=== PATIENT | male | born 1940 | race Caucasian/White ===

== ENCOUNTER 2021-08-28 08:51 | Outpatient (CLI) | payer MEDICARE, BC, SELFPAY ==
[2021-08-28 11:20] LABS: Albumin* 4.3 g/dL (3.3-5.0); Chloride* 100 mmol/L (96-114)
[2021-08-28 11:21] LABS: Potassium* 4.2 mmol/L (3.6-5.1); Sodium* 132 mmol/L (135-149)
[2021-08-28 11:23] LABS: Alkaline Phosphatase* 65 U/L (40-150); Aspartate Amino Transferase* 35 U/L (12-35); Bilirubin Total* 0.6 mg/dL (0.1-1.5); Blood Urea Nitrogen* 12 mg/dL (7-30); Carbon Dioxide* 28 mmol/L (20-32); Cholesterol* 222 mg/dL (90-199); Creatinine* 0.6 mg/dL (0.5-1.5); Estimated Glomerular Filt Rate 96 ml/min; Total Protein* 6.9 g/dL (6.0-8.3)
[2021-08-28 11:24] LABS: Alanine Aminotransferase* 21 U/L (4-50); Calcium* 9.6 mg/dL (8.4-10.6); Glucose* 103 mg/dL (60-115); HDL Cholesterol* 81 mg/dL (>=40); LDL Cholesterol Calculated 124 mg/dL (<100); Triglycerides* 86 mg/dL (40-149)
== END 2021-08-28 08:52 | disposition home or self-care (01) ==
LOC: NFLDREF 08:52
PROVIDERS: PCP Family Medicine; Visit Provider Family Medicine
DX: Z00.00 Encounter for general adult medical examination without abnormal findings (principal); R03.0 Elevated blood-pressure reading, without diagnosis of hypertension; N52.9 Male erectile dysfunction, unspecified; R97.20 Elevated prostate specific antigen [PSA]; H61.20 Impacted cerumen, unspecified ear; Z13.6 Encounter for screening for cardiovascular disorders
CPT/HCPCS: 80053; 80061; 84153

== ENCOUNTER 2022-05-18 15:09 | Outpatient (CLI) | payer MEDICARE, BC, SELFPAY | END 2022-05-18 15:10 | disposition home or self-care (01) | PROVIDERS: PCP Family Medicine; Visit Provider Family Medicine | DX: I10 Essential (primary) hypertension (principal); R97.20 Elevated prostate specific antigen [PSA] | CPT/HCPCS: 80048; 84153 ==

== ENCOUNTER 2022-05-27 08:15 | Outpatient (CLI) | payer MEDICARE, BC, SELFPAY | END 2022-05-27 08:16 | disposition home or self-care (01) | LOC: NFLDREF 05-29 08:03 | PROVIDERS: PCP Family Medicine; Referring Provider Family Medicine; Visit Provider Family Medicine | DX: E87.1 Hypo-osmolality and hyponatremia (principal) | CPT/HCPCS: 80048 ==

== ENCOUNTER 2022-10-08 07:50 | Outpatient (CLI) | payer MEDICARE, BC, SELFPAY | END 2022-10-08 07:51 | disposition home or self-care (01) | LOC: NFLDREF 15:08 | PROVIDERS: PCP Family Medicine; Referring Provider Family Medicine; Visit Provider Family Medicine | DX: I10 Essential (primary) hypertension (principal); R97.20 Elevated prostate specific antigen [PSA]; Z13.6 Encounter for screening for cardiovascular disorders; Z12.5 Encounter for screening for malignant neoplasm of prostate | CPT/HCPCS: 80053; 80061; 84153 ==

== ENCOUNTER 2022-11-09 08:40 | Outpatient (CLI) | payer MEDICARE, BC, SELFPAY | END 2022-11-09 08:41 | disposition home or self-care (01) | PROVIDERS: PCP Family Medicine; Visit Provider Family Medicine | DX: Z01.818 Encounter for other preprocedural examination (principal); I10 Essential (primary) hypertension; R97.20 Elevated prostate specific antigen [PSA]; N52.9 Male erectile dysfunction, unspecified; R82.90 Unspecified abnormal findings in urine | CPT/HCPCS: 80048; 87086 ==

== ENCOUNTER 2023-01-06 08:02 | Outpatient (CLI) | payer MEDICARE, BC, SELFPAY ==
--- NOTE | 2023-01-06 08:00 | CRLHL7_ITS ---
For Patients: As a result of the Century Cures Act, medical imaging exams and procedure reports are released immediately into your electronic medical record. You may view this report before your referring provider. If you have questions, please contact your health care provider. INDICATION: Prostate cancer. TECHNIQUE: 24.7 millicuries of technetium-99m labeled MDP has been given intravenously. Three hour delayed whole-body bone scan images have been performed. COMPARISON: CT dated 01/06/2023. FINDINGS: There is increased activity in the lower lumbar spine. This likely corresponds to the area of degenerative change. This is greatest at the L4-5 level. Mild asymmetric sternoclavicular activity on the left is noted. Bilateral foot activity is noted which is likely degenerative. There is bilateral function from both kidneys. IMPRESSION: No convincing evidence for skeletal metastases. Areas of increased activity in the lower lumbar spine are noted which are likely degenerative. Dictated by Edson Corona MD @ 01/07/2023 2:47:55 PM (Electronically Signed)
[2023-01-06 08:45] LABS: Creatinine* 0.6 mg/dL (0.5-1.5); Estimated Glomerular Filt Rate 96 ml/min
--- NOTE | 2023-01-06 09:00 | CRLHL7_ITS ---
For Patients: As a result of the Century Cures Act, medical imaging exams and procedure reports are released immediately into your electronic medical record. You may view this report before your referring provider. If you have questions, please contact your health care provider. INDICATION: Primary malignant neoplasm of prostate. TECHNIQUE: CT abdomen and pelvis acquired with 58 cc Isovue 370 IV contrast. COMPARISON: None. FINDINGS: Lower chest: Unremarkable. Liver: Unremarkable. Normal in size and attenuation. No suspicious masses. Gallbladder and bile ducts: Unremarkable. No stones or inflammation. No biliary dilatation. Pancreas: Unremarkable. No mass or inflammation. Spleen: Unremarkable. Normal in size. No masses. Adrenal glands: Unremarkable. No nodules. Kidneys: A nonobstructive stone and a benign-appearing cyst are in the right kidney. Kidneys otherwise unremarkable. GI tract: Unremarkable. Normal in caliber. No sign of mass or inflammation. Normal appendix. Vasculature: Abdominal aorta is normal in caliber. Mesenteric arteries are patent. Lymph nodes: No lymphadenopathy. Peritoneum/Abdominal Wall: Unremarkable. No sign of mass or infiltration. No free air or significant free fluid. Pelvis: Moderate prostatomegaly. Pelvic structures otherwise unremarkable. Bones: Unremarkable for age. IMPRESSION: No signs of metastatic prostate cancer or other significant finding. Please note that all CT scans at this facility use dose modulation, iterative reconstruction, and/or weight-based dosing when appropriate to reduce radiation dose to as low as reasonably achievable. Dictated by James Ghosh MD @ 01/07/2023 10:45:45 AM (Electronically Signed)
[2023-01-08 10:06] LABS: Testosterone, Adult Male 719 ng/dL (300-720)
== END 2023-01-06 08:03 | disposition home or self-care (01) ==
PROVIDERS: PCP Family Medicine; Visit Provider Nurse Practitioner
DX: C61 Malignant neoplasm of prostate (principal)
CPT/HCPCS: 36415; 74177; 78306; 82565; 84153; 84403; A9503; Q9967

== ENCOUNTER 2023-02-01 10:09 | Outpatient (CLI) | payer MEDICARE, BC, SELFPAY ==
--- NOTE | 2023-01-20 13:24 | ONC.NURNOTE ---
Dx: Prostate cancer
== END 2023-02-01 10:10 | disposition home or self-care (01) ==
LOC: MRI 10:10
PROVIDERS: PCP Family Medicine; Visit Provider Internal Medicine
DX: C61 Malignant neoplasm of prostate (principal)
CPT/HCPCS: 72195

== ENCOUNTER 2023-02-03 16:12 | Emergency (ER) | payer MEDICARE, BC, SELFPAY ==
[2023-02-03 16:25] VITALS: BP 191/87; PULSE 72; RESP 18; TEMP 36.3; O2SAT 98; BMI 19.4
--- NOTE | 2023-02-03 17:11 | ED_ITS ---
HPI - General Adult General Date Seen: 02/03/23 Chief complaint: Hypertension Stated complaint: bp 202/110 Dr Nelson ref Time Seen by Provider: 02/03/23 16:39 Source: patient Mode of arrival: ambulatory Limitations: no limitations History of Present Illness HPI narrative: Patient is an 82-year-old male with a history of hypertension, prostate adenocarcinoma presenting to the emergency department for hypertension and dizziness. He states today around noon he noticed he was dizzy and felt like the room was spinning. States he laid down and by about 15:00 symptoms have resolved. His made him check his blood pressure and he says it was 202/100. He spoke to his primary care provider who recommended he come to emergency department for evaluation. He is no longer feeling dizzy and does note that the symptoms were worse when he would move his head. Has never had symptoms like this before. States he does have prostate cancer in his getting prepared to is start radiation treatment on it. Has had full imaging and they have not seen any signs of metastatic disease. Denies any back pain. States that this time he feels asymptomatic. Denies fevers, chills, chest pain, sh ortness of breath, headache, lightheadedness, abdominal pain, nausea/vomiting. Related Data Home Medications Medication Instructions Recorded Confirmed ascorbic acid (vitamin C) 500 mg 500 mg PO DAILY 09/02/21 01/28/23 tablet,extended release multivitamin 1 tab PO QDAY 09/02/21 01/28/23 bicalutamide 50 mg tablet 50 mg PO BID 01/28/23 01/28/23 Previous Rx's Medication Instructions Recorded lisinopril 10 mg tablet 10 mg PO QDAY #90 tabs 10/13/22 rosuvastatin 5 mg tablet 5 mg PO QDAY #90 tabs 11/03/22 Allergies Allergy/AdvReac Type Severity Reaction Status Date / Time No Known Drug Allergies Allergy Verified 02/03/23 16:32 Review of Systems Status of ROS: Reports: 10 or more systems reviewed and unremarkable except as noted in History and below [facility] Medical History Health care directive on file ?Z78.9 - Other specified health status (ICD-10) COVID-19 ?U07.1 - COVID-19 (ICD-10) Peyronie's disease ?N48.6 - Induration penis plastica (ICD-10) Hypertension ?I10 - Essential (primary) hypertension (ICD-10) Hearing loss ?H91.90 - Unspecified hearing loss, unspecified ear (ICD-10) Erectile dysfunction ?N52.9 - Male erectile dysfunction, unspecified (ICD-10) Elevated prostate specific antigen (PSA) ?R97.20 - Elevated prostate specific antigen [PSA] (ICD-10) Colonoscopy refused ?Z53.20 - Procedure and treatment not carried out because of patient's decision for unspecified reasons (ICD-10) Surgical History Hx of prostate biopsy (06/2022) ?Z98.890 - Other specified postprocedural states (ICD-10) History of laparotomy (2004) ?Z98.890 - Other specified postprocedural states (ICD-10) History of vasectomy (2017) ?Z98.52 - Vasectomy status (ICD-10) History of bilateral inguinal hernia repair (2002) ?Z98.890 - Other specified postprocedural states (ICD-10) ?Z87.19 - Personal history of other diseases of the digestive system (ICD-10) Family History Father Alcoholism Daughter Alcoholism Son Epilepsy Mother High blood pressure Coronary artery disease, Onset Age: 70 Social History Narrative: , 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, 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, lives in does not drink alcohol exercises regularly- walks 2 miles daily non-smoker - quit age 23, 6 pack years What is your current living situation?: I presently have a place to live In the past 12 months, utilities in danger of being shut off: no In past 12 months, lack of transportation kept you from medical appts, meetings, work, or getting things needed for daily living: no In the past 12 mos, have been you worried that your food would run out before you had money to buy more?: never true In the past 12 mos, the food you bought just didn't last and you didn't have money to buy more?: never true Smoking Status: Never smoker How often do you have a drink containing alcohol: never How often do you have six or more drinks on one occasion: Never AUDIT-C Alcohol total score: 0 Non-prescribed substance use: denies use How often does anyone, including family, friends and others, physically hurt you : never How often does anyone, including family, friends and others, insult or talk down to you: never How often does anyone, including family, friends and others, threaten you with harm: never How often does anyone, including family, friends and others, scream or curse at you: never Little interest or pleasure in doing things: nearly every day Feeling down, depressed, or hopeless: not at all service: No Exam Narrative: Exam Narrative: Const: Well-nourished, Well-developed, in no distress Eyes: PERRL, no conjunctival injection, and symmetrical lids HENT: Atraumatic external nose and ears. Moist mucous membranes. Neck: Symmetric, trachea midline, No thyromegaly. CVS: RRR, No murmurs or gallops. Peripheral pulses 2+ and equal in all extremities RESP: Unlabored respiratory effort. Clear to auscultation bilaterally. GI: Nontender/Nondistended, No rebound or guarding. MSK:Extremities w/o deformity, Normal Active ROM Skin: Warm, Dry. No rashes or lesions. Neuro: Normal Muscle tone, No focal neurological deficits. Psych: Awake, Alert, & Oriented x3. Appropriate mood and affect. Const: Vital Signs, click to edit/add: Vital Signs - 24 hr 02/03/23 16:25 02/03/23 18:09 02/03/23 18:10 Temperature 97.4 F L Pulse Rate 61 58 L Pulse Rate [Pulse Oximeter] 72 Respiratory Rate 18 Blood Pressure 153/84 H Blood Pressure [Ri ght Upper Arm] 191/87 H Pulse Oximetry 98 97 100 Oxygen Delivery Me thod Room Air Course Vital Signs Vital signs: Initial Vital Signs Temperature 97.4 F L 02/03/23 16:25 Temperature Source Temporal Artery Scan 02/03/23 16:25 Pulse Rate 72 02/03/23 16:25 Respiratory Rate 18 02/03/23 16:25 Blood Pressure 191/87 H 02/03/23 16:25 Blood Pressure Mean 121 H 02/03/23 16:25 Pulse Oximetry 98 02/03/23 16:25 Oxygen Delivery Method Room Air 02/03/23 16:25 Vital Signs Temperature 97.4 F L 02/03/23 16:25 Pulse Rate 72 02/03/23 16:25 Respiratory Rate 18 02/03/23 16:25 Blood Pressure 191/87 H 02/03/23 16:25 Pulse Oximetry 98 02/03/23 16:25 Oxygen Delivery Method Room Air 02/03/23 16:25 Temperature 97.4 F L 02/03/23 16:25 Pulse Rate 58 L 02/03/23 18:10 Respiratory Rate 18 02/03/23 16:25 Blood Pressure 153/84 H 02/03/23 18:10 Pulse Oximetry 100 02/03/23 18:10 Oxygen Delivery Method Room Air 02/03/23 16:25 Medications Administered Medications: Generic Name Dose Route Start Last Admin Trade Name Freq PRN Reason Stop Dose Admin Sodium Chloride 1,000 mls @ 1,000 mls/hr 02/03/23 18:15 02/03/23 18:16 0.9 % Sodium Chloride 1000 Ml IV 02/03/23 19:14 1,000 mls/hr .Q1H TYESHA Administration Medical Decision Making MDM Narrative Medical decision making narrative: Patient is an 82-year-old male presenting to the emergency department for hypertension and dizziness. The dizziness is described as room spinning and worse when he moved his head. It resolved after 3 hours. He checked his blood pressure after that and was quite elevated so because primary care provider recommended he come to the emergency department. He is asymptomatic at this time and he did take his blood pressure medication after he is elevated blood pressure check. Blood pressure is improving here in the emergency department. Symptoms appear to be vertigo in nature based on symptoms. He does have a history of prostate cancer but has recently had multiple scans showing no metastatic disease and I do not believe is necessary to recheck him. He is asymptomatic in the emergency department this time. Will do any ACS workup. CBC, CMP, COVID/flu/RSV, troponin, urinalysis shows no concerning findings. This sodium and chloride is low low but I do not believe this is causing his symptoms. He has no history of hyponatremia I did give him a L of normal saline. He continues to stay asymptomatic with normal vitals throughout his time in the emergency department. I will discharge him home informed him and his to have a close follow-up to recheck his sodium. They are agreeable to this plan. Lab Data Labs: Lab Results 02/03/23 02/03/23 Range/Units 17:30 17:35 WBC 5.68 (4.50-11.00) K/uL RBC 4.78 (4.30-5.90) m/uL Hgb 14.4 (13.5-17.5) gm/dL Hct 43.3 (37.0-53.0) % MCV 91 (80-100) fL MCH 30 (26-34) pg MCHC 33 (32-36) gm/dL RDW Coeff of Tatiana 12.9 (11.5-15.5) % Plt Count 206 (140-440) K/uL Neut % (Auto) 62.1 (42.0-72.0) % Lymph % (Auto) 24.6 (20-44) % [place] % (Auto) 9.2 (0.0-11.0) % Eos % (Auto) 3.0 (0.0-7.0) % Baso % (Auto) 0.9 (0.0-3.0) % Neut # (Auto) 3.53 (1.7-7.0) K/uL Lymph # (Auto) 1.40 (0.90-2.90) K/uL [place] # (Auto) 0.50 (0.00-0.90) K/UL Eos # (Auto) 0.17 (0.00-0.50) K/uL Baso # (Auto) 0.05 (0.00-0.30) K/uL Abs Immat Gran (auto) 0.01 (0.00-0.30) K/uL Imm/Tot Granulo (auto) 0.2 % Sodium 128 L (135-149) mmol/L Potassium 3.6 (3.6-5.1) mmol/L Chloride 95 L (96-114) mmol/L Carbon Dioxide 27 (20-32) mmol/L Anion Gap 6 L (7-15) mEq/L BUN 11 (7-30) mg/dL Creatinine 0.5 (0.5-1.5) mg/dL Estimated Creat Clear 43.09 Estimated GFR 101 ml/min Glucose 101 (60-115) mg/dL Calcium 9.5 (8.4-10.6) mg/dL Total Bilirubin 0.6 (0.1-1.5) mg/dL AST 46 H (12-35) U/L ALT 36 (4-50) U/L Alkaline Phosphatase 63 (40-150) U/L Troponin I < 0.01 L (0.01-0.04) ng/mL Total Protein 7.8 (6.0-8.3) g/dL Albumin 4.8 (3.3-5.0) g/dL Urine Color Yellow (Yellow) Urine Appearance Clear (Clear) Urine pH 7.0 (5.0-8.5) Ur Specific [place] 1.010 (1.000-1.030) Urine Protein Negative (Negative) Urine Glucose (UA) Negative (Negative) Urine Ketones Negative (Negative) Urine Blood 1+ A (Negative) Urine Nitrite Negative (Negative) Urine Bilirubin Negative (Negative) Urine Urobilinogen 0.2 (0.2-1.0) Ur Leukocyte Esterase Negative (Negative) Urine RBC 0-2 (0-2) Urine WBC 0-2 (0-5) Ur Squamous Epith Cells Few (None-Few) Urine Bacteria None (None) SARS-CoV-2 (PCR) Negative SARS-CoV-2 (Negative) Influenza Type A (PCR) Negative PCR FLU A (Negative) Influenza Type B (PCR) Negative PCR FLU B (Negative) RSV (PCR) Negative PCR RSV (Negative) ECG Data Attestation: I personally reviewed and interpreted this ECG as follows: Prior ECG tracings: available for review Interpretation: Normal sinus rhythm with a rate of 73 beats per minute, normal intervals, normal axis, no ST or T-wave abnormalities. Appears similar to previous EKG on file. Discharge Plan Discharge Clinical Impression: Hyponatremia, Vertigo Patient Disposition: Home, Self-Care Condition: Stable Additional Instructions: I believe your symptoms were due to vertigo. Return to emergency department for new or worsening symptoms. You have a sodium level of 128. Normal is 135-145. I do not believe this was causing your symptoms and does not require hospitalization at this level but I do find reasonable for you to follow-up with the primary care provider to get this re-checked to make sure it is not getting worse. Prescriptions: No Action lisinopril 10 mg tablet 10 mg PO QDAY Qty: 90 4RF ascorbic acid (vitamin C) 500 mg tablet extended release 500 mg PO DAILY multivitamin Tablet 1 tab PO QDAY bicalutamide 50 mg tablet 50 mg PO BID rosuvastatin 5 mg tablet 5 mg PO QDAY Qty: 90 0RF Follow Up/Referrals: Stefani Nelson MD [Primary Care Provider] - Stand Alone Forms: Vtap Info Instructions
[2023-02-03 17:48] LABS: Basophils Absolute Auto 0.05 K/uL (0.00-0.30); Basophils Percent Auto 0.9 % (0.0-3.0); Eosinophils Absolute Auto 0.17 K/uL (0.00-0.50); Hematocrit 43.3 % (37.0-53.0); Hemoglobin* 14.4 gm/dL (13.5-17.5); Immature Granulocytes Abs Auto 0.01 K/uL (0.00-0.30); Immature Granulocytes Pct Auto 0.2 %; Lymphocytes Percent Auto 24.6 % (20-44); Mean Corpuscular HGB Conc 33 gm/dL (32-36); Mean Corpuscular Hemoglobin 30 pg (26-34); Mean Corpuscular Volume 91 fL (80-100); Monocytes Percent Auto 9.2 % (0.0-11.0); Neutrophils Absolute Auto 3.53 K/uL (1.7-7.0); Neutrophils Percent Auto 62.1 % (42.0-72.0); Platelet Count* 206 K/uL (140-440); RDW Coefficient of Variation % 12.9 % (11.5-15.5); Red Blood Count 4.78 m/uL (4.30-5.90); White Blood Count* 5.68 K/uL (4.50-11.00)
[2023-02-03 17:54] LABS: Appearance Urine Clear (Clear); Bilirubin Urine Negative (Negative); Blood Urine 1+ (Negative); Color Urine Yellow (Yellow); Glucose Urine Negative (Negative); Ketones Urine Negative (Negative); Leukocyte Esterase Urine Negative (Negative); Nitrite Urine Negative (Negative); Protein Urine Negative (Negative); Urobilinogen Urine 0.2 (0.2-1.0)
[2023-02-03 17:55] LABS: Slide Review Reflex No
[2023-02-03 18:03] LABS: Albumin* 4.8 g/dL (3.3-5.0); Chloride* 95 mmol/L (96-114); Sodium* 128 mmol/L (135-149)
[2023-02-03 18:04] LABS: Potassium* 3.6 mmol/L (3.6-5.1)
[2023-02-03 18:06] LABS: Alkaline Phosphatase* 63 U/L (40-150); Aspartate Amino Transferase* 46 U/L (12-35); Bilirubin Total* 0.6 mg/dL (0.1-1.5); Blood Urea Nitrogen* 11 mg/dL (7-30); Carbon Dioxide* 27 mmol/L (20-32); Creatinine* 0.5 mg/dL (0.5-1.5); Est. Creatinine Clearance* 43.09; Estimated Glomerular Filt Rate 101 ml/min; Glucose* 101 mg/dL (60-115); Total Protein* 7.8 g/dL (6.0-8.3)
[2023-02-03 18:07] LABS: Alanine Aminotransferase* 36 U/L (4-50); Calcium* 9.5 mg/dL (8.4-10.6)
[2023-02-03 18:09] VITALS: PULSE 61; O2SAT 97
[2023-02-03 18:09] LABS: Anion Gap 6 mEq/L (7-15)
[2023-02-03 18:10] VITALS: BP 153/84; PULSE 58; O2SAT 100
[2023-02-03] MEDS: 0.9 % SODIUM CHLORIDE 1000 ml 1,000 ML IV (18:16)
[2023-02-03 18:18] LABS: RBC Urine 0-2 (0-2); Squamous Epithelial Cell Urine Few (None-Few); WBC Urine 0-2 (0-5)
[2023-02-03 18:23] LABS: Troponin I* < 0.01 ng/mL (0.01-0.04)
[2023-02-03 18:25] LABS: PCR FLU A Negative PCR FLU A (Negative); PCR FLU B Negative PCR FLU B (Negative); PCR RSV Negative PCR RSV (Negative)
[2023-02-03 18:36] LABS: SARS PCR* Negative SARS-CoV-2 (Negative)
== END 2023-02-03 19:04 | disposition home or self-care (01) ==
PROVIDERS: Emergency Provider Student in an Organized Health Care Education/Training Program; PCP Family Medicine
DX: E87.1 Hypo-osmolality and hyponatremia (principal); R42 Dizziness and giddiness
CPT/HCPCS: 36415; 80053; 81001; 84484; 85025; 87631; 93005; 99283; 99284; J7030

== ENCOUNTER 2023-02-09 14:51 | Outpatient (CLI) | payer MEDICARE, BC, SELFPAY | END 2023-02-09 14:52 | disposition home or self-care (01) | LOC: NFLDREF 14:53 | PROVIDERS: PCP Family Medicine; Visit Provider Family Medicine | DX: E87.1 Hypo-osmolality and hyponatremia (principal); I10 Essential (primary) hypertension; R97.20 Elevated prostate specific antigen [PSA]; E78.5 Hyperlipidemia, unspecified | CPT/HCPCS: 80048; 80061; 80076 ==

== ENCOUNTER 2023-02-23 07:59 | Outpatient (CLI) | payer MEDICARE, BC, SELFPAY ==
--- OUTSIDE RECORDS SUMMARY | 2023-02-26 06:44 | XMS_ITS | Clinical Summary ---
Author Name Unknown Organization [facility] Address [address] [place] [address] Care Team Providers Care Home Help Aide Name Role Phone Elsewhere, Pcp Primary Care Provider Unavailabl e Source Comments Patient records contain information from all sites at [facility]. For routine questions regarding patient records, call [phone] during business hours, M-F 8:00 AM - 5:00 PM Central Time. Record requests for emergency care only can be directed to [phone] at any time.[facility] Allergies No known active allergies Medications Medication Sig Dispensed Refills Start Date End Date Status lisinopriL (PRINIVIL,ZESTRIL) 10 mg tablet Take 10 mg by mouth daily. 0 Active multivit with minerals/lutein (MULTIVITAMIN 50 PLUS ORAL) Take 1 tablet by mouth. 0 09/02/2021 Active rosuvastatin (CRESTOR) 5 mg tablet Take 5 mg by mouth daily. 0 11/03/2022 Active bicalutamide (CASODEX) 50 mg tablet Take 1 tablet (50 mg total) by mouth daily for 21 days. Take at the same time everyday. Take with or without food. 21 tablet 0 01/11/2023 Active tamsulosin (FLOMAX) 0.4 mg 24 hr capsule Take 1 capsule (0.4 mg total) by mouth daily. 30 capsule 1 02/23/2023 04/24/2023 Active Active Problems Problem Noted Date Diagnosed Date Primary Malignant Neoplasm Of Prostate 3 Cancer Staging:Clinical stage from 11/23/2022:Stage IIB(cT2a, cN0, cM0, PSA: 14.6, Grade Group: 2) - Unsigned Elevated Prostate-Specific Antigen 06/01/2022 Dysfunction Erectile 06/01/2022 Peyronie's Disease 06/01/2022 Loss Hearing Bilateral 06/01/2022 Encounters Date Type Department Care Team Description 02/25/2023 1:06 PM [facility] [place] Hospital Encounter Department of Radiation Oncology in [address] [address] Stanislaw Alan M.D. 02/24/2023 1:08 PM POCKET MACHINE OPERATOR Hospital Encounter Department of Radiation Oncology in [address] [address] Stanislaw Alan M.D. 02/23/2023 1:01 PM POCKET MACHINE OPERATOR - 02/23/2023 3:32 PM POCKET MACHINE OPERATOR Hospital Encounter Department of Radiation Oncology in [address] [address] Stanislaw Alan M.D. Primary Malignant Neoplasm Of Prostate (HCC) 02/23/2023 1:01 PM POCKET MACHINE OPERATOR Hospital Encounter Department of Radiation Oncology in [address] [phone] Stanislaw Alan M.D. 02/22/2023 1:02 PM POCKET MACHINE OPERATOR Hospital Encounter Department of Radiation Oncology in [address] [address] Stanislaw Alan M.D. 02/21/2023 1:09 PM POCKET MACHINE OPERATOR Hospital Encounter Department of Radiation Oncology in [address] [address] Stanislaw Alan M.D. 02/18/2023 1:09 PM POCKET MACHINE OPERATOR Hospital Encounter Department of Radiation Oncology in [address] [address] Stanislaw Alan M.D. 02/17/2023 12:20 PM POCKET MACHINE OPERATOR Hospital Encounter Department of Radiation Oncology in [address] [address] Stanislaw Alan M.D. 02/16/2023 1:09 PM POCKET MACHINE OPERATOR Hospital Encounter Department of Radiation Oncology in [address] [address] Stanislaw Alan M.D. 02/15/2023 1:11 PM POCKET MACHINE OPERATOR - 02/15/2023 4:52 PM POCKET MACHINE OPERATOR Hospital Encounter Department of Radiation Oncology in [address] [address] Jolynn Alonzo M.D. Primary Malignant Neoplasm Of Prostate (HCC) 02/15/2023 1:11 PM POCKET MACHINE OPERATOR Hospital Encounter Department of Radiation Oncology in [address] [address] Stanislaw Alan M.D. 02/14/2023 1:08 PM POCKET MACHINE OPERATOR Hospital Encounter Department of Radiation Oncology in [address] [address] Stanislaw Alan M.D. 02/11/2023 1:09 PM POCKET MACHINE OPERATOR Hospital Encounter Department of Radiation Oncology in [address] [address] Stanislaw Alna M.D. 02/10/2023 10:52 AM POCKET MACHINE OPERATOR - 02/10/2023 2:47 PM POCKET MACHINE OPERATOR Hospital Encounter Department of Radiation Oncology in [address] [address] Stanislaw Alan M.D. Retterath, Chelsey A, R.N. Primary Malignant Neoplasm Of Prostate (HCC) 02/10/2023 10:51 AM POCKET MACHINE OPERATOR Hospital Encounter Department of Radiation Oncology in [address] [address] Stanislaw Alan M.D. 02/09/2023 9:27 AM POCKET MACHINE OPERATOR - 02/09/2023 6:35 PM POCKET MACHINE OPERATOR Hospital Encounter Department of Radiation Oncology in [address] [address] Stanislaw Alan M.D. Primary Malignant Neoplasm Of Prostate (HCC) 02/09/2023 9:24 AM POCKET MACHINE OPERATOR Hospital Encounter Department of Radiation Oncology in [address] [address] Stanislaw Alan M.D. 02/01/2023 8:41 AM POCKET MACHINE OPERATOR - 02/01/2023 10:35 AM POCKET MACHINE OPERATOR Hospital Encounter Department of Radiation Oncology in [address] [address] Stanislaw Alan M.D. Primary Malignant Neoplasm Of Prostate (HCC) (Primary Dx) 01/20/2023 9:39 AM POCKET MACHINE OPERATOR - 01/20/2023 11:59 PM POCKET MACHINE OPERATOR Hospital Encounter Department of Radiation Oncology in [address] [address] Satnislaw Alan M.D. Primary Malignant Neoplasm Of Prostate (HCC) Discharge Disposition: Home or Self Care 01/20/2023 8:43 AM POCKET MACHINE OPERATOR - 01/20/2023 9:38 AM POCKET MACHINE OPERATOR Hospital Encounter Department of Radiation Oncology in [address] [address] Stanislaw Alan M.D. Primary Malignant Neoplasm Of Prostate (HCC) (Primary Dx) 01/11/2023 8:40 AM POCKET MACHINE OPERATOR - 01/11/2023 5:14 PM POCKET MACHINE OPERATOR Hospital Encounter Department of Radiation Oncology in [address] [address] Stanislaw Alan M.D. Primary Malignant Neoplasm Of Prostate (HCC) (Primary Dx) 01/11/2023 Orders Only Department of Radiation Oncology in [address] [address] Stanislaw Alan M.D. 12/21/2022 10:18 AM POCKET MACHINE OPERATOR - 12/21/2022 12:50 PM POCKET MACHINE OPERATOR Hospital Encounter Department of Radiation Oncology in [address] [address] Stanislaw Alan M.D. Primary Malignant Neoplasm Of Prostate (HCC) (Primary Dx) 12/02/2022 10:30 AM CDT Office Visit Department of Urology in [place], [place] [address] [place] [phone] Geovanna Kennedy APRN, C.N.P. Primary Malignant Neoplasm Of Prostate (HCC) (Primary Dx) from Last 3 Months Family History Medical History Relation Name Comments Alcohol abuse Daughter Alcohol abuse Father Hypertension Mother Epilepsy Son Cancer Neg Hx Relation Name Status Comments Daughter Alive Father Mother Son Alive Social History Tobacco Use Types Packs/Day Years Used Date Smoking Tobacco: Never Passive Smoke Exposure: Never Smokeless Tobacco: Never Tobacco Cessation:Counseling Given: Not Answered Alcohol Use Standard Drinks/Week Comments Not Currently 0 (1 standard drink = 0.6 oz pur e alcohol) Overall Financial Resource Strain (CARDIA) Answe r Date Recorded How hard is it for you to pa y for the very basics like food, housing, medical care, and heating? Not hard at all 12/02/2022 Exercise Vital Sign Answer Date Recorde d On average, how many days pe r week do you engage in moderate to strenuous exercise (like a brisk walk)? 7 days Minutes of Exercise per Session Not on file 12/02/2022 Hunger Vital Sign Answer Date Recorded Within the past 12 months, y ou worried that your food would run out before you got the money to buy more. Never true 12/03/19 Ran Out of Food in the Last Year Not on file 12/02/2022 PRAPARE - Transportation Answer Date Re corded In the past 12 months, has l ack of transportation kept you from medical appointments or from getting medications? No 11/08 In the past 12 months, has l ack of transportation kept you from meetings, work, or from getting things needed for daily living? No 12/02/2022 Nutrition Answer Date Recorded Nutrition: EVOO Fat Source Unknown 12/02 On average, how many serving s of fruits and vegetables do you eat per day (serving size is equal to 1 cup or approximately the size of a tennis ball)? 0-2 12/02/2022 Dental Answer Date Recorded Dental: Regular Dentist Yes 12/03/19 Employment Answer Date Recorded Employment status Retired 12/02/2022 Housing Stability Answer Date Recorded What is your living situation today? I have a [facility] place to live 12/02/2022 Sex and Gender Information Value Date Recorded Sex Assigned at Male 12/02/2022 9:58 AM CDT Gender Identity Male 12/02/2022 9:58 AM CDT Sexual Orientation Straight 12/02/2022 9: 58 AM CDT Last Filed Vital Signs Vital Sign Reading Time Taken Comments Blood Pressure 144/67 01/20/2023 9:00 AM POCKET MACHINE OPERATOR Pulse 76 01/20/2023 9:00 AM POCKET MACHINE OPERATOR Temperature 36.4 ??C (97.6 ??F) 02/23/2023 1:43 PM CS T Respiratory Rate 16 11/23/2022 12:35 PM CDT Oxygen Saturation 96% 11/23/2022 12:35 PM CDT Inhaled Oxygen Concentration - - Weight 55.5 kg (122 lb 5.7 oz) 02/23/2023 1:43 P M POCKET MACHINE OPERATOR Height 164.1 cm (5' 4.61) 11/23/2022 10:14 AM C DT Body Mass Index 20.61 11/23/2022 10:14 AM CDT Plan of Treatment Upcoming Encounters Date Type Department Care Team (Late st Contact Info) Description 02/28/2023 1:30 PM POCKET MACHINE OPERATOR Appointment Department of Radiation Oncology in [address] [address] Stanislaw Alan M.D. [address] [place] [phone] 03/01/2023 1:30 PM POCKET MACHINE OPERATOR Appointment Department of Radiation Oncology in [address] [address] Stanislaw Alan M.D. [address] [place] [phone] 03/02/2023 1:30 PM POCKET MACHINE OPERATOR Appointment Department of Radiation Oncology in [address] [address] Stanislaw Alan M.D. [address] [place] [phone] 03/02/2023 1:45 PM POCKET MACHINE OPERATOR Appointment Department of Radiation Oncology in [place] [id number] [place] [phone] Stanislaw Alan M.D. [address] [place] [phone] 03/03/2023 1:30 PM POCKET MACHINE OPERATOR Appointment Department of Radiation Oncology in [place], [place] [address] [place] [phone] Stanislaw Alan M.D. [address] [place] [phone] 03/04/2023 1:30 PM POCKET MACHINE OPERATOR Appointment Department of Radiation Oncology in [address] [phone] Stanislaw Alan M.D. [address] [place] [phone] 03/07/2023 1:30 PM POCKET MACHINE OPERATOR Appointment Department of Radiation Oncology in [address] [address] Stanislaw Alan M.D. [address] [place] [phone] 03/08/2023 1:30 PM POCKET MACHINE OPERATOR Appointment Department of Radiation Oncology in [place], [place] [address] [place] [phone] Stanislaw Alan M.D. [address] [place] [phone] 03/09/2023 1:30 PM POCKET MACHINE OPERATOR Appointment Department of Radiation Oncology in [address] [address] Stanislaw Alan M.D. [address] [place] [phone] 03/09/2023 1:45 PM POCKET MACHINE OPERATOR Appointment Department of Radiation Oncology in [place], [place] [address] [place] [phone] Stanislaw Alan M.D. [address] [place] [phone] 03/10/2023 1:30 PM POCKET MACHINE OPERATOR Appointment Department of Radiation Oncology in [place], [place] [address] [place] [phone] Stanislaw Alan M.D. [address] [place] [phone] 03/11/2023 1:30 PM POCKET MACHINE OPERATOR Appointment Department of Radiation Oncology in [address] [address] Stanislaw Alan M.D. [address] [place] [phone] 03/14/2023 1:30 PM POCKET MACHINE OPERATOR Appointment Department of Radiation Oncology in [address] [phone] Stanislaw Alan M.D. [address] [place] [phone] 03/15/2023 1:30 PM POCKET MACHINE OPERATOR Appointment Department of Radiation Oncology in [address] [address] Stanislaw Alan M.D. [address] [place] [phone] 03/16/2023 1:30 PM POCKET MACHINE OPERATOR Appointment Department of Radiation Oncology in [address] [phone] Stanislaw Alan M.D. [address] [place] [phone] 03/16/2023 1:45 PM POCKET MACHINE OPERATOR Appointment Department of Radiation Oncology in [place], [place] [address] [place] [phone] Stanislaw Alan M.D. [address] [place] [phone] Health Maintenance Due Date Last Done Comments Creatinine Level (Kidney Function Test) 1940 Potassium Level 1940 Sodium Level 1940 Depression Screening (Annual PHQ-2) 02/07/2023 DTaP,Tdap,and Td Vaccines (2 - Td or Tdap) 06/23/2027 06/22/2017 Pneumococcal vaccine (65+ years) Completed 06/27/2015, 04/09/2011 Zoster Vaccines Completed 03/01/2022, 08/0 05/2021, 04/09/2011 COVID-19 Vaccine Completed 11/16/2022, , 11/25/2021, Additional history exists Influenza Vaccine Completed 11/16/2022, , 11/20/2020, Additional history exists Fall Risk Screen (Annual) Completed 02/10/2023 HPV Vaccines Aged Out No longer eligi ble based on patient's age to complete this topic Procedures Procedure Name Priority Date/Time Associated Diagnosis Comments ARIA DAILY TREATMENT INFORMATION Routine 02/25/2023 1:25 PM POCKET MACHINE OPERATOR ARIA DAILY TREATMENT INFORMATION Routine 02/24/2023 1:36 PM POCKET MACHINE OPERATOR ARIA DAILY TREATMENT INFORMATION Routine 02/23/2023 1:34 PM POCKET MACHINE OPERATOR ARIA DAILY TREATMENT INFORMATION Routine 02/22/2023 1:34 PM POCKET MACHINE OPERATOR ARIA DAILY TREATMENT INFORMATION Routine 02/21/2023 1:33 PM POCKET MACHINE OPERATOR ARIA DAILY TREATMENT INFORMATION Routine 02/18/2023 1:27 PM POCKET MACHINE OPERATOR ARIA DAILY TREATMENT INFORMATION Routine 02/17/2023 12:49 PM POCKET MACHINE OPERATOR ARIA DAILY TREATMENT INFORMATION Routine 02/16/2023 1:29 PM POCKET MACHINE OPERATOR ARIA DAILY TREATMENT INFORMATION Routine 02/15/2023 1:21 PM POCKET MACHINE OPERATOR ARIA DAILY TREATMENT INFORMATION Routine 02/14/2023 1:26 PM POCKET MACHINE OPERATOR ARIA DAILY TREATMENT INFORMATION Routine 02/11/2023 1:32 PM POCKET MACHINE OPERATOR ARIA DAILY TREATMENT INFORMATION Routine 02/10/2023 11:05 AM POCKET MACHINE OPERATOR ARIA DAILY TREATMENT INFORMATION Routine 02/09/2023 9:52 AM POCKET MACHINE OPERATOR OUTSIDE MR BODY Routine 02/01/2023 10:30 AM POCKET MACHINE OPERATOR INITIAL RAD ONC TREATMENT PLANNING CT SIMULATION Routine 02/01/2023 9:00 AM POCKET MACHINE OPERATOR Primary Malignant Neoplasm Of Prostate (HCC) OUTSIDE NM GENERAL Routine 01/06/2023 10 :40 AM POCKET MACHINE OPERATOR OUTSIDE CT BODY Routine 01/06/2023 8:50 AM POCKET MACHINE OPERATOR from Last 3 Months Results * Aria Daily Treatment Information (02/25/2023 1:25 PM POCKET MACHINE OPERATOR) Only the most recent of13 resultswithin the time period is included. Course ID [id number] e STRAUSS ARIA Course Start Date 3 10:54 POCKET MACHINE OPERATOR STRAUSS ARIA First Treatment Date 4 09:50 POCKET MACHINE OPERATOR STRAUSS ARIA Last Treatment Date 4 13:25 POCKET MACHINE OPERATOR STRAUSS ARIA Treatment Elapsed Days 16 STRAUSS ARIA Reference Point [id number] STRAUSS ARIA Dosage Given to Date cGy 3510 STRAUSS ARIA Session Dosage Given 270 STRAUSS ARIA Plan ID [id number] STRAUSS ARIA Fractions Treated to Date 13 STRAUSS ARIA Planned Total Fractions 26 STRAUSS ARIA Prescribed Dose Per Fraction 270 STRAUSS ARIA Prescription Dose in cGy 7020 [facility] Plan Primary Reference Point [id number] [facility] 02/25/2023 1:25 PM POCKET MACHINE OPERATOR Provider Not In System RADIATION ONCOLOG Y ORDERABLES Performing Organization Address [facility] de Phone Number RICA GUTHRIE na * MR PELVIS WO CON-Outside MR Body (02/01/2023 10:30 AM POCKET MACHINE OPERATOR) 02/01/2023 10:2 8 AM POCKET MACHINE OPERATOR Narrative [facility] - 02/01/2023 11:15 AM POCKET MACHINE OPERATOR This order has been created and auto-finalized to support the import of outside images. If available, original interpretation can be found on the Media Tab in Chart Review, in Document Viewer, or as an image in QREADS. If a re-interpretation or overread is required please follow defined workflow. ?? Provider Not In System IMG MRI PROCEDURE S Performing Organization Address [facility] de Phone Number [facility] NA * Initial Rad Onc Treatment Planning CT Simulation (02/01/2023 9:00 AM POCKET MACHINE OPERATOR) Narrative RICA GUTHRIE - 02/01/2023 9:00 AM POCKET MACHINE OPERATOR Carla Adam, RTT ? 02/01/2023 ??9:54 AM Initial Rad Onc Treatment Planning CT Simulation Performed by: Stanislaw Alan M.D. Authorized by: Stanislaw Alan M.D. ?? Stanislaw Alan M.D. RADIATION ONCOLOGY ORDERABLES Performing Organization Address [facility] de Phone Number RICA GUTHRIE na * NM BONE SCAN WHOLE BODY-Outside NM General (01/06/2023 10:40 AM POCKET MACHINE OPERATOR) Narrative IIIL - 01/07/2023 11:10 AM POCKET MACHINE OPERATOR This order has been created and auto-finalized to support the import of outside images. If available, original interpretation can be found on the Media Tab in Chart Review, in Document Viewer, or as an image in QREADS. If a re-interpretation or overread is required please follow defined workflow. ?? Provider Not In System IMG NM PROCEDURES [facility] NA * CT ABDOMEN PELVIS W CON-Outside CT Body (01/06/2023 8:50 AM POCKET MACHINE OPERATOR) Narrative [facility] - 01/07/2023 11:14 AM POCKET MACHINE OPERATOR This order has been created and auto-finalized to support the import of outside images. If available, original interpretation can be found on the Media Tab in Chart Review, in Document Viewer, or as an image in QREADS. If a re-interpretation or overread is required please follow defined workflow. ?? Provider Not In System IMG CT PROCEDURES Performing Organization Address City/[facility]/ZIP Co de Phone Number [facility] NA from Last 3 Months Advance Directives For more information, please contact: [phone] Latest Code Status on File Code Status Date Activated Date Inactivated Comments Full Code 11/23/2022 9:44 AM 11/23/2022 3:18 PM Question Answer Comments Full Code: Discussed Care Teams Home Help Aide Relationship Specialty Start Date End Date Elsewhere, Pcp PCP - General Internal Medicine 11/23/22
--- OUTSIDE RECORDS SUMMARY | 2023-02-26 06:45 | XMS_ITS | Encounter Summary ---
Author Name Unknown Organization [facility] Address [address] [place] [address] Care Team Providers Care Data Security Coordinator Name Role Phone Elsewhere, Pcp Primary Care Provider Unavailabl e Encounter Details Date Type Department Care Team (Late st Contact Info) Description 02/22/2023 1:02 PM VEHICLE TECHNICIAN Hospital Encounter Department of Radiation Oncology in [place], [place] [address] [place] [address] Stanislaw Alan M.D. [address] [place] [phone] Social History Tobacco Use Types Packs/Day Years Used Date Smoking Tobacco: Never Passive Smoke Exposure: Never Smokeless Tobacco: Never Alcohol Use Standard Drinks/Week Comments Not Currently [...] money to buy more. Never true 12/03/19 23 Ran Out of Food in the Last [...] your living situation today? I have a [facility] place to live 12/02/2022 Sex and Gender Information Value Date Recorded Sex Assigned at Male 12/02/2022 9:58 AM CDT Gender Identity Male 12/02/2022 9:58 AM CDT Sexual Orientation Straight 12/02/2022 9: 58 AM CDT documented as of this encounter Plan of Treatment Upcoming Encounters Date Type Department Care Team (Late st Contact Info) Description 02/28/2023 1:30 PM VEHICLE TECHNICIAN Appointment Department of Radiation Oncology in [address] [phone] Stanislaw Alan M.D. [address] [place] [address] 03/01/2023 1:30 PM VEHICLE TECHNICIAN Appointment Department of Radiation Oncology in [address] [phone] Stanislaw Alan M.D. [address] [place] [phone] 03/02/2023 1:30 PM VEHICLE TECHNICIAN Appointment Department of Radiation Oncology in [address] [phone] Stanislaw Alan M.D. [address] [place] [phone] 03/02/2023 1:45 PM VEHICLE TECHNICIAN Appointment Department of Radiation Oncology in [address] [address] Stanislaw Alan M.D. [address] [place] [phone] 03/03/2023 1:30 PM VEHICLE TECHNICIAN Appointment Department of Radiation Oncology in [place], [place] [address] [place] [phone] Stanislaw Alan M.D. [address] [place] [phone] 03/04/2023 1:30 PM VEHICLE TECHNICIAN Appointment Department of Radiation Oncology in [address] [address] Stanislaw Alan M.D. [address] [place] [phone] 03/07/2023 1:30 PM VEHICLE TECHNICIAN Appointment Department of Radiation Oncology in [address] [address] Stanislaw Alan M.D. [address] [place] [phone] 03/08/2023 1:30 PM VEHICLE TECHNICIAN Appointment Department of Radiation Oncology in [address] [address] Stanislaw Alan M.D. [address] [place] [phone] 03/09/2023 1:30 PM VEHICLE TECHNICIAN Appointment Department of Radiation Oncology in [address] [address] Stanislaw Alan M.D. [address] [place] [phone] 03/09/2023 1:45 PM VEHICLE TECHNICIAN Appointment Department of Radiation Oncology in [address] [place] [address] Stanislaw Alan M.D. [address] [place] [phone] 03/10/2023 1:30 PM VEHICLE TECHNICIAN Appointment Department of Radiation Oncology in [place], [place] [address] [place] [phone] Stanislaw Alan M.D. [address] [place] [phone] 03/11/2023 1:30 PM VEHICLE TECHNICIAN Appointment Department of Radiation Oncology in [address] [phone] Stanislaw Alan M.D. [address] [place] [address] 03/14/2023 1:30 PM VEHICLE TECHNICIAN Appointment Department of Radiation Oncology in [place], [place] [address] [place] [phone] Stanislaw Alan M.D. [address] [place] [phone] 03/15/2023 1:30 PM VEHICLE TECHNICIAN Appointment Department of Radiation Oncology in [place], [place] [address] [place] [phone] Stanislaw Alan M.D. [address] [place] [phone] 03/16/2023 1:30 PM VEHICLE TECHNICIAN Appointment Department of Radiation Oncology in [place], [place] [address] [place] [phone] Stanislaw Alan M.D. [address] [place] [phone] 03/16/2023 1:45 PM VEHICLE TECHNICIAN Appointment Department of Radiation Oncology in [place], [place] [address] [place] [phone] Stanislaw Alan M.D. [address] [place] [address] documented as of this encounter Visit Diagnoses Not on filedocumented in this encounter Care Teams Data Security Coordinator Relationship Specialty Start Date End Date Elsewhere, Pcp PCP - General Internal Medicine 11/23/22 documented as of this encounter
--- OUTSIDE RECORDS SUMMARY | 2023-02-26 06:45 | XMS_ITS | Encounter Summary ---
Author Name Unknown Organization [facility] Address [address] [place] [address] Care Team Providers Care Loan Officer Name Role Phone Elsewhere, Pcp Primary Care Provider Unavailabl e Reason for Referral * Radiation Therapy (Routine) - Authorized Specialty Diagnoses / Procedures Referred By Contac t Referred To Contact Diagnoses Primary Malignant Neoplasm Of Prostate (HCC) Procedures Management Visit Stanislaw Alan M.D. [address] [place] [phone] [facility] Region Referral ID Status Reason Start Date Expiration Date V isits Requested Visits Authorized [id number] Authorized 01/11/2023 01/11/2024 10 10 ERCIAL PROPERTY ADMINISTRATOR Reason for Visit * Radiation Therapy (Routine) - Authorized Specialty Diagnoses / Procedures Referred By Tomy meade Referred To Contact Diagnoses Primary Malignant Neoplasm Of Prostate (HCC) Procedures Management Visit Stanislaw Alan M.D. [address] [place] [phone] [facility] Region Referral ID Status Reason Start Date Expiration Date V isits Requested Visits Authorized [id number] Authorized 01/11/2023 01/11/2024 10 10 Encounter Details Date Type Department Care Team (Latest Contact Info) Description 02/15/2023 1:11 PM COMMERCIAL PROPERTY ADMINISTRATOR - 02/15/2023 4:52 PM COMMERCIAL PROPERTY ADMINISTRATOR Hospital Encounter Department of Radiation Oncology in [place], [place] [address] [place] [address] Jolynn Alonzo M.D. [address] [place] [phone] Primary Malignant Neoplasm Of Prostate (HCC) Social History Tobacco Use Types Packs/Day Years [...] your living situation today? I have a [facility] place to live 12/02/2022 Sex and Gender Information Value Date Recorded Sex Assigned at Male 12/02/2022 9:58 AM CDT Gender Identity Male 12/02/2022 9:58 AM CDT Sexual Orientation Straight 12/02/2022 9: 58 AM CDT documented as of this encounter Last Filed Vital Signs Vital Sign Reading Time Taken Comments Blood Pressure - - Pulse - - Temperature 36.4 ??C (97.6 ??F) 02/15/2023 1:47 PM CS T Respiratory Rate - - Oxygen Saturation - - Inhaled Oxygen Concentration - - Weight 55.7 kg (122 lb 12.7 oz) 02/15/2023 1:47 PM COMMERCIAL PROPERTY ADMINISTRATOR Height - - Body Mass Index 20.68 11/23/2022 10:14 AM CDT documented in this encounter Medications at Time of Discharge Medication Sig Dispensed Refills Start Date End Date lisinopriL (PRINIVIL,ZESTRIL) 10 mg tablet Take 10 mg by mouth daily. 0 multivit with minerals/lutein (MULTIVITAMIN 50 PLUS ORAL) Take 1 tablet by mouth. 0 09/02/2021 rosuvastatin (CRESTOR) 5 mg tablet Take 5 mg by mouth daily. 0 11/03/2022 documented as of this encounter Progress Notes * Jolynn Alonzo M.D. - 02/15/2023 2:00 PM CST ATTESTATION FOR MANAGEMENT VISIT I saw and evaluated the patient and participated in the larson portions of the service as noted below.I reviewed the documentation of Ms. Анна Miramontes RN and agree with the findings and plan. Thepatient appears well on exam. We will continue with radiation as planned and monitor weekly. Jolynn Alonzo M.D., 02/15/2023 SUBJECTIVE CHIEF COMPLAINT/REASON FOR VISIT Evaluation for side effects while receiving radiation treatment for 1. Primary Malignant Neoplasm Of Prostate (HCC) SUPERVISED BY: Jolynn Alonzo M.D. HISTORY OF PRESENT ILLNESS Mr. Norm Sandoval is a 82 y.o. 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 Patient received a leuprolide 7.5 mg injection on January 28, 2023 at [facility] with a plan for 4-6 months of ADT. Treatment Course: 1xProstate Plan ID Fractions Dose / Fraction (cGy) Dose Treated (cGy) Dose Planned (cGy) First Treatment Last Treatment Elapsed Days [id number] 02/09/2023 02/15/2023 6 Course Summary 02/09/2023 02/15/2023 6 The patient was seen and examined today with Dr. Alonzo. The patient reports to be feeling well overall. He denies changes to urination, diarrhea, hematuriaor rectal bleeding. He reports nocturia x 2-3 which is his baseline. Last week after a couple treatments patient noted some mild left sided testicular pain. He took Advil and the discomfort has resolved. He has not needed to take any Advil this week. PATIENT REPORTED SYMPTOM SCREEN: FATIGUE (Scale: 0 = no fatigue; 10 = worst fatigue you can imagine): 0 PAIN (Scale: 0 = no pain; 10 = worst pain you can imagine): 0 OVERALL QUALITY OF LIFE (Scale: 0 = as bad as can be; 10 = as good as can be): 10 OBJECTIVE Temp 36.4 ??C (Temporal) Wt 55.7 kg BMI 20.68 kg/m?? PHYSICAL EXAMINATION General: Alert and oriented, in no apparent distress. 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 Discussed with patient that if the testicular pain returned or if there was increased swelling and discomfort that he should let us know. Patient received his first Leuprolide 7.5 mg injection at [facility]. He is scheduled for his next one of February 25, 2023. He will continue with radiation treatment as planned. He will contact our care team with any questions or concerns. Signed by: Анна Miramontes R.N. 02/15/2023 2:04 PM COMMERCIAL PROPERTY ADMINISTRATOR ERCIAL PROPERTY ADMINISTRATOR documented in this encounter Plan of Treatment Upcoming Encounters Date Type Department Care Team (Late st Contact Info) Description 02/28/2023 1:30 PM COMMERCIAL PROPERTY ADMINISTRATOR Appointment Department of Radiation Oncology in [address] [phone] Stanislaw Alan M.D. [address] [place] [phone] 03/01/2023 1:30 PM COMMERCIAL PROPERTY ADMINISTRATOR Appointment Department of Radiation Oncology in [address] [address] Stanislaw Alan M.D. [address] [place] [phone] 03/02/2023 1:30 PM COMMERCIAL PROPERTY ADMINISTRATOR Appointment Department of Radiation Oncology in [address] [address] Stanislaw Alan M.D. [address] [place] [phone] 03/02/2023 1:45 PM COMMERCIAL PROPERTY ADMINISTRATOR Appointment Department of Radiation Oncology in [address] [address] Stanislaw Alan M.D. [address] [place] [phone] 03/03/2023 1:30 PM COMMERCIAL PROPERTY ADMINISTRATOR Appointment Department of Radiation Oncology in [address] [phone] Stanislaw Alan M.D. [address] [place] [phone] 03/04/2023 1:30 PM COMMERCIAL PROPERTY ADMINISTRATOR Appointment Department of Radiation Oncology in [place], [place] [address] [place] [phone] Stanislaw Alan M.D. [address] [place] [phone] 03/07/2023 1:30 PM COMMERCIAL PROPERTY ADMINISTRATOR Appointment Department of Radiation Oncology in [place], [place] [address] [place] [phone] Stanislaw Alan M.D. [address] [place] [phone] 03/08/2023 1:30 PM COMMERCIAL PROPERTY ADMINISTRATOR Appointment Department of Radiation Oncology in [address] [phone] Stanislaw Alan M.D. [address] [place] [phone] 03/09/2023 1:30 PM COMMERCIAL PROPERTY ADMINISTRATOR Appointment Department of Radiation Oncology in [address] [address] Stanislaw Alan M.D. [address] [place] [phone] 03/09/2023 1:45 PM COMMERCIAL PROPERTY ADMINISTRATOR Appointment Department of Radiation Oncology in [address] [address] Stanislaw Alan M.D. [address] [place] [phone] 03/10/2023 1:30 PM COMMERCIAL PROPERTY ADMINISTRATOR Appointment Department of Radiation Oncology in [address] [address] Stanislwa Alan M.D. [address] [place] [phone] 03/11/2023 1:30 PM COMMERCIAL PROPERTY ADMINISTRATOR Appointment Department of Radiation Oncology in [address] [address] Stanislaw Alan M.D. [address] [place] [phone] 03/14/2023 1:30 PM COMMERCIAL PROPERTY ADMINISTRATOR Appointment Department of Radiation Oncology in [address] [address] Stanislaw Alan M.D. [address] [place] [phone] 03/15/2023 1:30 PM COMMERCIAL PROPERTY ADMINISTRATOR Appointment Department of Radiation Oncology in [address] [phone] Stanislaw Alan M.D. [address] [place] [phone] 03/16/2023 1:30 PM COMMERCIAL PROPERTY ADMINISTRATOR Appointment Department of Radiation Oncology in [address] [address] Stanislaw Alan M.D. [address] [place] [phone] 03/16/2023 1:45 PM COMMERCIAL PROPERTY ADMINISTRATOR Appointment Department of Radiation Oncology in [address] [address] Stanislaw Alan M.D. [address] [place] [phone] Scheduled Orders Name Type Priority Associated Diagnoses Orde r Schedule Management Visit Radiation Oncology Routine Primary Malignant Neoplasm Of Prostate (HCC) Once for 1 Occurrences starting 02/15/2023 until 02/15/2023 documented as of this encounter Visit Diagnoses Diagnosis Primary Malignant Neoplasm Of Prostate (HCC) documented in this encounter Care Teams Loan Officer Relationship Specialty Start Date End Date Elsewhere, Pcp PCP - General Internal Medicine 11/23/22 documented as of this encounter
--- OUTSIDE RECORDS SUMMARY | 2023-02-26 06:45 | XMS_ITS | Encounter Summary ---
Author Name Unknown Organization [facility] Address [address] [place] [address] Care Team Providers Care Sign Hanger Name Role Phone Elsewhere, Pcp Primary Care Provider Unavailabl e Encounter Details Date Type Department Care Team (Late st Contact Info) Description 02/17/2023 12:20 PM UPPERS EDGE BURNISHER Hospital Encounter Department of Radiation Oncology in [place], [place] [address] [place] [address] Stanislaw Alan M.D. [address] [place] [phone] Social History Tobacco Use Types Packs/Day Years [...] your living situation today? I have a [facility] place to live 12/02/2022 Sex and Gender Information Value Date Recorded Sex Assigned at Male 12/02/2022 9:58 AM CDT Gender Identity Male 12/02/2022 9:58 AM CDT Sexual Orientation Straight 12/02/2022 9: 58 AM CDT documented as of this encounter Plan of Treatment Upcoming Encounters Date Type Department Care Team (Late st Contact Info) Description 02/28/2023 1:30 PM UPPERS EDGE BURNISHER Appointment Department of Radiation Oncology in [address] [phone] Stanislaw Alan M.D. 200 [place] [phone] 03/01/2023 1:30 PM UPPERS EDGE BURNISHER Appointment Department of Radiation Oncology in [address] [address] Stanislaw Alan M.D. [address] [place] [phone] 03/02/2023 1:30 PM UPPERS EDGE BURNISHER Appointment Department of Radiation Oncology in [address] [address] Stanislaw Alan M.D. [address] [place] [phone] 03/02/2023 1:45 PM UPPERS EDGE BURNISHER Appointment Department of Radiation Oncology in [address] [address] Stanislaw Alan M.D. [address] [place] [phone] 03/03/2023 1:30 PM UPPERS EDGE BURNISHER Appointment Department of Radiation Oncology in [place], [place] [address] [place] [phone] Stanislaw Alan M.D. [address] [place] [phone] 03/04/2023 1:30 PM UPPERS EDGE BURNISHER Appointment Department of Radiation Oncology in [address] [address] Stanislaw Alan M.D. [address] [place] [phone] 03/07/2023 1:30 PM UPPERS EDGE BURNISHER Appointment Department of Radiation Oncology in [address] [address] Stanislaw Alan M.D. [address] [place] [phone] 03/08/2023 1:30 PM UPPERS EDGE BURNISHER Appointment Department of Radiation Oncology in [address] [address] Stanislaw Alan M.D. [address] [place] [phone] 03/09/2023 1:30 PM UPPERS EDGE BURNISHER Appointment Department of Radiation Oncology in [address] [address] Stanislaw Alan M.D. [address] [place] [phone] 03/09/2023 1:45 PM UPPERS EDGE BURNISHER Appointment Department of Radiation Oncology in [address] [place] [address] Stanislaw Alan M.D. [address] [place] [phone] 03/10/2023 1:30 PM UPPERS EDGE BURNISHER Appointment Department of Radiation Oncology in [place], [place] [address] [place] [phone] Stanislaw Alan M.D. 200 [place] [address] 03/11/2023 1:30 PM UPPERS EDGE BURNISHER Appointment Department of Radiation Oncology in [address] [address] Stanislaw Alan M.D. 200 [place] [address] 03/14/2023 1:30 PM UPPERS EDGE BURNISHER Appointment Department of Radiation Oncology in [place], [place] [address] [place] [phone] Stanislaw Alan M.D. [address] [place] [phone] 03/15/2023 1:30 PM UPPERS EDGE BURNISHER Appointment Department of Radiation Oncology in [place], [place] [address] [place] [phone] Stanislaw Alan M.D. 200 [place] [address] 03/16/2023 1:30 PM UPPERS EDGE BURNISHER Appointment Department of Radiation Oncology in [place], [place] [address] [place] [phone] Stanislaw Alan M.D. 200 [place] [address] 03/16/2023 1:45 PM UPPERS EDGE BURNISHER Appointment Department of Radiation Oncology in [place], [place] [address] [place] [phone] Stanislaw Alan M.D. [address] [place] [address] documented as of this encounter Visit Diagnoses Not on filedocumented in this encounter Care Teams Sign Hanger Relationship Specialty Start Date End Date Elsewhere, Pcp PCP - General Internal Medicine 11/23/22 documented as of this encounter
--- OUTSIDE RECORDS SUMMARY | 2023-02-26 06:45 | XMS_ITS ---
Author Name Unknown Organization [facility] Address [address] [place] [address] Care Team Providers Care Agronomy Advisor Name Role Phone Unavailable Unavailable Unavailable Surgery Details Not on file Complications Check Surgery Details section. Procedure Estimated Blood Loss Check Surgery Details section. Procedure Findings Check Surgery Details section. Procedure Specimens Taken Check Surgery Details section.
--- OUTSIDE RECORDS SUMMARY | 2023-02-26 06:45 | XMS_ITS | Encounter Summary ---
Author Name Unknown Organization [facility] Address [address] [place] [address] Care Team Providers Care Integrity Specialist Name Role Phone Elsewhere, Pcp Primary Care Provider Unavailabl e Encounter Details Date Type Department Care Team (Late st Contact Info) Description 02/15/2023 1:11 PM STATION INSPECTOR Hospital Encounter Department of Radiation Oncology in [place], [place] [address] [place] [address] Stanislaw Alan M.D. [address] [place] [phone] Social History Tobacco Use Types Packs/Day Years [...] your living situation today? I have a [facility] place to live 12/02/2022 Sex and Gender Information Value Date Recorded Sex Assigned at Male 12/02/2022 9:58 AM CDT Gender Identity Male 12/02/2022 9:58 AM CDT Sexual Orientation Straight 12/02/2022 9: 58 AM CDT documented as of this encounter Plan of Treatment Upcoming Encounters Date Type Department Care Team (Late st Contact Info) Description 02/28/2023 1:30 PM STATION INSPECTOR Appointment Department of Radiation Oncology in [address] [phone] Stanislaw Alan M.D. 200 [place] [address] 03/01/2023 1:30 PM STATION INSPECTOR Appointment Department of Radiation Oncology in [address] [address] Stanislaw Alan M.D. [address] [place] [phone] 03/02/2023 1:30 PM STATION INSPECTOR Appointment Department of Radiation Oncology in [address] [address] Stanislaw Alan M.D. [address] [place] [phone] 03/02/2023 1:45 PM STATION INSPECTOR Appointment Department of Radiation Oncology in [address] [address] Stanislaw Alan M.D. [address] [place] [phone] 03/03/2023 1:30 PM STATION INSPECTOR Appointment Department of Radiation Oncology in [place], [place] [address] [place] [phone] Stanislaw Alan M.D. [address] [place] [phone] 03/04/2023 1:30 PM STATION INSPECTOR Appointment Department of Radiation Oncology in [address] [address] Stanislaw Alan M.D. [address] [place] [phone] 03/07/2023 1:30 PM STATION INSPECTOR Appointment Department of Radiation Oncology in [address] [address] Stanislaw Alan M.D. [address] [place] [phone] 03/08/2023 1:30 PM STATION INSPECTOR Appointment Department of Radiation Oncology in [address] [address] Stanislaw Alan M.D. [address] [place] [phone] 03/09/2023 1:30 PM STATION INSPECTOR Appointment Department of Radiation Oncology in [address] [address] Stanislaw Alan M.D. [address] [place] [phone] 03/09/2023 1:45 PM STATION INSPECTOR Appointment Department of Radiation Oncology in [address] [place] [address] Stanislaw Alan M.D. [address] [place] [phone] 03/10/2023 1:30 PM STATION INSPECTOR Appointment Department of Radiation Oncology in [place], [place] [address] [place] [phone] Stanislaw Alan M.D. 200 [place] [address] 03/11/2023 1:30 PM STATION INSPECTOR Appointment Department of Radiation Oncology in [address] [address] Stanislaw Alan M.D. 200 [place] [address] 03/14/2023 1:30 PM STATION INSPECTOR Appointment Department of Radiation Oncology in [place], [place] [address] [place] [phone] Stanislaw Alan M.D. [address] [place] [phone] 03/15/2023 1:30 PM STATION INSPECTOR Appointment Department of Radiation Oncology in [place], [place] [address] [place] [phone] Stanislaw Alan M.D. 200 [place] [address] 03/16/2023 1:30 PM STATION INSPECTOR Appointment Department of Radiation Oncology in [place], [place] [address] [place] [phone] Stanislaw Alan M.D. 200 [place] [address] 03/16/2023 1:45 PM STATION INSPECTOR Appointment Department of Radiation Oncology in [place], [place] [address] [place] [phone] Stanislaw Alan M.D. [address] [place] [address] documented as of this encounter Visit Diagnoses Not on filedocumented in this encounter Care Teams Integrity Specialist Relationship Specialty Start Date End Date Elsewhere, Pcp PCP - General Internal Medicine 11/23/22 documented as of this encounter
--- OUTSIDE RECORDS SUMMARY | 2023-02-26 06:45 | XMS_ITS | Encounter Summary ---
Author Name Unknown Organization [facility] Address [address] [place] [address] Care Team Providers Care Ebd Teacher Name Role Phone Elsewhere, Pcp Primary Care Provider Unavailabl e Encounter Details Date Type Department Care Team (Late st Contact Info) Description 02/11/2023 1:09 PM [facility] Hospital Encounter Department of Radiation Oncology in [place], [place] [address] [place] [address] Stanislaw Alan M.D. [address] [place] [phone] Social History Tobacco Use Types Packs/Day Years [...] your living situation today? I have a [facility] place to live 12/02/2022 Sex and Gender Information Value Date Recorded Sex Assigned at Male 12/02/2022 9:58 AM CDT Gender Identity Male 12/02/2022 9:58 AM CDT Sexual Orientation Straight 12/02/2022 9: 58 AM CDT documented as of this encounter Plan of Treatment Upcoming Encounters Date Type Department Care Team (Late st Contact Info) Description 02/28/2023 1:30 PM TESTING LEAD Appointment Department of Radiation Oncology in [address] [address] Stanislaw Alan M.D. 200 [place] [address] 03/01/2023 1:30 PM TESTING LEAD Appointment Department of Radiation Oncology in [address] [address] Stanislaw Alan M.D. [address] [place] [phone] 03/02/2023 1:30 PM TESTING LEAD Appointment Department of Radiation Oncology in [address] [address] Stanislaw Alan M.D. [address] [place] [phone] 03/02/2023 1:45 PM TESTING LEAD Appointment Department of Radiation Oncology in [address] [address] Stanislaw Alan M.D. [address] [place] [phone] 03/03/2023 1:30 PM TESTING LEAD Appointment Department of Radiation Oncology in [place], [place] [address] [place] [phone] Stanislaw Alan M.D. [address] [place] [phone] 03/04/2023 1:30 PM TESTING LEAD Appointment Department of Radiation Oncology in [address] [address] Stanislaw Alan M.D. [address] [place] [phone] 03/07/2023 1:30 PM TESTING LEAD Appointment Department of Radiation Oncology in [address] [address] Stanislaw Alan M.D. [address] [place] [phone] 03/08/2023 1:30 PM TESTING LEAD Appointment Department of Radiation Oncology in [address] [address] Stanislaw Alan M.D. [address] [place] [phone] 03/09/2023 1:30 PM TESTING LEAD Appointment Department of Radiation Oncology in [address] [address] Stanislaw Alan M.D. [address] [place] [phone] 03/09/2023 1:45 PM TESTING LEAD Appointment Department of Radiation Oncology in [address] [place] [address] Stanislaw Alan M.D. [address] [place] [phone] 03/10/2023 1:30 PM TESTING LEAD Appointment Department of Radiation Oncology in [place] [address], [place] [address] [place] [phone] Stanislaw Alan M.D. 200 [place] [address] 03/11/2023 1:30 PM TESTING LEAD Appointment Department of Radiation Oncology in [address] [address] Stanislaw Alan M.D. 200 [place] [phone] 03/14/2023 1:30 PM TESTING LEAD Appointment Department of Radiation Oncology in [place] [address], [place] [address] [place] [phone] Stanislaw Alan M.D. [address] [place] [phone] 03/15/2023 1:30 PM TESTING LEAD Appointment Department of Radiation Oncology in [place] [address], [place] [address] [place] [phone] Stanislaw Alan M.D. 200 [place] [address] 03/16/2023 1:30 PM TESTING LEAD Appointment Department of Radiation Oncology in [place] [address], [place] [address] [place] [phone] Stanislaw Alan M.D. 200 [place] [address] 03/16/2023 1:45 PM TESTING LEAD Appointment Department of Radiation Oncology in [place] [address], [place] [address] [place] [phone] Stanislaw Alan M.D. [address] [place] [address] documented as of this encounter Visit Diagnoses Not on filedocumented in this encounter Care Teams Ebd Teacher Relationship Specialty Start Date End Date Elsewhere, Pcp PCP - General Internal Medicine 11/23/22 documented as of this encounter
--- OUTSIDE RECORDS SUMMARY | 2023-02-26 06:45 | XMS_ITS ---
Author Name Unknown Organization [facility] Address [address] [place] [address] Care Team Providers Care Animal Chiropractor Name Role Phone Elsewhere, Pcp Primary Care Provider Unavailabl e Active Problems Problem Noted Date Diagnosed Date Primary Malignant Neoplasm Of Prostate Cancer Staging:Clinical stage from 11/23/2022:Stage IIB(cT2a, cN0, cM0, PSA: 14.6, Grade Group: 2) - Unsigned Elevated Prostate-Specific Antigen 06/01/2022 Dysfunction Erectile 06/01/2022 Peyronie's Disease 06/01/2022 Loss Hearing Bilateral 06/01/2022 Current Oncology Plans Leuprolide Acetate Every 4 Weeks* Plan Start Date:01/21/2023 Plan Provider:Stanislaw Alan M.D. Linked Problems Primary Malignant Neoplasm O f Prostate (HCC) Treatment Medications No medications scheduled. Past Plans No past plan information found. Radiation Treatments * Plan Last Treated On Elapsed Days Fractions Treated Prescribed Fraction Dose Prescribed Total Dose [id number] 02/25/2023 16 13 of 270 cGy 7,020 cGy Reference Point Last Treated On Elapsed Days Session Dose Total Dose [id number] 02/25/2023 16 270 cGy 3,510 cGy
--- OUTSIDE RECORDS SUMMARY | 2023-02-26 06:45 | XMS_ITS | Encounter Summary ---
Author Name Unknown Organization [facility] Address [address] [place] [address] Care Team Providers Care Arrt Technologist Name Role Phone Elsewhere, Pcp Primary Care Provider Unavailabl e Encounter Details Date Type Department Care Team (Late st Contact Info) Description 02/14/2023 1:08 PM [facility] Hospital Encounter Department of Radiation Oncology in [place], [place] [address] [place] [address] Stanislaw Alan M.D. [address] [place] [phone] Social History Tobacco Use Types Packs/Day Years [...] your living situation today? I have a [facility] place to live 12/02/2022 Sex and Gender Information Value Date Recorded Sex Assigned at Male 12/02/2022 9:58 AM CDT Gender Identity Male 12/02/2022 9:58 AM CDT Sexual Orientation Straight 12/02/2022 9: 58 AM CDT documented as of this encounter Plan of Treatment Upcoming Encounters Date Type Department Care Team (Late st Contact Info) Description 02/28/2023 1:30 PM [facility] RO[facility] Appointment Department of Radiation Oncology in [address] [address] Stanislaw Alan M.D. [address] [place] [address] 03/01/2023 1:30 PM [facility]AN[facility] RO[facility] Appointment Department of Radiation Oncology in [address] [address] Stanislaw Alan M.D. [address] [place] [phone] 03/02/2023 1:30 PM [facility]AN[facility] RO[facility] Appointment Department of Radiation Oncology in [address] [address] Stanislaw Alan M.D. [address] [place] [phone] 03/02/2023 1:45 PM [facility] RO[facility] Appointment Department of Radiation Oncology in [address] [address] Stanislaw Alan M.D. [address] [place] [phone] 03/03/2023 1:30 PM [facility] Appointment Department of Radiation Oncology in [place], [place] [address] [place] [phone] Stanislaw Alan M.D. [address] [place] [phone] 03/04/2023 1:30 PM [facility]AN[facility] RO[facility] Appointment Department of Radiation Oncology in [address] [address] Stanislaw Alan M.D. [address] [place] [phone] 03/07/2023 1:30 PM PEANUT ROASTER Appointment Department of Radiation Oncology in [address] [address] Stanislaw Alan M.D. [address] [place] [phone] 03/08/2023 1:30 PM [facility]AN[facility] RO[facility] Appointment Department of Radiation Oncology in [address] [address] Stanislaw Alan M.D. [address] [place] [phone] 03/09/2023 1:30 PM [facility] RO[facility] Appointment Department of Radiation Oncology in [address] [address] Stanislaw Alan M.D. [address] [place] [phone] 03/09/2023 1:45 PM [facility] RO[facility] Appointment Department of Radiation Oncology in [address] [place] [address] Stanislaw Alan M.D. [address] [place] [phone] 03/10/2023 1:30 PM PEANUT ROASTER Appointment Department of Radiation Oncology in [place], [place] [address] [place] [phone] Stanislaw Alan M.D. [address] [place] [address] 03/11/2023 1:30 PM [facility] RO[facility] Appointment Department of Radiation Oncology in [address] [address] Stanislaw Alan M.D. [address] [place] [address] 03/14/2023 1:30 PM [facility]AN[facility] ROAST[facility] Appointment Department of Radiation Oncology in [place], [place] [address] [place] [phone] Stanislaw Alan M.D. [address] [place] [phone] 03/15/2023 1:30 PM PEAN[facility] ROASTER Appointment Department of Radiation Oncology in [place], [place] [address] [place] [phone] Stanislaw Alan M.D. [address] [place] [address] 03/16/2023 1:30 PM [facility]AN[facility] ROAST[facility] Appointment Department of Radiation Oncology in [place], [place] [address] [place] [phone] Stanislaw Alan M.D. [address] [place] [address] 03/16/2023 1:45 PM [facility] RO[facility] Appointment Department of Radiation Oncology in [place], [place] [address] [place] [phone] Stanislaw Alan M.D. [address] [place] [address] documented as of this encounter Visit Diagnoses Not on filedocumented in this encounter Care Teams Arrt Technologist Relationship Specialty Start Date End Date Elsewhere, Pcp PCP - General Internal Medicine 11/23/22 documented as of this encounter
--- OUTSIDE RECORDS SUMMARY | 2023-02-26 06:45 | XMS_ITS | Encounter Summary ---
Author Name Unknown Organization [facility] Address [address] [place] [address] Care Team Providers Care Svp Marketing Name Role Phone Elsewhere, Pcp Primary Care Provider Unavailabl e Encounter Details Date Type Department Care Team (Late st Contact Info) Description 02/16/2023 1:09 PM [facility] Hospital Encounter Department of Radiation Oncology in [place], [place] [address] [place] [address] Stanislaw Alan M.D. [address] [place] [phone] Social History Tobacco Use Types Packs/Day Years [...] your living situation today? I have a [facility] place to live 12/02/2022 Sex and Gender Information Value Date Recorded Sex Assigned at Male 12/02/2022 9:58 AM CDT Gender Identity Male 12/02/2022 9:58 AM CDT Sexual Orientation Straight 12/02/2022 9: 58 AM CDT documented as of this encounter Plan of Treatment Upcoming Encounters Date Type Department Care Team (Late st Contact Info) Description 02/28/2023 1:30 PM SWITCH ENGINEER Appointment Department of Radiation Oncology in [address] [address] Stanislaw Alan M.D. [address] [place] [address] 03/01/2023 1:30 PM SWITCH ENGINEER Appointment Department of Radiation Oncology in [address] [address] Stanislaw Alan M.D. [address] [place] [phone] 03/02/2023 1:30 PM SWITCH ENGINEER Appointment Department of Radiation Oncology in [address] [address] Stanislaw Alan M.D. [address] [place] [phone] 03/02/2023 1:45 PM SWITCH ENGINEER Appointment Department of Radiation Oncology in [address] [address] Stanislaw Alan M.D. [address] [place] [phone] 03/03/2023 1:30 PM SWITCH ENGINEER Appointment Department of Radiation Oncology in [place], [place] [address] [place] [phone] Stanislaw Alan M.D. [address] [place] [phone] 03/04/2023 1:30 PM SWITCH ENGINEER Appointment Department of Radiation Oncology in [address] [address] Stanislaw Alan M.D. [address] [place] [phone] 03/07/2023 1:30 PM SWITCH ENGINEER Appointment Department of Radiation Oncology in [address] [address] Stanislaw Alan M.D. [address] [place] [phone] 03/08/2023 1:30 PM SWITCH ENGINEER Appointment Department of Radiation Oncology in [address] [address] Stanislaw Alan M.D. [address] [place] [phone] 03/09/2023 1:30 PM SWITCH ENGINEER Appointment Department of Radiation Oncology in [address] [address] Stanislaw Alan M.D. [address] [place] [phone] 03/09/2023 1:45 PM SWITCH ENGINEER Appointment Department of Radiation Oncology in [address] [place] [address] Stanislaw Alan M.D. [address] [place] [phone] 03/10/2023 1:30 PM SWITCH ENGINEER Appointment Department of Radiation Oncology in [place], [place] [address] [place] [phone] Stanislaw Alan M.D. [address] [place] [address] 03/11/2023 1:30 PM SWITCH ENGINEER Appointment Department of Radiation Oncology in [address] [address] Stanislaw Alan M.D. [address] [place] [address] 03/14/2023 1:30 PM SWITCH ENGINEER Appointment Department of Radiation Oncology in [place], [place] [address] [place] [phone] Stanislaw Alan M.D. [address] [place] [phone] 03/15/2023 1:30 PM SWITCH ENGINEER Appointment Department of Radiation Oncology in [place], [place] [address] [place] [phone] Stanislaw lAan M.D. [address] [place] [address] 03/16/2023 1:30 PM SWITCH ENGINEER Appointment Department of Radiation Oncology in [place], [place] [address] [place] [phone] Stanislaw Alan M.D. [address] [place] [address] 03/16/2023 1:45 PM SWITCH ENGINEER Appointment Department of Radiation Oncology in [place], [place] [address] [place] [phone] Stanislaw Alan M.D. [address] [place] [address] documented as of this encounter Visit Diagnoses Not on filedocumented in this encounter Care Teams Svp Marketing Relationship Specialty Start Date End Date Elsewhere, Pcp PCP - General Internal Medicine 11/23/22 documented as of this encounter
--- OUTSIDE RECORDS SUMMARY | 2023-02-26 06:45 | XMS_ITS | Referral Summary ---
Author Name Unknown Organization [facility] Address [address] [place] [address] Care Team Providers Care It Infrastructure Project Manager Name Role Phone Elsewhere, Pcp Primary Care Provider Unavailabl e Source Comments Patient records contain information from all sites at [facility]. For routine questions regarding patient records, call [phone] during business hours, M-F 8:00 AM - 5:00 PM Central Time. Record requests for emergency care only can be directed to [phone] at any time.[facility] Encounters Date Type Department Care Team Description 02/25/2023 1:06 PM WELL DRILL OPERATOR HELPER CABLE TOOL Hospital Encounter Department of Radiation Oncology in [address] [address] Stanislaw Alan M.D. 02/24/2023 1:08 PM WELL DRILL OPERATOR HELPER CABLE TOOL Hospital Encounter Department of Radiation Oncology in [address] [address] Stanislaw Alan M.D. 02/23/2023 1:01 PM WELL DRILL OPERATOR HELPER CABLE TOOL - 02/23/2023 3:32 PM WELL DRILL OPERATOR HELPER CABLE TOOL Hospital Encounter Department of Radiation Oncology in [address] [address] Stanislaw Alan M.D. Primary Malignant Neoplasm Of Prostate (HCC) 02/23/2023 1:01 PM WELL DRILL OPERATOR HELPER CABLE TOOL Hospital Encounter Department of Radiation Oncology in [address] [address] Stanislaw Alan M.D. 02/22/2023 1:02 PM WELL DRILL OPERATOR HELPER CABLE TOOL Hospital Encounter Department of Radiation Oncology in [address] [address] Stanislaw Alan M.D. 02/21/2023 1:09 PM WELL DRILL OPERATOR HELPER CABLE TOOL Hospital Encounter Department of Radiation Oncology in [address] [address] Stanislaw Alan M.D. 02/18/2023 1:09 PM WELL DRILL OPERATOR HELPER CABLE TOOL Hospital Encounter Department of Radiation Oncology in [address] [address] Stanislaw Alan M.D. 02/17/2023 12:20 PM WELL DRILL OPERATOR HELPER CABLE TOOL Hospital Encounter Department of Radiation Oncology in [address] [address] Stanislaw Alan M.D. 02/16/2023 1:09 PM WELL DRILL OPERATOR HELPER CABLE TOOL Hospital Encounter Department of Radiation Oncology in [address] [address] Stanislaw Alan M.D. 02/15/2023 1:11 PM WELL DRILL OPERATOR HELPER CABLE TOOL - 02/15/2023 4:52 PM WELL DRILL OPERATOR HELPER CABLE TOOL Hospital Encounter Department of Radiation Oncology in [address] [address] Jolynn Alonzo M.D. Primary Malignant Neoplasm Of Prostate (HCC) 02/15/2023 1:11 PM WELL DRILL OPERATOR HELPER CABLE TOOL Hospital Encounter Department of Radiation Oncology in [address] [address] Stanislaw Alan M.D. 02/14/2023 1:08 PM WELL DRILL OPERATOR HELPER CABLE TOOL Hospital Encounter Department of Radiation Oncology in [address] [address] Stanislaw Alan M.D. 02/11/2023 1:09 PM WELL DRILL OPERATOR HELPER CABLE TOOL Hospital Encounter Department of Radiation Oncology in [address] [address] Stanislaw Alan M.D. 02/10/2023 10:52 AM WELL DRILL OPERATOR HELPER CABLE TOOL - 02/10/2023 2:47 PM WELL DRILL OPERATOR HELPER CABLE TOOL Hospital Encounter Department of Radiation Oncology in [address] [address] Stanislaw Alan M.D. Retterath, Chelsey A, R.N. Primary Malignant Neoplasm Of Prostate (HCC) 02/10/2023 10:51 AM WELL DRILL OPERATOR HELPER CABLE TOOL Hospital Encounter Department of Radiation Oncology in [address] [address] Stanislaw Alan M.D. 02/09/2023 9:27 AM WELL DRILL OPERATOR HELPER CABLE TOOL - 02/09/2023 6:35 PM WELL DRILL OPERATOR HELPER CABLE TOOL Hospital Encounter Department of Radiation Oncology in [address] [address] Stanislaw Alan M.D. Primary Malignant Neoplasm Of Prostate (HCC) 02/09/2023 9:24 AM WELL DRILL OPERATOR HELPER CABLE TOOL Hospital Encounter Department of Radiation Oncology in [address] [address] Stanislaw Alan M.D. 02/01/2023 8:41 AM WELL DRILL OPERATOR HELPER CABLE TOOL - 02/01/2023 10:35 AM WELL DRILL OPERATOR HELPER CABLE TOOL Hospital Encounter Department of Radiation Oncology in [address] [address] Stanislaw Alan M.D. Primary Malignant Neoplasm Of Prostate (HCC) (Primary Dx) 01/20/2023 8:43 AM WELL DRILL OPERATOR HELPER CABLE TOOL - 01/20/2023 9:38 AM WELL DRILL OPERATOR HELPER CABLE TOOL Hospital Encounter Department of Radiation Oncology in [address] [address] Stanislaw Alan M.D. Primary Malignant Neoplasm Of Prostate (HCC) (Primary Dx) 01/20/2023 9:39 AM WELL DRILL OPERATOR HELPER CABLE TOOL - 01/20/2023 11:59 PM WELL DRILL OPERATOR HELPER CABLE TOOL Hospital Encounter Department of Radiation Oncology in [address] [address] Stanislaw Alan M.D. Primary Malignant Neoplasm Of Prostate (HCC) Discharge Disposition: Home or Self Care 01/11/2023 Orders Only Department of Radiation Oncology in [address] [address] Stanislaw Alan M.D. 01/11/2023 8:40 AM WELL DRILL OPERATOR HELPER CABLE TOOL - 01/11/2023 5:14 PM WELL DRILL OPERATOR HELPER CABLE TOOL Hospital Encounter Department of Radiation Oncology in [address] [address] Stanislaw Alan M.D. Primary Malignant Neoplasm Of Prostate (HCC) (Primary Dx) 12/21/2022 10:18 AM WELL DRILL OPERATOR HELPER CABLE TOOL - 12/21/2022 12:50 PM WELL DRILL OPERATOR HELPER CABLE TOOL Hospital Encounter Department of Radiation Oncology in [address] [address] Stanislaw Alan M.D. Primary Malignant Neoplasm Of Prostate (HCC) (Primary Dx) 12/02/2022 10:30 AM CDT Office Visit Department of Urology in [place], [place] [address] [address] Geovanna Kennedy APRN, C.N.P. Primary Malignant Neoplasm Of Prostate (HCC) (Primary Dx) from Last 3 Months Allergies No known active allergies Medications Medication [...] Peyronie's Disease 06/01/2022 Loss Hearing Bilateral 06/01/2022 Social History Tobacco Use Types Packs/Day Years [...] your living situation today? [facility] place to live 12/02/2022 Sex and Gender Information Value Date Recorded Sex Assigned at Male 12/02/2022 9:58 AM CDT Gender Identity Male 12/02/2022 9:58 AM CDT Sexual Orientation Straight 12/02/2022 9: 58 AM CDT Last Filed Vital Signs Vital Sign Reading Time Taken Comments Blood Pressure 144/67 01/20/2023 9:00 AM WELL DRILL OPERATOR HELPER CABLE TOOL Pulse 76 01/20/2023 9:00 AM WELL DRILL OPERATOR HELPER CABLE TOOL Temperature 36.4 ??C (97.6 ??F) 02/23/2023 1:43 PM CS T Respiratory Rate 16 11/23/2022 12:35 PM CDT Oxygen Saturation 96% 11/23/2022 12:35 PM CDT Inhaled Oxygen Concentration - - Weight 55.5 kg (122 lb 5.7 oz) 02/23/2023 1:43 P M WELL DRILL OPERATOR HELPER CABLE TOOL Height 164.1 cm (5' 4.61) 11/23/2022 10:14 AM C DT Body Mass Index 20.61 11/23/2022 10:14 AM CDT Plan of Treatment Upcoming Encounters Date Type Department Care Team (Late st Contact Info) Description 02/28/2023 1:30 PM WELL DRILL OPERATOR HELPER CABLE TOOL Appointment Department of Radiation Oncology in [address] [address] Stanislaw Alan M.D. [address] [place] [phone] 03/01/2023 1:30 PM WELL DRILL OPERATOR HELPER CABLE TOOL Appointment Department of Radiation Oncology in [address] [address] Stanislaw Alan M.D. [address] [place] [phone] 03/02/2023 1:30 PM WELL DRILL OPERATOR HELPER CABLE TOOL Appointment Department of Radiation Oncology in [address] [address] Stanislaw Alan M.D. [address] [place] [phone] 03/02/2023 1:45 PM WELL DRILL OPERATOR HELPER CABLE TOOL Appointment Department of Radiation Oncology in [address] [address] Stanislaw Alan M.D. [address] [place] [phone] 03/03/2023 1:30 PM WELL DRILL OPERATOR HELPER CABLE TOOL Appointment Department of Radiation Oncology in [address] [address] Stanislaw Alan M.D. [address] [place] [phone] 03/04/2023 1:30 PM WELL DRILL OPERATOR HELPER CABLE TOOL Appointment Department of Radiation Oncology in [place], [place] [address] [place] [phone] Stanislaw Alan M.D. [address] [place] [phone] 03/07/2023 1:30 PM WELL DRILL OPERATOR HELPER CABLE TOOL Appointment Department of Radiation Oncology in [place], [place] [address] [place] [phone] Stanislaw Alan M.D. [address] [place] [address] 03/08/2023 1:30 PM WELL DRILL OPERATOR HELPER CABLE TOOL Appointment Department of Radiation Oncology in [address] [address] Stanislaw Alan M.D. [address] [place] [phone] 03/09/2023 1:30 PM WELL DRILL OPERATOR HELPER CABLE TOOL Appointment Department of Radiation Oncology in [address] [address] Stanislaw Alan M.D. [address] [place] [phone] 03/09/2023 1:45 PM WELL DRILL OPERATOR HELPER CABLE TOOL Appointment Department of Radiation Oncology in [address] [address] Stanislaw Alan M.D. [address] [place] [phone] 03/10/2023 1:30 PM WELL DRILL OPERATOR HELPER CABLE TOOL Appointment Department of Radiation Oncology in [address] [address] Stanislaw Alan M.D. [address] [place] [phone] 03/11/2023 1:30 PM WELL DRILL OPERATOR HELPER CABLE TOOL Appointment Department of Radiation Oncology in [address] [address] Stanislaw Alan M.D. [address] [place] [phone] 03/14/2023 1:30 PM WELL DRILL OPERATOR HELPER CABLE TOOL Appointment Department of Radiation Oncology in [address] [address] Stanislaw Alan M.D. [address] [place] [phone] 03/15/2023 1:30 PM WELL DRILL OPERATOR HELPER CABLE TOOL Appointment Department of Radiation Oncology in [place], [place] [address] [place] [phone] Stanislaw Alan M.D. [address] [place] [phone] 03/16/2023 1:30 PM WELL DRILL OPERATOR HELPER CABLE TOOL Appointment Department of Radiation Oncology in [place], [place] [address] [place] [phone] Stanislaw Alan M.D. [address] [place] [phone] 03/16/2023 1:45 PM WELL DRILL OPERATOR HELPER CABLE TOOL Appointment Department of Radiation Oncology in [place], [place] [address] [place] [phone] Stanislaw Alan M.D. [address] [place] [address] Procedures Procedure Name Priority Date/Time Associated Diagnosis Comments ARIA DAILY TREATMENT INFORMATION Routine 02/25/2023 1:25 PM WELL DRILL OPERATOR HELPER CABLE TOOL ARIA DAILY TREATMENT INFORMATION Routine 02/24/2023 1:36 PM WELL DRILL OPERATOR HELPER CABLE TOOL ARIA DAILY TREATMENT INFORMATION Routine 02/23/2023 1:34 PM WELL DRILL OPERATOR HELPER CABLE TOOL ARIA DAILY TREATMENT INFORMATION Routine 02/22/2023 1:34 PM WELL DRILL OPERATOR HELPER CABLE TOOL ARIA DAILY TREATMENT INFORMATION Routine 02/21/2023 1:33 PM WELL DRILL OPERATOR HELPER CABLE TOOL ARIA DAILY TREATMENT INFORMATION Routine 02/18/2023 1:27 PM WELL DRILL OPERATOR HELPER CABLE TOOL ARIA DAILY TREATMENT INFORMATION Routine 02/17/2023 12:49 PM WELL DRILL OPERATOR HELPER CABLE TOOL ARIA DAILY TREATMENT INFORMATION Routine 02/16/2023 1:29 PM WELL DRILL OPERATOR HELPER CABLE TOOL ARIA DAILY TREATMENT INFORMATION Routine 02/15/2023 1:21 PM WELL DRILL OPERATOR HELPER CABLE TOOL ARIA DAILY TREATMENT INFORMATION Routine 02/14/2023 1:26 PM WELL DRILL OPERATOR HELPER CABLE TOOL ARIA DAILY TREATMENT INFORMATION Routine 02/11/2023 1:32 PM WELL DRILL OPERATOR HELPER CABLE TOOL ARIA DAILY TREATMENT INFORMATION Routine 02/10/2023 11:05 AM WELL DRILL OPERATOR HELPER CABLE TOOL ARIA DAILY TREATMENT INFORMATION Routine 02/09/2023 9:52 AM WELL DRILL OPERATOR HELPER CABLE TOOL OUTSIDE MR BODY Routine 02/01/2023 10:30 AM WELL DRILL OPERATOR HELPER CABLE TOOL INITIAL RAD ONC TREATMENT PLANNING CT SIMULATION Routine 02/01/2023 9:00 AM WELL DRILL OPERATOR HELPER CABLE TOOL Primary Malignant Neoplasm Of Prostate (HCC) OUTSIDE NM GENERAL Routine 01/06/2023 10 :40 AM WELL DRILL OPERATOR HELPER CABLE TOOL OUTSIDE CT BODY Routine 01/06/2023 8:50 AM WELL DRILL OPERATOR HELPER CABLE TOOL from Last 3 Months Results * Aria Daily Treatment Information (02/25/2023 1:25 PM WELL DRILL OPERATOR HELPER CABLE TOOL) Only the most recent of13 resultswithin the time period is included. Course ID [id number] STRAUSS ARIA Course Start Date 3 10:54 WELL DRILL OPERATOR HELPER CABLE TOOL STRAUSS ARIA First Treatment Date 4 09:50 WELL DRILL OPERATOR HELPER CABLE TOOL STRAUSS ARIA Last Treatment Date 4 13:25 WELL DRILL OPERATOR HELPER CABLE TOOL STRAUSS ARIA Treatment Elapsed Days 16 STRAUSS ARIA Reference Point [id number] STRAUSS ARIA Dosage Given to Date cGy 3510 STRAUSS ARIA Session Dosage Given 270 STRAUSS ARIA Plan ID [id number] STRAUSS ARIA Fractions Treated to Date 13 STRAUSS ARIA Planned Total Fractions 26 STRAUSS ARIA Prescribed Dose Per Fraction 270 STRAUSS ARIA Prescription Dose in cGy 7020 STRAUSS ARIA Plan Primary Reference Point [id number] STRAUSS ARIA 02/25/2023 1:25 PM WELL DRILL OPERATOR HELPER CABLE TOOL Provider Not In System RADIATION ONCOLOG Y ORDERABLES RICA GUTHRIE na * MR PELVIS WO CON-Outside MR Body (02/01/2023 10:30 AM WELL DRILL OPERATOR HELPER CABLE TOOL) 02/01/2023 10:2 8 AM WELL DRILL OPERATOR HELPER CABLE TOOL Narrative [facility] - 02/01/2023 11:15 AM WELL DRILL OPERATOR HELPER CABLE TOOL This order has been created and auto-finalized to support the import of outside images. If available, original interpretation can be found on the Media Tab in Chart Review, in Document Viewer, or as an image in QREADS. If a re-interpretation or overread is required please follow defined workflow. ?? Provider Not In System IMG MRI PROCEDURE S STEVEN NA * Initial Rad Onc Treatment Planning CT Simulation (02/01/2023 9:00 AM WELL DRILL OPERATOR HELPER CABLE TOOL) Narrative RICA GUTHRIE - 02/01/2023 9:00 AM WELL DRILL OPERATOR HELPER CABLE TOOL Carla Adam, RTT ? 02/01/2023 ??9:54 AM Initial Rad Onc Treatment Planning CT Simulation Performed by: Stanislaw Alan M.D. Authorized by: Stanislaw Alan M.D. ?? Stanislaw Alan M.D. RADIATION ONCOLOGY ORDERABLES Performing Organization Address [facility] Phone Number RICA GUTHRIE na * NM BONE SCAN WHOLE BODY-Outside NM General (01/06/2023 10:40 AM WELL DRILL OPERATOR HELPER CABLE TOOL) Narrative [facility] - 01/07/2023 11:10 AM WELL DRILL OPERATOR HELPER CABLE TOOL This order has been created and auto-finalized to support the import of outside images. If available, original interpretation can be found on the Media Tab in Chart Review, in Document Viewer, or as an image in QREADS. If a re-interpretation or overread is required please follow defined workflow. ?? Provider Not In System IMG NM PROCEDURES Performing Organization Address [facility] de Phone Number II NA * CT ABDOMEN PELVIS W CON-Outside CT Body (01/06/2023 8:50 AM WELL DRILL OPERATOR HELPER CABLE TOOL) Narrative [facility] - 01/07/2023 11:14 AM WELL DRILL OPERATOR HELPER CABLE TOOL This order has been created and auto-finalized to support the import of outside images. If available, original interpretation can be found on the Media Tab in Chart Review, in Document Viewer, or as an image in QREADS. If a re-interpretation or overread is required please follow defined workflow. ?? Provider Not In System IMG CT PROCEDURES Performing Organization Address [facility] de Phone Number II NA from Last 3 Months Advance Directives For more information, please contact: [phone] Latest Code Status on File Code Status Date Activated Date Inactivated Comments Full Code 11/23/2022 9:44 AM 11/23/2022 3:18 PM Question Answer Comments Full Code: Discussed Care Teams It Infrastructure Project Manager Relationship Specialty Start Date End Date Elsewhere, Pcp PCP - General Internal Medicine 11/23/22
--- OUTSIDE RECORDS SUMMARY | 2023-02-26 06:45 | XMS_ITS | Encounter Summary ---
Author Name Unknown Organization [facility] Address [address] [place] [address] Care Team Providers Care Raw Stock Machine Feeder Name Role Phone Elsewhere, Pcp Primary Care Provider Unavailabl e Encounter Details Date Type Department Care Team (Late st Contact Info) Description 02/24/2023 1:08 PM CUSTOMER RELATIONS CONSULTANT Hospital Encounter Department of Radiation Oncology in [place], [place] [address] [place] [address] Stanislaw Alan M.D. [address] [place] [phone] Social History Tobacco Use Types Packs/Day Years [...] your living situation today? I have a [facility] place to live 12/02/2022 Sex and Gender Information Value Date Recorded Sex Assigned at Male 12/02/2022 9:58 AM CDT Gender Identity Male 12/02/2022 9:58 AM CDT Sexual Orientation Straight 12/02/2022 9: 58 AM CDT documented as of this encounter Plan of Treatment Upcoming Encounters Date Type Department Care Team (Late st Contact Info) Description 02/28/2023 1:30 PM CUSTOMER RELATIONS CONSULTANT Appointment Department of Radiation Oncology in [address] [address] Stanislaw Alan M.D. [address] [place] [address] 03/01/2023 1:30 PM CUSTOMER RELATIONS CONSULTANT Appointment Department of Radiation Oncology in [address] [address] Stanislaw Alan M.D. [address] [place] [phone] 03/02/2023 1:30 PM CUSTOMER RELATIONS CONSULTANT Appointment Department of Radiation Oncology in [address] [address] Stanislaw Alan M.D. [address] [place] [phone] 03/02/2023 1:45 PM CUSTOMER RELATIONS CONSULTANT Appointment Department of Radiation Oncology in [address] [address] Stanislaw Alan M.D. [address] [place] [phone] 03/03/2023 1:30 PM CUSTOMER RELATIONS CONSULTANT Appointment Department of Radiation Oncology in [place], [place] [address] [place] [phone] Stanislaw Alan M.D. [address] [place] [phone] 03/04/2023 1:30 PM CUSTOMER RELATIONS CONSULTANT Appointment Department of Radiation Oncology in [address] [address] Stanislaw Alan M.D. [address] [place] [phone] 03/07/2023 1:30 PM CUSTOMER RELATIONS CONSULTANT Appointment Department of Radiation Oncology in [address] [address] Stanislaw Alan M.D. [address] [place] [phone] 03/08/2023 1:30 PM CUSTOMER RELATIONS CONSULTANT Appointment Department of Radiation Oncology in [address] [address] Stanislaw Alan M.D. [address] [place] [phone] 03/09/2023 1:30 PM CUSTOMER RELATIONS CONSULTANT Appointment Department of Radiation Oncology in [address] [address] Stanislaw Alan M.D. [address] [place] [phone] 03/09/2023 1:45 PM CUSTOMER RELATIONS CONSULTANT Appointment Department of Radiation Oncology in [address] [place] [address] Stanislaw Alan M.D. [address] [place] [phone] 03/10/2023 1:30 PM CUSTOMER RELATIONS CONSULTANT Appointment Department of Radiation Oncology in [place], [place] [address] [place] [phone] Stanislaw Alan M.D. [address] [place] [phone] 03/11/2023 1:30 PM CUSTOMER RELATIONS CONSULTANT Appointment Department of Radiation Oncology in [address] [phone] Stanislaw Alan M.D. [address] [place] [address] 03/14/2023 1:30 PM CUSTOMER RELATIONS CONSULTANT Appointment Department of Radiation Oncology in [place], [place] [address] [place] [phone] Stanislaw Alan M.D. [address] [place] [phone] 03/15/2023 1:30 PM CUSTOMER RELATIONS CONSULTANT Appointment Department of Radiation Oncology in [place], [place] [address] [place] [phone] Stanislaw Alan M.D. [address] [place] [phone] 03/16/2023 1:30 PM CUSTOMER RELATIONS CONSULTANT Appointment Department of Radiation Oncology in [place], [place] [address] [place] [phone] Stanislaw Alan M.D. [address] [place] [address] 03/16/2023 1:45 PM CUSTOMER RELATIONS CONSULTANT Appointment Department of Radiation Oncology in [place], [place] [address] [place] [phone] Stanislaw Alan M.D. [address] [place] [address] documented as of this encounter Visit Diagnoses Not on filedocumented in this encounter Care Teams Raw Stock Machine Feeder Relationship Specialty Start Date End Date Elsewhere, Pcp PCP - General Internal Medicine 11/23/22 documented as of this encounter
--- OUTSIDE RECORDS SUMMARY | 2023-02-26 06:45 | XMS_ITS | Encounter Summary ---
Author Name Unknown Organization [facility] Address [address] [place] [address] Care Team Providers Care Liner Worker Name Role Phone Elsewhere, Pcp Primary Care Provider Unavailabl e Encounter Details Date Type Department Care Team (Late st Contact Info) Description 02/18/2023 1:09 PM [facility] Hospital Encounter Department of Radiation Oncology in [place], [place] [address] [place] [address] Stanislaw Alan M.D. [address] [place] [phone] Social History Tobacco Use Types Packs/Day Years [...] your living situation today? I have a [facility] place to live 12/02/2022 Sex and Gender Information Value Date Recorded Sex Assigned at Male 12/02/2022 9:58 AM CDT Gender Identity Male 12/02/2022 9:58 AM CDT Sexual Orientation Straight 12/02/2022 9: 58 AM CDT documented as of this encounter Plan of Treatment Upcoming Encounters Date Type Department Care Team (Late st Contact Info) Description 02/28/2023 1:30 PM RELEASE OF INFORMATION SPECIALIST Appointment Department of Radiation Oncology in [address] [phone] Stanislaw Alan M.D. [address] [place] [address] 03/01/2023 1:30 PM RELEASE OF INFORMATION SPECIALIST Appointment Department of Radiation Oncology in [address] [phone] Stanislaw Alan M.D. [address] [place] [phone] 03/02/2023 1:30 PM RELEASE OF INFORMATION SPECIALIST Appointment Department of Radiation Oncology in [address] [address] Stanislaw Alan M.D. [address] [place] [phone] 03/02/2023 1:45 PM RELEASE OF INFORMATION SPECIALIST Appointment Department of Radiation Oncology in [address] [phone] Stanislaw Alan M.D. [address] [place] [phone] 03/03/2023 1:30 PM RELEASE OF INFORMATION SPECIALIST Appointment Department of Radiation Oncology in [place], [place] [address] [place] [phone] Stanislaw Alan M.D. [address] [place] [phone] 03/04/2023 1:30 PM RELEASE OF INFORMATION SPECIALIST Appointment Department of Radiation Oncology in [address] [phone] Stanislaw Alan M.D. [address] [place] [phone] 03/07/2023 1:30 PM RELEASE OF INFORMATION SPECIALIST Appointment Department of Radiation Oncology in [address] [phone] Stanislaw Alan M.D. [address] [place] [phone] 03/08/2023 1:30 PM RELEASE OF INFORMATION SPECIALIST Appointment Department of Radiation Oncology in [address] [address] Stanislaw Alan M.D. [address] [place] [phone] 03/09/2023 1:30 PM RELEASE OF INFORMATION SPECIALIST Appointment Department of Radiation Oncology in [address] [address] Stanislaw Alan M.D. [address] [place] [phone] 03/09/2023 1:45 PM RELEASE OF INFORMATION SPECIALIST Appointment Department of Radiation Oncology in [address] [place] [address] Stanislaw Alan M.D. [address] [place] [phone] 03/10/2023 1:30 PM RELEASE OF INFORMATION SPECIALIST Appointment Department of Radiation Oncology in [place], [place] [address] [place] [phone] Stanislaw Alan M.D. 200 [place] [address] 03/11/2023 1:30 PM RELEASE OF INFORMATION SPECIALIST Appointment Department of Radiation Oncology in [address] [address] Stanislaw Alan M.D. 200 [place] [address] 03/14/2023 1:30 PM RELEASE OF INFORMATION SPECIALIST Appointment Department of Radiation Oncology in [place], [place] [address] [place] [phone] Stanislaw Alan M.D. [address] [place] [phone] 03/15/2023 1:30 PM RELEASE OF INFORMATION SPECIALIST Appointment Department of Radiation Oncology in [place], [place] [address] [place] [phone] Stanislaw Alan M.D. 200 [place] [address] 03/16/2023 1:30 PM RELEASE OF INFORMATION SPECIALIST Appointment Department of Radiation Oncology in [place], [place] [address] [place] [phone] Stanislaw Alan M.D. 200 [place] [address] 03/16/2023 1:45 PM RELEASE OF INFORMATION SPECIALIST Appointment Department of Radiation Oncology in [place], [place] [address] [place] [phone] Stanislaw Alan M.D. [address] [place] [address] documented as of this encounter Visit Diagnoses Not on filedocumented in this encounter Care Teams Liner Worker Relationship Specialty Start Date End Date Elsewhere, Pcp PCP - General Internal Medicine 11/23/22 documented as of this encounter
--- OUTSIDE RECORDS SUMMARY | 2023-02-26 06:45 | XMS_ITS | Encounter Summary ---
Author Name Unknown Organization [facility] Address [address] [place] [address] Care Team Providers Care Comber Tender Name Role Phone Elsewhere, Pcp Primary Care Provider Unavailabl e Encounter Details Date Type Department Care Team (Late st Contact Info) Description 02/21/2023 1:09 PM [facility] Hospital Encounter Department of Radiation Oncology in [place], [place] [address] [place] [address] Stanislaw Alan M.D. [address] [place] [phone] Social History Tobacco Use Types Packs/Day Years [...] your living situation today? I have a [facility] place to live 12/02/2022 Sex and Gender Information Value Date Recorded Sex Assigned at Male 12/02/2022 9:58 AM CDT Gender Identity Male 12/02/2022 9:58 AM CDT Sexual Orientation Straight 12/02/2022 9: 58 AM CDT documented as of this encounter Plan of Treatment Upcoming Encounters Date Type Department Care Team (Late st Contact Info) Description 02/28/2023 1:30 PM DATA CODER OPERATOR Appointment Department of Radiation Oncology in [address] [address] Stanislaw Alan M.D. 200 [place] [address] 03/01/2023 1:30 PM DATA CODER OPERATOR Appointment Department of Radiation Oncology in [address] [address] Stanislaw Alan M.D. [address] [place] [phone] 03/02/2023 1:30 PM DATA CODER OPERATOR Appointment Department of Radiation Oncology in [address] [address] Stanislaw Alan M.D. [address] [place] [phone] 03/02/2023 1:45 PM DATA CODER OPERATOR Appointment Department of Radiation Oncology in [address] [address] Stanislaw Alan M.D. [address] [place] [phone] 03/03/2023 1:30 PM DATA CODER OPERATOR Appointment Department of Radiation Oncology in [place], [place] [address] [place] [phone] Stanislaw Alan M.D. [address] [place] [phone] 03/04/2023 1:30 PM DATA CODER OPERATOR Appointment Department of Radiation Oncology in [address] [address] Stanislaw Alan M.D. [address] [place] [phone] 03/07/2023 1:30 PM DATA CODER OPERATOR Appointment Department of Radiation Oncology in [address] [address] Stanislaw Alan M.D. [address] [place] [phone] 03/08/2023 1:30 PM DATA CODER OPERATOR Appointment Department of Radiation Oncology in [address] [address] Stanislaw Alan M.D. [address] [place] [phone] 03/09/2023 1:30 PM DATA CODER OPERATOR Appointment Department of Radiation Oncology in [address] [address] Stanislaw Alan M.D. [address] [place] [phone] 03/09/2023 1:45 PM DATA CODER OPERATOR Appointment Department of Radiation Oncology in [address] [place] [address] Stanislaw Alan M.D. [address] [place] [phone] 03/10/2023 1:30 PM DATA CODER OPERATOR Appointment Department of Radiation Oncology in [place], [place] [address] [place] [phone] Stanislaw Alan M.D. [address] [place] [address] 03/11/2023 1:30 PM DATA CODER OPERATOR Appointment Department of Radiation Oncology in [address] [phone] Stanislaw Alan M.D. [address] [place] [address] 03/14/2023 1:30 PM DATA CODER OPERATOR Appointment Department of Radiation Oncology in [place], [place] [address] [place] [phone] Stanislaw Alan M.D. [address] [place] [phone] 03/15/2023 1:30 PM DATA CODER OPERATOR Appointment Department of Radiation Oncology in [place], [place] [address] [place] [phone] Stanislaw Alan M.D. [address] [place] [address] 03/16/2023 1:30 PM DATA CODER OPERATOR Appointment Department of Radiation Oncology in [place], [place] [address] [place] [phone] Stanislaw Alan M.D. [address] [place] [address] 03/16/2023 1:45 PM DATA CODER OPERATOR Appointment Department of Radiation Oncology in [place], [place] [address] [place] [phone] Stanislaw Alan M.D. [address] [place] [address] documented as of this encounter Visit Diagnoses Not on filedocumented in this encounter Care Teams Comber Tender Relationship Specialty Start Date End Date Elsewhere, Pcp PCP - General Internal Medicine 11/23/22 documented as of this encounter
--- OUTSIDE RECORDS SUMMARY | 2023-02-26 06:45 | XMS_ITS | Encounter Summary ---
Author Name Unknown Organization [facility] Address [address] [place] [address] Care Team Providers Care Tower Erector Name Role Phone Elsewhere, Pcp Primary Care Provider Unavailabl e Encounter Details Date Type Department Care Team (Late st Contact Info) Description 02/25/2023 1:06 PM THERMODYNAMICS ENGINEER Hospital Encounter Department of Radiation Oncology in [place], [place] [address] [place] [address] Stanislaw Alan M.D. [address] [place] [phone] Social History Tobacco Use Types Packs/Day Years [...] your living situation today? I have a [facility] place to live 12/02/2022 Sex and Gender Information Value Date Recorded Sex Assigned at Male 12/02/2022 9:58 AM CDT Gender Identity Male 12/02/2022 9:58 AM CDT Sexual Orientation Straight 12/02/2022 9: 58 AM CDT documented as of this encounter Plan of Treatment Upcoming Encounters Date Type Department Care Team (Late st Contact Info) Description 02/28/2023 1:30 PM THERMODYNAMICS ENGINEER Appointment Department of Radiation Oncology in [address] [phone] Stanislaw Alan M.D. [address] [place] [address] 03/01/2023 1:30 PM THERMODYNAMICS ENGINEER Appointment Department of Radiation Oncology in [address] [phone] Stanislaw Alan M.D. [address] [place] [phone] 03/02/2023 1:30 PM THERMODYNAMICS ENGINEER Appointment Department of Radiation Oncology in [address] [address] Stanislaw Alan M.D. [address] [place] [phone] 03/02/2023 1:45 PM THERMODYNAMICS ENGINEER Appointment Department of Radiation Oncology in [address] [address] Stanislaw Alan M.D. [address] [place] [phone] 03/03/2023 1:30 PM THERMODYNAMICS ENGINEER Appointment Department of Radiation Oncology in [place], [place] [address] [place] [phone] Stanislaw Alan M.D. [address] [place] [phone] 03/04/2023 1:30 PM THERMODYNAMICS ENGINEER Appointment Department of Radiation Oncology in [address] [address] Stanislaw Alan M.D. [address] [place] [phone] 03/07/2023 1:30 PM THERMODYNAMICS ENGINEER Appointment Department of Radiation Oncology in [address] [address] Stanislaw Alan M.D. [address] [place] [phone] 03/08/2023 1:30 PM THERMODYNAMICS ENGINEER Appointment Department of Radiation Oncology in [address] [address] Stanislaw Alan M.D. [address] [place] [phone] 03/09/2023 1:30 PM THERMODYNAMICS ENGINEER Appointment Department of Radiation Oncology in [address] [address] Stanislaw Alan M.D. [address] [place] [phone] 03/09/2023 1:45 PM THERMODYNAMICS ENGINEER Appointment Department of Radiation Oncology in [address] [place] [address] Stanislaw Alan M.D. [address] [place] [phone] 03/10/2023 1:30 PM THERMODYNAMICS ENGINEER Appointment Department of Radiation Oncology in [place], [place] [address] [place] [phone] Stanislaw Alan M.D. [address] [place] [address] 03/11/2023 1:30 PM THERMODYNAMICS ENGINEER Appointment Department of Radiation Oncology in [address] [phone] Stanislaw Alan M.D. [address] [place] [address] 03/14/2023 1:30 PM THERMODYNAMICS ENGINEER Appointment Department of Radiation Oncology in [place], [place] [address] [place] [phone] Stanislaw Alan M.D. [address] [place] [phone] 03/15/2023 1:30 PM THERMODYNAMICS ENGINEER Appointment Department of Radiation Oncology in [place], [place] [address] [place] [phone] Stanislaw Alan M.D. [address] [place] [address] 03/16/2023 1:30 PM THERMODYNAMICS ENGINEER Appointment Department of Radiation Oncology in [place], [place] [address] [place] [phone] Stanislaw Alan M.D. [address] [place] [address] 03/16/2023 1:45 PM THERMODYNAMICS ENGINEER Appointment Department of Radiation Oncology in [place], [place] [address] [place] [phone] Stanislaw Alan M.D. [address] [place] [address] documented as of this encounter Visit Diagnoses Not on filedocumented in this encounter Care Teams Tower Erector Relationship Specialty Start Date End Date Elsewhere, Pcp PCP - General Internal Medicine 11/23/22 documented as of this encounter
--- OUTSIDE RECORDS SUMMARY | 2023-02-26 06:45 | XMS_ITS | Encounter Summary ---
Author Name Unknown Organization [facility] Address [address] [place] [address] Care Team Providers Care Automobile Appraiser Name Role Phone Elsewhere, Pcp Primary Care Provider Unavailabl e Reason for Referral * Radiation Therapy (Routine) - Authorized Specialty Diagnoses / Procedures Referred By Contac t Referred To Contact Diagnoses Primary Malignant Neoplasm Of Prostate (HCC) Procedures Management Visit Stanislaw Alan M.D. [address] [place] [phone] [facility] Region Referral ID Status Reason Start Date Expiration Date V isits Requested Visits Authorized [id number] Authorized 01/11/2023 01/11/2024 10 10 RY RIG ENGINE OPERATOR Reason for Visit * Radiation Therapy (Routine) - Authorized Specialty Diagnoses / Procedures Referred By Tomy meade Referred To Contact Diagnoses Primary Malignant Neoplasm Of Prostate (HCC) Procedures Management Visit Stanislaw Alan M.D. [address] [place] [phone] [facility] Region Referral ID Status Reason Start Date Expiration Date V isits Requested Visits Authorized [id number] Authorized 01/11/2023 01/11/2024 10 10 Encounter Details Date Type Department Care Team (Latest Contact Info) Description 02/23/2023 1:01 PM ROTARY RIG ENGINE OPERATOR - 02/23/2023 3:32 PM ROTARY RIG ENGINE OPERATOR Hospital Encounter Department of Radiation Oncology in [place], [place] [address] [place] [address] Stanislaw Alan M.D. [address] [place] [phone] Primary Malignant Neoplasm Of Prostate (HCC) Social [...] your living situation today? I have a [facility] place to live 12/02/2022 Sex and Gender Information Value Date Recorded Sex Assigned at Male 12/02/2022 9:58 AM CDT Gender Identity Male 12/02/2022 9:58 AM CDT Sexual Orientation Straight 12/02/2022 9: 58 AM CDT documented as of this encounter Last Filed Vital Signs Vital Sign Reading Time Taken Comments Blood Pressure - - Pulse - - Temperature 36.4 ??C (97.6 ??F) 02/23/2023 1:43 PM CS T Respiratory Rate - - Oxygen Saturation - - Inhaled Oxygen Concentration - - Weight 55.5 kg (122 lb 5.7 oz) 02/23/2023 1:43 P M ROTARY RIG ENGINE OPERATOR Height - - Body Mass Index 20.61 11/23/2022 10:14 AM CDT documented in this encounter Medications at Time of Discharge Medication Sig Dispensed Refills Start Date End Date lisinopriL (PRINIVIL,ZESTRIL) 10 mg tablet Take 10 mg by mouth daily. 0 multivit with minerals/lutein (MULTIVITAMIN 50 PLUS ORAL) Take 1 tablet by mouth. 0 09/02/2021 rosuvastatin (CRESTOR) 5 mg tablet Take 5 mg by mouth daily. 0 11/03/2022 tamsulosin (FLOMAX) 0.4 mg 24 hr capsule Take 1 capsule (0.4 mg total) by mouth daily. 30 capsule 1 02/23/2023 04/24/2023 documented as of this encounter Progress Notes * Stanislaw Alan M.D. - 02/23/2023 1:45 PM CST SUBJECTIVE CHIEF COMPLAINT/REASON FOR VISIT Evaluation for side effects while receiving radiation treatment for 1. Primary Malignant Neoplasm Of Prostate (HCC) SUPERVISED BY: Stanislaw Alan M.D. ([id number]) HISTORY OF PRESENT ILLNESS Mr. Norm Sandoval is an 82 y.o. 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 Patient received a leuprolide 7.5 mg injection on January 28, 2023 at [facility] with a plan for 4-6 months of ADT. Treatment Course: 1xProstate Plan ID Fractions Dose / Fraction (cGy) Dose Treated (cGy) Dose Planned (cGy) First Treatment Last Treatment Elapsed Days [id number] 02/09/2023 02/23/2023 14 Course Summary 02/09/2023 02/23/2023 14 The patient was seen and examined today with Dr. Alan. The patient reports to be feeling well overall. He denies changes to urination, diarrhea, hematuriaor rectal bleeding. He reports nocturia x 3-6 which is his baseline. The testicular discomfort thatdeveloped during the first week of treatment has resolved. PATIENT REPORTED SYMPTOM SCREEN: FATIGUE (Scale: 0 = no fatigue; 10 = worst fatigue you can imagine): 0 PAIN (Scale: 0 = no pain; 10 = worst pain you can imagine): 0 OVERALL QUALITY OF LIFE (Scale: 0 = as bad as can be; 10 = as good as can be): 10 OBJECTIVE Temp 36.4 ??C (Temporal) Wt 55.5 kg BMI 20.61 kg/m?? PHYSICAL EXAMINATION General: Alert and oriented, in no apparent distress. ASSESSMENT / PLAN #1 Stage IIB (cT2a, cN0, cM0, PSA 14.6, Grade Group 2) adenocarcinoma of the prostate #2 Erectile dysfunction, preceding diagnosis #3 Androgen deprivation therapy initiated with bicalutamide 50 mg daily on January 12, 2023; leuprolide 7.5 mg injection on January 28, 2023 at [facility]; plan for 4-6 months of ADT #4 Constipation #5 Radiotherapy to prostate initiated on February 09, 2023; anticipated completion on March 16, 2023 The patient is tolerating radiation treatment well overall. He is scheduled for his next Eligard injection on February 25, 2023. He will continue with radiation treatment as planned. He will contact our care team with any questions or concerns. Signed by: Анна Miramontes R.N. 02/23/2023 1:55 PM ROTARY RIG ENGINE OPERATOR I saw and evaluated the patient and participated in the larson portions of the service. I reviewed thedocumentation of Анна Miramontes R.N. and agree with the findings and plan. The patient appears well on exam. He is here today with his Erwin. He is tolerating treatment well. He does note that he felt some swelling adjacent to a testicle a week or 2 ago. This was painless and has resolvedwith low-dose ibuprofen. He declined an exam of his genitalia today. He does have a history of epididymitis. He was on tamsulosin for that with good effect and no orthostatic symptoms. He is now experiencing increasing nocturia times 3-6. I prescribed tamsulosin 0.4 mg at bedtime. We discussed orthostatic precautions and the patient and his spouse verbalized understanding of them. He will continue with treatment as planned. Signed by: Stanislaw Alan M.D. 02/23/2023 3:32 PM ROTARY RIG ENGINE OPERATOR [facility] [address] [place] [address] RY RIG ENGINE OPERATOR documented in this encounter Plan of Treatment Upcoming Encounters Date Type Department Care Team (Late st Contact Info) Description 02/28/2023 1:30 PM ROTARY RIG ENGINE OPERATOR Appointment Department of Radiation Oncology in [address] [phone] Stanislaw Alan M.D. [address] [place] [phone] 03/01/2023 1:30 PM ROTARY RIG ENGINE OPERATOR Appointment Department of Radiation Oncology in [address] [phone] Stanislaw Alan M.D. [address] [place] [phone] 03/02/2023 1:30 PM ROTARY RIG ENGINE OPERATOR Appointment Department of Radiation Oncology in [address] [phone] Stanislaw Alan M.D. [address] [place] [phone] 03/02/2023 1:45 PM ROTARY RIG ENGINE OPERATOR Appointment Department of Radiation Oncology in [place] [address] [place] [address] Stanislaw Alan M.D. [address] [place] [phone] 03/03/2023 1:30 PM ROTARY RIG ENGINE OPERATOR Appointment Department of Radiation Oncology in [address] [phone] Stanislaw Alan M.D. [address] [place] [phone] 03/04/2023 1:30 PM ROTARY RIG ENGINE OPERATOR Appointment Department of Radiation Oncology in [address] [phone] Stanislaw Alan M.D. [address] [place] [phone] 03/07/2023 1:30 PM ROTARY RIG ENGINE OPERATOR Appointment Department of Radiation Oncology in [address] [phone] Stanislaw Alan M.D. [address] [place] [phone] 03/08/2023 1:30 PM ROTARY RIG ENGINE OPERATOR Appointment Department of Radiation Oncology in [address] [phone] Stanislaw Alan M.D. [address] [place] [phone] 03/09/2023 1:30 PM ROTARY RIG ENGINE OPERATOR Appointment Department of Radiation Oncology in [address] [phone] Stanislaw Alan M.D. [address] [place] [phone] 03/09/2023 1:45 PM ROTARY RIG ENGINE OPERATOR Appointment Department of Radiation Oncology in [address] [phone] Stanislaw Alan M.D. [address] [place] [phone] 03/10/2023 1:30 PM ROTARY RIG ENGINE OPERATOR Appointment Department of Radiation Oncology in [address] [phone] Stanislaw Alan M.D. [address] [place] [phone] 03/11/2023 1:30 PM ROTARY RIG ENGINE OPERATOR Appointment Department of Radiation Oncology in [address] [phone] Stanislaw Alan M.D. [address] [place] [phone] 03/14/2023 1:30 PM ROTARY RIG ENGINE OPERATOR Appointment Department of Radiation Oncology in [address] [phone] Stanislaw Alan M.D. [address] [place] [phone] 03/15/2023 1:30 PM ROTARY RIG ENGINE OPERATOR Appointment Department of Radiation Oncology in [address] [phone] Stanislaw Alan M.D. [address] [place] [address] 03/16/2023 1:30 PM ROTARY RIG ENGINE OPERATOR Appointment Department of Radiation Oncology in [address] [phone] Stanislaw Alan M.D. [address] [place] [phone] 03/16/2023 1:45 PM ROTARY RIG ENGINE OPERATOR Appointment Department of Radiation Oncology in [address] [phone] Stanislaw Alan M.D. [address] [place] [phone] Scheduled Orders Name Type Priority Associated Diagnoses Orde r Schedule Management Visit Radiation Oncology Routine Primary Malignant Neoplasm Of Prostate (HCC) Once for 1 Occurrences starting 02/23/2023 until 02/23/2023 documented as of this encounter Visit Diagnoses Diagnosis Primary Malignant Neoplasm Of Prostate (HCC) documented in this encounter Care Teams Automobile Appraiser Relationship Specialty Start Date End Date Elsewhere, Pcp PCP - General Internal Medicine 11/23/22 documented as of this encounter
--- OUTSIDE RECORDS SUMMARY | 2023-02-26 06:45 | XMS_ITS | Encounter Summary ---
Author Name Unknown Organization [facility] Address [address] [place] [address] Care Team Providers Care Wood Crafter Name Role Phone Elsewhere, Pcp Primary Care Provider Unavailabl e Encounter Details Date Type Department Care Team (Late st Contact Info) Description 02/23/2023 1:01 PM [employer] ENGINEER Hospital Encounter Department of Radiation Oncology in [place], [place] [address] [place] [address] Stanislaw Alan M.D. [address] [place] [phone] Social History Tobacco Use Types Packs/Day Years [...] your living situation today? I have a [facility] place to live 12/02/2022 Sex and Gender Information Value Date Recorded Sex Assigned at Male 12/02/2022 9:58 AM CDT Gender Identity Male 12/02/2022 9:58 AM CDT Sexual Orientation Straight 12/02/2022 9: 58 AM CDT documented as of this encounter Plan of Treatment Upcoming Encounters Date Type Department Care Team (Late st Contact Info) Description 02/28/2023 1:30 PM E[employer] ENGINEER Appointment Department of Radiation Oncology in [address] [address] Stanislaw Alan M.D. [address] [place] [address] 03/01/2023 1:30 PM ELECTRO [employer] ENGINEER Appointment Department of Radiation Oncology in [address] [address] Stanislaw Alan M.D. [address] [place] [phone] 03/02/2023 1:30 PM E[employer]RO [employer] ENGINEER Appointment Department of Radiation Oncology in [address] [address] Stanislaw Alan M.D. [address] [place] [phone] 03/02/2023 1:45 PM E[employer]RO [employer] ENGINEER Appointment Department of Radiation Oncology in [address] [phone] Stanislaw Alan M.D. [address] [place] [phone] 03/03/2023 1:30 PM E[employer]RO [employer] ENGINEER Appointment Department of Radiation Oncology in [place], [place] [address] [place] [phone] Stanislaw Alan M.D. [address] [place] [phone] 03/04/2023 1:30 PM ELECTRO [employer] ENGINEER Appointment Department of Radiation Oncology in [address] [address] Stanislaw Alan M.D. [address] [place] [phone] 03/07/2023 1:30 PM E[employer]RO [employer] ENGINEER Appointment Department of Radiation Oncology in [address] [address] Stnaislaw Alan M.D. [address] [place] [phone] 03/08/2023 1:30 PM E[employer]RO [employer] ENGINEER Appointment Department of Radiation Oncology in [address] [address] Stanislaw Alan M.D. [address] [place] [phone] 03/09/2023 1:30 PM E[employer]RO [employer] ENGINEER Appointment Department of Radiation Oncology in [address] [address] Stanislaw Alan M.D. [address] [place] [phone] 03/09/2023 1:45 PM ELECTRO [employer] ENGINEER Appointment Department of Radiation Oncology in [address] [place] [address] Stanislaw Alan M.D. [address] [place] [phone] 03/10/2023 1:30 PM ELECTRO [employer] ENGINEER Appointment Department of Radiation Oncology in [place], [place] [address] [place] [phone] Stanislaw Alan M.D. [address] [place] [address] 03/11/2023 1:30 PM E[employer]RO [employer] ENGINEER Appointment Department of Radiation Oncology in [address] [address] Stanislaw Alan M.D. [address] [place] [address] 03/14/2023 1:30 PM E[employer]RO [employer] ENGINEER Appointment Department of Radiation Oncology in [place], [place] [address] [place] [phone] Stanislaw Alan M.D. [address] [place] [phone] 03/15/2023 1:30 PM E[employer]RO [employer] ENGINEER Appointment Department of Radiation Oncology in [place], [place] [address] [place] [phone] Stanislaw Alan M.D. [address] [place] [address] 03/16/2023 1:30 PM ELECTRO [employer] ENGINEER Appointment Department of Radiation Oncology in [place], [place] [address] [place] [phone] Stanislaw Alan M.D. [address] [place] [address] 03/16/2023 1:45 PM E[employer]RO [employer] ENGINEER Appointment Department of Radiation Oncology in [place], [place] [address] [place] [phone] Stanislaw Alan M.D. [address] [place] [address] documented as of this encounter Visit Diagnoses Not on filedocumented in this encounter Care Teams Wood Crafter Relationship Specialty Start Date End Date Elsewhere, Pcp PCP - General Internal Medicine 11/23/22 documented as of this encounter
--- OUTSIDE RECORDS SUMMARY | 2023-02-26 06:46 | XMS_ITS | Encounter Summary ---
Author Name Unknown Organization [facility] Address [address] [place] [phone] Care Team Providers Care Wildlife Rehabilitator Name Role Phone Elsewhere, Pcp Primary Care Provider Unavailabl e Reason for Referral * Outpatient (Routine) - Closed Specialty Diagnoses / Procedures Referred By Contac t Referred To Contact Radiation Oncology Stanislaw Alan M.D. [address] [place] [phone] [facility] Referral ID Status Reason Start Date Expiration Date Visits Re quested Visits Authorized [id number] Closed 01/11/2023 01/10/2026 1 1 Scheduling Instructions Prior to simulation [facility]DOWN MAN * Outpatient (Routine) - Closed Specialty Diagnoses / Procedures Referred By Contac t Referred To Contact Radiation Oncology Sully Yeung APRN, C.N.PMichelle, D.N.P. [address] [place] [phone] Stanislaw Alan M.D. [address] [place] [phone] Referral ID Status Reason Start Date Expiration Date Visits Re quested Visits Authorized [id number] Closed 12/21/2022 12/20/2025 1 1 Scheduling Instructions After PSA, testosterone, CT abdomen and pelvis, and bone scan completed at [facility]DOWN MAN * Specialty Diagnoses / Procedures Referred By Contac t Referred To Contact Sully Yeung APRN, C.N.P., D.N.P. [address] [place] [address] [facility] Region Referral ID Status Reason Start Date Expiration Date Visits Re quested Visits Authorized KDOWN MAN * Specialty Diagnoses / Procedures Referred By Contac t Referred To Contact Sully Yeung APRN CMichelleN.P., D.N.P. [address] [place] [address] [facility] Region Referral ID Status Reason Start Date Expiration Date Visits Re quested Visits Authorized KDOWN MAN * Radiation Therapy (Routine) - Authorized Specialty Diagnoses / Procedures Referred By Contac t Referred To Contact Diagnoses Primary Malignant Neoplasm Of Prostate (HCC) Procedures Management Visit Stanislaw Alan M.D. [address] [place] [address] [facility] Region Referral ID Status Reason Start Date Expiration Date V isits Requested Visits Authorized [id number] Authorized 01/11/2023 01/11/2024 10 10 [employer]DOWN MAN * Radiation Therapy (Routine) - Authorized Specialty Diagnoses / Procedures Referred By Contac t Referred To Contact Diagnoses Primary Malignant Neoplasm Of Prostate (HCC) Procedures Prior Auth Rad Tx Stanislaw Alan M.D. [address] [place] [address] [facility] Referral ID Status Reason Start Date Expiration Date V isits Requested Visits Authorized [id number] Authorized 01/11/2023 01/11/2024 1 1 [employer]DOWN MAN * Radiation Therapy (Routine) - Closed Specialty Diagnoses / Procedures Referred By Contac t Referred To Contact Diagnoses Primary Malignant Neoplasm Of Prostate (HCC) Procedures Initial Rad Onc Treatment Planning CT Simulation Stanislaw Alan M.D. [address] [place] [phone] [facility] Region Referral ID Status Reason Start Date Expiration Date Visits Re quested Visits Authorized [id number] Closed 01/11/2023 01/11/2024 1 1 [employer]DOWN MAN Reason for Visit * Outpatient (Routine) - Closed Specialty Diagnoses / Procedures Referred By Contac t Referred To Contact Radiation Oncology Sully Yeung APRN, C.N.P., D.N.P. [address] [place] [phone] Stanislaw Alan M.D. [address] [place] [phone] Referral ID Status Reason Start Date Expiration Date Visits Re quested Visits Authorized [id number] Closed 12/21/2022 12/20/2025 1 1 Encounter Details Date Type Department Care Team (Latest Contact Info) Description 01/11/2023 8:40 AM KNOCKDOWN MAN - 01/11/2023 5:14 PM [facility]OCKDOWN [facility] Hospital Encounter Department of Radiation Oncology in [place] [address] [place] [address] Stanislaw Alan M.D. [address] [place] [phone] Primary Malignant Neoplasm Of Prostate (HCC) (Primary Dx) Social History Tobacco Use Types Packs/Day Years [...] your living situation today? I have a [facility] place to live 12/02/2022 Sex and Gender Information Value Date Recorded Sex Assigned at Male 12/02/2022 9:58 AM CDT Gender Identity Male 12/02/2022 9:58 AM CDT Sexual Orientation Straight 12/02/2022 9: 58 AM CDT documented as of this encounter Last Filed Vital Signs Vital Sign Reading Time Taken Comments Blood Pressure 154/68 01/11/2023 8:47 AM [facility]NOCKDOWN MAN Pulse 82 01/11/2023 8:47 AM [employer]NOCKDOWN MAN Temperature 36.4 ??C (97.6 ??F) 01/11/2023 8:47 AM CS T Respiratory Rate - - Oxygen Saturation - - Inhaled Oxygen Concentration - - Weight 55.7 kg (122 lb 12.7 oz) 01/11/2023 8:47 AM KNOCKDOWN MAN Height - - Body Mass Index 20.68 11/23/2022 10:14 AM CDT documented in this encounter Medications at Time of Discharge Medication Sig Dispensed Refills Start Date End Date bicalutamide (CASODEX) 50 mg tablet Take 1 tablet (50 mg total) by mouth daily for 21 days. Take at the same time everyday. Take with or without food. 21 tablet 0 01/11/2023 lisinopriL (PRINIVIL,ZESTRIL) 10 mg tablet Take 10 mg by mouth daily. 0 multivit with minerals/lutein (MULTIVITAMIN 50 PLUS ORAL) Take 1 tablet by mouth. 0 09/02/2021 rosuvastatin (CRESTOR) 5 mg tablet Take 5 mg by mouth daily. 0 11/03/2022 documented as of this encounter Progress Notes * Sully Yeung APRN, C.N.P., D.N.P. - 01/11/2023 9:00 AM CST SUBJECTIVE DIAGNOSIS 1. Primary Malignant Neoplasm Of Prostate (HCC) SUPERVISED BY: Stanislaw Alan MD HISTORY OF PRESENT ILLNESS Norm Sandoval is a 82 y.o. male with unfavorable intermediate adenocarcinoma of the prostate. He returns after completing full staging workup with CT abdomen and pelvis and bone scan. His oncologic history is as follows: Oncology History Primary Malignant Neoplasm Of Prostate (HCC) 07/23/2017 Other 07/23/2017: PSA 7.8 ng/mL 10/03/2017: PSA 5.12 ng/mL Evaluated by Urology, Dr. Rousseau. KIRAN was negative for any concerning findings. Recommended MRI andbiopsy if PSA continued to be elevated. 07/21/2018: PSA 7.29 ng/mL 09/06/2018: Follow up with Dr. Rousseau. KIRAN demonstrated approximate 8 mm nodule at Right base. He recommended biopsy but patient wanted to continue monitoring PSA 08/28/2021: PSA 10.2 ng/mL 05/18/2022: PSA 13.7 ng/mL 06/01/2022 Other Evaluated by Urology, Geovanna Kennedy NP. KIRAN demonstrated asymmetric prostate, firm on right side, enlarged, non-tender, seminal vesicles non-palpable, approximate size 35-40 grams. Patient was agreeable to biopsy at this time 06/03/2022 Biopsy/Pathology FINAL DIAGNOSIS A. Prostate, right biopsy: Prostate tissue without diagnostic abnormality. B. Prostate, left biopsy: Prostate tissue without diagnostic abnormality Geovanna recommended follow up in 3-4 months with PSA and MRI 10/27/2022 Other PSA 14.6 ng/mL 11/01/2022 Critical Imaging MR PROSTATE: Volume: 40cc (PSA density 0.36) Exam quality: Good. Peripheral zone: Focal finding as below (lesion #1). Highly suspicious lesion at the junction of the right anterior transition zone and peripheral zone, as described below. In addition, Linear/wedge-shaped T2 hypointensities without significant diffusion restriction consistent with PI-RADS 2. Transition zone: Focal finding, as below (lesion #1). Lesion # 1 Size: 1.9 x 0.8 x 1.2cm, 1.0cc Zone: Junction of the right anterior transition zone and peripheral zone Location: Right anterior at base. T2WI: Circumscribed, homogenous moderate hypointense focus/mass confined to prostate; greater than or equal to 1.5cm in greatest dimension or definite extraprostatic extension/invasive behavior (T2WI score 5) CE: Positive. Overall category: PIRADS 5- Very high (clinically significant cancer is highly likely to be present). LOCAL STAGING: Capsule: Indeterminate. Broad based capsular abutment without definite extraprostatic extension. Neurovascular bundle invasion: Absent Seminal vesicles invasion: Absent. Other organ invasion: Absent LYMPH NODES: Negative for suspicious lymph node(s). 5 mm bilateral external iliac lymph nodes couldbe reactive. BONES: Negative for suspicious bone lesion(s). 11/23/2022 Biopsy/Pathology FINAL DIAGNOSIS A. Prostate, right posterior medial apex, needle core biopsy: Benign prostatic tissue B. Prostate, right posterior medial base, needle core biopsy: Benign prostatic tissue C. Prostate, right posterior lateral apex, needle core biopsy: Prostatic adenocarcinoma Type: Acinar Grade Group and Bethany score: Grade Group 2 (Woodston Score 3+4=7) Percentage of pattern 4: 10% Tumor involves 10% of overall specimen (1 of 1 core). D. Prostate, right posterior lateral base, needle core biopsy: Benign prostatic tissue E. Prostate, right anterior horn, needle core biopsy: Prostatic adenocarcinoma Type: Acinar Grade Group and Woodston score: Grade Group 2 (Woodston Score 3+4=7) Percentage of pattern 4: 25-50% Tumor involves 5% of overall specimen (1 of 2 cores). Most affected core is involved by tumor over 10% of its length. F. Prostate, right anterior apex, needle core biopsy: Prostatic adenocarcinoma Type: Acinar Grade Group and Bethany score: Grade Group 2 (Bethany Score 3+4=7) Percentage of pattern 4: 25-50% Tumor involves 15% of overall specimen (1 of 1 core). G. Prostate, left posterior medial apex, needle core biopsy: Benign prostatic tissue H. Prostate, left posterior medial base, needle core biopsy: Benign prostatic tissue I. Prostate, left posterior lateral apex, needle core biopsy: Benign prostatic tissue J. Prostate, left posterior lateral base, needle core biopsy: Benign prostatic tissue K. Prostate, left anterior horn, needle core biopsy: Benign prostatic tissue L. Prostate, left anterior apex, needle core biopsy: Benign prostatic tissue M. Prostate, left anterior medial, needle core biopsy: Benign prostatic tissue N. Prostate, right transition zone, needle core biopsy: Prostatic adenocarcinoma Type: Acinar Grade Group and Woodston score: Grade Group 2 (Bethany Score 3+4=7) Percentage of pattern 4: 25-50% Tumor involves 80% of overall specimen (4 of 5 cores). Most affected core is involved by tumor over 100% of its length. 4/14 positive cores 01/06/[address] abdomen and pelvis demonstrated moderate prostatomegaly and no signs of metastatic prostate cancer Nuclear med bone scan no convincing evidence of skeletal metastases 01/06/2023 Other PSA 12.5 ng/mL Testosterone total 719 ng/dL 02/01/2023 - Radiation Therapy Radiation Therapy Treatment Details (Noted on 01/11/2023) Site: Prostate Technique: No technique specified Goal: Curative Planned Treatment Start Date: 02/01/2023 INTERVAL HISTORY The patient was seen and examined today with Dr. Alan. The patient reports feeling well overall. He reports stable urinary symptoms. He denies any urinaryurgency, frequency, hematuria, dysuria, or leakage. He reports nocturia x3. He reports bowel movements every 2-3 days without blood or pain. He is not currently on any stool softeners. His ECOG performance status is 0. AUA SYMPTOM INDEX: 12/21/22: 3 (0, 0, 0, 0, 0, 0, 3) 01/11/23: 3 (0, 0, 0, 0, 0, 0, 3) IIEF-5 QUESTIONNAIRE: 12/21/22: 5 (1, 1, 1, 1, 1) - severe erectile dysfunction 01/11/23: N/A REVIEW OF SYSTEMS Review of systems was negative except as documented above. PATIENT REPORTED SYMPTOM SCREEN FATIGUE (Scale: 0 = no fatigue; 10 = worst fatigue you can imagine): 0 PAIN (Scale: 0 = no pain; 10 = worst pain you can imagine): 0 OVERALL QUALITY OF LIFE (Scale: 0 = as bad as can be; 10 = as good as can be): 10 OBJECTIVE BP 154/68 (BP Location: Right arm, Patient Position: Sitting, Cuff Size: Regular) Pulse 82 Temp36.4 ??C (Temporal) Wt 55.7 kg BMI 20.68 kg/m?? PHYSICAL EXAM General: Patient is alert and oriented in no apparent distress. ASSESSMENT / PLAN #1 Stage IIB (cT2a, cN0, cM0, PSA 14.6, Grade Group 2) adenocarcinoma of the prostate #2 Erectile dysfunction, preceding diagnosis It was a pleasure to meet with Atilio and his spouse today. He is doing well with no significant changes at this time. I reviewed his most recent CT abdomen and pelvis which demonstrated no evidence of disease outside the prostate. I also reviewed his most recent bone scan which demonstrated no evidence of skeletal metastases. I reviewed his recent PSA of 12.5 ng/mL and testosterone total of 719 ng/dL. I reviewed the risks, benefits, and alternatives of radiotherapy in this setting. We discussed external beam radiation therapy options in 20 or 26 fractions. We also discussed the option of stereotactic body radiation therapy in 5 fractions. We discussed fiducial markers and rectal spacer placement, which would be required with SBRT treatment. The patient would like to pursue the standardhypofractionation approach. In addition, we discussed androgen deprivation therapy for 4-6 months starting with a prescription for bicalutamide for 3 weeks followed by a 7.5 mg leuprolide injection at [facility]. The patient and his had many questions regarding the need of hormone therapy. I answered them to thebest of my ability. Due to concerns of potential memory issues, he is hesitant to pursue this. After discussion, we decided start with bicalutamide and evaluate his symptoms next week. We will discuss additional use of hormone therapy at that time. I reviewed the logistics, as well as, the acute and chronic side effects of radiotherapy and androgen deprivation therapy. For full list of those details please refer to his original consult note dated December 21, 2022. I discussed the full bladder, empty rectum protocol with him. The patient will return to undergo CT simulation and MRI planning scan on January 20. We will evaluate how his symptoms are doing on bicalutamide at that time and order for leuprolide injections at that time. We anticipate starting radiation therapy approximately 1-2 weeks later. Patient seen in collaboration with Dr. Alan, please see his attestation for additional information. The patient was provided with our contact information. He was asked to contact us with questions or concerns. He verbally expressed his understanding of the plan. EDUCATION Ready to learn, no apparent learning barriers were identified; learning preferences include listening. Explained diagnosis and treatment plan; patient expressed understanding of the content. I personally spent 60 minutes in care of the patient today. Time includes both non face to face andface to face patient care. Signed by: Sully Yeung APRN, C.N.P., LazaroNMichellePMichelle 01/11/2023 11:06 AM KNOCKDOWN MAN [facility] [address] [place] [address] KDOWN MAN Associated attestation - Stanislaw Alan M.D. - 01/11/2023 5:13 PM KNOCKDOWN MAN I saw and evaluated the patient and participated in the larson portions of the service. I reviewed thedocumentation of Sully Yeung C.N.P. and agree with the findings and plan. Norm Sandoval is an 82 y.o. male with unfavorable intermediate risk, stage IIB (cT2a, cN0, cM0, PSA14.6, Grade Group 2) adenocarcinoma of the prostate. He returns after completing full staging workup with CT abdomen and pelvis and bone scan that were negative for metastatic disease on December. Repeat PSA was 12.50 ng/dL. He returns today with his Erwin. We again reviewed options for treatment including radiation treatment alone with standard hypofractionated approach to a dose of 60 Gy in 20 fractions or 70.2 Gy in 26 fractions or with stereotactic body radiation therapy delivered in 5 fractions 3 other day. We also discussed 4-6 months of androgen deprivation therapy. We discussed omission of ADT. We reviewed all of the side effects. We agreed to proceed with bicalutamide 50 mg daily for 3 weeks to assess his tolerance. The patient is eligible for the RELIEF trial which randomizes him to either a full or an empty bladder during treatment. Idescribed the trial to him and gave him a consent form for his review. After a long discussion, the patient's questions and those of his spouse were answered to their verbalized satisfaction. He stated that he would like to proceed with treatment. He does have bowel movements every day to every third day. He will begin Senokot-S 2 tablets at bedtime to become more regular with daily bowel movements. He will have a Fleet's enema prior to his visit with me with a planning CT scan and planning MRI at [facility] on Tuesday, January 20, 2023. We will see him in follow-up prior to the simulation to answer any questions and to sign consent. The patient and his verbalized satisfaction with this plan. I have spent 60 minutes caring for this patient including [id number]-[id number] and wjt-cdze-yz-face time. Signed by: Stanislaw Alan M.D. 01/11/23 5:13 PM KNOCKDOWN MAN [facility] documented in this encounter Miscellaneous Notes * Addendum Note - Janae Oh, C.N.A. - 01/11/2023 9:00 AM CSTEncounter addended by: Janae Oh C.N.AMichelle on: 01/12/2023 8:25 AM Actions taken: Letter saved KDOWN MAN documented in this encounter Plan of Treatment Upcoming Encounters Date Type Department Care Team (Late st Contact Info) Description 02/28/2023 1:30 PM KNOCKDOWN MAN Appointment Department of Radiation Oncology in [place], [place] [address] [place] [address] Stanislaw Alan M.D. [address] [place] [address] 03/01/2023 1:30 PM KNOCKDOWN MAN Appointment Department of Radiation Oncology in [place] [address] [place] [phone] Stanislaw Alan M.D. [address] [place] [phone] 03/02/2023 1:30 PM KNOCKDOWN MAN Appointment Department of Radiation Oncology in [place] [address] [place] [phone] Stanislaw Alan M.D. [address] [place] [phone] 03/02/2023 1:45 PM KNOCKDOWN MAN Appointment Department of Radiation Oncology in [address] [phone] Stanislaw Alan M.D. [address] [place] [phone] 03/03/2023 1:30 PM KNOCKDOWN MAN Appointment Department of Radiation Oncology in [address] [phone] Stanislaw Alan M.D. [address] [place] [phone] 03/04/2023 1:30 PM KNOCKDOWN MAN Appointment Department of Radiation Oncology in [place] [address] [place] [phone] Stanislaw Alan M.D. [address] [place] [phone] 03/07/2023 1:30 PM KNOCKDOWN MAN Appointment Department of Radiation Oncology in [address] [phone] Stanislaw Alan M.D. [address] [place] [phone] 03/08/2023 1:30 PM KNOCKDOWN MAN Appointment Department of Radiation Oncology in [place] [address] [place] [phone] Stanislaw Alan M.D. [address] [place] [phone] 03/09/2023 1:30 PM KNOCKDOWN MAN Appointment Department of Radiation Oncology in [place] [address] [place] [phone] Stanislaw Alan M.D. [address] [place] [phone] 03/09/2023 1:45 PM KNOCKDOWN MAN Appointment Department of Radiation Oncology in [address] [phone] Stanislaw Alan M.D. [address] [place] [phone] 03/10/2023 1:30 PM KNOCKDOWN MAN Appointment Department of Radiation Oncology in [address] [phone] Stanislaw Alan M.D. [address] [place] [phone] 03/11/2023 1:30 PM KNOCKDOWN MAN Appointment Department of Radiation Oncology in [address] [phone] Stanislaw Alan M.D. [address] [place] [phone] 03/14/2023 1:30 PM KNOCKDOWN MAN Appointment Department of Radiation Oncology in [address] [phone] Stanislaw Alan M.D. [address] [place] [phone] 03/15/2023 1:30 PM KNOCKDOWN MAN Appointment Department of Radiation Oncology in [place] [address] [place] [address] Stanislaw Alan M.D. [address] [place] [address] 03/16/2023 1:30 PM KNOCKDOWN MAN Appointment Department of Radiation Oncology in [place] [address] [place] [phone] Stanislaw Alan M.D. [address] [place] [phone] 03/16/2023 1:45 PM KNOCKDOWN MAN Appointment Department of Radiation Oncology in [place], [place] [address] [place] [phone] Stanislaw Alan M.D. [address] [place] [address] Scheduled Orders Name Type Priority Associated Diagnoses Order Schedule Prior Auth Rad Tx Radiation Oncology Routine Primary Malignant Neoplasm Of Prostate (HCC) Ordered: 01/11/2023 Management Visit Radiation Oncology Routine Primary Malignant Neoplasm Of Prostate (HCC) 10 Occurrences starting 01/11/2023 until 01/11/2024 Scheduled Referrals Name Type Priority Associated Diagnoses Order Schedule Radiation Oncology - PRO education visit Outpatient Referral Routine Primary Malignant Neoplasm Of Prostate (HCC) Expected: 01/11/2023 (Approximate), Expires: 04/10/2024 Radiation Oncology - Nurse education visit (clinic) Outpatient Referral Routine Primary Malignant Neoplasm Of Prostate (HCC) Expected: 01/11/2023 (Approximate), Expires: 01/11/2024 Radiation Oncology office visit (clinic) Outpatient Referral Routine Once for 1 Occurrences starting 01/11/2023 until 01/11/2023 Radiation Oncology office visit (clinic) Outpatient Referral Routine Expected: (Approximate), Expires: 01/12/2024 documented as of this encounter Results * Initial Rad Onc Treatment Planning CT Simulation (02/01/2023 9:00 AM KNOCKDOWN MAN) Narrative RICA GUTHRIE - 02/01/2023 9:00 AM KNOCKDOWN MAN Carla Adam, JOHN ? 02/01/2023 ??9:54 AM Initial Rad Onc Treatment Planning CT Simulation Performed by: Stanislaw Alan M.D. Authorized by: Stanislaw Alan M.D. ?? Stanislaw Alan M.D. RADIATION ONCOLOGY ORDERABLES RICA GUTHRIE na documented in this encounter Visit Diagnoses Diagnosis Primary Malignant Neoplasm Of Prostate (HCC)- Primary Primary Malignant Neoplasm Of Prostate (HCC)- Primary documented in this encounter Care Teams Wildlife Rehabilitator Relationship Specialty Start Date End Date Elsewhere, Pcp PCP - General Internal Medicine 11/23/22 documented as of this encounter
--- OUTSIDE RECORDS SUMMARY | 2023-02-26 06:46 | XMS_ITS | Encounter Summary ---
Author Name Unknown Organization [facility] Address [address] [place] [id number] Care Team Providers Care Family Resource Management Professor Name Role Phone Elsewhere, Pcp Primary Care Provider Unavailabl e Reason for Referral * Outpatient (Routine) - Closed Specialty Diagnoses / Procedures [facility] Referred To Contact Radiation Oncology Sully Yeung APRN, C.N.P., D.N.P. [address] [place] [address] Stanislaw Alan M.D. [address] [place] [phone] Referral ID Status Reason Start Date Expiration Date Visits Re quested Visits Authorized [id number] Closed 12/21/2022 12/20/2025 1 1 Scheduling Instructions After PSA, testosterone, CT abdomen and pelvis, and bone scan completed at [facility] ARTS TEACHER * Outpatient (Routine) - Closed Specialty Diagnoses / Procedures [facility] Referred To Contact Radiation Oncology Diagnoses Primary Malignant Neoplasm Of Prostate (HCC) Geovanna Kennedy APRN, C.N.P. [address] [phone] [facility] Referral ID Status Reason Start Date Expiration Date Visits Re quested Visits Authorized [id number] Closed 12/02/2022 12/02/2023 1 1 Scheduling Instructions [place] ARTS TEACHER Reason for Visit * Outpatient (Routine) - Closed Specialty Diagnoses / Procedures Referred By [facility] t Referred To Contact Radiation Oncology Diagnoses Primary Malignant Neoplasm Of Prostate (HCC) Geovanna Kennedy APRN, C.N.P. [address] [place] [address] [facility] Region Referral ID Status Reason Start Date Expiration Date Visits Re quested Visits Authorized [id number] Closed 12/02/2022 12/02/2023 1 1 Encounter Details Date Type Department Care Team (Latest Contact Info) Description 12/21/2022 10:18 AM FINE ARTS TEACHER - 12/21/2022 12:50 PM FINE ARTS TEACHER Hospital Encounter Department of Radiation Oncology in [place], [place] [address] [place] [address] Stanislaw Alan M.D. [address] [place] [address] Primary Malignant Neoplasm Of Prostate (HCC) (Primary [...] your living situation today? I have a [facility] place to live 12/02/2022 Sex and Gender Information Value Date Recorded Sex Assigned at Male 12/02/2022 9:58 AM CDT Gender Identity Male 12/02/2022 9:58 AM CDT Sexual Orientation Straight 12/02/2022 9: 58 AM CDT documented as of this encounter Last Filed Vital Signs Vital Sign Reading Time Taken Comments Blood Pressure 162/63 12/21/2022 10:30 AM FINE ARTS TEACHER Pulse 67 12/21/2022 10:30 AM FINE ARTS TEACHER Temperature 36.4 ??C (97.5 ??F) 12/21/2022 10:[address] Respiratory Rate - - Oxygen Saturation - - Inhaled Oxygen Concentration - - Weight 55.5 kg (122 lb 5.7 oz) 12/21/2022 10:30 AM FINE ARTS TEACHER Height - - Body Mass Index 20.61 [...] 0 11/03/2022 documented as of this encounter Consult Notes * Sully Yeung APRN, C.N.P., D.N.P. - 12/21/2022 10:30 AM CST SUBJECTIVE REQUESTING PROVIDER Geovanna Kennedy APRN, C.N.P. REASON FOR CONSULT 1. Primary Malignant Neoplasm Of Prostate (HCC) SUPERVISED BY: Stanislaw Alan MD HISTORY OF PRESENT ILLNESS Norm Sandoval is a 82 y.o. male with unfavorable intermediate adenocarcinoma of the prostate, who presents today for an opinion regarding the role of radiation therapy in the management of the patient's disease. His oncologic history is as follows: Oncology [...] ng/mL 06/01/2022 Other Evaluated by Urology, Geovanna Kennedy, MARGARET. KIRAN demonstrated asymmetric prostate, firm on right [...] Prostatic adenocarcinoma Type: Acinar Grade Group and [place] score: Grade Group 2 ([place] Score 3+4=7) Percentage of pattern 4: 10% Tumor involves 10% of overall specimen (1 of 1 core). D. Prostate, right posterior lateral base, needle core biopsy: Benign prostatic tissue E. Prostate, right anterior horn, needle core biopsy: Prostatic adenocarcinoma Type: Acinar Grade Group and Bethany score: Grade Group 2 ([place] Score 3+4=7) Percentage of pattern 4: 25-50% Tumor involves 5% of overall specimen (1 of 2 cores). Most affected core is involved by tumor over 10% of its length. F. Prostate, right anterior apex, needle core biopsy: Prostatic adenocarcinoma Type: Acinar Grade Group and Minneapolis score: Grade Group 2 (Bethany Score 3+4=7) [...] Prostatic adenocarcinoma Type: Acinar Grade Group and [place] score: Grade Group 2 (Bethany Score 3+4=7) Percentage of pattern 4: 25-50% Tumor involves 80% of overall specimen (4 of 5 cores). Most affected core is involved by tumor over 100% of its length. 4/14 positive cores INTERVAL HISTORY The patient was seen and examined today with Dr. Alan. The patient reports feeling well overall. He appreciates good energy. He denies any significant urinary symptoms. He denies urinary frequency, urgency, hematuria, dysuria, or leakage. He reports nocturia x3. He reports variable bowel movements in regards to timing. He denies any concerns with constipation or diarrhea. He denies any blood or pain with bowel movements. He denies pain overall. He has been experiencing erectile dysfunction for the last couple of years. The patient denies a history of prior radiation therapy, connective tissue disorders, or inflammatory bowel disease. The patient denies any implanted devices. His ECOG performance status is 0. AUA SYMPTOM INDEX: 12/21/22: 3 (0, 0, 0, 0, 0, 0, 3) IIEF-5 QUESTIONNAIRE: 12/21/22: 5 (1, 1, 1, 1, 1) - severe erectile dysfunction REVIEW OF SYSTEMS Review of systems was negative except as documented above. PATIENT REPORTED SYMPTOM SCREEN FATIGUE (Scale: 0 = no fatigue; 10 = worst fatigue you can imagine): 2 PAIN (Scale: 0 = no pain; 10 = worst pain you can imagine): 0 OVERALL QUALITY OF LIFE (Scale: 0 = as bad as can be; 10 = as good as can be): 10 PAST MEDICAL HISTORY Past Medical History: Diagnosis Date Dysfunction Erectile Elevated Prostate-Specific Antigen Hypertension Essential Primary Loss Hearing Bilateral Peyronie's Disease PAST SURGICAL HISTORY Past Surgical History: Procedure Laterality Date BIOPSY TRANSPERINEAL PROSTATE N/A 11/23/2022 Procedure: PATIENT PREFERS AFTER 10 AM. BIOPSY TRANSPERINEAL PROSTATE.; Surgeon: Goyo Rizzo M.D.; Location: [place] [address] OR FAMILY HISTORY Family History Problem Relation Age of Onset Hypertension Mother Alcohol abuse Father Alcohol abuse Daughter Epilepsy Son Cancer Neg Hx SOCIAL HISTORY Social History Socioeconomic History Marital status: Number of children: 2 Tobacco Use Smoking status: Never Passive exposure: Never Smokeless tobacco: Never Vaping Use Vaping Use: never used Social Determinants of Health Financial Resource Strain: Low Risk (12/02/2022) Overall Financial Resource Strain (CARDIA) Difficulty of Paying Living Expenses: Not hard at all Food Insecurity: Unknown (12/02/2022) Hunger Vital Sign Worried About Running Out of Food in the Last Year: Never true Transportation Needs: No Transportation Needs (12/02/2022) PRAPARE - Transportation Lack of Transportation (Medical): No Lack of Transportation (Non-Medical): No Physical Activity: Unknown (12/02/2022) Exercise Vital Sign Days of Exercise per Week: 7 days Housing Stability: Low Risk (12/02/2022) Housing Stability Housing: Living Situation: I have a steady place to live OBJECTIVE BP (!) 162/63 (BP Location: Left arm, Patient Position: Sitting, Cuff Size: Regular) Pulse 67 Temp 36.4 ??C (Temporal) Wt 55.5 kg BMI 20.61 kg/m?? PHYSICAL EXAM General: Patient is alert and oriented in no apparent distress. Neck: Supple. Lymph: No palpable cervical, supraclavicular, infraclavicular, axillary, or inguinal adenopathy. Lungs: Clear to auscultation bilaterally. Heart: Regular rate and rhythm. Normal S1 and S2. Abdomen: Soft, non-tender, non-distended. Normal active bowel sounds are present. ASSESSMENT / PLAN #1 Stage IIB (cT2a, cN0, cM0, PSA 14.6, Grade Group 2) adenocarcinoma of the prostate #2 Erectile dysfunction, preceding diagnosis It was a pleasure to meet with Atilio today. I had a discussion with him regarding his prostate cancer diagnosis including his staging. We discussed that he has unfavorable intermediate risk prostate cancer. We reviewed the NCCN guidelines. We also discussed the risks, benefits, and alternatives of radiotherapy in this setting. We discussed external beam radiation therapy options in 20 or 26 fractions. We also discussed the option of stereotactic body radiation therapy in 5 fractions. We discussed fiducial markers and rectal spacer placement, which would be required with SBRT treatment. In addition, we discussed androgen deprivation therapy for 4-6 months. I discussed the logistics, as well as, the acute and chronic side effects of radiotherapy. The acute side effects may include, but are not limited to, urinary frequency and urgency, dysuria, bowel frequency and urgency, diarrhea, gaseous bloating and discomfort, erectile dysfunction, radiation dermatitis, loss of pubic hair, and fatigue. Long-term side effects may include, but are not limited to,mild increase in urinary and bowel frequency, as well as, more rare side effects including radiation cystitis, radiation proctitis, urethral stenosis requiring dilatation, fistula formation, increasing arthritis of the hips, small bowel obstruction, and a very small risk of secondary malignancy. I also discussed the side effects of androgen deprivation therapy, which may include, but are not limited to, hot flashes, fatigue, bone loss with prolonged use, mood changes, gynecomastia, loss of muscle strength and power, increased risk of cardiovascular events, increased risk of dementia/Alzheimer's disease, and complete loss of erectile function until his testosterone levels normalize. I discussed the full bladder, empty rectum protocol with him. The patient was provided with a written summary of recommendations. We discussed obtaining an updated PSA and testosterone level. We also discussed obtaining a CT abdomen and pelvis and bone scan to complete his prostate cancer staging. He was agreeable to this and we will proceed with this at soonest availability at [facility]. We will plan to see him a few days later to review the results and finalize our recommendations regarding radiation treatment and ADT. At the follow-up visit, we will discuss initiating hormone therapy, as well as, when he willreturn for CT planning scan. Patient seen in collaboration with Dr. Alan, [...] plan; patient expressed understanding of the content. PRIMARY PROVIDER Stefani Nelson MD I personally spent 65 minutes in care of the patient today. Time includes both non face to face andface to face patient care. Signed by: Sully Yeung APRN, C.N.P., D.N.P. 12/21/2022 11:42 AM FINE ARTS TEACHER [facility] [address] [place], [place] [id number] ARTS TEACHER Associated attestation - Stanislaw Alan M.D. - 12/21/2022 12:49 PM FINE ARTS TEACHER I saw and evaluated the patient and participated in the larson portions of the service. I reviewed thedocumentation of Sully Yeung C.N.P. and agree with the findings and plan. Norm Sandoval is an 82 y.o. male with unfavorable intermediate risk, stage IIB (cT2a, cN0, cM0, PSA14.6, Grade Group 2) adenocarcinoma of the prostate. We are asked by Michelle Marcia to evaluate the patient for radiotherapy. His oncologic history is well detailed in Gamal's note. In brief, the patient has had elevatedPSAs dating back to July 23, 2017 when his PSA was 7.8 ng/mL. He was evaluated by Dr. Rousseau that summer and elected for observation. Repeat PSA on July 21, 2018 was 7.29 ng/mL. Dr. Rousseau performed a digital rectal exam on September 06, 2018 and noted a nodule in the right base of the prostate. Recommended a biopsy, but the patient opted for observation. PSA on August 28, 2021 was 10.2 ng/mL rising to 13.7 ng/mL on May 18, 2022. He saw Michelle Marcia on June 01, 2022 and she noted firmness on the right side of the prostate. A biopsy on June 03, 2022 was negative. PSA increased to 14.6 ng/mL on October 27, 2022. Prostate MRI on November 01, 2022 revealed a 40 cc gland with a PI-RADS 5, lesion in the right anterior transitional zone. Capsular invasion was indeterminate with broad abutment but no definite extraprostatic extension. There was no neurovascular bundle invasion, seminal vesicle invasion, suspicious lymph nodes, or worrisome bone lesions. A prostate biopsy on November 23, 2022 revealed Bethany 3 + 4 disease in 4 of 14 cores with all of the positive cores coming from the right side. Patient reports that he is currently feeling well. Urinary function is excellent. His bowel movements are variable and he could go anywhere from 1-4 days between bowel movements. He has had erectile dysfunction for the past few years. He does have difficulty with his hearing and wears hearing aids.He is not certain that he has any memory difficulties. 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 His ECOG performance status is 1. OBJECTIVE BP (!) 162/63 (BP Location: Left arm, Patient Position: Sitting, Cuff Size: Regular) Pulse 67 Temp 36.4 ??C (Temporal) Wt 55.5 kg BMI 20.61 kg/m?? PHYSICAL EXAM General: Patient is awake, alert, and oriented to person, place, and time. He does have hearing loss bilaterally and wears hearing aids. He did become somewhat overwhelmed with our discussion in terms of its complexity and next steps despite repeated explanations in written instructions. DIAGNOSTICS I reviewed the patient's pathology reports and imaging. ASSESSMENT / PLAN #1 Stage IIB (cT2a, cN0, cM0, PSA 14.6, Grade Group 2) adenocarcinoma of the prostate #2 Erectile dysfunction, preceding diagnosis I had a detailed discussion with the patient regarding the risks, benefits, and alternatives of radiotherapy in this setting. I consulted the NCCN guidelines in formulating my recommendations and reviewed these with him. The patient has already discussed prostatectomy with Ms. Kennedy; hence, I focused my discussion on radiotherapy options. These include: 1. External beam radiotherapy alone to a dose of 60 Gy in 20 fractions or 70.2 Gy in 26 fractions utilizing IMRT. 2. Stereotactic body radiation therapy to a dose of 36.25 to 40 Gy in 5 fractions. I do not recommend brachytherapy because of his age. Given his unfavorable-intermediate risk disease, I would recommend the addition of a short course (4 to 6 months) androgen deprivation therapy if I were to treat him with external beam therapy alone.However, he may have some memory difficulties. We did briefly discuss the fact that we may omit ADTif this is a concern to both the patient and his spouse. We will obtain a bone scan and CT scan of the abdomen and pelvis at [facility] as well as a repeat PSA and testosterone level there. After this discussion, I provided the patient with a written summary of my recommendations. We willfinalize his plan of care when he returns for results of the above studies. I did ask that he bringhis , Nancy (goes by [employer]) along with him so that both of them could be clear on next steps. He agreed to do this. My thanks to Ms. Kennedy and Drs. Bhagat and Omar for the opportunity to participate in this patient's care. I have spent 60 minutes caring for this patient including both nfvs-mz-rmbq and pqr-oxml-jc-face time. Signed by: Stanislaw Alan M.D. 12/21/22 12:49 PM FINE ARTS TEACHER [facility] [place] documented in this encounter Miscellaneous Notes * Addendum Note - Janae Oh C.NKarlos - 12/21/2022 10:30 AM CSTEncounter addended by: Janae Oh C.NKarlos on: 12/21/2022 2:43 PM Actions taken: Letter saved ARTS TEACHER documented in this encounter Plan of Treatment Upcoming Encounters Date Type Department Care Team (Late st Contact Info) Description 02/28/2023 1:30 PM FINE ARTS TEACHER Appointment Department of Radiation Oncology in [address] [phone] Stanislaw Alan M.D. [address] [place] [phone] 03/01/2023 1:30 PM FINE ARTS TEACHER Appointment Department of Radiation Oncology in [address] [phone] Stanislaw Alan M.D. [address] [place] [phone] 03/02/2023 1:30 PM FINE ARTS TEACHER Appointment Department of Radiation Oncology in [address] [phone] Stanislaw Alan M.D. [address] [place] [phone] 03/02/2023 1:45 PM FINE ARTS TEACHER Appointment Department of Radiation Oncology in [address] [phone] Stanislaw Alan M.D. [address] [place] [phone] 03/03/2023 1:30 PM FINE ARTS TEACHER Appointment Department of Radiation Oncology in [place], [place] [address] [place] [phone] Stanislaw Alan M.D. [address] [place] [phone] 03/04/2023 1:30 PM FINE ARTS TEACHER Appointment Department of Radiation Oncology in [place], [place] [address] [place] [phone] Stanislaw Alan M.D. [address] [place] [phone] 03/07/2023 1:30 PM FINE ARTS TEACHER Appointment Department of Radiation Oncology in [address] [phone] Stanislaw Alan M.D. [address] [place] [address] 03/08/2023 1:30 PM FINE ARTS TEACHER Appointment Department of Radiation Oncology in [address] [phone] Stanislaw Alan M.D. [address] [place] [phone] 03/09/2023 1:30 PM FINE ARTS TEACHER Appointment Department of Radiation Oncology in [address] [phone] Stanislaw Alan M.D. [address] [place] [phone] 03/09/2023 1:45 PM FINE ARTS TEACHER Appointment Department of Radiation Oncology in [address] [phone] Stanislaw Alan M.D. [address] [place] [phone] 03/10/2023 1:30 PM FINE ARTS TEACHER Appointment Department of Radiation Oncology in [place], [place] [address] [place] [phone] Stanislaw Alan M.D. [address] [place] [phone] 03/11/2023 1:30 PM FINE ARTS TEACHER Appointment Department of Radiation Oncology in [address] [phone] Stanislaw Alan M.D. [address] [place] [phone] 03/14/2023 1:30 PM FINE ARTS TEACHER Appointment Department of Radiation Oncology in [address] [phone] Stanislaw Alan M.D. [address] [place] [phone] 03/15/2023 1:30 PM FINE ARTS TEACHER Appointment Department of Radiation Oncology in [place], [place] [address] [place] [phone] Stanislaw Alan M.D. [address] [place] [phone] 03/16/2023 1:30 PM FINE ARTS TEACHER Appointment Department of Radiation Oncology in [place], [place] [address] [place] [phone] Stanislaw Alan M.D. [address] [place] [phone] 03/16/2023 1:45 PM FINE ARTS TEACHER Appointment Department of Radiation Oncology in [place], [place] [address] [place] [phone] Stanislaw Alan M.D. [address] [place] [phone] Scheduled Referrals Name Type Priority Associated Diagnoses Order Schedule Radiation Oncology - consult (clinic) Outpatient Referral Routine Primary Malignant Neoplasm Of Prostate (HCC) Once for 1 Occurrences starting 12/21/2022 until 12/21/2022 Radiation Oncology office visit (clinic) Outpatient Referral Routine Expected: (Approximate), Expires: 03/23/2024 documented as of this encounter Visit Diagnoses Diagnosis Primary Malignant Neoplasm Of Prostate (HCC)- Primary documented in this encounter Care Teams Family Resource Management Professor Relationship Specialty Start Date End Date Elsewhere, Pcp PCP - General Internal Medicine 11/23/22 documented as of this encounter
--- OUTSIDE RECORDS SUMMARY | 2023-02-26 06:46 | XMS_ITS | Encounter Summary ---
Author Name Unknown Organization [facility] Address [address] [place] [address] Care Team Providers Care Scowman Name Role Phone Elsewhere, Pcp Primary Care Provider Unavailabl e Reason for Referral * Radiation Therapy (Routine) - Closed Specialty Diagnoses / Procedures Referred By Tomy meade Referred To Contact Diagnoses Primary Malignant Neoplasm Of Prostate (HCC) Procedures Initial Rad Onc Treatment Planning CT Simulation Stanislaw Alan M.D. [address] [place] [phone] [facility] Region Referral ID Status Reason Start Date Expiration Date Visits Re quested Visits Authorized [id number] Closed 01/11/2023 01/11/2024 1 1 CLERK Reason for Visit * Radiation Therapy (Routine) - Closed Specialty Diagnoses / Procedures Referred By Tomy meade Referred To Contact Diagnoses Primary Malignant Neoplasm Of Prostate (HCC) Procedures Initial Rad Onc Treatment Planning CT Simulation Stanislaw Alan M.D. [address] [place] [phone] [facility] Region Referral ID Status Reason Start Date Expiration Date Visits Re quested Visits Authorized [id number] Closed 01/11/2023 01/11/2024 1 1 Encounter Details Date Type Department Care Team (Latest Contact Info) Description 01/20/2023 9:39 AM SHOE CLERK - 01/20/2023 11:59 PM SHOE CLERK Hospital Encounter Department of Radiation Oncology in [place], [place] [address] [place] [phone] Stanislaw Alan M.D. [address] [place] [phone] Primary Malignant Neoplasm Of Prostate (HCC) Discharge Disposition: Home or Self Care Social History Tobacco Use Types Packs/Day Years [...] your living situation today? I have a [facility] place to live 12/02/2022 Sex and Gender Information Value Date Recorded Sex Assigned at Male 12/02/2022 9:58 AM CDT Gender Identity Male 12/02/2022 9:58 AM CDT Sexual Orientation Straight 12/02/2022 9: 58 AM CDT documented as of this encounter Medications at Time of Discharge [...] 0 11/03/2022 documented as of this encounter Plan of Treatment Upcoming Encounters Date Type Department Care Team (Late st Contact Info) Description 02/28/2023 1:30 PM SHOE CLERK Appointment Department of Radiation Oncology in [address] [address] Stanislaw Alan M.D. [address] [place] [phone] 03/01/2023 1:30 PM SHOE CLERK Appointment Department of Radiation Oncology in [address] [address] Stanislaw Alan M.D. [address] [place] [phone] 03/02/2023 1:30 PM SHOE CLERK Appointment Department of Radiation Oncology in [address] [address] Stanislaw Alan M.D. [address] [place] [phone] 03/02/2023 1:45 PM SHOE CLERK Appointment Department of Radiation Oncology in [address] [address] Stanislaw Alan M.D. [address] [place] [phone] 03/03/2023 1:30 PM SHOE CLERK Appointment Department of Radiation Oncology in [place] [address] [place] [address] Stanislaw Alan M.D. [address] [place] [phone] 03/04/2023 1:30 PM SHOE CLERK Appointment Department of Radiation Oncology in [place], [place] [address] [place] [phone] Stanislaw Alan M.D. [address] [place] [phone] 03/07/2023 1:30 PM SHOE CLERK Appointment Department of Radiation Oncology in [address] [phone] Stanislaw Alan M.D. [address] [place] [phone] 03/08/2023 1:30 PM SHOE CLERK Appointment Department of Radiation Oncology in [place], [place] [address] [place] [phone] Stanislaw Alan M.D. [address] [place] [phone] 03/09/2023 1:30 PM SHOE CLERK Appointment Department of Radiation Oncology in [place], [place] [address] [place] [phone] Stanislaw Alan M.D. [address] [place] [phone] 03/09/2023 1:45 PM SHOE CLERK Appointment Department of Radiation Oncology in [address] [address] Stanislaw Alan M.D. [address] [place] [phone] 03/10/2023 1:30 PM SHOE CLERK Appointment Department of Radiation Oncology in [place], [place] [address] [place] [phone] Stanislaw Alan M.D. [address] [place] [phone] 03/11/2023 1:30 PM SHOE CLERK Appointment Department of Radiation Oncology in [place], [place] [address] [place] [phone] Stanislaw Alan M.D. [address] [place] [phone] 03/14/2023 1:30 PM SHOE CLERK Appointment Department of Radiation Oncology in [address] [phone] Stanislaw Alan M.D. [address] [place] [phone] 03/15/2023 1:30 PM SHOE CLERK Appointment Department of Radiation Oncology in [place], [place] [address] [place] [phone] Stanislaw Alan M.D. [address] [place] [phone] 03/16/2023 1:30 PM SHOE CLERK Appointment Department of Radiation Oncology in [place], [place] [address] [place] [phone] Stanislaw Alan M.D. [address] [place] [phone] 03/16/2023 1:45 PM SHOE CLERK Appointment Department of Radiation Oncology in [address] [phone] Stanislaw Alan M.D. [address] [place] [phone] documented as of this encounter Procedures Procedure Name Priority Date/Time Associated Diagnosis Comments INITIAL RAD ONC TREATMENT PLANNING CT SIMULATION Routine 02/01/2023 9:00 AM SHOE CLERK Primary Malignant Neoplasm Of Prostate (HCC) documented in this encounter Results * Initial Rad Onc Treatment Planning CT Simulation (02/01/2023 9:00 AM SHOE CLERK) Narrative RICA GUTHRIE - 02/01/2023 9:00 AM SHOE CLERK Carla Adam, RTT ? 02/01/2023 ??9:54 AM Initial Rad Onc Treatment Planning CT Simulation Performed by: Stanislaw Alan M.D. Authorized by: Stanislaw Alan M.D. ?? Stanislaw Alan M.D. RADIATION ONCOLOGY ORDERABLES ISABEL JERRI na documented in this encounter Visit Diagnoses Diagnosis Primary Malignant Neoplasm Of Prostate (HCC) Primary Malignant Neoplasm Of Prostate (HCC)- Primary documented in this encounter Care Teams Scowman Relationship Specialty Start Date End Date Elsewhere, Pcp PCP - General Internal Medicine 11/23/22 documented as of this encounter
--- OUTSIDE RECORDS SUMMARY | 2023-02-26 06:46 | XMS_ITS | Encounter Summary ---
Author Name Unknown Organization [facility] Address [address] [place] [address] Care Team Providers Care Lap Winder Name Role Phone Elsewhere, Pcp Primary Care Provider Unavailabl e Reason for Referral * Specialty Diagnoses / Procedures Referred By Contac t Referred To Contact Sully Yeung APRN, C.N.P., D.N.P. [address] [place] [phone] [facility] Region Referral ID Status Reason Start Date Expiration Date Visits Re quested Visits Authorized STARTER Encounter Details Date Type Department Care Team (Latest Contact Info) Description 02/10/2023 10:52 AM WARP STARTER - 02/10/2023 2:47 PM WARP STARTER Hospital Encounter Department of Radiation Oncology in [place], [place] [address] [place] [address] Stanislaw Alan M.D. [address] [place] [phone] Анна Miramontes RMichelleNMichelle [address] [place] [phone] Primary Malignant Neoplasm Of Prostate (HCC) Social [...] your living situation today? I have a [facility] place to live 12/02/2022 Sex and [...] as of this encounter Progress Notes * Анна Miramontes R.N. - 02/10/2023 11:30 AM CST Patient was educated on side effects of radiation therapy. Their questions were answered to the best of my ability. The patient was encouraged to contact the team at any point, with questions or concerns. STARTER documented in this encounter Plan of Treatment Upcoming Encounters Date Type Department Care Team (Late st Contact Info) Description 02/28/2023 1:30 PM WARP STARTER Appointment Department of Radiation Oncology in [address] [phone] Stanislaw Alan M.D. [address] [place] [phone] 03/01/2023 1:30 PM WARP STARTER Appointment Department of Radiation Oncology in [address] [phone] Stanislaw Alan M.D. [address] [place] [phone] 03/02/2023 1:30 PM WARP STARTER Appointment Department of Radiation Oncology in [address] [address] Stanislaw Alan M.D. [address] [place] [phone] 03/02/2023 1:45 PM WARP STARTER Appointment Department of Radiation Oncology in [address] [address] Stanislaw Alan M.D. [address] [place] [phone] 03/03/2023 1:30 PM WARP STARTER Appointment Department of Radiation Oncology in [address] [address] Stanislaw Alan M.D. [address] [place] [phone] 03/04/2023 1:30 PM WARP STARTER Appointment Department of Radiation Oncology in [place], [place] [address] [place] [phone] Stanislaw Alan M.D. [address] [place] [phone] 03/07/2023 1:30 PM WARP STARTER Appointment Department of Radiation Oncology in [place], [place] [address] [place] [phone] Stanislaw Alan M.D. [address] [place] [phone] 03/08/2023 1:30 PM WARP STARTER Appointment Department of Radiation Oncology in [address] [phone] Stanislaw Alan M.D. [address] [place] [phone] 03/09/2023 1:30 PM WARP STARTER Appointment Department of Radiation Oncology in [address] [phone] Stanislaw Alan M.D. [address] [place] [phone] 03/09/2023 1:45 PM WARP STARTER Appointment Department of Radiation Oncology in [address] [address] Stanislaw Alan M.D. [address] [place] [phone] 03/10/2023 1:30 PM WARP STARTER Appointment Department of Radiation Oncology in [address] [address] Stanislaw Alan M.D. [address] [place] [phone] 03/11/2023 1:30 PM WARP STARTER Appointment Department of Radiation Oncology in [address] [phone] Stanislaw Alan M.D. [address] [place] [phone] 03/14/2023 1:30 PM WARP STARTER Appointment Department of Radiation Oncology in [address] [phone] Stanislaw Alan M.D. [address] [place] [phone] 03/15/2023 1:30 PM WARP STARTER Appointment Department of Radiation Oncology in [address] [phone] Stanislaw Alan M.D. 200 [place] [phone] 03/16/2023 1:30 PM WARP STARTER Appointment Department of Radiation Oncology in [address] [phone] Stanislaw Alan M.D. [address] [place] [phone] 03/16/2023 1:45 PM WARP STARTER Appointment Department of Radiation Oncology in [address] [address] Stanislaw Alan M.D. [address] [place] [phone] Scheduled Referrals Name Type Priority Associated Diagnoses Order Schedule Radiation Oncology - Nurse education visit (clinic) Outpatient Referral Routine Primary Malignant Neoplasm Of Prostate (HCC) Once for 1 Occurrences starting 02/10/2023 until 02/10/2023 documented as of this encounter Visit Diagnoses Diagnosis Primary Malignant Neoplasm Of Prostate (HCC) documented in this encounter Care Teams Lap Winder Relationship Specialty Start Date End Date Elsewhere, Pcp PCP - General Internal Medicine 11/23/22 documented as of this encounter
--- OUTSIDE RECORDS SUMMARY | 2023-02-26 06:46 | XMS_ITS | Encounter Summary ---
Author Name Unknown Organization [facility] Address [address] [place] [address] Care Team Providers Care Service Cleaner Name Role Phone Elsewhere, Pcp Primary Care Provider Unavailabl e Encounter Details Date Type Department Care Team (Late st Contact Info) Description 02/09/2023 9:24 AM [facility] Hospital Encounter Department of Radiation Oncology in [place], [place] [address] [place] [address] Stanislaw Alan M.D. [address] [place] [phone] Social History Tobacco Use Types Packs/Day Years [...] your living situation today? I have a [facility] place to live 12/02/2022 Sex and Gender Information Value Date Recorded Sex Assigned at Male 12/02/2022 9:58 AM CDT Gender Identity Male 12/02/2022 9:58 AM CDT Sexual Orientation Straight 12/02/2022 9: 58 AM CDT documented as of this encounter Plan of Treatment Upcoming Encounters Date Type Department Care Team (Late st Contact Info) Description 02/28/2023 1:30 PM COPY CENTER ASSOCIATE Appointment Department of Radiation Oncology in [address] [address] Stanislaw Alan M.D. 200 [place] [address] 03/01/2023 1:30 PM COPY CENTER ASSOCIATE Appointment Department of Radiation Oncology in [address] [address] Stanislaw Alan M.D. [address] [place] [phone] 03/02/2023 1:30 PM COPY CENTER ASSOCIATE Appointment Department of Radiation Oncology in [address] [address] Stanislaw Alan M.D. [address] [place] [phone] 03/02/2023 1:45 PM COPY CENTER ASSOCIATE Appointment Department of Radiation Oncology in [address] [address] Stanislaw Alan M.D. [address] [place] [phone] 03/03/2023 1:30 PM COPY CENTER ASSOCIATE Appointment Department of Radiation Oncology in [place], [place] [address] [place] [phone] Stanislaw Alan M.D. [address] [place] [phone] 03/04/2023 1:30 PM COPY CENTER ASSOCIATE Appointment Department of Radiation Oncology in [address] [address] Stanislaw Alan M.D. [address] [place] [phone] 03/07/2023 1:30 PM COPY CENTER ASSOCIATE Appointment Department of Radiation Oncology in [address] [address] Stanislaw Alan M.D. [address] [place] [phone] 03/08/2023 1:30 PM COPY CENTER ASSOCIATE Appointment Department of Radiation Oncology in [address] [address] Stanislaw Alan M.D. [address] [place] [phone] 03/09/2023 1:30 PM COPY CENTER ASSOCIATE Appointment Department of Radiation Oncology in [address] [address] Stanislaw Alan M.D. [address] [place] [phone] 03/09/2023 1:45 PM COPY CENTER ASSOCIATE Appointment Department of Radiation Oncology in [address] [place] [address] Stanislaw Alan M.D. [address] [place] [phone] 03/10/2023 1:30 PM COPY CENTER ASSOCIATE Appointment Department of Radiation Oncology in [place], [place] [address] [place] [phone] Stanislaw Alan M.D. 200 [place] [address] 03/11/2023 1:30 PM COPY CENTER ASSOCIATE Appointment Department of Radiation Oncology in [address] [address] Stanislaw Alan M.D. 200 [place] [address] 03/14/2023 1:30 PM COPY CENTER ASSOCIATE Appointment Department of Radiation Oncology in [place], [place] [address] [place] [phone] Stanislaw Alan M.D. [address] [place] [phone] 03/15/2023 1:30 PM COPY CENTER ASSOCIATE Appointment Department of Radiation Oncology in [place], [place] [address] [place] [phone] Stanislaw Alan M.D. 200 [place] [address] 03/16/2023 1:30 PM COPY CENTER ASSOCIATE Appointment Department of Radiation Oncology in [place], [place] [address] [place] [phone] Stanislaw Alan M.D. 200 [place] [address] 03/16/2023 1:45 PM COPY CENTER ASSOCIATE Appointment Department of Radiation Oncology in [place], [place] [address] [place] [phone] Stanislaw Alan M.D. [address] [place] [address] documented as of this encounter Visit Diagnoses Not on filedocumented in this encounter Care Teams Service Cleaner Relationship Specialty Start Date End Date Elsewhere, Pcp PCP - General Internal Medicine 11/23/22 documented as of this encounter
--- OUTSIDE RECORDS SUMMARY | 2023-02-26 06:46 | XMS_ITS | Encounter Summary ---
Author Name Unknown Organization [facility] Address [address] [place] [address] Care Team Providers Care Story Editor Name Role Phone Elsewhere, Pcp Primary Care Provider Unavailabl e Encounter Details Date Type Department Care Team (Late st Contact Info) Description 02/10/2023 10:51 AM [facility] Hospital Encounter Department of Radiation Oncology in [place], [place] [address] [place] [address] Stanislaw Alan M.D. [address] [place] [phone] Social History Tobacco Use Types Packs/Day Years [...] your living situation today? I have a [facility] place to live 12/02/2022 Sex and Gender Information Value Date Recorded Sex Assigned at Male 12/02/2022 9:58 AM CDT Gender Identity Male 12/02/2022 9:58 AM CDT Sexual Orientation Straight 12/02/2022 9: 58 AM CDT documented as of this encounter Plan of Treatment Upcoming Encounters Date Type Department Care Team (Late st Contact Info) Description 02/28/2023 1:30 PM SALESPERSON [facility] Appointment Department of Radiation Oncology in [address] [address] Stanilsaw Alan M.D. [address] [place] [address] 03/01/2023 1:30 PM [facility]ERSON [facility] Appointment Department of Radiation Oncology in [address] [phone] Stanislaw Alan M.D. [address] [place] [phone] 03/02/2023 1:30 PM [facility] Appointment Department of Radiation Oncology in [address] [address] Stanislaw Alan M.D. [address] [place] [phone] 03/02/2023 1:45 PM [facility] Appointment Department of Radiation Oncology in [address] [phone] Stanislaw Alan M.D. [address] [place] [phone] 03/03/2023 1:30 PM [facility] [place] Appointment Department of Radiation Oncology in [place], [place] [address] [place] [phone] Stanislaw Alan M.D. [address] [place] [phone] 03/04/2023 1:30 PM [facility] Appointment Department of Radiation Oncology in [address] [address] Stanislaw Alan M.D. [address] [place] [phone] 03/07/2023 1:30 PM [employer] [employer] Appointment Department of Radiation Oncology in [address] [address] Stanislaw Alan M.D. [address] [place] [phone] 03/08/2023 1:30 PM [employer] [employer] Appointment Department of Radiation Oncology in [address] [address] Stanislaw Alan M.D. [address] [place] [phone] 03/09/2023 1:30 PM [employer] [employer] Appointment Department of Radiation Oncology in [address] [address] Stanislaw Alan M.D. [address] [place] [phone] 03/09/2023 1:45 PM [employer] [employer] Appointment Department of Radiation Oncology in [address] [place] [address] Stanislaw Alan M.D. [address] [place] [phone] 03/10/2023 1:30 PM [facility] Appointment Department of Radiation Oncology in [place], [place] [address] [place] [phone] Stanislaw Alan M.D. 200 [place] [address] 03/11/2023 1:30 PM [employer] Appointment Department of Radiation Oncology in [address] [address] Stanislaw Alan M.D. 200 [place] [address] 03/14/2023 1:30 PM [employer] [employer] Appointment Department of Radiation Oncology in [place], [place] [address] [place] [phone] Stanislaw Alan M.D. [address] [place] [phone] 03/15/2023 1:30 PM [employer]ERSON [place] Appointment Department of Radiation Oncology in [place], [place] [address] [place] [phone] Stanislaw Alan M.D. 200 [place] [address] 03/16/2023 1:30 PM [employer]ERSON [facility] Appointment Department of Radiation Oncology in [place], [place] [address] [place] [phone] Stanislaw Alan M.D. 200 [place] [address] 03/16/2023 1:45 PM [facility]ESPERSON [facility] Appointment Department of Radiation Oncology in [place], [place] [address] [place] [phone] Stanislaw Alan M.D. [address] [place] [address] documented as of this encounter Visit Diagnoses Not on filedocumented in this encounter Care Teams Story Editor Relationship Specialty Start Date End Date Elsewhere, Pcp PCP - General Internal Medicine 11/23/22 documented as of this encounter
--- OUTSIDE RECORDS SUMMARY | 2023-02-26 06:46 | XMS_ITS | Encounter Summary ---
Author Name Unknown Organization [facility] Address [address] [place] [id number] Care Team Providers Care Welding Machine Operator Resistance Name Role Phone Elsewhere, Pcp Primary Care Provider Unavailabl e Reason for Referral * Radiation Therapy (Routine) - Authorized Specialty Diagnoses / Procedures Referred By Contmarychuy t Referred To Contact Diagnoses Primary Malignant Neoplasm Of Prostate (HCC) Procedures Management Visit Stanislaw Alan M.D. [address] [place] [phone] [facility] Region Referral ID Status Reason Start Date Expiration Date V isits Requested Visits Authorized [id number] Authorized 01/11/2023 01/11/2024 10 10 ING INTERNSHIP Reason for Visit * Radiation Therapy (Routine) - Authorized Specialty Diagnoses / Procedures Referred By Tomy meade Referred To Contact Diagnoses Primary Malignant Neoplasm Of Prostate (HCC) Procedures Management Visit Stanislaw Alan M.D. [address] [place] [phone] [facility] Region Referral ID Status Reason Start Date Expiration Date V isits Requested Visits Authorized [id number] Authorized 01/11/2023 01/11/2024 10 10 Encounter Details Date Type Department Care Team (Latest Contact Info) Description 02/09/2023 9:27 AM EDITING INTERNSHIP - 02/09/2023 6:35 PM EDITING INTERNSHIP Hospital Encounter Department of Radiation Oncology in [place], [place] [address] [place] [address] Stanislaw Alan M.D. [address] [place] [phone] Primary Malignant Neoplasm Of Prostate (HCC) Social [...] your living situation today? I have a [facility] place to live 12/02/2022 Sex and Gender Information Value Date Recorded Sex Assigned at Male 12/02/2022 9:58 AM CDT Gender Identity Male 12/02/2022 9:58 AM CDT Sexual Orientation Straight 12/02/2022 9: 58 AM CDT documented as of this encounter Last Filed Vital Signs Vital Sign Reading Time Taken Comments Blood Pressure - - Pulse - - Temperature 36.2 ??C (97.1 ??F) 02/09/2023 10:[address] Respiratory Rate - - Oxygen Saturation - - Inhaled Oxygen Concentration - - Weight 55.1 kg (121 lb 7.6 oz) 02/09/2023 10:06 AM [employer] Height - - Body Mass Index 20.46 11/23/2022 10:14 AM CDT documented in this [...] Progress Notes * Stanislaw Alan M.D. - 02/09/2023 10:15 AM CST SUBJECTIVE CHIEF COMPLAINT/REASON FOR VISIT Evaluation for side effects while receiving radiation treatment for 1. Primary Malignant Neoplasm Of Prostate (HCC) SUPERVISED BY: Stanislaw Alan M.D. ([id number]) HISTORY OF PRESENT ILLNESS Mr. Norm Sandoval is a 82 y.o. 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 Patient received a leuprolide 7.5 mg injection on January 28, 2023 at [facility] with a plan for 4-6 months of ADT. Treatment Course: 1xProstate Plan ID Fractions Dose / Fraction (cGy) Dose Treated (cGy) Dose Planned (cGy) First Treatment Last Treatment Elapsed Days [id number] 02/09/2023 02/09/2023 0 Course Summary 02/09/2023 02/09/2023 0 The patient was seen and examined today with Dr. Alan. The patient reports to be feeling well overall. His first radiation treatment went well. He denies any issues or concerns at this time. PATIENT REPORTED SYMPTOM SCREEN: FATIGUE (Scale: 0 = no fatigue; 10 = worst fatigue you can imagine): 0 PAIN (Scale: 0 = no pain; 10 = worst pain you can imagine): 0 OVERALL QUALITY OF LIFE (Scale: 0 = as bad as can be; 10 = as good as can be): 10 OBJECTIVE Temp 36.2 ??C (Temporal) Wt 55.1 kg BMI 20.46 kg/m?? PHYSICAL EXAMINATION General: Alert and oriented, in no apparent distress. 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 Patient received his first Leuprolide 7.5 mg injection at [facility]. He is scheduled for his next one of February 25, 2023. Patient will have his nurse education visit tomorrow. He will continue with radiation treatment as planned. He will contact our care team with any questions or concerns. Signed by: Анна Miramontes R.N. 02/09/2023 10:44 AM EDITING INTERNSHIP I saw and evaluated the patient and participated in the larson portions of the service. I reviewed thedocumentation of Анна Miramontes R.N. and agree with the findings and plan. The patient appears well on exam. He tolerated his first treatment well. We reviewed his cone beam CT localization imaging together. He will continue with treatment as planned. Signed by: Stanislaw Alan M.D. 02/09/2023 6:35 PM EDITING INTERNSHIP [facility] Radiation Therapy [facility] [place] [address] [employer] documented in this encounter Plan of Treatment Upcoming Encounters Date Type Department Care Team (Late st Contact Info) Description 02/28/2023 1:30 PM EDITING INTERNSHIP Appointment Department of Radiation Oncology in [address] [phone] Stanislaw Alan M.D. [address] [place] [address] 03/01/2023 1:30 PM EDIT[employer] INTERNSHIP Appointment Department of Radiation Oncology in [address] [phone] Stanislaw Alan M.D. 200 [place] [address] 03/02/2023 1:30 PM EDIT[employer] INTERNSHIP Appointment Department of Radiation Oncology in [address] [phone] Stanislaw Alan M.D. 200 [place] [address] 03/02/2023 1:45 PM EDIT[employer] INTERNSHIP Appointment Department of Radiation Oncology in [address] [phone] Stanislaw Alan M.D. 200 [place] [phone] 03/03/2023 1:30 PM EDITING INTERNSHIP Appointment Department of Radiation Oncology in [address] [phone] Stanislaw Alan M.D. 200 [place] [address] 03/04/2023 1:30 PM EDITING INTERNSHIP Appointment Department of Radiation Oncology in [address] [phone] Stanislaw Alan M.D. [address] [place] [phone] 03/07/2023 1:30 PM EDITING INTERNSHIP Appointment Department of Radiation Oncology in [address] [phone] Stanislaw Alan M.D. [address] [place] [phone] 03/08/2023 1:30 PM EDITING INTERNSHIP Appointment Department of Radiation Oncology in [address] [phone] Stanislaw Alan M.D. [address] [place] [phone] 03/09/2023 1:30 PM EDIT[employer] INTERNSHIP Appointment Department of Radiation Oncology in [place], [place] [address] [place] [phone] Stanislaw Alan M.D. [address] [place] [phone] 03/09/2023 1:45 PM EDITING INTERNSHIP Appointment Department of Radiation Oncology in [address] [phone] Stanislaw Alan M.D. 200 [place] [address] 03/10/2023 1:30 PM EDITING INTERNSHIP Appointment Department of Radiation Oncology in [address] [phone] Stanislaw Alan M.D. [address] [place] [phone] 03/11/2023 1:30 PM EDITING INTERNSHIP Appointment Department of Radiation Oncology in [address] [phone] Stanislaw Alan M.D. [address] [place] [phone] 03/14/2023 1:30 PM EDITING INTERNSHIP Appointment Department of Radiation Oncology in [address] [phone] Stanislaw Alan M.D. [address] [place] [address] 03/15/2023 1:30 PM EDITING INTERNSHIP Appointment Department of Radiation Oncology in [place], [place] [address] [place] [address] Stanislaw Alan M.D. [address] [place] [address] 03/16/2023 1:30 PM EDITING INTERNSHIP Appointment Department of Radiation Oncology in [place], [place] [address] [place] [address] Stanislaw Alan M.D. 200 [place] [address] 03/16/2023 1:45 PM EDITING INTERNSHIP Appointment Department of Radiation Oncology in [place], [place] [address] [place] [address] Stanislaw Alan M.D. [address] [place] [phone] Scheduled Orders Name Type Priority Associated Diagnoses Orde r Schedule Management Visit Radiation Oncology Routine Primary Malignant Neoplasm Of Prostate (HCC) Once for 1 Occurrences starting 02/09/2023 until 02/09/2023 documented as of this encounter Visit Diagnoses Diagnosis Primary Malignant Neoplasm Of Prostate (HCC) documented in this encounter Care Teams Welding Machine Operator Resistance Relationship Specialty Start Date End Date Elsewhere, Pcp PCP - General Internal Medicine 11/23/22 documented as of this encounter
--- OUTSIDE RECORDS SUMMARY | 2023-02-26 06:46 | XMS_ITS | Encounter Summary ---
Author Name Unknown Organization [facility] Address [address] [place] [address] Care Team Providers Care Animal Daycare Provider Name Role Phone Elsewhere, Pcp Primary Care Provider Unavailabl e Reason for Referral * Outpatient (Routine) - Closed Specialty Diagnoses / Procedures Referred By Contac t Referred To Contact Radiation Oncology Stanislaw Alan M.D. [address] [place] [phone] [facility] Referral ID Status Reason Start Date Expiration Date Visits Re quested Visits Authorized [id number] Closed 01/11/2023 01/10/2026 1 1 Scheduling Instructions Prior to simulation RAL OFFICE FRAME WIRER Reason for Visit * Outpatient (Routine) - Closed Specialty Diagnoses / Procedures Referred By Tomy meade Referred To Contact Radiation Oncology Stanislaw Alan M.D. [address] [place] [phone] [facility] Referral ID Status Reason Start Date Expiration Date Visits Re quested Visits Authorized [id number] Closed 01/11/2023 01/10/2026 1 1 Encounter Details Date Type Department Care Team (Latest Contact Info) Description 01/20/2023 8:43 AM CENTRAL OFFICE FRAME WIRER - 01/20/2023 9:38 AM CENTRAL OFFICE FRAME WIRER Hospital Encounter Department of Radiation Oncology in [address] [place] [phone] Stanislaw Alan M.D. [address] [place] [phone] Primary Malignant Neoplasm Of Prostate (HCC) (Primary [...] your living situation today? I have a [facility] place to live 12/02/2022 Sex and Gender Information Value Date Recorded Sex Assigned at Male 12/02/2022 9:58 AM CDT Gender Identity Male 12/02/2022 9:58 AM CDT Sexual Orientation Straight 12/02/2022 9: 58 AM CDT documented as of this encounter Last Filed Vital Signs Vital Sign Reading Time Taken Comments Blood Pressure 144/67 01/20/2023 9:00 AM CENTRAL OFFICE FRAME WIRER Pulse 76 01/20/2023 9:00 AM CENTRAL OFFICE FRAME WIRER Temperature 35.8 ??C (96.4 ??F) 01/20/2023 9:00 AM CS T Respiratory Rate - - Oxygen Saturation - - Inhaled Oxygen Concentration - - Weight 54.8 kg (120 lb 13 oz) 01/20/2023 9:00 AM CENTRAL OFFICE FRAME WIRER Height - - Body Mass Index 20.35 11/23/2022 10:14 AM CDT documented in this [...] Progress Notes * Stanislaw Alan M.D. - 01/20/2023 9:00 AM CST SUBJECTIVE DIAGNOSIS 1. Primary Malignant Neoplasm Of Prostate (HCC) HISTORY OF PRESENT ILLNESS Norm Sandoval is an 82 y.o. male with unfavorable intermediate adenocarcinoma of the prostate. He returns for a CT simulation. His oncologic history is as follows: Oncology [...] Prostatic adenocarcinoma Type: Acinar Grade Group and [place] score: Grade Group 2 (Bethany Score 3+4=7) Percentage of pattern 4: 10% [...] Prostatic adenocarcinoma Type: Acinar Grade Group and [place] score: Grade Group 2 (Bethany Score 3+4=7) [...] Prostatic adenocarcinoma Type: Acinar Grade Group and [place] score: Grade Group 2 (Bethany Score 3+4=7) [...] Start Date: 02/01/2023 INTERVAL HISTORY The patient reports feeling well overall. He is started bicalutamide last week and is not noticing any side effects. He reports stable urinary symptoms. He denies any urinary urgency, frequency, hematuria, dysuria, or leakage. He reports nocturia x3. He reports bowel movements every 2-3 days without blood or pain. He is only taking the Senokot-S that I recommended intermittently. His ECOG performance status is 0. AUA SYMPTOM INDEX: 12/21/22: 3 (0, 0, 0, 0, 0, 0, 3) 01/11/23: 3 (0, 0, 0, 0, 0, 0, 3) 01/20/23: 3 (0, 0, 0, 0, 0, 0, [...] good as can be): 10 OBJECTIVE BP 144/67 (BP Location: Right arm, Patient Position: Sitting, Cuff Size: Regular) Pulse 76 Temp(!) 35.8 ??C (Temporal) Wt 54.8 kg BMI 20.35 kg/m?? PHYSICAL EXAM General: Patient is alert and oriented in no apparent distress. He is here today with his . 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 We reviewed my recommendation to proceed with definitiveradiotherapy to the prostate and seminal vesicles likely to a dose of 70.2 Gy in 26 fractions but possibly to a dose of 60 Gy in 20 fractions if bladder and rectal constraints can be met. Recommend utilization of intensity modulated radiotherapy. IMRT is indicated so as to spare high radiation doseto the adjacent bowel, bladder, rectum, and hips. The patient is eligible for enrollment on the relief trial. After much discussion, the patient declined enrollment. The patient is tolerating bicalutamide well. He will have a leuprolide 7.5 mg injection next week at [facility]. I reviewed the logistics of treatment in detail. The patient's questions and those of his spouse were answered to their verbalized satisfaction. He stated that he would like to proceed with treatmentand signed the consent form. We then proceeded with CT simulation. Unfortunately, the patient has extremely large amount of stool in his large intestine and rectal area. He will begin taking Senokot-S 2 tablets at bedtime in increasing the dose up to a maximum of 4 tablets twice daily but then backing down. He can also take MiraLAX with this. I provided the patient and his a handout in this regard. We will reschedule his CT simulation after he has had some success with regular bowel movements. CONSENT Discussed the risks, benefits, alternatives, and the necessity of other members of the healthcare team participating in the procedure. All questions answered and consent given. I personally spent 45 minutes in care of the patient today. Time includes both non face to face andface to face patient care. Signed by: Stanislaw Alan M.D. 01/20/23 10:26 AM CENTRAL OFFICE FRAME WIRER [facility] Rad[facility] Therapy [facility] [address] [place] [address] RAL OFFICE FRAME WIRER documented in this encounter Plan of Treatment Upcoming Encounters Date Type Department Care Team (Late st Contact Info) Description 02/28/2023 1:30 PM CENTRAL OFFICE FRAME WIRER Appointment Department of Radiation Oncology in [address] [phone] Stanislaw Alan M.D. [address] [place] [phone] 03/01/2023 1:30 PM CENTRAL OFFICE FRAME WIRER Appointment Department of Radiation Oncology in [address] [phone] Stanislaw Alan M.D. [address] [place] [phone] 03/02/2023 1:30 PM CENTRAL OFFICE FRAME WIRER Appointment Department of Radiation Oncology in [address] [phone] Stanislaw Alan M.D. [address] [place] [phone] 03/02/2023 1:45 PM CENTRAL OFFICE FRAME WIRER Appointment Department of Radiation Oncology in [address] [phone] Stanislaw Alan M.D. 200 [place] [address] 03/03/2023 1:30 PM CENTRAL OFFICE FRAME WIRER Appointment Department of Radiation Oncology in [address] [address] Stanislaw Alan M.D. 200 [place] [address] 03/04/2023 1:30 PM CENTRAL OFFICE FRAME WIRER Appointment Department of Radiation Oncology in [address] [address] Stanislaw Alan M.D. 200 [place] [address] 03/07/2023 1:30 PM CENTRAL OFFICE FRAME WIRER Appointment Department of Radiation Oncology in [address] [phone] Stanislaw Alan M.D. 200 [place] [address] 03/08/2023 1:30 PM CENTRAL OFFICE FRAME WIRER Appointment Department of Radiation Oncology in [address] [address] Stanislaw Alan M.D. [address] [place] [phone] 03/09/2023 1:30 PM CENTRAL OFFICE FRAME WIRER Appointment Department of Radiation Oncology in [address] [address] Stanislaw Alan M.D. [address] [place] [phone] 03/09/2023 1:45 PM CENTRAL OFFICE FRAME WIRER Appointment Department of Radiation Oncology [place] [address] [place] [phone] Stanislaw Alan M.D. [address] [place] [phone] 03/10/2023 1:30 PM CENTRAL OFFICE FRAME WIRER Appointment Department of Radiation Oncology [place] [address] [place] [phone] Stanislaw Alan M.D. [address] [place] [phone] 03/11/2023 1:30 PM CENTRAL OFFICE FRAME WIRER Appointment Department of Radiation Oncology in [address] [address] Stanislaw Alan M.D. [address] [place] [phone] 03/14/2023 1:30 PM CENTRAL OFFICE FRAME WIRER Appointment Department of Radiation Oncology in [address] [address] Stanislaw Alan M.D. [address] [place] [phone] 03/15/2023 1:30 PM CENTRAL OFFICE FRAME WIRER Appointment Department of Radiation Oncology in [address] [place] [phone] Stanislaw Alan M.D. [address] [place] [phone] 03/16/2023 1:30 PM CENTRAL OFFICE FRAME WIRER Appointment Department of Radiation Oncology in [address] [place] [address] Stanislaw Alan M.D. 200 [place] [address] 03/16/2023 1:45 PM CENTRAL OFFICE FRAME WIRER Appointment Department of Radiation Oncology in [address] [place] [address] Stanislaw Alan M.D. 200 [place] [address] Scheduled Referrals Name Type Priority Associated Diagnoses Order Schedule Radiation Oncology office visit (clinic) Outpatient Referral Routine Once for 1 Occurrences starting 01/20/2023 until 01/20/2023 documented as of this encounter Visit Diagnoses Diagnosis Primary Malignant Neoplasm Of Prostate (HCC)- Primary documented in this encounter Care Teams Animal Daycare Provider Relationship Specialty Start Date End Date Elsewhere, Pcp PCP - General Internal Medicine 11/23/22 documented as of this encounter
--- OUTSIDE RECORDS SUMMARY | 2023-02-26 06:46 | XMS_ITS | Encounter Summary ---
Author Name Unknown Organization [facility] Address [address] [place] [id number] Care Team Providers Care Professor Of Latin American Studies Name Role Phone Elsewhere, Pcp Primary Care Provider Unavailabl e Reason for Visit * Radiation Therapy (Routine) - Closed Specialty Diagnoses / Procedures Referred By Tomy t Referred To Contact Diagnoses Primary Malignant Neoplasm Of Prostate (HCC) Procedures Initial Rad Onc Treatment Planning CT Simulation Stanislaw Alan M.D. [address] [place] [phone] [facility] Region Referral ID Status Reason Start Date Expiration Date Visits Re quested Visits Authorized [id number] Closed 01/11/2023 01/11/2024 1 1 Encounter Details Date Type Department Care Team (Latest Contact Info) Description 02/01/2023 8:41 AM INTERVENTIONAL RADIOLOGY RN - 02/01/2023 10:35 AM [facility] Hospital Encounter Department of Radiation Oncology in [place], [place] [address] [place] [address] Stanislaw Alan M.D. [address] [place] [phone] Primary Malignant Neoplasm Of Prostate (HCC) (Primary [...] living situation today? I have a [facility] place to live 12/02/2022 Sex and [...] 0 11/03/2022 documented as of this encounter Procedure Notes * Carla Adam, RTT - 02/01/2023 9:00 AM CSTAssociated Order(s): Initial Rad Onc Treatment Planning CT Simulation Pre-Procedure Diagnose(s): Primary Malignant Neoplasm Of Prostate (HCC) Initial Rad Onc Treatment Planning CT Simulation Performed by: Stanislaw Alan M.D. Authorized by: Stanislaw Alan M.D. Simulation was performed under physician supervision based on physician order in preparation for radiation therapy. Physician was immediately available to provide assistance and direction throughout the procedure. Written consent for treatment was completed or confirmed. The patient was appropriately identified and placed in the treatment position using the necessary immobilization to ensure a reproducible treatment position. Reference marroquin were placed to facilitate marking of isocenter. Area scanned:Abdomen and Pelvis Contrast used for the simulation procedure: None Patient position:head first supine Custom immobilization: Vac-eladia Motion management: None Bolus: No CT guidance: Following positioning of the patient, a series of slices was obtained to be utilized in treatment planning. CT images were transferred to the [facility] treatment planning system, after a reference isocenter was determined and marked. Segmentation and treatment planning will take place prior to treatment delivery. Patient set up and imaging was appropriate and completed without incident. [place] Spreader use:No RVENTIONAL RADIOLOGY RN Associated attestation - Stanislaw Alan M.D. - 02/01/2023 10:33 AM INTERVENTIONAL RADIOLOGY RN I was available for the entirety of the procedure but only present for image review and rectal gas evacuation. Signed by: Stanislaw Alan M.D. 02/01/23 10:33 AM INTERVENTIONAL RADIOLOGY RN [facility] [place] documented in this encounter Plan of Treatment Upcoming Encounters Date Type Department Care Team (Late st Contact Info) Description 02/28/2023 1:30 PM INTERVENTIONAL RADIOLOGY RN Appointment Department of Radiation Oncology in [place], [place] [address] [place] [address] Stanislaw Alan M.D. [address] [place] [phone] 03/01/2023 1:30 PM INTERVENTIONAL RADIOLOGY RN Appointment Department of Radiation Oncology in [place], [place] [address] [place] [address] Stanislaw Alan M.D. [address] [place] [phone] 03/02/2023 1:30 PM INTERVENTIONAL RADIOLOGY RN Appointment Department of Radiation Oncology in [place], [place] [address] [place] [phone] Stanislaw Alan M.D. [address] [place] [phone] 03/02/2023 1:45 PM INTERVENTIONAL RADIOLOGY RN Appointment Department of Radiation Oncology in [place], [place] [address] [place] [phone] Stanislaw Alan M.D. [address] [place] [phone] 03/03/2023 1:30 PM INTERVENTIONAL RADIOLOGY RN Appointment Department of Radiation Oncology in [place], [place] [address] [place] [phone] Stanislaw Alan M.D. [address] [place] [phone] 03/04/2023 1:30 PM INTERVENTIONAL RADIOLOGY RN Appointment Department of Radiation Oncology in [place], [place] [address] [place] [phone] Stanislaw Alan M.D. [address] [place] [phone] 03/07/2023 1:30 PM INTERVENTIONAL RADIOLOGY RN Appointment Department of Radiation Oncology in [place], [place] [address] [place] [address] Stanislaw Alan M.D. [address] [place] [phone] 03/08/2023 1:30 PM INTERVENTIONAL RADIOLOGY RN Appointment Department of Radiation Oncology in [place], [place] [address] [place] [phone] Stanislaw Alan M.D. [address] [place] [phone] 03/09/2023 1:30 PM INTERVENTIONAL RADIOLOGY RN Appointment Department of Radiation Oncology in [place], [place] [address] [place] [phone] Stanislaw Alan M.D. [address] [place] [phone] 03/09/2023 1:45 PM INTERVENTIONAL RADIOLOGY RN Appointment Department of Radiation Oncology in [address] [phone] Stanislaw Alan M.D. [address] [place] [phone] 03/10/2023 1:30 PM INTERVENTIONAL RADIOLOGY RN Appointment Department of Radiation Oncology in [place], [place] [address] [place] [phone] Stanislaw Alan M.D. [address] [place] [phone] 03/11/2023 1:30 PM INTERVENTIONAL RADIOLOGY RN Appointment Department of Radiation Oncology in [place], [place] [address] [place] [phone] Stanislaw Alan M.D. [address] [place] [phone] 03/14/2023 1:30 PM INTERVENTIONAL RADIOLOGY RN Appointment Department of Radiation Oncology in [address] [phone] Stanislaw Alan M.D. [address] [place] [phone] 03/15/2023 1:30 PM INTERVENTIONAL RADIOLOGY RN Appointment Department of Radiation Oncology in [place], [place] [address] [place] [phone] Stanislaw Alan M.D. [address] [place] [phone] 03/16/2023 1:30 PM INTERVENTIONAL RADIOLOGY RN Appointment Department of Radiation Oncology in [place], [place] [address] [place] [phone] Stanislaw Alan M.D. [address] [place] [phone] 03/16/2023 1:45 PM INTERVENTIONAL RADIOLOGY RN Appointment Department of Radiation Oncology in [address] [phone] Stanislaw Alan M.D. [address] [place] [phone] documented as of this encounter Procedures Procedure Name Priority Date/Time Associated Diagnosis Comments INITIAL RAD ONC TREATMENT PLANNING CT SIMULATION Routine 02/01/2023 9:00 AM INTERVENTIONAL RADIOLOGY RN Primary Malignant Neoplasm Of Prostate (HCC) documented in this encounter Results * Initial Rad Onc Treatment Planning CT Simulation (02/01/2023 9:00 AM INTERVENTIONAL RADIOLOGY RN) Narrative STRAUSS CHACHADoc - 02/01/2023 9:00 AM INTERVENTIONAL RADIOLOGY RN Carla Adam, JOHN ? 02/01/2023 ??9:54 AM Initial Rad Onc Treatment Planning CT Simulation Performed by: Stanislaw Alan M.D. Authorized by: Stanislaw Alan M.D. ?? Stanislaw Alan M.D. RADIATION ONCOLOGY ORDERABLES HAMMOND JERRI na documented in this encounter Visit Diagnoses Diagnosis Primary Malignant Neoplasm Of Prostate (HCC)- Primary documented in this encounter Care Teams Professor Of Latin American Studies Relationship Specialty Start Date End Date Elsewhere, Pcp PCP - General Internal Medicine 11/23/22 documented as of this encounter
--- OUTSIDE RECORDS SUMMARY | 2023-02-26 06:46 | XMS_ITS | Encounter Summary ---
Author Name Unknown Organization [facility] Address [address] [place] [address] Care Team Providers Care Cnc Machine Setter Name Role Phone Elsewhere, Pcp Primary Care Provider Unavailabl e Encounter Details Date Type Department Care Team (Late st Contact Info) Description 11/23/2022 10:07 AM CDT - 11/23/2022 11:10 AM CDT [facility] in [place], [place] [address] [place] [phone] Goyo Rizzo M.D. [address] [place] [address] PATIENT PREFERS AFTER 10 AM. BIOPSY TRANSPERINEAL PROSTATE. Social History Tobacco Use Types Packs/Day Years Used Date Smoking Tobacco: Never Passive Smoke Exposure: Never Smokeless Tobacco: Never Tobacco Cessation:Counseling Given: Not Answered Nutrition Answer Date Recorded Nutrition: EVOO Fat Source Unknown 05/19 Nutrition: Servings of Fruits/Vegetables per Day Not on file 05/19/2022 Dental Answer Date Recorded Dental: Regular Dentist Unknown 05/20/19 Sex and Gender Information Value Date Recorded Sex Assigned at Male 12/02/2022 9:58 AM CDT Gender Identity Male 12/02/2022 9:58 AM CDT Sexual Orientation Straight 12/02/2022 9: 58 AM CDT documented as of this encounter Last Filed Vital Signs Vital Sign Reading Time Taken Comments Blood Pressure 140/75 11/23/2022 10:14 AM CDT Pulse 67 11/23/2022 10:25 AM CDT Temperature 36.5 ??C (97.7 ??F) 11/23/2022 1 0:14 AM CDT Respiratory Rate 9 11/23/2022 10:2 5 AM CDT Oxygen Saturation 98% 11/23/2022 10: 25 AM CDT Inhaled Oxygen Concentration - - Weight 53.5 kg (117 lb 15.1 oz) 023 10:14 AM CDT Height 164.1 cm (5' 4.61) 11/23/2022 1 0:14 AM CDT Body Mass Index 19.87 11/23/2022 10:14 AM CDT documented in this [...] 0 11/03/2022 documented as of this encounter OR Notes * Op Note - Laurie Saha M.D. - 11/23/2022 10:45 AM CDT Pre-op Diagnosis Elevated Prostate-Specific Antigen Post-op Diagnosis Elevated Prostate-Specific Antigen Findings As expected. Complications None Operative Note Narrative After appropriate informed consent was signed patient was brought to the operative suite. Followinginduction of intravenous sedation patient was prepped and draped in dorsal lithotomy position. Surgical time-out was performed identifying the patient by 2 identifiers and verifying that he received a ppropriate preoperative antibiotics. Legs had been supported in Yellofin stirrups. Approximately 40cc of lubricant jelly was instilled into the rectum a digital rectal exam was performed which demonstrated left gland nodularity. The B and K ultrasound transducer was inserted into the rectum. Prostate diagnostic ultrasonography was performed. We then proceeded to obtain measurements and save ultrasound images. The perineum was prepped with a ChloraPrep stick. A 50:50 mixture of 1% lidocaine and0.25% bupivacaine was infiltrated subcutaneously in the perineum. An apical prostate block was performed by depositing the same lidocaine/bupivacaine mixture in the bilateral apical audrey-prostatic tissues. The patient had previously undergone a prostate MRI which revealed 1 PI-RADS 5 lesion in the right anterior base of the peripheral zone, extending into the transition zone. Biopsy Type: Targeted and Systematic biopsy (UroNav MRI Fusion) Hypoechoic lesion noted right peripheral zone and seems to correlate with abnormality noted on his MRI. There were no additional hypoechoic lesions identified. Prostate capsule appears normal. Hyperechoic areas and calcifications were noted. Patient did have a median lobe. Seminal vesicles appearednormal. Bladder where seen appears normal. Width: 50.7 mm, Height: 28.2 mm, Length: 38.3 mm, Volume: 27.6 cc A three dimensional ultrasound data set was then acquired with a sagittal sweep from right to left and sent a separate workstation for volume rendering and segmentation. Once image fusion maneuvers were carried out, the target was identified and a series of targeted biopsies were taken through the perineum using the Screenburn transperineal access system. NAVEED 1 - Right peripheral zone. 4 Biopsy cores. The needle location was captured on the work station and saved to a three dimensional data set file. Carbon Brush Maker systematic biopsies were then taken in a templated fashion. 6 left-sided systematic biopsies were obtained. 6 right-sided systematic biopsies were obtained. Additional systematic sampling was also completed consisted of left anteromedial prostate biopsy. A total of 17 biopsies were obtained during the procedure. Each core location was captured with the fusion planning software and with still ultrasound images in the transverse view. The ultrasound transducer was removed, pressure was applied to the perineum followed by a sterile dressing. There was no obvious hematoma or bleeding. The patient tolerated the procedure well and wasawakened from anesthesia and taken to the post-operative area in satisfactory condition. Laurie Saha M.D. documented in this encounter Plan of Treatment Upcoming Encounters Date Type Department Care Team (Late st Contact Info) Description 02/28/2023 1:30 PM CORRECTIONAL PROGRAM OFFICER Appointment Department of Radiation Oncology in [address] [phone] Stanislaw Alan M.D. [address] [place] [address] 03/01/2023 1:30 PM CORRECTIONAL PROGRAM OFFICER Appointment Department of Radiation Oncology in [place] [address] [place] [address] Stanislaw Alan M.D. [address] [place] [address] 03/02/2023 1:30 PM CORRECTIONAL PROGRAM OFFICER Appointment Department of Radiation Oncology in [place], [place] [address] [place] [phone] Stanislaw Alan M.D. [address] [place] [phone] 03/02/2023 1:45 PM CORRECTIONAL PROGRAM OFFICER Appointment Department of Radiation Oncology in [place], [place] [address] [place] [phone] Stanislaw Alan M.D. [address] [place] [phone] 03/03/2023 1:30 PM CORRECTIONAL PROGRAM OFFICER Appointment Department of Radiation Oncology in [address] [phone] Stanislaw Alan M.D. [address] [place] [phone] 03/04/2023 1:30 PM CORRECTIONAL PROGRAM OFFICER Appointment Department of Radiation Oncology in [address] [phone] Stanislaw Alan M.D. [address] [place] [phone] 03/07/2023 1:30 PM CORRECTIONAL PROGRAM OFFICER Appointment Department of Radiation Oncology in [place], [place] [address] [place] [phone] Stanislaw Alan M.D. [address] [place] [phone] 03/08/2023 1:30 PM CORRECTIONAL PROGRAM OFFICER Appointment Department of Radiation Oncology in [address] [phone] Stanislaw Alan M.D. [address] [place] [phone] 03/09/2023 1:30 PM CORRECTIONAL PROGRAM OFFICER Appointment Department of Radiation Oncology in [address] [address] Stanislaw Alan M.D. [address] [place] [phone] 03/09/2023 1:45 PM CORRECTIONAL PROGRAM OFFICER Appointment Department of Radiation Oncology in [address] [phone] Stanislaw Alan M.D. [address] [place] [phone] 03/10/2023 1:30 PM CORRECTIONAL PROGRAM OFFICER Appointment Department of Radiation Oncology in [address] [address] Stanislaw Alan M.D. [address] [place] [phone] 03/11/2023 1:30 PM CORRECTIONAL PROGRAM OFFICER Appointment Department of Radiation Oncology in [address] [phone] Stanislaw Alan M.D. [address] [place] [phone] 03/14/2023 1:30 PM CORRECTIONAL PROGRAM OFFICER Appointment Department of Radiation Oncology in [address] [phone] Stanislaw Alan M.D. [address] [place] [phone] 03/15/2023 1:30 PM CORRECTIONAL PROGRAM OFFICER Appointment Department of Radiation Oncology in [address] [phone] Stanislaw Alan M.D. [address] [place] [phone] 03/16/2023 1:30 PM CORRECTIONAL PROGRAM OFFICER Appointment Department of Radiation Oncology in [place], [place] [address] [place] [phone] Stanislaw Alan M.D. [address] [place] [phone] 03/16/2023 1:45 PM CORRECTIONAL PROGRAM OFFICER Appointment Department of Radiation Oncology in [place], [place] [address] [place] [phone] Stanislaw Alan M.D. [address] [place] [phone] documented as of this encounter Procedures Procedure Name Priority Date/Time Associated Diagnosis Comments SURGICAL PATHOLOGY Routine 11/23/2022 10 :31 AM CDT Elevated Prostate-Specific Antigen BIOPSY TRANSPERINEAL PROSTATE 11/23/2022 10:17 AM CDT Elevated Prostate-Specific Antigen Special Needs Geovanna Kennedy primary documented in this encounter Results * Surgical Pathology (11/23/2022 10:31 AM CDT) 11/25/2022 11:20 AM CDT DTL Participated in the Interpretation Stewart Sandoval M.D., Ph.D.-Pathology Resident 11/25/2022 11:20 AM CDT DTL Report electronically signed by Ghassan Preez M.D., Ph.D. I verify that I have examined all relevant slides/materials for the specimen(s) and rendered or confirmed the diagnosis. 11/25/2022 11:20 AM CDT DTL Gross Description A: Received on a biopsy board filled with formalin labeled with the patient's name, medical record number, and specific prostate sites aresix oriented pink cuenca tissue cores. A. Received within the first well is a fragmented core ??1.7 cm in length labeled right posterior medial apex, prostate per biopsy board. B. Received within the second well is a fragmented core 1.5 cm in length labeled right posterior medial base, prostate per biopsyboard. The core is inked green. C. Received within the third well is a complete core 1.6 cm in length labeled right posterior lateral apex, prostate per biopsy board. Thecore is inked blue. Specimens A, B, & C are submitted in cassette A1. D. Received within the fourth well is a ??complete core ??1.9 cm in length labeled right posterior lateral base, prostate per biopsy board. E. Received within the fifth well is a complete core 0.7 cm in length labeled right anterior horn, prostate per biopsy board. The core isinked green. F. Received within the sixth well is a complete core 1.5 cm in length labeled right anterior apex, prostate per biopsy board. The core isinked blue. Additionally, received in well E are a core and three fragments, ranging from 0.1-0.3 cm in length. The cores are arbitrarily designated quan additional cassette and are left un-inked. Specimens D, E, & F are submitted in cassette D1. ??The additional cores from well E are submitted in cassette D2. Grossed by AJLeonidas. G: Received on a biopsy board filled with formalin labeled with the patient's name, medical record number, and specific prostate sites aresix oriented pink cuenca tissue cores. G. Received within the first well is a complete core ??1.7 cm in length labeled left posterior medial apex, prostate per biopsy board. H. Received within the second well is a complete core 1.6 cm in length labeled left posterior medial base, prostate per biopsy board.The core is inked green. I. Received within the third well is a fragmented core 1.8 cm in length labeled left posterior lateral apex, prostate per biopsy board. Thecore is inked blue. Specimens G, H, & I are submitted in cassette G1. J. Received within the fourth well is a ??complete core ??1.7 cm in length labeled left posterior lateral base, prostate per biopsy board. K. Received within the fifth well is a fragmented core 1.5 cm in length labeled left anterior horn, prostate per biopsy board. The core isinked green. L. Received within the sixth well is a complete core 2.0 cm in length labeled left anterior apex, prostate per biopsy board. The core isinked blue. Specimens J, K, & L are submitted in cassette J1. Grossed by AJB. M: Received in formalin labeled with the patient's name, medical record number, and prostate-left anterior medial is a pale cuenca-pink softtissue core and two fragments, 0.1 cm in average diameter ranging from 0.2-2.5 cm in length. The specimens are submitted en toto incassette M1. ??Grossed by AJB. N: Received in formalin labeled with the patient's name, medical record number, and prostate-right transition zone are four pale cuenca-pinksoft tissue cores and two fragments, 0.1 cm in average diameter and ranging from 0.2-1.6 cm in length. Specimens are submitted en totoin cassettes N1, three cores and N2, one core and two fragments. ??Grossed by ALEAH. 11/25/2022 11:20 AM CDT DTL Interpretation FINAL DIAGNOSIS A. Prostate, right posterior medial apex, needle core biopsy: ??Benign prostatic tissue B. Prostate, right posterior medial base, needle core biopsy: ??Benign prostatic tissue C. Prostate, right posterior lateral apex, needle core biopsy: ??Prostatic adenocarcinoma Type: Acinar Grade Group and [place] score: Grade Group 2 ([place] Score 3+4=7) Percentage of pattern 4: 10% Tumor involves 10% of overall specimen (1 of 1 core). D. Prostate, right posterior lateral base, needle core biopsy: ??Benign prostatic tissue E. Prostate, right anterior horn, needle core biopsy: Prostatic adenocarcinoma Type: Acinar Grade Group ??and [place] score: Grade Group 2 ([place] Score 3+4=7) Percentage of pattern 4: 25-50% Tumor involves 5% of overall specimen (1 of 2 cores). Most affected core is involved by tumor over 10% of its length. F. Prostate, right anterior apex, needle core biopsy: Prostatic adenocarcinoma Type: Acinar Grade Group and [place] score: Grade Group 2 ([place] Score 3+4=7) Percentage of pattern 4: 25-50% Tumor involves 15% of overall specimen (1 of 1 core). G. Prostate, left posterior medial apex, needle core biopsy: ??Benign prostatic tissue H. Prostate, left posterior medial base, needle core biopsy: ??Benign prostatic tissue I. Prostate, left posterior lateral apex, needle core biopsy: ??Benign prostatic tissue J. Prostate, left posterior lateral base, needle core biopsy: ??Benign prostatic tissue K. Prostate, left anterior horn, needle core biopsy: Benign prostatic tissue L. Prostate, left anterior apex, needle core biopsy: Benign prostatic tissue M. Prostate, left anterior medial, needle core biopsy: Benign prostatic tissue N. Prostate, right transition zone, needle core biopsy: Prostatic adenocarcinoma Type: Acinar Grade Group ??and [place] score: Grade Group 2 (B[place] Score 3+4=7) Percentage of pattern 4: 25-50% Tumor involves 80% of overall specimen (4 of 5 cores). Most affected core is involved by tumor over 100% of its length. 11/25/2022 11:20 AM CDT DTL Biopsy (Prostate) 11/23/2022 10:31 AM CDT Biopsy (Prostate) 11/23/2022 10:31 AM CDT Biopsy (Prostate) 11/23/2022 10:31 AM CDT Biopsy (Prostate) 11/23/2022 10:31 AM CDT Biopsy (Prostate) 11/23/2022 10:31 AM CDT Biopsy (Prostate) 11/23/2022 10:31 AM CDT Biopsy (Prostate) 11/23/2022 10:31 AM CDT Biopsy (Prostate) 11/23/2022 10:31 AM CDT Biopsy (Prostate) 11/23/2022 10:31 AM CDT Biopsy (Prostate) 11/23/2022 10:31 AM CDT Biopsy (Prostate) 11/23/2022 10:31 AM CDT Biopsy (Prostate) 11/23/2022 10:31 AM CDT Biopsy (Prostate) 11/23/2022 10:31 AM CDT Biopsy (Prostate) 11/23/2022 10:50 AM CDT Goyo Rizzo M.D. LAB SURG PATH ORDERA BLES [facility] [address] [place] [address], [place] DTL [address] [place] [address] documented in this encounter Visit Diagnoses Diagnosis Elevated Prostate-Specific Antigen- Primary Elevated Prostate-Specific Antigen documented in this encounter Admitting Diagnoses Diagnosis Elevated Prostate-Specific Antigen documented in this encounter Administered Medications Inactive Administered Medications - up to 3 most recent administrations Medication Order MAR Action Action Date Dose Rate Site acetaminophen tablet 1,000 mg (TYLENOL) 1,000 mg, oral, Once, On Tue11/23/22 at 1000, For 1 dose, Pre-Op, PreOp give in preprocedural area. Given 11/23/2022 10:05 AM CDT 1,000 mg chlorhexidine 0.12 % mouthwash 15 mL (PERIDEX) 15 mL, swish & spit, Once as needed, Chlorhexidine mouthwash (Peridex) should be given if patient did not complete oral care, if completion is greater than 4 hours prior to surgery or procedure start time and they do not have the opportunity to brush their teeth now (or at this time)., Starting on Tue11/23/22 at 0944, For 1 dose, Pre-Op, Instruct patient to swish entire content of Chlorhexidine 0.12% mouthwash (PERIDEX) 15 mL cup for 30 seconds, then spit, swish & spit. If patient is at risk for aspiration, apply Chlorhexidine 0.12% mouthwash to a swab and gently swab the patient's teeth and gums. Ensure swab is not oversaturated. Lactated Ringer's 20 mL/hr, intravenous, Continuous, Starting on Tue11/23/22 at 1000 Restarted 11/23/2022 10:27 AM CDT New Bag 11/23/2022 10:05 AM CDT 20 mL/hr 20 mL/hr lidocaine-BUPivacaine 1%-0.25% infiltration injection infiltration, Once, On Tue11/23/22 at 1000, For 1 dose, Intra-Op, Not for IV use Given 11/23/2022 11:00 AM CDT 30 mL Othe r sodium chloride 0.9 % injection 10 mL 10 mL, intravenous, As needed, line care, Starting on Tue11/23/22 at 0944, Pre-Op, Peripheral Intravenous Catheter and Rapid Infusion Catheter, prior to blood sampling, post blood transfusion or post blood sampling sodium chloride 0.9 % injection 10 mL 10 mL, intravenous, As needed, line care, Starting on Tue11/23/22 at 0944, Pre-Op, Peripheral Intravenous Catheter and Rapid Infusion Catheter, prior to blood sampling, post blood transfusion or post blood sampling sodium chloride 0.9 % injection 3 mL 3 mL, intravenous, As needed, line care, Starting on Tue11/23/22 at 0944, Pre-Op, Prior to and following infusion and between multiple consecutive infusions: sodium chloride 0.9 % injection sodium chloride 0.9 % injection 3 mL 3 mL, intravenous, Every 12 hours scheduled, First dose on Tue11/23/22 at 2100, Pre-Op, Peripheral Intravenous Catheter and Rapid Infusion Catheter, when no infusion to maintain patency sodium chloride 0.9 % injection 3 mL 3 mL, intravenous, As needed, line care, Starting on Tue11/23/22 at 0944, Pre-Op, Prior to and following infusion and between multiple consecutive infusions: sodium chloride 0.9 % injection sodium chloride 0.9 % injection 3 mL 3 mL, intravenous, Every 12 hours scheduled, First dose on Tue11/23/22 at 2100, Pre-Op, Peripheral Intravenous Catheter and Rapid Infusion Catheter, when no infusion to maintain patency documented in this encounter Active and Recently Administered Medications Times are shown in CDT. Scheduled Medication Order 11/21/2022 11/22/2022 11/23/2022 acetaminophen tablet 1,000 mg (TYLENOL) 1,000 mg, oral, Once, On Tue11/23/22 at 1000, For 1 dose, Pre-Op 1006 (Not Given - Pr ovider: Kristi Lovett R.N. - Reason: Other - Comment: Duplicate order) acetaminophen tablet 1,000 mg (TYLENOL) (COMPLETED) 1,000 mg, oral, Once, On Tue11/23/22 at 1000, For 1 dose, Pre-Op, PreOp give in preprocedural area. 1005 (Given - Provid er: Kristi Lovett R.N.) ceFAZolin injection 2 g (ANCEF) (COMPLETED) 2 g, intravenous, Once, On Tue11/23/22 at 1000, For 1 dose, Intra-Op, Administer within 1 hour prior to surgical incision If needed, reconstitute vial per package insert instructions. See IVAG for administration guidelines., Drug Monitoring Program: Pharmacist to adjust medication dosing based on indication and drug clearance factors., Indications: Prophylaxis, surgical 1035 (Given - Provid er: Elizabeth Lopez APRN, CRNA) lidocaine-BUPivacaine 1%-0.25% infiltration injection (COMPLETED) infiltration, Once, On Tue11/23/22 at 1000, For 1 dose, Intra-Op, Not for IV use 1000 (Due)1100 (Give n - Provider: Goyo Rizzo M.D. - Comment: perineum) sodium chloride 0.9 % injection 3 mL 3 mL, intravenous, Every 12 hours scheduled, First dose on Tue11/23/22 at 2100, Pre-Op, Peripheral Intravenous Catheter and Rapid Infusion Catheter, when no infusion to maintain patency sodium chloride 0.9 % injection 3 mL 3 mL, intravenous, Every 12 hours scheduled, First dose on Tue11/23/22 at 2100, Pre-Op, Peripheral Intravenous Catheter and Rapid Infusion Catheter, when no infusion to maintain patency Continuous Medication Order 11/21/2022 11/22/2022 11/23/2022 Lactated Ringer's 20 mL/hr, intravenous, Continuous, Starting on Tue11/23/22 at 1000 1005 (New Bag - Prov ider: Kristi Lovett R.N.)1026 (Paused - Provider: Elizabeth Lopez APRN, CRNA - Comment: Switch to gravity)1027 (Restarted - Provider: Elizabeth Lopez APRN, CRNA)1105 (Anesthesia Volume Adjustment - Provider: Elizabeth Lopez APRN, CRNA)1311 (Stopped - Provider: Kristi Lovett R.N.) PRN Medication Order 11/21/2022 11/22/2022 11/23/2022 chlorhexidine 0.12 % mouthwash 15 mL (PERIDEX) 15 mL, swish & spit, Once as needed, Chlorhexidine mouthwash (Peridex) should be given if patient did not complete oral care, if completion is greater than 4 hours prior to surgery or procedure start time and they do not have the opportunity to brush their teeth now (or at this time)., Starting on Tue11/23/22 at 0944, For 1 dose, Pre-Op, Instruct patient to swish entire content of Chlorhexidine 0.12% mouthwash (PERIDEX) 15 mL cup for 30 seconds, then spit, swish & spit. If patient is at risk for aspiration, apply Chlorhexidine 0.12% mouthwash to a swab and gently swab the patient's teeth and gums. Ensure swab is not oversaturated. sodium chloride 0.9 % injection 10 mL 10 mL, intravenous, As needed, line care, Starting on Tue11/23/22 at 0944, Pre-Op, Peripheral Intravenous Catheter and Rapid Infusion Catheter, prior to blood sampling, post blood transfusion or post blood sampling sodium chloride 0.9 % injection 10 mL 10 mL, intravenous, As needed, line care, Starting on Tue11/23/22 at 0944, Pre-Op, Peripheral Intravenous Catheter and Rapid Infusion Catheter, prior to blood sampling, post blood transfusion or post blood sampling sodium chloride 0.9 % injection 3 mL 3 mL, intravenous, As needed, line care, Starting on Tue11/23/22 at 0944, Pre-Op, Prior to and following infusion and between multiple consecutive infusions: sodium chloride 0.9 % injection sodium chloride 0.9 % injection 3 mL 3 mL, intravenous, As needed, line care, Starting on Tue11/23/22 at 0944, Pre-Op, Prior to and following infusion and between multiple consecutive infusions: sodium chloride 0.9 % injection documented in this encounter Care Teams Cnc Machine Setter Relationship Specialty Start Date End Date Elsewhere, Pcp PCP - General Internal Medicine 11/23/22 documented as of this encounter
--- OUTSIDE RECORDS SUMMARY | 2023-02-26 06:46 | XMS_ITS | Encounter Summary ---
Author Name Unknown Organization [facility] Address [address] [place] [address] Care Team Providers Care Hr Systems Analyst Name Role Phone Elsewhere, Pcp Primary Care Provider Unavailabl e Encounter Details Date Type Department Care Team (Late st Contact Info) Description 01/11/2023 Orders Only Department of Radiation Oncology in [place], [place] [address] [place] [address] Stanislaw Alan M.D. [address] [place] [phone] Social History Tobacco Use Types Packs/Day Years [...] your living situation today? I have a [facility] place to live 12/02/2022 Sex and Gender Information Value Date Recorded Sex Assigned at Male 12/02/2022 9:58 AM CDT Gender Identity Male 12/02/2022 9:58 AM CDT Sexual Orientation Straight 12/02/2022 9: 58 AM CDT documented as of this encounter Plan of Treatment Upcoming Encounters Date Type Department Care Team (Late st Contact Info) Description 02/28/2023 1:30 PM SORORITY SUPERVISOR Appointment Department of Radiation Oncology in [address] [address] Stanislaw Alan M.D. [address] [place] [address] 03/01/2023 1:30 PM SORORITY SUPERVISOR Appointment Department of Radiation Oncology in [address] [address] Stanislaw Alan M.D. [address] [place] [phone] 03/02/2023 1:30 PM SORORITY SUPERVISOR Appointment Department of Radiation Oncology in [address] [address] Stanislaw Alan M.D. [address] [place] [phone] 03/02/2023 1:45 PM SORORITY SUPERVISOR Appointment Department of Radiation Oncology in [address] [address] Stanislaw Alan M.D. [address] [place] [phone] 03/03/2023 1:30 PM SORORITY SUPERVISOR Appointment Department of Radiation Oncology in [place], [place] [address] [place] [phone] Stanislaw Alan M.D. [address] [place] [phone] 03/04/2023 1:30 PM SORORITY SUPERVISOR Appointment Department of Radiation Oncology in [address] [address] Stanislaw Alan M.D. [address] [place] [phone] 03/07/2023 1:30 PM SORORITY SUPERVISOR Appointment Department of Radiation Oncology in [place], [place] [address] [place] [phone] Stanislaw Alan M.D. [address] [place] [phone] 03/08/2023 1:30 PM SORORITY SUPERVISOR Appointment Department of Radiation Oncology in [address] [address] Stanislaw Alan M.D. [address] [place] [phone] 03/09/2023 1:30 PM SORORITY SUPERVISOR Appointment Department of Radiation Oncology in [address] [address] Stanislaw Alan M.D. [address] [place] [phone] 03/09/2023 1:45 PM SORORITY SUPERVISOR Appointment Department of Radiation Oncology in [address] [place] [address] Stanislaw Alan M.D. [address] [place] [phone] 03/10/2023 1:30 PM SORORITY SUPERVISOR Appointment Department of Radiation Oncology in [address] [address] Stanislaw Alan M.D. [address] [place] [phone] 03/11/2023 1:30 PM SORORITY SUPERVISOR Appointment Department of Radiation Oncology in [address] [address] Stanislaw Alan M.D. [address] [place] [phone] 03/14/2023 1:30 PM SORORITY SUPERVISOR Appointment Department of Radiation Oncology in [address] [address] Stanislaw Alan M.D. [address] [place] [phone] 03/15/2023 1:30 PM SORORITY SUPERVISOR Appointment Department of Radiation Oncology in [place], [place] [address] [place] [phone] Stanislaw Alan M.D. [address] [place] [phone] 03/16/2023 1:30 PM SORORITY SUPERVISOR Appointment Department of Radiation Oncology in [place], [place] [address] [place] [phone] Stanislaw Alan M.D. [address] [place] [phone] 03/16/2023 1:45 PM SORORITY SUPERVISOR Appointment Department of Radiation Oncology in [place], [place] [address] [place] [address] Stanislaw Alan M.D. [address] [place] [address] documented as of this encounter Visit Diagnoses Not on filedocumented in this encounter Care Teams Hr Systems Analyst Relationship Specialty Start Date End Date Elsewhere, Pcp PCP - General Internal Medicine 11/23/22 documented as of this encounter
--- OUTSIDE RECORDS SUMMARY | 2023-02-26 06:46 | XMS_ITS | Encounter Summary ---
Author Name Unknown Organization [facility] Address [address] [place] [address] Care Team Providers Care Compliance Paralegal Name Role Phone Elsewhere, Pcp Primary Care Provider Unavailabl e Reason for Referral * Outpatient (Routine) - Closed Specialty Diagnoses / Procedures Referred By Tomy meade Referred To Contact Radiation Oncology Diagnoses Primary Malignant Neoplasm Of Prostate (HCC) Geovanna Kennedy APRN, C.N.P. [address] [phone] [facility] Region Referral ID Status Reason Start Date Expiration Date Visits Re quested Visits Authorized [id number] Closed 12/02/2022 12/02/2023 1 1 Scheduling Instructions [place] Reason for Visit * Reason Comments Follow-up * Appointment Request (Routine) - Closed Specialty Diagnoses / Procedures Referred By Tomy meade Referred To Contact Urology Geovanna Kennedy APRN, C.N.P. [address] [place] [phone] Referral ID Status Reason Start Date Expiration Date Visits Re quested Visits Authorized [id number] Closed 11/29/2022 11/29/2023 1 1 Encounter Details Date Type Department Care Team (Late st Contact Info) Description 12/02/2022 10:30 AM CDT Office Visit Department of Urology in [place], [place] [address], [place] [address] Geovanna Kennedy APRN, C.N.P. [address], [place] [address] Primary Malignant Neoplasm Of Prostate (HCC) (Primary [...] your living situation today? I have a [facility] place to live 12/02/2022 Sex and Gender Information Value Date Recorded Sex Assigned at Male 12/02/2022 9:58 AM CDT Gender Identity Male 12/02/2022 9:58 AM CDT Sexual Orientation Straight 12/02/2022 9: 58 AM CDT documented as of this encounter Progress Notes * ZinsGeovanna finn APRN, CMichelleN.P. - 12/02/2022 10:30 AM CDT SUBJECTIVE CHIEF COMPLAINT/REASON FOR VISIT Chief Complaint Patient presents with Follow-up HISTORY OF PRESENT ILLNESS Atilio is a pleasant 82-year-old male here today with his for follow-up after prostate biopsy at [facility]. The following portions of the patient's history were reviewed and updated as appropriate: allergies, current medications, family history, medical history, social history, surgical history, and problem list. PATHOLOGY November 23, 2022 FINAL DIAGNOSIS A. Prostate, right posterior medial apex, needle core biopsy: Benign prostatic tissue B. Prostate, right posterior medial base, needle core biopsy: Benign prostatic tissue C. Prostate, right posterior lateral apex, needle core biopsy: Prostatic adenocarcinoma Type: Acinar Grade Group and Hawk Point score: Grade Group 2 (Bethany Score 3+4=7) [...] Prostatic adenocarcinoma Type: Acinar Grade Group and Hawk Point score: Grade Group 2 (Hawk Point Score 3+4=7) Percentage of pattern 4: 25-50% [...] by tumor over 100% of its length. ASSESSMENT / PLAN 1. Primary Malignant Neoplasm Of Prostate (HCC) Cancer Staging Primary Malignant Neoplasm Of Prostate (HCC) Staging form: Prostate, AJCC 8th Edition - Clinical stage from 11/23/2022: Stage IIB (cT2a, cN0, cM0, PSA: 14.6, Grade Group: 2) We discussed his prostate biopsy results and next steps going forward. We discussed that recommendation would be to discuss options for radiation oncology with our radiation oncology team in [place]. He has numerous questions about the process of this, he is reassured that these questions will all be answered by the radiation oncology team. They will follow-up with us in the Urology Departmentas needed after completion of radiation therapy. - Radiation Oncology - consult (clinic); Future Signed by: Geovanna Kennedy APRN, C.N.P. 12/27/2022 7:29 AM LOCAL HAZMAT DRIVER L HAZMAT DRIVER documented in this encounter Plan of Treatment Upcoming Encounters Date Type Department Care Team (Late st Contact Info) Description 02/28/2023 1:30 PM LOCAL HAZMAT DRIVER Appointment Department of Radiation Oncology in [address] [address] Stanislaw Alan M.D. [address] [place] [phone] 03/01/2023 1:30 PM LOCAL HAZMAT DRIVER Appointment Department of Radiation Oncology in [address] [address] Stanislaw Alan M.D. [address] [place] [phone] 03/02/2023 1:30 PM LOCAL HAZMAT DRIVER Appointment Department of Radiation Oncology in [address] [phone] Stanislaw Alan M.D. [address] [place] [phone] 03/02/2023 1:45 PM LOCAL HAZMAT DRIVER Appointment Department of Radiation Oncology in [place], [place] [address] [place] [phone] Stanislaw Alan M.D. [address] [place] [phone] 03/03/2023 1:30 PM LOCAL HAZMAT DRIVER Appointment Department of Radiation Oncology in [address] [address] Stanislaw Alan M.D. [address] [place] [phone] 03/04/2023 1:30 PM LOCAL HAZMAT DRIVER Appointment Department of Radiation Oncology in [address] [phone] Stanislaw Alan M.D. [address] [place] [phone] 03/07/2023 1:30 PM LOCAL HAZMAT DRIVER Appointment Department of Radiation Oncology in [address] [address] Stanislaw Alan M.D. [address] [place] [phone] 03/08/2023 1:30 PM LOCAL HAZMAT DRIVER Appointment Department of Radiation Oncology in [place], [place] [address] [place] [phone] Stanislaw Alan M.D. [address] [place] [phone] 03/09/2023 1:30 PM LOCAL HAZMAT DRIVER Appointment Department of Radiation Oncology in [place], [place] [address] [place] [phone] Stanislaw Alan M.D. [address] [place] [phone] 03/09/2023 1:45 PM LOCAL HAZMAT DRIVER Appointment Department of Radiation Oncology in [place], [place] [address] [place] [phone] Stanislaw Alan M.D. [address] [place] [phone] 03/10/2023 1:30 PM LOCAL HAZMAT DRIVER Appointment Department of Radiation Oncology in [address] [phone] Stanislaw Alan M.D. [address] [place] [phone] 03/11/2023 1:30 PM LOCAL HAZMAT DRIVER Appointment Department of Radiation Oncology in [address] [address] Stanislaw Alan M.D. [address] [place] [phone] 03/14/2023 1:30 PM LOCAL HAZMAT DRIVER Appointment Department of Radiation Oncology in [place], [place] [address] [place] [phone] Stanislaw Alan M.D. [address] [place] [phone] 03/15/2023 1:30 PM LOCAL HAZMAT DRIVER Appointment Department of Radiation Oncology in [address] [address] Stanislaw Alan M.D. [address] [place] [phone] 03/16/2023 1:30 PM LOCAL HAZMAT DRIVER Appointment Department of Radiation Oncology in [place], [place] [address] [place] [address] Stanislaw Alan M.D. [address] [place] [address] 03/16/2023 1:45 PM LOCAL HAZMAT DRIVER Appointment Department of Radiation Oncology in [place], [place] [address] [place] [address] Stanislaw Alan M.D. [address] [place] [phone] Scheduled Referrals Name Type Priority Associated Diagnoses Orde r Schedule Radiation Oncology - consult (clinic) Outpatient Referral Routine Primary Malignant Neoplasm Of Prostate (HCC) Expected: 12/02/2022 (Approximate), Expires: 03/04/2024 documented as of this encounter Visit Diagnoses Diagnosis Primary Malignant Neoplasm Of Prostate (HCC)- Primary documented in this encounter Care Teams Compliance Paralegal Relationship Specialty Start Date End Date Elsewhere, Pcp PCP - General Internal Medicine 11/23/22 documented as of this encounter
--- OUTSIDE RECORDS SUMMARY | 2023-02-26 06:46 | XMS_ITS | Encounter Summary ---
Author Name Unknown Organization [facility] Address [address] [place] [address] Care Team Providers Care City Bus Driver Name Role Phone Elsewhere, Pcp Primary Care Provider Unavailabl e Encounter Details Date Type Department Care Team (Late st Contact Info) Description 11/23/2022 10:15 AM CDT Ancillary Procedure Department of Urology Social History Tobacco Use Types Packs/Day Years Used Date Smoking Tobacco: Never Passive Smoke Exposure: Never Smokeless Tobacco: Never Nutrition Answer Date Recorded Nutrition: EVOO Fat [...] st Contact Info) Description 02/28/2023 1:30 PM PLANER MILL GRADER Appointment Department of Radiation Oncology in [place], [place] [address] [place] [address] Stanislaw Alan M.D. [address] [place] [phone] 03/01/2023 1:30 PM PLANER MILL GRADER Appointment Department of Radiation Oncology in [place], [place] [address] [place] [address] Stanislaw Alan M.D. [address] [place] [phone] 03/02/2023 1:30 PM PLANER MILL GRADER Appointment Department of Radiation Oncology in [address] [place] [address] Stanislaw Alan M.D. [address] [place] [phone] 03/02/2023 1:45 PM PLANER MILL GRADER Appointment Department of Radiation Oncology in [address] [address] Stanislaw Alan M.D. [address] [place] [phone] 03/03/2023 1:30 PM PLANER MILL GRADER Appointment Department of Radiation Oncology in [address] [phone] Stanislaw Alan M.D. [address] [place] [phone] 03/04/2023 1:30 PM PLANER MILL GRADER Appointment Department of Radiation Oncology in [address] [phone] Stanislaw Alan M.D. [address] [place] [phone] 03/07/2023 1:30 PM PLANER MILL GRADER Appointment Department of Radiation Oncology in [address] [address] Stanislaw Alan M.D. [address] [place] [phone] 03/08/2023 1:30 PM PLANER MILL GRADER Appointment Department of Radiation Oncology in [address] [address] Stanislaw Alan M.D. [address] [place] [phone] 03/09/2023 1:30 PM PLANER MILL GRADER Appointment Department of Radiation Oncology in [place], [place] [address] [place] [phone] Stanislaw Alan M.D. [address] [place] [phone] 03/09/2023 1:45 PM PLANER MILL GRADER Appointment Department of Radiation Oncology in [place], [place] [address] [place] [phone] Stanislaw Alan M.D. [address] [place] [phone] 03/10/2023 1:30 PM PLANER MILL GRADER Appointment Department of Radiation Oncology in [address] [phone] Stanislaw Alan M.D. [address] [place] [phone] 03/11/2023 1:30 PM PLANER MILL GRADER Appointment Department of Radiation Oncology in [address] [phone] Stanislaw Alan M.D. [address] [place] [phone] 03/14/2023 1:30 PM PLANER MILL GRADER Appointment Department of Radiation Oncology in [place], [place] [address] [place] [phone] Stanislaw Alan M.D. [address] [place] [phone] 03/15/2023 1:30 PM PLANER MILL GRADER Appointment Department of Radiation Oncology in [address] [address] Stanislaw Alan M.D. [address] [place] [phone] 03/16/2023 1:30 PM PLANER MILL GRADER Appointment Department of Radiation Oncology in [place], [place] [address] [place] [address] Stanislaw Alan M.D. [address] [place] [address] 03/16/2023 1:45 PM PLANER MILL GRADER Appointment Department of Radiation Oncology in [place], [place] [address] [place] [address] Stanislaw Alan M.D. [address] [place] [address] documented as of this encounter Procedures Procedure Name Priority Date/Time Associated Diagnosis Comments UROLOGY IMAGE EXAM Routine 11/23/2022 10 :15 AM CDT documented in this encounter Results * Non-Radiology Image-Urology Image Exam (11/23/2022 10:15 AM CDT) 11/23/2022 10:1 4 AM CDT Narrative IIMS - 11/23/2022 12:29 PM CDT This order has been created and auto-finalized to support the import of images acquired without order. The clinical documentation to support these images can be found on the encounter that produced images. Provider Not In System IMG NON RAD IMAGI NG PROCEDURES IIMS NA documented in this encounter Visit Diagnoses Not on filedocumented in this encounter Care Teams City Bus Driver Relationship Specialty Start Date End Date Elsewhere, Pcp PCP - General Internal Medicine 11/23/22 documented as of this encounter
--- OUTSIDE RECORDS SUMMARY | 2023-02-26 06:47 | XMS_ITS | Encounter Summary ---
Author Name Unknown Organization [facility] Address [address] [place] [address] Care Team Providers Care Center Manager Name Role Phone Elsewhere, Pcp Primary Care Provider Unavailabl e Encounter Details Date Type Department Care Team (Late st Contact Info) Description 11/22/2022 Clinical Communication Department of Urology in [place], [place] [address] [place] [phone] Goyo Rizzo M.D. [address] [place] [address] Social History Tobacco Use Types Packs/Day Years Used Date Smoking Tobacco: Never Passive Smoke Exposure: Never Smokeless Tobacco: Never Overall Financial Resource Strain (CARDIA) Answe r [...] your living situation today? I have a [facility] place to live 12/02/2022 Sex and Gender Information Value Date Recorded Sex Assigned at Male 12/02/2022 9:58 AM CDT Gender Identity Male 12/02/2022 9:58 AM CDT Sexual Orientation Straight 12/02/2022 9: 58 AM CDT documented as of this encounter Plan of Treatment Upcoming Encounters Date Type Department Care Team (Late st Contact Info) Description 02/28/2023 1:30 PM RADIOLOGY MANAGER Appointment Department of Radiation Oncology in [address] [phone] Stanislaw Alan M.D. [address] [place] [phone] 03/01/2023 1:30 PM RADIOLOGY MANAGER Appointment Department of Radiation Oncology in [address] [phone] Stanislaw Alan M.D. [address] [place] [address] 03/02/2023 1:30 PM RADIOLOGY MANAGER Appointment Department of Radiation Oncology in [address] [address] Stanislaw Alan M.D. [address] [place] [phone] 03/02/2023 1:45 PM RADIOLOGY MANAGER Appointment Department of Radiation Oncology in [address] [address] Stanislaw Alan M.D. [address] [place] [phone] 03/03/2023 1:30 PM RADIOLOGY MANAGER Appointment Department of Radiation Oncology in [place], [place] [address] [place] [phone] Stanislaw Alan M.D. [address] [place] [address] 03/04/2023 1:30 PM RADIOLOGY MANAGER Appointment Department of Radiation Oncology in [place], [place] [address] [place] [phone] Stanislaw Alan M.D. [address] [place] [address] 03/07/2023 1:30 PM RADIOLOGY MANAGER Appointment Department of Radiation Oncology in [address] [phone] Stanislaw Alan M.D. [address] [place] [address] 03/08/2023 1:30 PM RADIOLOGY MANAGER Appointment Department of Radiation Oncology in [address] [phone] Stanislaw Alan M.D. [address] [place] [address] 03/09/2023 1:30 PM RADIOLOGY MANAGER Appointment Department of Radiation Oncology in [address] [address] Stanislaw Alan M.D. [address] [place] [phone] 03/09/2023 1:45 PM RADIOLOGY MANAGER Appointment Department of Radiation Oncology in [address] [phone] Stanislaw Alan M.D. [address] [place] [phone] 03/10/2023 1:30 PM RADIOLOGY MANAGER Appointment Department of Radiation Oncology in [address] [address] Stanislaw Alan M.D. [address] [place] [phone] 03/11/2023 1:30 PM RADIOLOGY MANAGER Appointment Department of Radiation Oncology in [place], [place] [address] [place] [phone] Stanislaw Alan M.D. [address] [place] [phone] 03/14/2023 1:30 PM RADIOLOGY MANAGER Appointment Department of Radiation Oncology in [address] [address] Stanislaw Alan M.D. [address] [place] [address] 03/15/2023 1:30 PM RADIOLOGY MANAGER Appointment Department of Radiation Oncology in [address] [address] Stanislaw Alan M.D. [address] [place] [phone] 03/16/2023 1:30 PM RADIOLOGY MANAGER Appointment Department of Radiation Oncology in [address] [address] Stanislaw Alan M.D. [address] [place] [phone] 03/16/2023 1:45 PM RADIOLOGY MANAGER Appointment Department of Radiation Oncology in [address] [phone] Stanislaw Alan M.D. [address] [place] [address] documented as of this encounter Visit Diagnoses Not on filedocumented in this encounter Care Teams Center Manager Relationship Specialty Start Date End Date Elsewhere, Pcp PCP - General Internal Medicine 11/23/22 documented as of this encounter
--- OUTSIDE RECORDS SUMMARY | 2023-02-26 06:47 | XMS_ITS | Clinical Summary ---
Author Name Unknown Organization [employer] Address [place], [place] [address] Care Team Providers Care Clergy Member Name Role Phone Stefani Nelson MD Primary Care Provider + Allergies No known active allergies Medications Medication Sig Dispensed Refills Start Date End Date Status lisinopril (PRINIVIL; ZESTRIL) 2.5 mg tablet Take 1 tablet by mouth once daily. 0 10/03/2017 Active multivitamin (MULTIPLE VITAMINS) tablet Take 1 tablet by mouth once daily. 0 10/03/2017 Active Active Problems Problem Noted Date Diagnosed Date Elevated PSA 09/06/2018 Encounters Date Type Department Care Team Description 02/02/[address] [facility] [address] [place] [address] Angelito Gaxiola AuD Hearing Aid (/) 02/01/[address] [facility] [address] [place] [address] Angelito Gaxiola AuD Hearing Aid from Last 3 Months Immunizations Name Administration Dates Next Due COVID-19 vaccine (fotobabble 30mcg/0.3mL) MUKUND Calzada 05/08/2020,04/17/2020 Social History Tobacco Use Types Packs/Day Years Used Date Smoking Tobacco: Former Smokeless Tobacco: Never Tobacco Cessation:Counseling Given: Yes Sex and Gender Information Value Date Recorded Sex Assigned at Not on file Gender Identity Not on file Sexual Orientation Not on file Obstetrics History Last Filed Vital Signs Vital Sign Reading Time Taken Comments Blood Pressure 148/65 09/06/2018 9:27 AM CDT Pulse 59 09/06/2018 9:27 AM CDT Temperature 36.8 ??C (98.2 ??F) 09/06/2018 9:27 AM CD T Respiratory Rate - - Oxygen Saturation 98% 09/06/2018 9:27 AM CDT Inhaled Oxygen Concentration - - Weight 57.6 kg (127 lb) 09/06/2018 9:27 AM CDT Height - - Body Mass Index - - Plan of Treatment Health Maintenance Due Date Last Done Comments Tdap 05/29/1950 Depression screening for age 12+ 1951 BMI (ht and wt on same day) for age 18+ 05/29/1957 Tetanus booster 1959 Zoster (shingles) series for age 50+ (1 of 2) 05/29/1989 Medicare Wellness for age 65+ 05/29/2004 Pneumococcal series for age 65+ (1 of 1 - PCV) 05/29/2004 COVID-19 vaccine series (2022-24 season) 2022 08/03/2022, 11/25/2021, 05/25/2021, Additional history exists Influenza for age 65+ 10/08/2022 Care Teams Clergy Member Relationship Specialty Start Date End Date Stefani Nelson MD [address] [place], [place] [phone] PCP - General Family Practice 10/03/17
--- OUTSIDE RECORDS SUMMARY | 2023-02-26 06:47 | XMS_ITS | Encounter Summary ---
Author Name Unknown Organization [facility] Address [address] [place] [address] Care Team Providers Care Wheel Aligner Name Role Phone Unavailable Primary Care Provider Unavailabl e Reason for Visit * Reason Comments Results * Appointment Request (Routine) - Closed Specialty Diagnoses / Procedures Referred By Tomy t Referred To Contact Urology Referral ID Status Reason Start Date Expiration Date Visits Re quested Visits Authorized [id number] Closed 08/17/2022 08/17/2023 1 1 Encounter Details Date Type Department Care Team (Late st Contact Info) Description 11/04/2022 11:00 AM CDT Office Visit Department of Urology in [place], [place] [address] [phone] Geovanna Kennedy APRN, C.N.P. [address] [phone] Elevated Prostate-Specific Antigen (Primary Dx); Abnormal Magnetic Resonance Imaging Prostate; Abnormal Urinalysis Social History Tobacco Use Types Packs/Day Years Used Date Smoking Tobacco: Never Passive Smoke Exposure: Never Smokeless Tobacco: Never Tobacco Cessation:Counseling Given: Not Answered Nutrition Answer Date Recorded Nutrition: EVOO Fat Source Unknown 05/19 Nutrition: Servings of Fruits/Vegetables per Day Not on file 05/19/2022 Dental Answer Date Recorded Dental: Regular Dentist Unknown 05/20/19 23 Sex and Gender Information Value Date Recorded Sex Assigned at Male 12/02/2022 9:58 AM CDT Gender Identity Male 12/02/2022 9:58 AM CDT Sexual Orientation Straight 12/02/2022 9: 58 AM CDT documented as of this encounter Progress Notes * Geovanna Kennedy APRN, C.N.P. - 11/04/2022 11:00 AM CDT SUBJECTIVE CHIEF COMPLAINT/REASON FOR VISIT Chief Complaint Patient presents with Results HISTORY OF PRESENT ILLNESS Atilio is a pleasant 82 year old male here today with his for follow-up after prostate MRI. He had negative transrectal prostate biopsy in May 2022. He denies any issues with urination. PSA Table August 28, 2021 10.2 May 18, 2022 13.7 Oct 27, 2022 14.6 The following portions of the patient's history were reviewed and updated as appropriate: allergies, current medications, family history, medical history, social history, surgical history, and problem list. DIAGNOSTIC RADIOLOGY MR PROSTATE 11/01/2022 IMPRESSION: 1. PIRADS 5- Very high (clinically significant cancer is highly likely to be present) at the junction of the anterior right transitional zone and peripheral zone at the level of prostate base- markedin DynaCAD. 2. Findings indeterminate for capsular invasion. 3. No pelvic lymphadenopathy or metastasis. ASSESSMENT / PLAN 1. Elevated Prostate-Specific Antigen 2. Abnormal Magnetic Resonance Imaging Prostate 3. Abnormal Urinalysis We discussed recent PSA levels and results from prostate MRI. Is recommended that we go forward with transperineal prostate biopsy with our colleagues at [facility]. We discussed the transperineal procedure, discussed that he will need a driver license technician the day of procedure as he would receive sedation. Discussed that he will need preop, labs, urine testing, and EKG prior to procedure. Discussed risks of procedure including risk of bleeding, infection, risk of anesthesia. We will schedule this and contact them the date. Their daughter will assist with driving as his does not drive. They are given transperineal biopsy information booklet and checklist for surgical patients so that they can call in the night before to find out arrival time. - Primary Care - [facility] consult (clinic); Future - Basic Metabolic Panel; Future - Bacterial Culture, Aerobic + Susceptibility, Urine; Future - Urinalysis with Microscopic: Urine, Midstream; Future - ECG 12 Lead; Future Signed by: Geovanna Kennedy APRN, C.N.P. 11/04/2022 1:17 PM CDT documented in this encounter Plan of Treatment Upcoming Encounters Date Type Department Care Team (Late st Contact Info) Description 02/28/2023 1:30 PM INTERPRETIVE PROGRAM COORDINATOR Appointment Department of Radiation Oncology in [address] [phone] Stanislaw Alan M.D. [address] [place] [phone] 03/01/2023 1:30 PM INTERPRETIVE PROGRAM COORDINATOR Appointment Department of Radiation Oncology in [address] [address] Stanislaw Alan M.D. [address] [place] [phone] 03/02/2023 1:30 PM INTERPRETIVE PROGRAM COORDINATOR Appointment Department of Radiation Oncology in [address] [phone] Stanislaw Alan M.D. [address] [place] [phone] 03/02/2023 1:45 PM INTERPRETIVE PROGRAM COORDINATOR Appointment Department of Radiation Oncology in [address] [address] Stanislaw Alan M.D. [address] [place] [phone] 03/03/2023 1:30 PM INTERPRETIVE PROGRAM COORDINATOR Appointment Department of Radiation Oncology in [address] [address] Stanislaw Alan M.D. [address] [place] [phone] 03/04/2023 1:30 PM INTERPRETIVE PROGRAM COORDINATOR Appointment Department of Radiation Oncology in [address] [phone] Stanislaw Alan M.D. [address] [place] [phone] 03/07/2023 1:30 PM INTERPRETIVE PROGRAM COORDINATOR Appointment Department of Radiation Oncology in [place], [place] [address] [place] [phone] Stanislaw Alan M.D. [address] [place] [address] 03/08/2023 1:30 PM INTERPRETIVE PROGRAM COORDINATOR Appointment Department of Radiation Oncology in [address] [address] Stanislaw Alan M.D. [address] [place] [address] 03/09/2023 1:30 PM INTERPRETIVE PROGRAM COORDINATOR Appointment Department of Radiation Oncology in [address] [address] Stanislaw Alan M.D. 200 [place] [address] 03/09/2023 1:45 PM INTERPRETIVE PROGRAM COORDINATOR Appointment Department of Radiation Oncology in [address] [address] Stnaislaw Alan M.D. [address] [place] [phone] 03/10/2023 1:30 PM INTERPRETIVE PROGRAM COORDINATOR Appointment Department of Radiation Oncology in [address] [address] Stanislaw Alan M.D. [address] [place] [phone] 03/11/2023 1:30 PM INTERPRETIVE PROGRAM COORDINATOR Appointment Department of Radiation Oncology in [address] [address] Stanislaw Alan M.D. [address] [place] [phone] 03/14/2023 1:30 PM INTERPRETIVE PROGRAM COORDINATOR Appointment Department of Radiation Oncology in [place], [place] [address] [place] [phone] Stanislaw Alan M.D. [address] [place] [phone] 03/15/2023 1:30 PM INTERPRETIVE PROGRAM COORDINATOR Appointment Department of Radiation Oncology in [place], [place] [address] [place] [phone] Stanislaw Alan M.D. [address] [place] [phone] 03/16/2023 1:30 PM INTERPRETIVE PROGRAM COORDINATOR Appointment Department of Radiation Oncology in [address] [address] Stanislaw Alan M.D. [address] [place] [phone] 03/16/2023 1:45 PM INTERPRETIVE PROGRAM COORDINATOR Appointment Department of Radiation Oncology in [address] [address] Stanislaw Alan M.D. [address] [place] [phone] documented as of this encounter Visit Diagnoses Diagnosis Elevated Prostate-Specific Antigen- Primary Abnormal Magnetic Resonance Imaging Prostate Abnormal Urinalysis documented in this encounter
--- OUTSIDE RECORDS SUMMARY | 2023-02-26 06:47 | XMS_ITS | Encounter Summary ---
Author Name Unknown Organization [facility] Address [address] [place] [address] Care Team Providers Care Engineering Program Analyst Name Role Phone Unavailable Primary Care Provider Unavailabl e Reason for Referral * MRI/CAT/PET Scan (Routine) - Closed Specialty Diagnoses / Procedures Referred By Tomy meade Referred To Contact Radiology Diagnoses Elevated Prostate-Specific Antigen Procedures MR Prostate without and with IV Contrast Geovanna Kennedy APRN, C.N.P. [address] [phone] [facility] Referral ID Status Reason Start Date Expiration Date Visits Re quested Visits Authorized [id number] Closed 06/14/2022 06/14/2023 1 1 Reason for Visit * Reason Comments Follow-up Biopsy results * Outpatient (Routine) - Closed Specialty Diagnoses / Procedures Referred By Tomy meade Referred To Contact Urology Geovanna Kennedy APRN, C.N.P. [address] [phone] [facility] Referral ID Status Reason Start Date Expiration Date Visits Re quested Visits Authorized [id number] Closed 06/01/2022 05/31/2025 1 1 Encounter Details Date Type Department Care Team (Late st Contact Info) Description 06/14/2022 11:30 AM CDT Office Visit Department of Urology in [place], [place] [address] [place] [phone] Gevoanna Kennedy APRN, C.N.P. [address] [place] [phone] Elevated Prostate-Specific Antigen (Primary Dx) Social History Tobacco Use Types [...] Notes * Geovanna Kennedy APRN, C.N.P. - 06/14/2022 11:30 AM CDT SUBJECTIVE CHIEF COMPLAINT/REASON FOR VISIT Chief Complaint Patient presents with Follow-up Biopsy results HISTORY OF PRESENT ILLNESS Atilio is a pleasant 82 year old male here today with his for follow-up after TRUS prostate biopsy with Dr. Bhagat on June 03, 2022. PSA level at the time of biopsy 13.7, prostate volume 36.5 cc, PSA density 0.38. He tolerated the biopsy well, no concerns at this time. The following portions of the patient's history were reviewed and updated as appropriate: allergies, current medications, family history, medical history, social history, surgical history, and problem list. OBJECTIVE There were no vitals filed for this visit. Recent Results (from the past 720 hour(s)) Surgical Pathology Status: None Result Value Report electronically signed by Luis Alfredo Ford MD Specimen Received A. Prostate needle biopsy right, six cores B. Prostate needle biopsy left, six cores Clinical History Elevated PSA, abnormal digital rectal prostate examination Gross Description A: Submitted as right prostate are light cuenca cores up to 0.7 cm in length, each with a diameter of 0.1 cm. Doc TATE. B: Submitted as left prostate are light cuenca cores up to 0.8 cm in length, each with a diameter of 0.1 cm. Nader TATE [facility] Interpretation FINAL DIAGNOSIS A. Prostate, right biopsy: Prostate tissue without diagnostic abnormality. B. Prostate, left biopsy: Prostate tissue without diagnostic abnormality. *Note: Due to a large number of results and/or encounters for the requested time period, some results have not been displayed. A complete set of results can be found in Results Review. ASSESSMENT / PLAN 1. Elevated Prostate-Specific Antigen Prostate biopsy is negative, discussed sampling error possibility and next steps going forward. We will recheck PSA and prostate MRI in 3-4 months and follow-up at that time. All questions answered today. - MR Prostate without and with IV Contrast; Future - PSA (Prostate-Specific Antigen), Diagnostic; Future Signed by: Geovanna Kennedy APRN, C.N.P. 06/14/2022 12:16 PM CDT documented in this encounter Plan of Treatment Upcoming Encounters Date Type Department Care Team (Late st Contact Info) Description 02/28/2023 1:30 PM FIELD SERVICE TECHNICIAN Appointment Department of Radiation Oncology in [address] [phone] Stanislaw Alan M.D. [address] [place] [phone] 03/01/2023 1:30 PM FIELD SERVICE TECHNICIAN Appointment Department of Radiation Oncology in [address] [address] Stanislaw Alan M.D. [address] [place] [phone] 03/02/2023 1:30 PM FIELD SERVICE TECHNICIAN Appointment Department of Radiation Oncology in [address] [address] Stanislaw Alan M.D. [address] [place] [phone] 03/02/2023 1:45 PM FIELD SERVICE TECHNICIAN Appointment Department of Radiation Oncology in [place], [place] [address] [place] [phone] Stanislaw Alan M.D. [address] [place] [phone] 03/03/2023 1:30 PM FIELD SERVICE TECHNICIAN Appointment Department of Radiation Oncology in [place], [place] [address] [place] [phone] Stanislaw Alan M.D. [address] [place] [phone] 03/04/2023 1:30 PM FIELD SERVICE TECHNICIAN Appointment Department of Radiation Oncology in [address] [address] Stanislaw Alan M.D. [address] [place] [phone] 03/07/2023 1:30 PM FIELD SERVICE TECHNICIAN Appointment Department of Radiation Oncology in [address] [address] Stanislaw Alan M.D. [address] [place] [phone] 03/08/2023 1:30 PM FIELD SERVICE TECHNICIAN Appointment Department of Radiation Oncology in [place], [place] [address] [place] [phone] Stanislaw Alan M.D. [address] [place] [phone] 03/09/2023 1:30 PM FIELD SERVICE TECHNICIAN Appointment Department of Radiation Oncology in [address] [address] Stanislaw Alan M.D. [address] [place] [phone] 03/09/2023 1:45 PM FIELD SERVICE TECHNICIAN Appointment Department of Radiation Oncology in [address] [phone] Stanislaw Alan M.D. [address] [place] [phone] 03/10/2023 1:30 PM FIELD SERVICE TECHNICIAN Appointment Department of Radiation Oncology in [address] [phone] Stanislaw Alan M.D. [address] [place] [phone] 03/11/2023 1:30 PM FIELD SERVICE TECHNICIAN Appointment Department of Radiation Oncology in [address] [phone] Stanislaw Alan M.D. [address] [place] [phone] 03/14/2023 1:30 PM FIELD SERVICE TECHNICIAN Appointment Department of Radiation Oncology in [address] [phone] Stanislaw Alan M.D. [address] [place] [phone] 03/15/2023 1:30 PM FIELD SERVICE TECHNICIAN Appointment Department of Radiation Oncology in [address] [address] Stanislaw Alan M.D. [address] [place] [phone] 03/16/2023 1:30 PM FIELD SERVICE TECHNICIAN Appointment Department of Radiation Oncology in [address] [phone] Stanislaw Alan M.D. [address] [place] [phone] 03/16/2023 1:45 PM FIELD SERVICE TECHNICIAN Appointment Department of Radiation Oncology in [place], [place] [address] [place] [phone] Stanislaw Alan M.D. [address] [place] [address] documented as of this encounter Results * MR Prostate without and with IV Contrast (11/01/2022 1:49 PM CDT) Anatomical Region Laterality Modality Pelvis, Abdominal RST LOS, A bdominal ARZ LOS, Abdominal FLA LOS N/A Magnetic Resonance 11/01/2022 1:35 PM CDT Impressions 11/01/2022 2:39 PM CDT 1. ??PIRADS 5- Very high (clinically significant cancer is highly likely to be present) at the junction of the anterior right transitional zone and peripheral zone at the level of prostate base- marked in DynaCAD. 2. ??Findings indeterminate for capsular invasion. 3. ??No pelvic lymphadenopathy or metastasis. Narrative 11/01/2022 2:39 PM CDT EXAM: MR PROSTATE WITHOUT AND WITH IV CONTRAST CLINICAL HISTORY: Screening - history of benign biopsy. Most Recent PSA 14.6 ng/mL. COMPARISON: None PROSTATE: Volume: 40cc ?(PSA density 0.36) Exam quality: Good. Peripheral zone: [...] peripheral zone Location: Right anterior at base. (Series 5 image 14) T2WI: Circumscribed, homogenous moderate hypointense focus/mass confined to prostate; greater than or equal to 1.5cm in greatest dimension or definite extraprostatic extension/invasive behavior (T2WI score 5) DWI: Marked diffusion restriction. (ADC: 691, Focal markedly hypointense on ADC and markedly hyperintense on high b-value DWI; greater than or equal to 1.5cm in greatest dimension or definite extraprostatic extension/invasive behavior) (DWI score 5) DCE: Positive. Overall category: PIRADS 5- Very high (clinically significant cancer is highly likely to be present). LOCAL STAGING: Capsule: Indeterminate. Broad based capsular abutment without definite extraprostatic extension. Neurovascular bundle invasion: Absent Seminal vesicles invasion: Absent. Other organ invasion: Absent LYMPH NODES: Negative for suspicious lymph node(s). 5 mm bilateral external iliac lymph nodes could be reactive. BONES: Negative for suspicious bone lesion(s). OTHER FINDINGS: Urinary bladder evacuation compatible with chronic outlet obstruction. Colonic diverticulosis without inflammatory changes. Degenerative changes of the lumbar spine. Trace free fluid in the pelvis. Partially seen probable exophytic right renal cyst. PROSTATE MRI TECHNIQUE: Multiparametric MRI of the prostate was performed at [address] with surface coil. High resolution T2WI, DWI/ADC, and DCE imaging with IV contrast performed. Procedure Note Tammi Kiser M.D. - 11/01/2022 EXAM: MR PROSTATE WITHOUT AND WITH IV CONTRAST CLINICAL HISTORY: Screening - history of benign biopsy. Most Recent PSA14.6 ng/mL. COMPARISON: None PROSTATE: Volume: 40cc (PSA density 0.36) Exam quality: Good. Peripheral zone: Focal finding as below (lesion #1). Highly suspiciouslesion at the junction of the right anterior transition zone and peripheral zone, as described below. Inaddition, Linear/wedge-shaped T2 hypointensities without significant diffusionrestriction consistent with PI-RADS 2. Transition zone: Focal finding, as below (lesion #1). Lesion # 1 Size: 1.9 x 0.8 x 1.2cm, 1.0cc Zone: Junction of the right anterior transition zone and peripheral zone Location: Right anterior at base. (Series 5 image 14) T2WI: Circumscribed, homogenous moderate hypointense focus/mass confinedto prostate; greater than or equal to 1.5cm in greatest dimension or definite extraprostaticextension/invasive behavior (T2WI score 5) DWI: Marked diffusion restriction. (ADC: 691, Focal markedly hypointenseon ADC and markedly hyperintense on high b-value DWI; greater than or equal to 1.5cm ingreatest dimension or definite extraprostatic extension/invasive behavior) (DWI score 5) DCE: Positive. Overall category: PIRADS 5- Very high (clinically significant cancer ishighly likely to be present). LOCAL STAGING: Capsule: Indeterminate. Broad based capsular abutment without definiteextraprostatic extension. Neurovascular bundle invasion: Absent Seminal vesicles invasion: Absent. Other organ invasion: Absent LYMPH NODES: Negative for suspicious lymph node(s). 5 mm bilateralexternal iliac lymph nodes could be reactive. BONES: Negative for suspicious bone lesion(s). OTHER FINDINGS: Urinary bladder evacuation compatible with chronic outletobstruction. Colonic diverticulosis without inflammatory changes. Degenerative changes of thelumbar spine. Trace free fluid in the pelvis. Partially seen probable exophytic right renal cyst. PROSTATE MRI TECHNIQUE: Multiparametric MRI of the prostate was performedat [address] with surface coil. High resolution T2WI, DWI/ADC, and DCE imaging with IV contrastperformed. IMPRESSION: 1. PIRADS 5- Very high (clinically significant cancer is highly likely magnus present) at the junction of the anterior right transitional zone and peripheral zone atthe level of prostate base- marked in DynaCAD. 2. Findings indeterminate for capsular invasion. 3. No pelvic lymphadenopathy or metastasis. Geovanna Kennedy APRN, C.N.P. IMG MRI P ROCEDURES * (ABNORMAL) PSA (Prostate-Specific Antigen), Diagnostic (10/27/2022 11:17 AM CDT) Prostate-Specific Ag 14.6(H) <=7.2 ng/mL 10/27/2022 12:24 PM CDT OWAT Comment: ----ADDITIONAL INFORMATION---- The testing method is an electrochemiluminescence assay manufactured by [employer] and performed on the Modular or [employer] system. Values obtained with different assay methods or kits may be different and cannot be used interchangeably. Test results cannot be interpreted as absolute evidence for the presence or absence of malignant disease. Blood (Blood, Venous) 10/27/2022 11:17 AM CDT 10/27/2022 11:20 AM CDT Nahid Ortiz APRNNAleksandar LAB BLOOD ADD-ON [facility] [address] [place] [address], [facility] in [place] [address] [place] [address] documented in this encounter Visit Diagnoses Diagnosis Elevated Prostate-Specific Antigen- Primary Elevated Prostate-Specific Antigen documented in this encounter
--- OUTSIDE RECORDS SUMMARY | 2023-02-26 06:47 | XMS_ITS | Encounter Summary ---
Author Name Unknown Organization [facility] Address [address] [place] [address] Care Team Providers Care Jewel Flat Surfacer Name Role Phone Unavailable Primary Care Provider Unavailabl e Reason for Referral * MRI/CAT/PET Scan (Routine) - Closed Specialty Diagnoses / Procedures Referred By Tomy meade Referred To Contact Radiology Diagnoses Elevated Prostate-Specific Antigen Procedures MR Prostate without and with IV Contrast Geovanna Kennedy APRN, C.N.P. [address] [phone] [facility] Referral ID Status Reason Start Date Expiration Date Visits Re quested Visits Authorized [id number] Closed 06/14/2022 06/14/2023 1 1 Reason for Visit * MRI/CAT/PET Scan (Routine) - Closed Specialty Diagnoses / Procedures Referred By Tomy meade Referred To Contact Radiology Diagnoses Elevated Prostate-Specific Antigen Procedures MR Prostate without and with IV Contrast Geovanna Kennedy APRN, C.N.P. [address] [place] [phone] [facility] Referral ID Status Reason Start Date Expiration Date Visits Re quested Visits Authorized [id number] Closed 06/14/2022 06/14/2023 1 1 Encounter Details Date Type Department Care Team (Latest Contact Info) Description 11/01/2022 11:37 AM CDT - 11/01/2022 11:59 PM CDT Hospital Encounter Department of Radiology, [facility], in [place], [place] [address] [place] [address] Geovanna Kennedy APRN, C.N.P. [address] [phone] Elevated Prostate-Specific Antigen Discharge Disposition: Home or Self Care Social [...] Take 1 tablet by mouth. 0 09/02/2021 documented as of this encounter Nursing Notes * Jerrod Vega R.N. - 11/01/2022 12:45 PM CDT Glucagon Administration Screening: Does patient have an allergy to glucagon or lactose (e.g. hives, difficulty breathing, anaphylaxis,necrolytic migratory erythema)? Note: nausea vomiting, bloating, and diarrhea are common and expected adverse effects of glucagon and/or lactose intolerance. NO If no, continue. Does patient have a history of insulinoma or pheochromocytoma? NO If no, continue. If yes, discuss with Radiologist. Does patient have diabetes? NO If no, continue. If yes, initiate nurse initiated protocol to order POC blood glucose . If yes and insulin dependent, provide patient with Glucagon Injections if you Have Diabetes card. What is patient's glucose? Not diabetic - less than 70 treat f using Hypoglycemia Nurse Initiated Protocol - between 70 and 300 administer medication as ordered. - greater than 300 notify radiologist and do not administer medication. Is patient safe to receive Glucagon YES If yes, administer Glucagon as outlined in order. Does the patient need to remain NPO following scan for additional appointments today? NO documented in this encounter Plan of Treatment Upcoming Encounters Date Type Department Care Team (Late st Contact Info) Description 02/28/2023 1:30 PM DIRECTOR OF [facility]EARCH CENTER Appointment Department of Radiation Oncology in [address] [phone] Stanislaw Alan M.D. [address] [place] [phone] 03/01/2023 1:30 PM DIRECTOR OF [facility]EARCH C[facility] Appointment Department of Radiation Oncology in [address] [address] Stanislaw Alan M.D. [address] [place] [phone] 03/02/2023 1:30 PM DIRECT[facility] OF [facility]EARCH CENTER Appointment Department of Radiation Oncology in [address] [phone] Stanislaw Alan M.D. [address] [place] [phone] 03/02/2023 1:45 PM [facility] OF [facility] C[facility] Appointment Department of Radiation Oncology in [address] [phone] Stanislaw Alan M.D. [address] [place] [phone] 03/03/2023 1:30 PM [facility] OF [facility] C[facility] Appointment Department of Radiation Oncology in [address] [phone] Stanislaw Alan M.D. [address] [place] [phone] 03/04/2023 1:30 PM DIRECT[facility] OF [facility]EARCH C[facility] Appointment Department of Radiation Oncology in [place], [place] [address] [place] [phone] Stanislaw Alan M.D. [address] [place] [phone] 03/07/2023 1:30 PM [facility] OF [facility]ARCH C[facility] Appointment Department of Radiation Oncology in [place], [place] [address] [place] [phone] Stanislaw Alan M.D. [address] [place] [phone] 03/08/2023 1:30 PM [facility] Appointment Department of Radiation Oncology in [address] [phone] Stanislaw Alan M.D. [address] [place] [phone] 03/09/2023 1:30 PM [facility] Appointment Department of Radiation Oncology in [address] [phone] Stanislaw Alan M.D. [address] [place] [phone] 03/09/2023 1:45 PM [facility] Appointment Department of Radiation Oncology in [place], [place] [address] [place] [phone] Stanislaw Alan M.D. [address] [place] [phone] 03/10/2023 1:30 PM [facility] Appointment Department of Radiation Oncology in [address] [address] Stanislaw Alan M.D. [address] [place] [phone] 03/11/2023 1:30 PM [facility] C[facility] Appointment Department of Radiation Oncology in [address] [phone] Stanislaw Alan M.D. [address] [place] [phone] 03/14/2023 1:30 PM [facility]ARCH C[facility] Appointment Department of Radiation Oncology in [address] [phone] Stanislaw Alan M.D. [address] [place] [phone] 03/15/2023 1:30 PM DIRECT[facility]ARCH C[facility] Appointment Department of Radiation Oncology in [address] [phone] Stanislaw Alan M.D. [address] [place] [phone] 03/16/2023 1:30 PM DIRECT[facility]EARCH CENTER Appointment Department of Radiation Oncology in [address] [phone] Stanislaw Alan M.D. [address] [place] [phone] 03/16/2023 1:45 PM DIRECT[facility] OF [facility]EARCH CENTER Appointment Department of Radiation Oncology in [address] [phone] Stanislaw Alan M.D. [address] [place] [phone] documented as of this encounter Procedures Procedure Name Priority Date/Time Associated Diagnosis Comments MR PROSTATE WITHOUT AND WITH IV CONTRAST RAD - Routine (most inpatients and all outpatients) 11/01/2022 1:49 PM CDT Elevated Prostate-Specific Antigen documented in this encounter Results * MR Prostate without [...] No pelvic lymphadenopathy or metastasis. Geovanna Kennedy APRN C.N.P. IMG MRI P ROCEDURES documented in this encounter Visit Diagnoses Diagnosis Elevated Prostate-Specific Antigen documented in this encounter Administered Medications Inactive Administered Medications - up to 3 most recent administrations Medication Order MAR Action Action Date Dose Rate Site gadoterate meglumine 0.5 mmol/mL (376.9 mg/mL) injection 1.6-20 mL (DOTAREM) 1.6-20 mL, intravenous, Once in imaging, contrast, Starting on Tue11/01/22 at 1216, For 1 dose, Imaging Protocol Orders, Dose per Radiant Medication Guidelines Given 11/01/2022 1:49 PM CDT 16 mL glucagon injection 0.5-1 mg (GlucaGen) 0.5-1 mg, subcutaneous, Once, On Tue11/01/22 at 1245, For 1 dose, Imaging Protocol Orders Given 11/01/2022 1:50 PM CDT 1 mg Left Upper Arm (Back) sodium chloride (PF) 0.9 % injection 1-100 mL 1-100 mL, intravenous, Once, On Tue11/01/22 at 1245, For 1 dose, Imaging Protocol Orders Given 11/01/2022 1:49 PM CDT 20 mL documented in this encounter
--- OUTSIDE RECORDS SUMMARY | 2023-02-26 06:47 | XMS_ITS | Encounter Summary ---
Author Name Unknown Organization [facility] Address [address] [place] [id number] Care Team Providers Care Wound Care Specialist Name Role Phone Elsewhere, Pcp Primary Care Provider Unavailabl e Encounter Details Date Type Department Care Team (Late st Contact Info) Description 11/23/2022 10:27 AM CDT Anesthesia Event Outpatient [facility] in [place], [place] [address] [place] [phone] Elizabeth Lopez APRN, TELLO [address] [place] [phone] Michael Anders Jr., M.D. [address] [place] [phone] Anesthesia Record Procedure Summary Procedure Name Responsible Anesthesiologist Anesthesia Start Time Anesthesia Stop Time PATIENT PREFERS AFTER 10 AM. BIOPSY TRANSPERINEAL PROSTATE. Elizabeth Lopez APRN, TELLO 11/23/22 1027 11/23/22 1116 Events Date Time Event Comment 11/23/2022 1027 An Start Machine/Equipme nt Checked Infection Precautions Followed Procedure/Site Verified NPO Status Verified Supine Standard ASA Monitors Applied 1038 Turnover to Proceduralist 1045 Proc Start 1106 Proc Fin 1110 Turnover to ANE Staff 1111 an stop data 1116 An End I completed my handoff to the receiving staff during which we 1. Identified the patient 2. Identified the responsible provider 3. Reviewed the pertinent medical history 4. Discussed the surgical course 5. Reviewed intra-op anesthesia management and issues during anesthesia 6. Set expectations for post-procedure period 7. Allowed opportunity for questions and acknowledgement of understanding. Patient transported to recovery room on RA. Patient remains drowsy. VSS. Report given to RN; all questions answered. Meds Name Total fentanyl injection 50 mcg/mL 25 mcg ondansetron PF 4 mg/2 mL injection 4 mg propofol 10 mg/mL injection 20 mg propofol 10 mg/mL infusion 156.49 mg ceFAZolin injection 2 g (ANCEF) 2 g phenylephrine 100 mcg/mL injection 100 m cg Lactated Ringer's 800 mL * Agents No agents on file. * Blood No blood administrations on file. Lines, Drains, and Airways Type Details Placement Removal Wound 11/23/22; N; Punctur e; Perineum; primapore 11/23/22 0000 by Carly Singh M.S.N., R.N. Peripheral IV Placement Date: 11/07 08/29; Placement Time: 1013; Catheter Size: 22 G; Orientation: Anterior, Left, Lower; Location: Forearm; Site Prep: Chlorhexidine (Preferred); Technique: Anatomical landmarks; Inserted by: Steve; Insertion Attempts: 1; Removal Date: 11/23/22; Removal Time: 1252; Removal Reason: Patient discharged 11/23/22 1013 by Kristi Lovett RMichelleN. 11/23/22 1252 by Kristi Lovett RMichelleN. documented in this encounter Social History Tobacco Use Types Packs/Day Years [...] AM CDT documented as of this encounter OR Notes * Anesthesia Postprocedure Evaluation - Elizabeth Lopez I., KEYSHAWN, TELLO - 11/23/2022 1:38 PM CDT Patient: Norm Sandoval Procedure Summary Date: 11/23/22 Room / Location: [address] / [facility] in [place], [place] Anesthesia Start: 1027 Anesthesia Stop: 1116 Procedure: PATIENT PREFERS AFTER 10 AM. BIOPSY TRANSPERINEAL PROSTATE. Diagnosis: Elevated Prostate-Specific Antigen (Elevated Prostate-Specific Antigen [R97.20].) Surgeons: Goyo Rizzo M.D. Responsible Provider: Elizabeth Lopez APRN, CRNA Anesthesia Type: MAC ASA Status: 2 Anesthesia Type: MAC Last vitals Vitals Value Taken Time BP 177/85 11/23/22 1230 Temp 36.7 ??C 11/23/22 1115 Pulse 61 11/23/22 1235 Resp 16 11/23/22 1235 SpO2 96 % 11/23/22 1235 Please reference Vitals flowsheet for most recent vital signs. Anesthesia Post Evaluation Patient Disposition: dismissal Cardiovascular status: hemodynamics (HR & BP) acceptable Respiratory status: patent airway with spontaneous effort Temperature: normothermic Oxygen requirements: room air Level of consciousness: awake Pain score: pain adequately controlled and/or at baseline Post Op nausea/vomiting: none Hydration status: euvolemic * Anesthesia Preprocedure Evaluation - Michael Anders Jr., M.D. - 11/23/2022 9:58 AM CDT Preprocedure Anesthesia & H&P Assessment Procedure Summary Date/Time: 11/23/22 1007 Procedure: PATIENT PREFERS AFTER 10 AM. BIOPSY TRANSPERINEAL PROSTATE. Diagnosis: Elevated Prostate-Specific Antigen [R97.20] Pre-op diagnosis: Elevated Prostate-Specific Antigen [R97.20]. Location: [place] [address] / [facility] in [place], [place] Surgeons: Goyo Rizzo M.D. Pertinent components of the patient's history including current problem list, medical history, surgical history, family history, social history, medications and allergies were reviewed. Present illness and pre-op diagnosis were confirmed. The planned surgery / procedure was verified with the patient / legal guardian. The patient's general health condition remains unchanged RELEVANT COMORBID CONDITIONS No relevant active problems OBJECTIVE PHYSICAL EXAMINATION Airway (HEENT) Mallampati: II TM Distance: >3 FB Neck ROM: Full Mouth Opening: >3 cm Cardiovascular Rhythm: Regular Rate: Normal Cardiovascular Assessment: cardiovascular normal Functional Capacity: >4 METS Pulmonary Pulmonary Assessment: Clear General / Constitutional Constitutional Assessment: Thin General State of Health:: calm ASSESSMENT / PLAN ANESTHESIA PLAN ASA: 2 Anesthesia Plan: MAC Patient seen and allergies reviewed, anesthesia plan and risks discussed directly with patient /legal guardian or through an guitar player. Risks/Benefits/Alternatives of Blood transfusion discussed with patient / legal guardian, includingan opportunity to ask questions and/or decline some or all transfusion therapies. The patient / legal guardian consented to the use of all blood products, as deemed medically necessary Approval to Proceed: approved for anesthesia documented in this encounter Plan of Treatment Upcoming Encounters Date Type Department Care Team (Late st Contact Info) Description 02/28/2023 1:30 PM HAND OR MACHINE PASTER Appointment Department of Radiation Oncology in [address] [phone] Stanislaw Alan M.D. [address] [place] [phone] 03/01/2023 1:30 PM HAND OR MACHINE PASTER Appointment Department of Radiation Oncology in [address] [phone] Stanislaw Alan M.D. [address] [place] [phone] 03/02/2023 1:30 PM HAND OR MACHINE PASTER Appointment Department of Radiation Oncology in [address] [phone] Stanislaw Alan M.D. [address] [place] [phone] 03/02/2023 1:45 PM HAND OR MACHINE PASTER Appointment Department of Radiation Oncology in [address] [phone] Stanislaw Alan M.D. [address] [place] [phone] 03/03/2023 1:30 PM HAND OR MACHINE PASTER Appointment Department of Radiation Oncology in [address] [place] [address] Stanislaw Alan M.D. [address] [place] [phone] 03/04/2023 1:30 PM HAND OR MACHINE PASTER Appointment Department of Radiation Oncology in [place], [place] [address] [place] [phone] Stanislaw Alan M.D. [address] [place] [phone] 03/07/2023 1:30 PM HAND OR MACHINE PASTER Appointment Department of Radiation Oncology in [address] [phone] Stanislaw Alan M.D. [address] [place] [phone] 03/08/2023 1:30 PM HAND OR MACHINE PASTER Appointment Department of Radiation Oncology in [place], [place] [address] [place] [phone] Stanislaw Alan M.D. [address] [place] [phone] 03/09/2023 1:30 PM HAND OR MACHINE PASTER Appointment Department of Radiation Oncology in [place], [place] [address] [place] [phone] Stanislaw Alan M.D. [address] [place] [phone] 03/09/2023 1:45 PM HAND OR MACHINE PASTER Appointment Department of Radiation Oncology in [address] [phone] Stanislaw Alan M.D. [address] [place] [phone] 03/10/2023 1:30 PM HAND OR MACHINE PASTER Appointment Department of Radiation Oncology in [place], [place] [address] [place] [phone] Stanislaw Alan M.D. [address] [place] [phone] 03/11/2023 1:30 PM HAND OR MACHINE PASTER Appointment Department of Radiation Oncology in [place], [place] [address] [place] [phone] Stanislaw Alan M.D. [address] [place] [phone] 03/14/2023 1:30 PM HAND OR MACHINE PASTER Appointment Department of Radiation Oncology in [address] [phone] Stanislaw Alan M.D. [address] [place] [phone] 03/15/2023 1:30 PM HAND OR MACHINE PASTER Appointment Department of Radiation Oncology in [address] [phone] Stanislaw Alan M.D. [address] [place] [phone] 03/16/2023 1:30 PM HAND OR MACHINE PASTER Appointment Department of Radiation Oncology in [place], [place] [address] [place] [phone] Stanislaw Alan M.D. [address] [place] [phone] 03/16/2023 1:45 PM HAND OR MACHINE PASTER Appointment Department of Radiation Oncology in [address] [phone] Stanislaw Alan M.D. [address] [place] [phone] documented as of this encounter Visit Diagnoses Not on filedocumented in this encounter Administered Medications Inactive Administered Medications - up to 3 most recent administrations Medication Order MAR Action Action Date Dose Rate Site ceFAZolin injection 2 g (ANCEF) 2 g, intravenous, Once, On Tue11/23/22 at 1000, For 1 dose, Intra-Op, Administer within 1 hour prior to surgical incision If needed, reconstitute vial per package insert instructions. See IVAG for administration guidelines., Drug Monitoring Program: Pharmacist to adjust medication dosing based on indication and drug clearance factors., Indications: Prophylaxis, surgical Given 11/23/2022 10:35 AM CDT 2 g fentaNYL injection (SUBLIMAZE) intravenous, As needed, Starting on Tue11/23/22 at 1041, Anesthesia Intra-op Given 11/23/2022 10:41 AM CDT 25 mcg Lactated Ringer's 20 mL/hr, intravenous, Continuous, Starting on Tue11/23/22 at 1000 Restarted 11/23/2022 10:27 AM CDT New Bag 11/23/2022 10:05 AM CDT 20 mL/hr 20 mL/hr ondansetron (PF) injection (ZOFRAN) intravenous, As needed, Starting on Tue11/23/22 at 1033, Anesthesia Intra-op Given 11/23/2022 10:33 AM CDT 4 mg phenylephrine injection intravenous, As needed, Starting on Tue11/23/22 at 1057, Anesthesia Intra-op Given 11/23/2022 10:57 AM CDT 100 mcg propofol 10 mg/mL infusion (DIPRIVAN) intravenous, Continuous Infusion: Per Instructions PRN, Starting on Tue11/23/22 at 1033, Anesthesia Intra-op Rate/Dose Change 11/23/2022 11:04 AM CDT 50 mcg/kg/min 16.05 mL/hr Rate/Dose Change 11/23/2022 10:53 AM CDT 75 mcg/kg/min 24. 075 mL/hr New Bag 11/23/2022 10:33 AM CDT 100 mcg/kg/min 32.1 mL/ hr propofoL injection (DIPRIVAN) intravenous, As needed, Starting on Tue11/23/22 at 1033, Anesthesia Intra-op Given 11/23/2022 10:33 AM CDT 20 mg documented in this encounter Care Teams Wound Care Specialist Relationship Specialty Start Date End Date Elsewhere, Pcp PCP - General Internal Medicine 11/23/22 documented as of this encounter
--- OUTSIDE RECORDS SUMMARY | 2023-02-26 06:47 | XMS_ITS | Encounter Summary ---
Author Name Unknown Organization [facility] Address [address] [place] [address] Care Team Providers Care Machine Tank Operator Name Role Phone Elsewhere, Pcp Primary Care Provider Unavailabl e Encounter Details Date Type Department Care Team (Latest Contact Info) Description 11/23/2022 8:28 AM CDT - 11/23/2022 1:13 PM CDT Hospital Encounter Outpatient Procedure Center in [place], [place] [address] [place] [address] Goyo Rizzo M.D. [address] [place] [address] Elevated Prostate-Specific Antigen Discharge Disposition: Home or [...] Sign Reading Time Taken Comments Blood Pressure 177/85 11/23/2022 12:30 PM CDT Pulse 61 11/23/2022 12:35 PM CDT Temperature 36.7 ??C (98.1 ??F) 11/23/2022 1 1:15 AM CDT Respiratory Rate 16 11/23/2022 12:3 5 PM CDT Oxygen Saturation 96% 11/23/2022 12: 35 PM CDT Inhaled Oxygen Concentration - - [...] were taken through the perineum using the [employer]foot transperineal access system. NAVEED 1 - Right peripheral zone. 4 Biopsy cores. The needle location was captured on the work station and saved to a three dimensional data set file. Material Movers systematic biopsies were then taken in a [...] st Contact Info) Description 02/28/2023 1:30 PM INTENSIVE CARE AMBULANCE PARAMEDIC Appointment Department of Radiation Oncology in [address] [address] Stanislaw Alan M.D. [address] [place] [address] 03/01/2023 1:30 PM INTENSIVE CARE AMBULANCE PARAMEDIC Appointment Department of Radiation Oncology in [place] [address] [place] [address] Stanislaw Alan M.D. [address] [place] [phone] 03/02/2023 1:30 PM INTENSIVE CARE AMBULANCE PARAMEDIC Appointment Department of Radiation Oncology in [place], [place] [address] [place] [phone] Stanislaw Alan M.D. [address] [place] [phone] 03/02/2023 1:45 PM INTENSIVE CARE AMBULANCE PARAMEDIC Appointment Department of Radiation Oncology in [place], [place] [address] [place] [phone] Stanislaw Alan M.D. [address] [place] [phone] 03/03/2023 1:30 PM INTENSIVE CARE AMBULANCE PARAMEDIC Appointment Department of Radiation Oncology in [address] [phone] Stanislaw Alan M.D. [address] [place] [phone] 03/04/2023 1:30 PM INTENSIVE CARE AMBULANCE PARAMEDIC Appointment Department of Radiation Oncology in [address] [address] Stanislaw Alan M.D. [address] [place] [phone] 03/07/2023 1:30 PM INTENSIVE CARE AMBULANCE PARAMEDIC Appointment Department of Radiation Oncology in [place], [place] [address] [place] [phone] Stanislaw Alan M.D. [address] [place] [phone] 03/08/2023 1:30 PM INTENSIVE CARE AMBULANCE PARAMEDIC Appointment Department of Radiation Oncology in [address] [address] Stanislaw Alan M.D. [address] [place] [phone] 03/09/2023 1:30 PM INTENSIVE CARE AMBULANCE PARAMEDIC Appointment Department of Radiation Oncology in [address] [address] Stanislaw Alan M.D. [address] [place] [phone] 03/09/2023 1:45 PM INTENSIVE CARE AMBULANCE PARAMEDIC Appointment Department of Radiation Oncology in [address] [address] Stanislaw Alan M.D. [address] [place] [phone] 03/10/2023 1:30 PM INTENSIVE CARE AMBULANCE PARAMEDIC Appointment Department of Radiation Oncology in [address] [address] Stanislaw Alan M.D. [address] [place] [phone] 03/11/2023 1:30 PM INTENSIVE CARE AMBULANCE PARAMEDIC Appointment Department of Radiation Oncology in [address] [address] Stanislaw Alan M.D. [address] [place] [phone] 03/14/2023 1:30 PM INTENSIVE CARE AMBULANCE PARAMEDIC Appointment Department of Radiation Oncology in [address] [address] Stanislaw Alan M.D. [address] [place] [phone] 03/15/2023 1:30 PM INTENSIVE CARE AMBULANCE PARAMEDIC Appointment Department of Radiation Oncology in [address] [phone] Stanislaw Alan M.D. [address] [place] [phone] 03/16/2023 1:30 PM INTENSIVE CARE AMBULANCE PARAMEDIC Appointment Department of Radiation Oncology in [place], [place] [address] [place] [phone] Stanislaw Alan M.D. [address] [place] [phone] 03/16/2023 1:45 PM INTENSIVE CARE AMBULANCE PARAMEDIC Appointment Department of Radiation Oncology in [place], [place] [address] [place] [phone] Stanislaw Alan M.D. [address] [place] [phone] documented as of this encounter Procedures Procedure [...] CDT DTL Report electronically signed by Ghassan Perez M.D., Ph.D. I verify that I have [...] ??Prostatic adenocarcinoma Type: Acinar Grade Group and Bethany score: Grade Group 2 ([place] Score 3+4=7) Percentage of pattern 4: 10% Tumor involves 10% of overall specimen (1 of 1 core). D. Prostate, right posterior lateral base, needle core biopsy: ??Benign prostatic tissue E. Prostate, right anterior horn, needle core biopsy: Prostatic adenocarcinoma Type: Acinar Grade Group ??and Barnes[place] score: Grade Group 2 ([place] Score 3+4=7) Percentage of pattern 4: 25-50% [...] Group ??and Bethany score: Grade Group 2 ([place] Score 3+4=7) Percentage of pattern 4: 25-50% [...] Goyo Rizzo M.D. LAB SURG PATH ORDERA [facility] [address] [place] [address], [place] DTL [address] [place] [address] documented in this encounter Visit Diagnoses Diagnosis Elevated Prostate-Specific Antigen- Primary documented in this encounter Admitting Diagnoses Diagnosis [...] 10:05 AM CDT 20 mL/hr 20 mL/hr sodium chloride 0.9 % injection 10 mL 10 mL, intravenous, As needed, line care, Starting on Tue11/23/22 at 0944, Pre- Op, Peripheral Intravenous Catheter and Rapid Infusion Catheter, prior to blood sampling, post blood transfusion or post blood sampling sodium chloride 0.9 % injection 10 mL 10 mL, intravenous, As needed, line care, Starting on Tue11/23/22 at 0944, Pre- Op, Peripheral Intravenous Catheter and Rapid Infusion Catheter, prior to blood sampling, post blood transfusion or post blood sampling sodium chloride 0.9 % injection 3 mL 3 mL, intravenous, As needed, line care, Starting on Tue11/23/22 at 0944, Pre- Op, Prior to and following infusion and between [...] line care, Starting on Tue11/23/22 at 0944, Pre- Op, Prior to and following infusion and between [...] 1005 (Given - Provid er: Kristi Lovett R.Delaney.) ceFAZolin injection 2 g (ANCEF) (COMPLETED) 2 g, intravenous, Once, On Tue11/23/22 at 1000, For 1 dose, Intra-Op, Administer within 1 hour prior to surgical incision If needed, reconstitute vial per package insert instructions. See IVAG for administration guidelines., Drug Monitoring Program: Pharmacist to adjust medication dosing based on indication and drug clearance factors., Indications: Prophylaxis, surgical 1035 (Given - Provid er: Elizabeth Lopez, GRAVITY MANAGER, TELLO) lidocaine-BUPivacaine 1%-0.25% infiltration injection (COMPLETED) infiltration, Once, [...] R.N.)1026 (Paused - Provider: Elizabeth Lopez APRN, TELLO - Comment: Switch to gravity)1027 (Restarted - Provider: Elizabeth Lopez APRN, TELLO)1105 (Anesthesia Volume Adjustment - Provider: Elizabeth Lopez APRN, TELLO)1311 (Stopped - Provider: Kristi Lovett R.N.) PRN [...] injection documented in this encounter Care Teams Machine Tank Operator Relationship Specialty Start Date End Date Elsewhere, Pcp PCP - General Internal Medicine 11/23/22 documented as of this encounter
--- OUTSIDE RECORDS SUMMARY | 2023-02-26 06:47 | XMS_ITS | Encounter Summary ---
Author Name Unknown Organization [facility] Address [address] [place] [address] Care Team Providers Care Director Of Science Name Role Phone Unavailable Primary Care Provider Unavailabl e Encounter Details Date Type Department Care Team (Late st Contact Info) Description 06/03/2022 1:20 PM CDT Ancillary Procedure Department of Urology Social [...] st Contact Info) Description 02/28/2023 1:30 PM SCRAP YARD WORKER Appointment Department of Radiation Oncology in [address] [phone] Stanislaw Alan M.D. [address] [place] [phone] 03/01/2023 1:30 PM SCRAP YARD WORKER Appointment Department of Radiation Oncology in [address] [phone] Stanislaw Alan M.D. [address] [place] [phone] 03/02/2023 1:30 PM SCRAP YARD WORKER Appointment Department of Radiation Oncology in [address] [address] Stanislaw Alan M.D. [address] [place] [phone] 03/02/2023 1:45 PM SCRAP YARD WORKER Appointment Department of Radiation Oncology in [address] [address] Stanislaw Alan M.D. [address] [place] [phone] 03/03/2023 1:30 PM SCRAP YARD WORKER Appointment Department of Radiation Oncology in [address] [address] Stanislaw Alan M.D. [address] [place] [phone] 03/04/2023 1:30 PM SCRAP YARD WORKER Appointment Department of Radiation Oncology in [address] [address] Stanislaw Alan M.D. [address] [place] [phone] 03/07/2023 1:30 PM SCRAP YARD WORKER Appointment Department of Radiation Oncology in [place], [place] [address] [place] [phone] Stanislaw Alan M.D. [address] [place] [phone] 03/08/2023 1:30 PM SCRAP YARD WORKER Appointment Department of Radiation Oncology in [address] [address] Stanislaw Alan M.D. [address] [place] [phone] 03/09/2023 1:30 PM SCRAP YARD WORKER Appointment Department of Radiation Oncology in [place], [place] [address] [place] [phone] Stanislaw Alan M.D. [address] [place] [phone] 03/09/2023 1:45 PM SCRAP YARD WORKER Appointment Department of Radiation Oncology in [address] [address] Stanislaw Alan M.D. [address] [place] [phone] 03/10/2023 1:30 PM SCRAP YARD WORKER Appointment Department of Radiation Oncology in [address] [phone] Stanislaw Alan M.D. [address] [place] [phone] 03/11/2023 1:30 PM SCRAP YARD WORKER Appointment Department of Radiation Oncology in [address] [phone] Stanislaw Alan M.D. [address] [place] [phone] 03/14/2023 1:30 PM SCRAP YARD WORKER Appointment Department of Radiation Oncology in [place], [place] [address] [place] [phone] Stanislaw Alan M.D. [address] [place] [phone] 03/15/2023 1:30 PM SCRAP YARD WORKER Appointment Department of Radiation Oncology in [address] [address] Stanislaw Alan M.D. [address] [place] [phone] 03/16/2023 1:30 PM SCRAP YARD WORKER Appointment Department of Radiation Oncology in [place], [place] [address] [place] [address] Stanislaw Alan M.D. [address] [place] [address] 03/16/2023 1:45 PM SCRAP YARD WORKER Appointment Department of Radiation Oncology in [place], [place] [address] [place] [address] Stanislaw Alan M.D. [address] [place] [phone] documented as of this encounter Procedures Procedure Name Priority Date/Time Associated Diagnosis Comments UROLOGY IMAGE EXAM Routine 06/03/2022 11 :50 AM CDT documented in this encounter Results * Non-Radiology Image-Urology Image Exam (06/03/2022 11:50 AM CDT) 06/03/2022 1:18 PM CDT Narrative IIMS - 06/03/2022 11:50 AM CDT This order has been created and [...]
--- OUTSIDE RECORDS SUMMARY | 2023-02-26 06:47 | XMS_ITS | Encounter Summary ---
Author Name Unknown Organization [facility] Address [address] [place] [address] Care Team Providers Care Imaging Scheduler Name Role Phone Unavailable Primary Care Provider Unavailabl e Reason for Referral * Outpatient (Routine) - Closed Specialty Diagnoses / Procedures Referred By Contac t Referred To Contact Urology Geovanna Kennedy APRN, C.N.P. [address] [address] [facility] Referral ID Status Reason Start Date Expiration Date Visits Re quested Visits Authorized [id number] Closed 06/01/2022 05/31/2025 1 1 * Outpatient (Routine) - Closed Specialty Diagnoses / Procedures Referred By Contac t Referred To Contact Diagnoses Elevated Prostate-Specific Antigen Prostate Digital Rectal Examination Abnormal Procedures URO Biopsy - Prostate Geovanna Knenedy APRN, C.N.P. [address] [address] [facility] Region Referral ID Status Reason Start Date Expiration Date Visits Re quested Visits Authorized [id number] Closed 06/01/2022 06/01/2023 1 1 Reason for Visit * Reason Comments Consult Elevated PSA * Appointment Request (Routine) - Closed Specialty Diagnoses / Procedures Referred By Contac t Referred To Contact Urology Referral ID Status Reason Start Date Expiration Date Visits Re quested Visits Authorized [id number] Closed 05/19/2022 05/19/2023 1 1 Encounter Details Date Type Department Care Team (Latest Contact Info) Description 06/01/2022 10:30 AM CDT Comprehensive Visit Department of Urology in [place], [place] [address] [place] [address] Geovanna Kennedy APRN, C.N.P. [address] [place] [address] Elevated Prostate-Specific Antigen (Primary Dx); Dysfunction Erectile; Peyronie's Disease; Prostate Digital Rectal Examination Abnormal Social History Tobacco Use Types Packs/Day Years [...] AM CDT documented as of this encounter Patient Instructions * Patient Instructions* Geovanna Kennedy APRN, C.N.P. - 06/01/2022 10:30 AM CDT PROSTATE BIOPSY INSTRUCTIONS General Instructions: Please refrain from taking any Aspirin or blood thinners for 10 days prior to procedure. You may use Tylenol as needed for pain. If you take prophylactic medication prior to dental work, please take this also prior to your biopsy with the antibiotic. The day of the biopsy you are advised to wear jockey style underwear opposed to boxers if possible. You will not be sedated and will not need a local intermodal truck driver. You may eat your regular meals. You received a RX for antibiotics and a Fleets enema to warehouse order picker at your pharmacy. Two hours prior to your procedure use the fleets enema, (directions are on the box) Two hours prior to your procedure take the first dose of antibiotics (One tablet) Following the procedure: You will be given an absorbent pad as some patients may experience some bleeding. It is recommendedfor the first two hours following the procedure do no strenuous activity. If bleeding increases liedown and place a pillow under your hips for two hours, if bleeding does not decrease or if it becomes ???dripping?? contact the urology nurse at the clinic immediately at [phone] or .If after hours call [phone] to be connected to the medical consultant service. Complete your antibiotics as prescribed. At your one week follow up appointment you will receive your pathology result and will discuss treatment plan whether results are positive or negative. documented in this encounter Consult Notes * Geovanna Kennedy APRN, C.N.P. - 06/01/2022 10:30 AM CDT SUBJECTIVE REQUESTING PROVIDER No ref. provider found REASON FOR CONSULT Elevated PSA HISTORY OF PRESENT ILLNESS Atilio is a pleasant 82 year old male here today with his for consultation for elevated PSA level. His most recent PSA level is 13.7. He saw Dr. Rousseau about two years ago and it was recommended at that time that he go forward with prostate biopsy at that time. He has numerous questions about the need for prostate biopsy and the methods for obtaining biopsy tissue. PSA Table August 28, 2021 10.2 May 18, 2022 13.7 Lower Urinary Symptoms Lower Urinary Sx: able to sense full bladder (+) frequency (+) 6 x per day 2 x nightly difficulty urinating (-) Obstructive Sx: kidney infections or required hospitalization for kidney failure (-) # of UTI's in past year: None Required catheter: no Incontinence: unintentionally leaks urine (-) Treatments: Treatments taken for urinary symptoms: none had surgical or office procedures to improve urinary symptoms (-) General Oncologic Symptoms Chemical exposures: toxic chemical exposure (-) His urinary symptoms are generally good, he is more concerned about erectile dysfunction and curvature of the penis with erections. The following portions of the patient's history were reviewed and updated as appropriate: allergies, current medications, family history, medical history, social history, surgical history, and problem list. REVIEW OF SYSTEMS Genitourinary: - Negative for difficulty urinating. Psychiatric/Behavioral: Positive for erectile dysfunction. 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 Family History Problem Relation Age of Onset Hypertension Mother Alcohol abuse Father Epilepsy Son Alcohol abuse Daughter No Known Allergies Current Outpatient Medications on File Prior to Visit Medication Sig Dispense Refill lisinopriL (PRINIVIL,ZESTRIL) 10 mg tablet Take 10 mg by mouth daily. No current facility-administered medications on file prior to visit. Social History Tobacco Use Smoking status: Never Passive exposure: Never Smokeless tobacco: Never OBJECTIVE There were no vitals filed for this visit. PHYSICAL EXAM Vitals and nursing note reviewed. General: Well developed, well nourished, well groomed male in no acute distress. Neurological: Alert, cooperative, oriented x3. Appropriate mood and affect. Hard of hearing. Head: Normal appearance, no abnormalities, normocephalic. Neck: Symmetrical and supple, trachea is midline. Cardiac: regular rate, regular rhythm. Respiratory: Respirations are unlabored with normal respiratory rate and normal respiratory movements. Abdomen: Soft, non-tender, non-distended Vascular: There are +2 pulses noted in both upper and lower extremities. : Skin color and turgor appropriate for region. No ulcers, erythema, rashes, or pigmented lesionsnoted. PROSTATE: Perianal area intact without lesions or visible hemorrhoids. No fissures or fistulas. Good sphincter tone, no masses. Prostate is asymmetrical, firm on right side, enlarged, non-tender. Seminal vesicles are non-palpable. Approximate size is 35-40 grams. Extremities: Warm, without edema or ulcerations. Musculoskeletal: [place] is symmetrical and balanced. ASSESSMENT / PLAN 1. Elevated Prostate-Specific Antigen 2. Dysfunction Erectile 3. Peyronie's Disease 4. Prostate Digital Rectal Examination Abnormal We had an in-depth discussion about his elevated PSA level, abnormal prostate exam, and next steps going forward. We discussed prostate MRI, we will wait on this at this time. We discussed transrectal ultrasound guided biopsy vs transperineal biopsy. After discussion about risks and benefits of both, he would like to go forward with transrectal ultrasound guided biopsy in clinic. He should perform Fleet enema 2 hours prior to procedure, take the first dose of a 3 day course of antibiotics 2 hours prior to procedure. Risks of procedure discussed including bleeding, infection, pain. Patient understands these risks and wishes to proceed. We will see him in clinic about 1 week after procedure to discuss biopsy results and next steps going forward. We will discuss Erectile Dysfunction further after results from biopsy are available. - URO Biopsy - Prostate; Future Signed by: Geovanna Kennedy APRN CMichelleNAleksandar 06/01/2022 10:07 AM CDT Answers submitted by the patient for this visit: Men's Health - Erectile Function (Submitted on 06/01/2022) Do you have any difficulty obtaining or maintaining an erection satisfactory for sexual intercourse?: Yes (Submitted on 06/01/2022) How often are you currently using medications like Viagra, Levitra, Cialis, or Stendra?: not currently using How many years ago did you first try medications like Viagra, Levitra, Cialis, or Stendra?: 2 How strong of an erection can you get with Viagra, Levitra, Cialis, or Stendra?: 1 = Penis is larger but not hard Urinary Symptoms (Submitted on 06/01/2022) Men's Health- Peyronie's Disease (Submitted on 06/01/2022) Do you have any penile curvature?: No Men's Health - Other Sexual Function (Submitted on 06/01/2022) Do you have any complaints about orgasm or ejaculation?: No Are you able to achieve an orgasm (reach climax)?: No Do you have fluid which leaves the penis with orgasm / climax?: No Do you ever accidentally urinate when aroused or during orgasm / climax?: No Do you feel that you ejaculate (reach climax) too slowly or too quickly?: not applicable Men's Health - Erectile Function (Submitted on 06/01/2022) How many months or years have you noticed difficulties with erections?: 2 Years How many times per month do you engage in sexual intercourse with a partner?: 0 How would you rate the hardness of your erection without any medications or supplements?: 0 = Penisdoes not enlarge How many minutes can you maintain an erection that is strong enough to penetrate?: 0 Can maintain erection long enough for successful intercourse?: No How strong are your night-time or speech therapist early intervention erections?: 1 = Penis is larger but not hard Have you ever tried medications like Viagra, Levitra, Cialis, or Stendra?: Yes Have you ever, or do you currently use penile injection therapies?: No Have you ever or do you currently use a vacuum device or erection constriction ring to help with erections?: No None: Yes Have you had your prostate removed (prostatectomy)?: No Have you ever received any form of hormone therapy (shots or pills to reduce your testosterone)?: No documented in this encounter Plan of Treatment Upcoming Encounters Date Type Department Care Team (Late st Contact Info) Description 02/28/2023 1:30 PM SAP BI ARCHITECT Appointment Department of Radiation Oncology in [address] [address] Stanislaw Alan M.D. [address] [place] [phone] 03/01/2023 1:30 PM SAP BI ARCHITECT Appointment Department of Radiation Oncology in [address] [address] Stanislaw Alan M.D. [address] [place] [phone] 03/02/2023 1:30 PM SAP BI ARCHITECT Appointment Department of Radiation Oncology in [address] [address] Stanislaw Alan M.D. [address] [place] [phone] 03/02/2023 1:45 PM SAP BI ARCHITECT Appointment Department of Radiation Oncology in [address] [address] Stanislaw Alan M.D. [address] [place] [phone] 03/03/2023 1:30 PM SAP BI ARCHITECT Appointment Department of Radiation Oncology in [address] [address] Stanislaw Alan M.D. [address] [place] [phone] 03/04/2023 1:30 PM SAP BI ARCHITECT Appointment Department of Radiation Oncology in [address] [address] Stanislaw Alan M.D. [address] [place] [phone] 03/07/2023 1:30 PM SAP BI ARCHITECT Appointment Department of Radiation Oncology in [address] [address] Stanislaw Alan M.D. 200 [place] [address] 03/08/2023 1:30 PM SAP BI ARCHITECT Appointment Department of Radiation Oncology in [address] [address] Stanislaw Alan M.D. [address] [place] [phone] 03/09/2023 1:30 PM SAP BI ARCHITECT Appointment Department of Radiation Oncology in [address] [address] Stanislaw Alan M.D. [address] [place] [phone] 03/09/2023 1:45 PM SAP BI ARCHITECT Appointment Department of Radiation Oncology in [address] [address] Stanislaw Alan M.D. [address] [place] [phone] 03/10/2023 1:30 PM SAP BI ARCHITECT Appointment Department of Radiation Oncology in [place], [place] [address] [place] [phone] Stanislaw Alan M.D. [address] [place] [phone] 03/11/2023 1:30 PM SAP BI ARCHITECT Appointment Department of Radiation Oncology in [address] [address] Stanislaw Alan M.D. [address] [place] [phone] 03/14/2023 1:30 PM SAP BI ARCHITECT Appointment Department of Radiation Oncology in [address] [address] Stanislaw Alan M.D. [address] [place] [phone] 03/15/2023 1:30 PM SAP BI ARCHITECT Appointment Department of Radiation Oncology in [address] [address] Stanislaw Alan M.D. [address] [place] [phone] 03/16/2023 1:30 PM SAP BI ARCHITECT Appointment Department of Radiation Oncology in [address] [address] Stanislaw Alan M.D. [address] [place] [phone] 03/16/2023 1:45 PM SAP BI ARCHITECT Appointment Department of Radiation Oncology in [place], [place] [address] [place] [address] Stanislaw [place] [address] Scheduled Referrals Name Type Priority Associated Diagnoses Orde r Schedule Urology office visit (clinic) Outpatient Referral Routine Expected: 06/08/2022 (Approximate), Expires: 09/01/2023 documented as of this encounter Visit Diagnoses Diagnosis Elevated Prostate-Specific Antigen- Primary Dysfunction Erectile Peyronie's Disease Prostate Digital Rectal Examination Abnormal documented in this encounter
--- OUTSIDE RECORDS SUMMARY | 2023-02-26 06:47 | XMS_ITS | Encounter Summary ---
Author Name Unknown Organization [facility] Address [address] [place] [address] Care Team Providers Care Supervisor Pyrotechnic Loading Name Role Phone Unavailable Primary Care Provider Unavailabl e Reason for Visit * Reason Comments Biopsy Prostate * Outpatient (Routine) - Closed Specialty Diagnoses / Procedures Referred By Contac t Referred To Contact Diagnoses Elevated Prostate-Specific Antigen Prostate Digital Rectal Examination Abnormal Procedures URO Biopsy - Prostate Geovanna Kennedy APRN, C.N.P. [address] [place] [address] [facility] Region Referral ID Status Reason Start Date Expiration Date Visits Re quested Visits Authorized [id number] Closed 06/01/2022 06/01/2023 1 1 Encounter Details Date Type Department Care Team (Latest Contact Info) Description 06/03/2022 11:30 AM CDT Procedure visit Department of Urology in [place], [place] [address] [address] Mariano Bhagat M.D. [address] [address] Elevated Prostate-Specific Antigen; Prostate Digital Rectal Examination Abnormal Social History [...] AM CDT documented as of this encounter Procedure Notes * Mariano Bhagat M.D. - 06/03/2022 11:30 AM CDT CHIEF COMPLAINT / REASON FOR VISIT Transrectal ultrasound and biopsy of the prostate (CPT 73588) Ultrasound guidance for transrectal prostate biopsy (CPT 74810) Transrectal prostate biopsy (CPT 88420) Peripheral Nerve Block (CPT 96327) INDICATION: Elevated prostate specific antigen of 13.7 The patient was appropriately identified with at least two separate identifiers and the correct procedure was confirmed. PROCEDURE: After obtaining informed consent, biplanar transrectal ultrasonography was performed with a [id number] scanner. The patient did receive preoperative ciprofloxacin one to two hours prior to the procedure and benefitted from a Fleet's enema. A rectal probe was inserted in an atraumatic fashion. Serial, sagittal and transverse images of the prostate were obtained. 10 mL of 1% plain lidocaine was used to perform a prostatic nerve block by injecting the apices of the prostate bilaterally. Using a Biopty gun 12 core biopsies were obtained in a modified sextant pattern. One biopsy was obtained from each the right and left medial and lateral apex. One biopsy was obtained from each the lateral and medial aspect of the right and left base of the prostate. One biopsy obtained from each the medial and lateral aspect of the right and left mid-section of the prostate. FINDINGS: Maximal height of prostate: 27.6 millimeters Maximal width of prostate: 49.4 millimeters Maximal length of prostate: 51.2 millimeters Prostate volume is calculated to be 36.5 cubic centimeters PSA density level: 0.38 (upper limits of normal 0.15) Seminal vesicles: Normal Ejaculatory ducts: Normal Prostatic capsule: Intact, no distortion Surgical capsule: Not well defined Peripheral zone: Lesion located posteriorly, primarily on the left side near the base Transitional zone: Normal COMMENTS: Multiple images are saved in QREADS. The procedure was well tolerated. COMPLICATIONS: None. IMPRESSION/REPORT/PLAN: 1. Elevated PSA, prostate tumor of uncertain etiology. 2. Abnormal ultrasound. The patient was observed for 10 to 15 minutes and discharged in satisfactory condition. The usual post-biopsy instructions were reviewed with him. He will call if he develops a fever, excessive bleeding or difficulty voiding. He will return to the clinic in approximately one week to review his biopsy results. He is to continue taking ciprofloxacin 500 milligrams twice daily for a total of five more doses. Note: A negative report or biopsy does not absolutely rule out the presence of prostate cancer. Ultrasound can only determine variations in the tissue texture or density, and cannot diagnose prostatecancer per se. Sampling errors can also occur. Therefore, followup and clinical correlation are essential. Mariano Bhagat M.D. 06/03/22 11:47 AM CDT documented in this encounter Plan of Treatment Upcoming Encounters Date Type Department Care Team (Late st Contact Info) Description 02/28/2023 1:30 PM OFFSET PRESS OPERATOR HELPER Appointment Department of Radiation Oncology in [address] [address] Stanislaw Alan M.D. [address] [place] [phone] 03/01/2023 1:30 PM OFFSET PRESS OPERATOR HELPER Appointment Department of Radiation Oncology in [address] [address] Stanislaw Alan M.D. [address] [place] [phone] 03/02/2023 1:30 PM OFFSET PRESS OPERATOR HELPER Appointment Department of Radiation Oncology in [address] [address] Stanislaw Alan M.D. [address] [place] [phone] 03/02/2023 1:45 PM OFFSET PRESS OPERATOR HELPER Appointment Department of Radiation Oncology in [address] [address] Stanislaw Alan M.D. [address] [place] [phone] 03/03/2023 1:30 PM OFFSET PRESS OPERATOR HELPER Appointment Department of Radiation Oncology in [place], [place] [address] [place] [phone] Stanislaw Alan M.D. [address] [place] [phone] 03/04/2023 1:30 PM OFFSET PRESS OPERATOR HELPER Appointment Department of Radiation Oncology in [place], [place] [address] [place] [phone] Stanislaw Alan M.D. [address] [place] [phone] 03/07/2023 1:30 PM OFFSET PRESS OPERATOR HELPER Appointment Department of Radiation Oncology in [address] [phone] Stanislaw Alan M.D. [address] [place] [phone] 03/08/2023 1:30 PM OFFSET PRESS OPERATOR HELPER Appointment Department of Radiation Oncology in [address] [address] Stanislaw Alan M.D. [address] [place] [phone] 03/09/2023 1:30 PM OFFSET PRESS OPERATOR HELPER Appointment Department of Radiation Oncology in [address] [address] Stanislaw Alan M.D. [address] [place] [phone] 03/09/2023 1:45 PM OFFSET PRESS OPERATOR HELPER Appointment Department of Radiation Oncology in [address] [phone] Stanislaw Alan M.D. [address] [place] [phone] 03/10/2023 1:30 PM OFFSET PRESS OPERATOR HELPER Appointment Department of Radiation Oncology in [place], [place] [address] [place] [phone] Stanislaw Alan M.D. [address] [place] [address] 03/11/2023 1:30 PM OFFSET PRESS OPERATOR HELPER Appointment Department of Radiation Oncology in [address] [address] Stanislaw Alan M.D. [address] [place] [address] 03/14/2023 1:30 PM OFFSET PRESS OPERATOR HELPER Appointment Department of Radiation Oncology in [address] [address] Stanislaw Alan M.D. [address] [place] [address] 03/15/2023 1:30 PM OFFSET PRESS OPERATOR HELPER Appointment Department of Radiation Oncology in [address] [address] Stanislaw Alan M.D. [address] [place] [phone] 03/16/2023 1:30 PM OFFSET PRESS OPERATOR HELPER Appointment Department of Radiation Oncology in [address] [address] Stanislaw Alan M.D. [address] [place] [phone] 03/16/2023 1:45 PM OFFSET PRESS OPERATOR HELPER Appointment Department of Radiation Oncology in [address] [phone] Stanislaw Alan M.D. [address] [place] [address] documented as of this encounter Procedures Procedure Name Priority Date/Time Associated Diagnosis Comments SURGICAL PATHOLOGY Routine 06/03/2022 11 :52 AM CDT Elevated Prostate-Specific Antigen Prostate Digital Rectal Examination Abnormal documented in this encounter Results * Surgical Pathology (06/03/2022 11:52 AM CDT) 06/04/2022 10:59 AM CDT MKTO Report electronically signed by Luis Alfredo Ford MD 06/04/2022 10:59 AM CDT MKTO Specimen Received A. ??Prostate needle biopsy right, six cores B. ??Prostate needle biopsy left, six cores 06/04/2022 10:59 AM CDT MKTO Clinical History Elevated PSA, abnormal digital rectal prostate examination 06/04/2022 10:59 AM CDT MKTO Gross Description A: Submitted as right prostate are light cuenca cores up to 0.7 cm in length, each with a diameter of 0.1 cm. CHITOBDoc. B: Submitted as left prostate are light cuenca cores up to 0.8 cm in length, each with a diameter of 0.1 cm. ESLeonidas Lauren. c/nm 06/04/2022 10:59 AM CDT MKTO Interpretation FINAL DIAGNOSIS A. Prostate, right biopsy: Prostate tissue without diagnostic abnormality. B. Prostate, left biopsy: Prostate tissue without diagnostic abnormality. 06/04/2022 10:59 AM CDT MKTO Tissue 06/03/2022 11:5 2 AM CDT 06/03/2022 3:09 PM CDT Mariano Bhagat M.D. LAB SURG PATH [facility] [address] [place] [address], [facility] [place] MKTO [address] [address] documented in this encounter Visit Diagnoses Diagnosis Elevated Prostate-Specific Antigen Prostate Digital Rectal Examination Abnormal documented in this encounter
--- OUTSIDE RECORDS SUMMARY | 2023-02-26 06:47 | XMS_ITS | Encounter Summary ---
Author Name Unknown Organization [facility] Address [address] [place] [address] Care Team Providers Care Fish Bait Processing Supervisor Name Role Phone Unavailable Primary Care Provider Unavailabl e Encounter Details Date Type Department Care Team (Latest Contact Info) Description 10/27/2022 10:42 AM CDT - 10/27/2022 11:59 PM CDT Hospital Encounter Department of Laboratory Medicine in [place], [place] [address] [phone] Geovanna Kennedy APRN, C.N.P. [address] [phone] Elevated Prostate-Specific Antigen Discharge Disposition: Home or [...] 0 09/02/2021 documented as of this encounter Plan of Treatment Upcoming Encounters Date Type Department Care Team (Late st Contact Info) Description 02/28/2023 1:30 PM BLOOD BANK TECHNICIAN Appointment Department of Radiation Oncology in [place], [place] [address] [place] [phone] Stanislaw Alan M.D. [address] [place] [phone] 03/01/2023 1:30 PM BLOOD BANK TECHNICIAN Appointment Department of Radiation Oncology in [place], [place] [address] [place] [phone] Stanislaw Alan M.D. [address] [place] [phone] 03/02/2023 1:30 PM BLOOD BANK TECHNICIAN Appointment Department of Radiation Oncology in [address] [address] Stanislaw Alan M.D. [address] [place] [phone] 03/02/2023 1:45 PM BLOOD BANK TECHNICIAN Appointment Department of Radiation Oncology in [address] [phone] Stanislaw Alan M.D. [address] [place] [phone] 03/03/2023 1:30 PM BLOOD BANK TECHNICIAN Appointment Department of Radiation Oncology in [place], [place] [address] [place] [phone] Stanislaw Alan M.D. [address] [place] [phone] 03/04/2023 1:30 PM BLOOD BANK TECHNICIAN Appointment Department of Radiation Oncology in [place], [place] [address] [place] [phone] Stanislaw Alan M.D. [address] [place] [phone] 03/07/2023 1:30 PM BLOOD BANK TECHNICIAN Appointment Department of Radiation Oncology in [place], [place] [address] [place] [phone] Stanislaw Alan M.D. [address] [place] [phone] 03/08/2023 1:30 PM BLOOD BANK TECHNICIAN Appointment Department of Radiation Oncology in [place], [place] [address] [place] [phone] Stanislaw Alan M.D. [address] [place] [phone] 03/09/2023 1:30 PM BLOOD BANK TECHNICIAN Appointment Department of Radiation Oncology in [address] [phone] Stanislaw Alan M.D. [address] [place] [phone] 03/09/2023 1:45 PM BLOOD BANK TECHNICIAN Appointment Department of Radiation Oncology in [address] [phone] Stanislaw Alan M.D. [address] [place] [phone] 03/10/2023 1:30 PM BLOOD BANK TECHNICIAN Appointment Department of Radiation Oncology in [place], [place] [address] [place] [phone] Stanislaw Alan M.D. [address] [place] [phone] 03/11/2023 1:30 PM BLOOD BANK TECHNICIAN Appointment Department of Radiation Oncology in [address] [phone] Stanislaw Alan M.D. [address] [place] [phone] 03/14/2023 1:30 PM BLOOD BANK TECHNICIAN Appointment Department of Radiation Oncology in [place], [place] [address] [place] [phone] Stanislaw Alan M.D. [address] [place] [phone] 03/15/2023 1:30 PM BLOOD BANK TECHNICIAN Appointment Department of Radiation Oncology in [address] [phone] Stanislaw Alan M.D. [address] [place] [address] 03/16/2023 1:30 PM BLOOD BANK TECHNICIAN Appointment Department of Radiation Oncology in [address] [phone] Stanislaw Alan M.D. [address] [place] [address] 03/16/2023 1:45 PM BLOOD BANK TECHNICIAN Appointment Department of Radiation Oncology in [address] [phone] Stanislaw Alan M.D. [address] [place] [address] documented as of this encounter Procedures Procedure Name Priority Date/Time Associated Diagnosis Comments PROSTATE-SPECIFIC AG (PSA) DIAGNOSTIC, S Routine 10/27/2022 11:17 AM CDT Elevated Prostate-Specific Antigen documented in this encounter Results * (ABNORMAL) PSA (Prostate-Specific Antigen), Diagnostic (10/27/2022 11:17 AM CDT) Prostate-Specific Ag 14.6(H) <=7.2 ng/mL 10/27/2022 12:24 PM CDT OWAT Comment: ----ADDITIONAL INFORMATION---- The testing method is an electrochemiluminescence assay manufactured by [employer] and performed on the Modular or Brendan system. Values obtained with different assay methods or kits may be different and cannot be used interchangeably. Test results cannot be interpreted as absolute evidence for the presence or absence of malignant disease. Blood (Blood, Venous) 10/27/2022 11:17 AM CDT 10/27/2022 11:20 AM CDT Geovanna Kennedy APRN, C.N.P. LAB BLOOD ADD-ON [facility] [address] [place] [address], [facility] [place] [address] [place] [address] documented in this encounter Visit Diagnoses Diagnosis Elevated Prostate-Specific Antigen documented in this encounter
== END 2023-02-23 08:00 | disposition home or self-care (01) ==
LOC: NFLDREF 02-26 06:42
PROVIDERS: PCP Family Medicine; Referring Provider Family Medicine; Visit Provider Family Medicine
DX: I10 Essential (primary) hypertension (principal)
CPT/HCPCS: 80048

== ENCOUNTER 2023-03-18 07:36 | Outpatient (CLI) | payer MEDICARE, BC, SELFPAY ==
--- OUTSIDE RECORDS SUMMARY | 2023-03-21 08:13 | XMS_ITS | Referral Summary ---
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 For routine questions regarding patient records, call [phone] during business hours, M-F 8:00 AM - 5:00 PM Central Time. Record requests for emergency care only can be directed to [phone] at any time.[facility] Encounters Date Type Department Care Team Description 03/16/2023 1:14 PM FINANCIAL SERVICES COUNSELOR - 03/16/2023 4:20 PM FINANCIAL SERVICES COUNSELOR Hospital Encounter Department of Radiation Oncology in [address] [phone] Stanislaw Alan M.D. Primary Malignant Neoplasm Of Prostate (HCC) (Primary Dx) 03/16/2023 1:06 PM FINANCIAL SERVICES COUNSELOR Hospital Encounter Department of Radiation Oncology in [address] [phone] Stanislaw Alan M.D. 03/15/2023 1:08 PM FINANCIAL SERVICES COUNSELOR Hospital Encounter Department of Radiation Oncology in [address] [phone] Stanislaw Alan M.D. 03/14/2023 1:09 PM FINANCIAL SERVICES COUNSELOR Hospital Encounter Department of Radiation Oncology in [address] [phone] Stanislaw Alan M.D. 03/11/2023 1:08 PM FINANCIAL SERVICES COUNSELOR Hospital Encounter Department of Radiation Oncology in [address] [phone] Stanislaw Alan M.D. 03/10/2023 1:08 PM FINANCIAL SERVICES COUNSELOR Hospital Encounter Department of Radiation Oncology in [address] [address] Stanislaw Alan M.D. 03/09/2023 1:08 PM FINANCIAL SERVICES COUNSELOR - 03/09/2023 8:17 PM FINANCIAL SERVICES COUNSELOR Hospital Encounter Department of Radiation Oncology in [address] [phone] Stanislaw Alan M.D. Primary Malignant Neoplasm Of Prostate (HCC) 03/09/2023 1:07 PM FINANCIAL SERVICES COUNSELOR Hospital Encounter Department of Radiation Oncology in [address] [phone] Stanislaw Alan M.D. 03/08/2023 1:07 PM FINANCIAL SERVICES COUNSELOR Hospital Encounter Department of Radiation Oncology in [address] [phone] Stanislaw Alan M.D. 03/07/2023 1:05 PM FINANCIAL SERVICES COUNSELOR Hospital Encounter Department of Radiation Oncology in [address] [phone] Stanislaw Alan M.D. 03/04/2023 1:06 PM FINANCIAL SERVICES COUNSELOR Hospital Encounter Department of Radiation Oncology in [address] [phone] Stanislaw Alan M.D. 03/03/2023 1:04 PM FINANCIAL SERVICES COUNSELOR Hospital Encounter Department of Radiation Oncology in [address] [phone] Stanislaw Alan M.D. 03/02/2023 1:07 PM FINANCIAL SERVICES COUNSELOR - 03/02/2023 2:50 PM FINANCIAL SERVICES COUNSELOR Hospital Encounter Department of Radiation Oncology in [address] [address] Stanislaw Alan M.D. Primary Malignant Neoplasm Of Prostate (HCC) 03/02/2023 1:06 PM FINANCIAL SERVICES COUNSELOR Hospital Encounter Department of Radiation Oncology in [address] [address] Stanislaw Alan M.D. 03/01/2023 1:03 PM FINANCIAL SERVICES COUNSELOR Hospital Encounter Department of Radiation Oncology in [address] [phone] Stanislaw Alan M.D. 02/28/2023 1:07 PM FINANCIAL SERVICES COUNSELOR Hospital Encounter Department of Radiation Oncology in [address] [address] Stanislaw Alan M.D. 02/25/2023 1:06 PM FINANCIAL SERVICES COUNSELOR Hospital Encounter Department of Radiation Oncology in [address] [phone] Stanislaw Alan M.D. 02/24/2023 1:08 PM FINANCIAL SERVICES COUNSELOR Hospital Encounter Department of Radiation Oncology in [address] [phone] Stanislaw Alan M.D. 02/23/2023 1:01 PM FINANCIAL SERVICES COUNSELOR - 02/23/2023 3:32 PM FINANCIAL SERVICES COUNSELOR Hospital Encounter Department of Radiation Oncology in [address] [phone] Stanislaw Alan M.D. Primary Malignant Neoplasm Of Prostate (HCC) 02/23/2023 1:01 PM FINANCIAL SERVICES COUNSELOR Hospital Encounter Department of Radiation Oncology in [address] [address] Stanislaw Alan M.D. 02/22/2023 1:02 PM FINANCIAL SERVICES COUNSELOR Hospital Encounter Department of Radiation Oncology in [address] [phone] Stanislaw Alan M.D. 02/21/2023 1:09 PM FINANCIAL SERVICES COUNSELOR Hospital Encounter Department of Radiation Oncology in [address] [address] Stanislaw Alan M.D. 02/18/2023 1:09 PM FINANCIAL SERVICES COUNSELOR - 02/18/2023 11:59 PM FINANCIAL SERVICES COUNSELOR Hospital Encounter Department of Radiation Oncology in [address] [address] Stanislaw Alan M.D. Discharge Disposition: Home or Self Care 02/17/2023 12:20 PM FINANCIAL SERVICES COUNSELOR - 02/17/2023 11:59 PM FINANCIAL SERVICES COUNSELOR Hospital Encounter Department of Radiation Oncology in [address] [address] Stanislaw Alan M.D. Discharge Disposition: Home or Self Care 02/16/2023 1:09 PM FINANCIAL SERVICES COUNSELOR - 02/16/2023 11:59 PM FINANCIAL SERVICES COUNSELOR Hospital Encounter Department of Radiation Oncology in [address] [address] Stanislaw Alan M.D. Discharge Disposition: Home or Self Care 02/15/2023 1:11 PM FINANCIAL SERVICES COUNSELOR - 02/15/2023 4:52 PM FINANCIAL SERVICES COUNSELOR Hospital Encounter Department of Radiation Oncology in [address] [address] Jolynn Alonzo M.D. Primary Malignant Neoplasm Of Prostate (HCC) 02/15/2023 1:11 PM FINANCIAL SERVICES COUNSELOR - 02/15/2023 11:59 PM FINANCIAL SERVICES COUNSELOR Hospital Encounter Department of Radiation Oncology in [address] [address] Stanislaw Alan M.D. Discharge Disposition: Home or Self Care 02/14/2023 1:08 PM FINANCIAL SERVICES COUNSELOR - 02/14/2023 11:59 PM FINANCIAL SERVICES COUNSELOR Hospital Encounter Department of Radiation Oncology in [address] [address] Stanislaw Alan M.D. Discharge Disposition: Home or Self Care 02/11/2023 1:09 PM FINANCIAL SERVICES COUNSELOR - 02/11/2023 11:59 PM FINANCIAL SERVICES COUNSELOR Hospital Encounter Department of Radiation Oncology in [address] [address] Stanislaw Alan M.D. Discharge Disposition: Home or Self Care 02/10/2023 10:52 AM FINANCIAL SERVICES COUNSELOR - 02/10/2023 2:47 PM FINANCIAL SERVICES COUNSELOR Hospital Encounter Department of Radiation Oncology in [address] [address] Stanislaw Alan M.D. Retterath, Chelsey A, R.N. Primary Malignant Neoplasm Of Prostate (HCC) 02/10/2023 10:51 AM FINANCIAL SERVICES COUNSELOR Hospital Encounter Department of Radiation Oncology in [address] [address] Stanislaw Alan M.D. Discharge Disposition: Home or Self Care 02/09/2023 9:27 AM FINANCIAL SERVICES COUNSELOR - 02/09/2023 6:35 PM FINANCIAL SERVICES COUNSELOR Hospital Encounter Department of Radiation Oncology in [address] [address] Stanislaw Alan M.D. Primary Malignant Neoplasm Of Prostate (HCC) 02/09/2023 9:24 AM FINANCIAL SERVICES COUNSELOR - 02/09/2023 9:26 AM FINANCIAL SERVICES COUNSELOR Hospital Encounter Department of Radiation Oncology in [address] [address] Stanislaw Alan M.D. Discharge Disposition: Home or Self Care 02/01/2023 8:41 AM FINANCIAL SERVICES COUNSELOR - 02/01/2023 10:35 AM FINANCIAL SERVICES COUNSELOR Hospital Encounter Department of Radiation Oncology in [address] [address] Stanislaw Alan M.D. Primary Malignant Neoplasm Of Prostate (HCC) (Primary Dx) 01/20/2023 8:43 AM FINANCIAL SERVICES COUNSELOR - 01/20/2023 9:38 AM FINANCIAL SERVICES COUNSELOR Hospital Encounter Department of Radiation Oncology in [address] [address] Stanislaw Alan M.D. Primary Malignant Neoplasm Of Prostate (HCC) (Primary Dx) 01/20/2023 9:39 AM FINANCIAL SERVICES COUNSELOR - 01/20/2023 11:59 PM FINANCIAL SERVICES COUNSELOR Hospital Encounter Department of Radiation Oncology in [address] [place] [address] Stanislaw Alan M.D. Primary Malignant Neoplasm Of Prostate (HCC) Discharge Disposition: Home or Self Care 01/11/2023 Orders Only Department of Radiation Oncology in [address] [address] Stanislaw Alan M.D. 01/11/2023 8:40 AM FINANCIAL SERVICES COUNSELOR - 01/11/2023 5:14 PM FINANCIAL SERVICES COUNSELOR Hospital Encounter Department of Radiation Oncology in [address] [address] Stanislaw Alan M.D. Primary Malignant Neoplasm Of Prostate (HCC) (Primary Dx) 12/21/2022 10:18 AM FINANCIAL SERVICES COUNSELOR - 12/21/2022 12:50 PM FINANCIAL SERVICES COUNSELOR Hospital Encounter Department of Radiation Oncology in [address] [address] Stanislaw Alan M.D. Primary Malignant Neoplasm Of [...] daily. 30 capsule 1 02/23/2023 04/24/2023 Active lisinopriL (PRINIVIL,ZESTRIL) 20 mg tablet 0 03/02/2023 Active Active Problems Problem Noted Date Diagnosed [...] your living situation today? I have a [facility] place to live 12/02/2022 Sex and Gender Information Value Date Recorded Sex Assigned at Male 12/02/2022 9:58 AM CDT Gender Identity Male 12/02/2022 9:58 AM CDT Sexual Orientation Straight 12/02/2022 9: 58 AM CDT Last Filed Vital Signs Vital Sign Reading Time Taken Comments Blood Pressure 144/67 01/20/2023 9:00 AM FINANCIAL SERVICES COUNSELOR Pulse 76 01/20/2023 9:00 AM FINANCIAL SERVICES COUNSELOR Temperature 36.6 ??C (97.8 ??F) 03/16/2023 2:06 PM CS T Respiratory Rate 16 11/23/2022 12:35 PM CDT Oxygen Saturation 96% 11/23/2022 12:35 PM CDT Inhaled Oxygen Concentration - - Weight 54.7 kg (120 lb 9.5 oz) 03/16/2023 2:06 P M FINANCIAL SERVICES COUNSELOR Height 164.1 cm (5' 4.61) 11/23/2022 10:14 AM C DT Body Mass Index 20.31 11/23/2022 10:14 AM CDT Plan of Treatment Not on file Procedures Procedure Name Priority Date/Time Associated Diagnosis Comments ARIA DAILY TREATMENT INFORMATION Routine 03/16/2023 1:54 PM FINANCIAL SERVICES COUNSELOR ARIA DAILY TREATMENT INFORMATION Routine 03/15/2023 2:11 PM FINANCIAL SERVICES COUNSELOR ARIA DAILY TREATMENT INFORMATION Routine 03/14/2023 1:31 PM FINANCIAL SERVICES COUNSELOR ARIA DAILY TREATMENT INFORMATION Routine 03/11/2023 1:35 PM FINANCIAL SERVICES COUNSELOR ARIA DAILY TREATMENT INFORMATION Routine 03/10/2023 1:29 PM FINANCIAL SERVICES COUNSELOR ARIA DAILY TREATMENT INFORMATION Routine 03/09/2023 1:32 PM FINANCIAL SERVICES COUNSELOR ARIA DAILY TREATMENT INFORMATION Routine 03/08/2023 1:29 PM FINANCIAL SERVICES COUNSELOR ARIA DAILY TREATMENT INFORMATION Routine 03/07/2023 1:29 PM FINANCIAL SERVICES COUNSELOR ARIA DAILY TREATMENT INFORMATION Routine 03/04/2023 2:31 PM FINANCIAL SERVICES COUNSELOR ARIA DAILY TREATMENT INFORMATION Routine 03/03/2023 1:32 PM FINANCIAL SERVICES COUNSELOR ARIA DAILY TREATMENT INFORMATION Routine 03/02/2023 1:26 PM FINANCIAL SERVICES COUNSELOR ARIA DAILY TREATMENT INFORMATION Routine 03/01/2023 1:32 PM FINANCIAL SERVICES COUNSELOR ARIA DAILY TREATMENT INFORMATION Routine 02/28/2023 1:34 PM FINANCIAL SERVICES COUNSELOR ARIA DAILY TREATMENT INFORMATION Routine 02/25/2023 1:25 PM FINANCIAL SERVICES COUNSELOR ARIA DAILY TREATMENT INFORMATION Routine 02/24/2023 1:36 PM FINANCIAL SERVICES COUNSELOR ARIA DAILY TREATMENT INFORMATION Routine 02/23/2023 1:34 PM FINANCIAL SERVICES COUNSELOR ARIA DAILY TREATMENT INFORMATION Routine 02/22/2023 1:34 PM FINANCIAL SERVICES COUNSELOR ARIA DAILY TREATMENT INFORMATION Routine 02/21/2023 1:33 PM FINANCIAL SERVICES COUNSELOR ARIA DAILY TREATMENT INFORMATION Routine 02/18/2023 1:27 PM FINANCIAL SERVICES COUNSELOR ARIA DAILY TREATMENT INFORMATION Routine 02/17/2023 12:49 PM FINANCIAL SERVICES COUNSELOR ARIA DAILY TREATMENT INFORMATION Routine 02/16/2023 1:29 PM FINANCIAL SERVICES COUNSELOR ARIA DAILY TREATMENT INFORMATION Routine 02/15/2023 1:21 PM FINANCIAL SERVICES COUNSELOR ARIA DAILY TREATMENT INFORMATION Routine 02/14/2023 1:26 PM FINANCIAL SERVICES COUNSELOR ARIA DAILY TREATMENT INFORMATION Routine 02/11/2023 1:32 PM FINANCIAL SERVICES COUNSELOR ARIA DAILY TREATMENT INFORMATION Routine 02/10/2023 11:05 AM FINANCIAL SERVICES COUNSELOR ARIA DAILY TREATMENT INFORMATION Routine 02/09/2023 9:52 AM FINANCIAL SERVICES COUNSELOR OUTSIDE MR BODY Routine 02/01/2023 10:30 AM FINANCIAL SERVICES COUNSELOR INITIAL RAD ONC TREATMENT PLANNING CT SIMULATION Routine 02/01/2023 9:00 AM FINANCIAL SERVICES COUNSELOR Primary Malignant Neoplasm Of Prostate (HCC) OUTSIDE NM GENERAL Routine 01/06/2023 10 :40 AM FINANCIAL SERVICES COUNSELOR OUTSIDE CT BODY Routine 01/06/2023 8:50 AM FINANCIAL SERVICES COUNSELOR from Last 3 Months Results * Aria Daily Treatment Information (03/16/2023 1:54 PM FINANCIAL SERVICES COUNSELOR) Only the most recent of26 resultswithin the time period is included. Course ID [id number] e STRAUSS ARIA Course Start Date 3 10:54 FINANCIAL SERVICES COUNSELOR STRAUSS ARIA First Treatment Date 4 09:50 FINANCIAL SERVICES COUNSELOR STRAUSS ARIA Last Treatment Date 4 13:54 FINANCIAL SERVICES COUNSELOR STRAUSS ARIA Treatment Elapsed Days 35 STRAUSS ARIA Reference Point [id number] STRAUSS ARIA Dosage Given to Date cGy 7020 STRAUSS ARIA Session Dosage Given 270 STRAUSS ARIA Plan ID [id number] STRAUSS ARIA Fractions Treated to Date 26 STRAUSS ARIA Planned Total Fractions 26 STRAUSS ARIA Prescribed Dose Per Fraction 270 STRAUSS ARIA Prescription Dose in cGy 7020 STRAUSS ARIA Plan Primary Reference Point [id number] STRAUSS ARIA 03/16/2023 1:54 PM FINANCIAL SERVICES COUNSELOR Provider Not In System RADIATION ONCOLOG Y ORDERABLES Performing Organization Address City/[facility]/ZIP Co de Phone Number RICA GUTHRIE na * MR PELVIS WO CON-Outside MR Body (02/01/2023 10:30 AM FINANCIAL SERVICES COUNSELOR) 02/01/2023 10:2 8 AM FINANCIAL SERVICES COUNSELOR Narrative [facility] - 02/01/2023 11:15 AM FINANCIAL SERVICES COUNSELOR This order has been created and auto-finalized [...] Treatment Planning CT Simulation (02/01/2023 9:00 AM FINANCIAL SERVICES COUNSELOR) Narrative RICA GUTHRIE - 02/01/2023 9:00 AM FINANCIAL SERVICES COUNSELOR Carla Adam, RTT ? 02/01/2023 ??9:54 AM Initial Rad Onc Treatment Planning CT Simulation Performed by: Stanislaw Alan M.D. Authorized by: Stanislaw Alan M.D. ?? Stanislaw Alan M.D. RADIATION ONCOLOGY ORDERABLES Performing Organization Address [facility] Phone Number RICA GUTHRIE na * NM BONE SCAN WHOLE BODY-Outside NM General (01/06/2023 10:40 AM FINANCIAL SERVICES COUNSELOR) Narrative [facility] - 01/07/2023 11:10 AM FINANCIAL SERVICES COUNSELOR This order has been created and auto-finalized to support the import of outside images. If available, original interpretation can be found on the Media Tab in Chart Review, in Document Viewer, or as an image in QREADS. If a re-interpretation or overread is required please follow defined workflow. ?? Provider Not In System IMG NM PROCEDURES Performing Organization Address [facility] de Phone Number STEVEN NA * CT ABDOMEN PELVIS W CON-Outside CT Body (01/06/2023 8:50 AM FINANCIAL SERVICES COUNSELOR) Narrative [facility] - 01/07/2023 11:14 AM FINANCIAL SERVICES COUNSELOR This order has been created and auto-finalized to support the import of outside images. If available, original interpretation can be found on the Media Tab in Chart Review, in Document Viewer, or as an image in QREADS. If a re-interpretation or overread is required please follow defined workflow. ?? 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
--- OUTSIDE RECORDS SUMMARY | 2023-03-21 08:13 | XMS_ITS | Clinical Summary ---
Author Name Unknown Organization [facility] Address [address] [place] [address] Care Team Providers Care Customer Supply Chain Analyst Name Role Phone Elsewhere, Pcp Primary Care Provider Unavailabl e Source Comments Patient records contain information from all sites at [facility]. For routine questions regarding patient records, call [phone] during business hours, M-F 8:00 AM - 5:00 PM Central Time. Record requests for emergency care only can be directed to [phone] at any time.[facility] Allergies No known active allergies Medications Medication [...] Department Care Team Description 03/16/2023 1:14 PM LEATHER POLISHER - 03/16/2023 4:20 PM LEATHER POLISHER Hospital Encounter Department of Radiation Oncology in [address] [address] Stanislaw Alan M.D. Primary Malignant Neoplasm Of Prostate (HCC) (Primary Dx) 03/16/2023 1:06 PM LEATHER POLISHER Hospital Encounter Department of Radiation Oncology in [address] [address] Stanislaw Alan M.D. 03/15/2023 1:08 PM LEATHER POLISHER Hospital Encounter Department of Radiation Oncology in [address] [address] Stanislaw Alan M.D. 03/14/2023 1:09 PM LEATHER POLISHER Hospital Encounter Department of Radiation Oncology in [address] [address] Stanislaw Alan M.D. 03/11/2023 1:08 PM LEATHER POLISHER Hospital Encounter Department of Radiation Oncology in [address] [address] Stanislaw Alan M.D. 03/10/2023 1:08 PM LEATHER POLISHER Hospital Encounter Department of Radiation Oncology in [address] [address] Stanislaw Alan M.D. 03/09/2023 1:08 PM LEATHER POLISHER - 03/09/2023 8:17 PM LEATHER POLISHER Hospital Encounter Department of Radiation Oncology in [address] [address] Stanislaw Alan M.D. Primary Malignant Neoplasm Of Prostate (HCC) 03/09/2023 1:07 PM LEATHER POLISHER Hospital Encounter Department of Radiation Oncology in [address] [address] Stanislaw Alan M.D. 03/08/2023 1:07 PM LEATHER POLISHER Hospital Encounter Department of Radiation Oncology in [address] [address] Stanislaw Alan M.D. 03/07/2023 1:05 PM LEATHER POLISHER Hospital Encounter Department of Radiation Oncology in [address] [address] Stanislaw Alan M.D. 03/04/2023 1:06 PM LEATHER POLISHER Hospital Encounter Department of Radiation Oncology in [address] [address] Stanislaw Alan M.D. 03/03/2023 1:04 PM LEATHER POLISHER Hospital Encounter Department of Radiation Oncology in [address] [address] Stanislaw Alan M.D. 03/02/2023 1:07 PM LEATHER POLISHER - 03/02/2023 2:50 PM LEATHER POLISHER Hospital Encounter Department of Radiation Oncology in [address] [address] Stanislaw Alan M.D. Primary Malignant Neoplasm Of Prostate (HCC) 03/02/2023 1:06 PM LEATHER POLISHER Hospital Encounter Department of Radiation Oncology in [address] [address] Stanislaw Alan M.D. 03/01/2023 1:03 PM LEATHER POLISHER Hospital Encounter Department of Radiation Oncology in [address] [address] Stanislaw Alan M.D. 02/28/2023 1:07 PM LEATHER POLISHER Hospital Encounter Department of Radiation Oncology in [address] [address] Stanislaw Alan M.D. 02/25/2023 1:06 PM LEATHER POLISHER Hospital Encounter Department of Radiation Oncology in [address] [address] Stanislaw Alan M.D. 02/24/2023 1:08 PM LEATHER POLISHER Hospital Encounter Department of Radiation Oncology in [address] [address] Stanislaw Alan M.D. 02/23/2023 1:01 PM LEATHER POLISHER - 02/23/2023 3:32 PM LEATHER POLISHER Hospital Encounter Department of Radiation Oncology in [address] [address] Stanislaw Alan M.D. Primary Malignant Neoplasm Of Prostate (HCC) 02/23/2023 1:01 PM LEATHER POLISHER Hospital Encounter Department of Radiation Oncology in [address] [address] Stanislaw Alan M.D. 02/22/2023 1:02 PM LEATHER POLISHER Hospital Encounter Department of Radiation Oncology in [address] [address] Stanislaw Alan M.D. 02/21/2023 1:09 PM LEATHER POLISHER Hospital Encounter Department of Radiation Oncology in [address] [address] Stanislaw Alan M.D. 02/18/2023 1:09 PM LEATHER POLISHER - 02/18/2023 11:59 PM LEATHER POLISHER Hospital Encounter Department of Radiation Oncology in [address] [address] Stanislaw Alan M.D. Discharge Disposition: Home or Self Care 02/17/2023 12:20 PM LEATHER POLISHER - 02/17/2023 11:59 PM LEATHER POLISHER Hospital Encounter Department of Radiation Oncology in [address] [address] Stanislaw Alan M.D. Discharge Disposition: Home or Self Care 02/16/2023 1:09 PM LEATHER POLISHER - 02/16/2023 11:59 PM LEATHER POLISHER Hospital Encounter Department of Radiation Oncology in [address] [address] Stanislaw Alan M.D. Discharge Disposition: Home or Self Care 02/15/2023 1:11 PM LEATHER POLISHER - 02/15/2023 4:52 PM LEATHER POLISHER Hospital Encounter Department of Radiation Oncology in [address] [address] Jolynn Alonzo M.D. Primary Malignant Neoplasm Of Prostate (HCC) 02/15/2023 1:11 PM LEATHER POLISHER - 02/15/2023 11:59 PM LEATHER POLISHER Hospital Encounter Department of Radiation Oncology in [address] [address] Stanislaw Alan M.D. Discharge Disposition: Home or Self Care 02/14/2023 1:08 PM LEATHER POLISHER - 02/14/2023 11:59 PM LEATHER POLISHER Hospital Encounter Department of Radiation Oncology in [address] [address] Stanislaw Alan M.D. Discharge Disposition: Home or Self Care 02/11/2023 1:09 PM LEATHER POLISHER - 02/11/2023 11:59 PM LEATHER POLISHER Hospital Encounter Department of Radiation Oncology in [address] [address] Stanislaw Alan M.D. Discharge Disposition: Home or Self Care 02/10/2023 10:52 AM LEATHER POLISHER - 02/10/2023 2:47 PM LEATHER POLISHER Hospital Encounter Department of Radiation Oncology in [address] [address] Stanislaw Alan M.D. Retterath, Chelsey A, RMichelleN. Primary Malignant Neoplasm Of Prostate (HCC) 02/10/2023 10:51 AM LEATHER POLISHER Hospital Encounter Department of Radiation Oncology in [address] [address] Stanislaw Alan M.D. Discharge Disposition: Home or Self Care 02/09/2023 9:27 AM LEATHER POLISHER - 02/09/2023 6:35 PM LEATHER POLISHER Hospital Encounter Department of Radiation Oncology in [address] [address] Stanislaw Alan M.D. Primary Malignant Neoplasm Of Prostate (HCC) 02/09/2023 9:24 AM LEATHER POLISHER - 02/09/2023 9:26 AM LEATHER POLISHER Hospital Encounter Department of Radiation Oncology in [address] [address] Stanislaw Alan M.D. Discharge Disposition: Home or Self Care 02/01/2023 8:41 AM LEATHER POLISHER - 02/01/2023 10:35 AM LEATHER POLISHER Hospital Encounter Department of Radiation Oncology in [address] [address] Stanislaw Alan M.D. Primary Malignant Neoplasm Of Prostate (HCC) (Primary Dx) 01/20/2023 9:39 AM LEATHER POLISHER - 01/20/2023 11:59 PM LEATHER POLISHER Hospital Encounter Department of Radiation Oncology in [address] [address] Stanislaw Alan M.D. Primary Malignant Neoplasm Of Prostate (HCC) Discharge Disposition: Home or Self Care 01/20/2023 8:43 AM LEATHER POLISHER - 01/20/2023 9:38 AM LEATHER POLISHER Hospital Encounter Department of Radiation Oncology in [address] [address] Stanislaw Alan M.D. Primary Malignant Neoplasm Of Prostate (HCC) (Primary Dx) 01/11/2023 8:40 AM LEATHER POLISHER - 01/11/2023 5:14 PM LEATHER POLISHER Hospital Encounter Department of Radiation Oncology in [address] [address] Stanislaw Alan M.D. Primary Malignant Neoplasm Of Prostate (HCC) (Primary Dx) 01/11/2023 Orders Only Department of Radiation Oncology in [address] [address] Stanislaw Alan M.D. 12/21/2022 10:18 AM LEATHER POLISHER - 12/21/2022 12:50 PM LEATHER POLISHER Hospital Encounter Department of Radiation Oncology in [place], [place] [address] [place] [address] Stanislaw Alan M.D. Primary Malignant Neoplasm Of [...] your living situation today? I have a [facility] place to live 12/02/2022 Sex and Gender Information Value Date Recorded Sex Assigned at Male 12/02/2022 9:58 AM CDT Gender Identity Male 12/02/2022 9:58 AM CDT Sexual Orientation Straight 12/02/2022 9: 58 AM CDT Last Filed Vital Signs Vital Sign Reading Time Taken Comments Blood Pressure 144/67 01/20/2023 9:00 AM LEATHER POLISHER Pulse 76 01/20/2023 9:00 AM LEATHER POLISHER Temperature 36.6 ??C (97.8 ??F) 03/16/2023 2:06 PM CS T Respiratory Rate 16 11/23/2022 12:35 PM CDT Oxygen Saturation 96% 11/23/2022 12:35 PM CDT Inhaled Oxygen Concentration - - Weight 54.7 kg (120 lb 9.5 oz) 03/16/2023 2:06 P M LEATHER POLISHER Height 164.1 cm (5' 4.61) 11/23/2022 10:14 AM C DT Body Mass Index 20.31 11/23/2022 10:14 AM CDT Plan of Treatment Health Maintenance Due Date [...] DAILY TREATMENT INFORMATION Routine 03/16/2023 1:54 PM LEATHER POLISHER ARIA DAILY TREATMENT INFORMATION Routine 03/15/2023 2:11 PM LEATHER POLISHER ARIA DAILY TREATMENT INFORMATION Routine 03/14/2023 1:31 PM LEATHER POLISHER ARIA DAILY TREATMENT INFORMATION Routine 03/11/2023 1:35 PM LEATHER POLISHER ARIA DAILY TREATMENT INFORMATION Routine 03/10/2023 1:29 PM LEATHER POLISHER ARIA DAILY TREATMENT INFORMATION Routine 03/09/2023 1:32 PM LEATHER POLISHER ARIA DAILY TREATMENT INFORMATION Routine 03/08/2023 1:29 PM LEATHER POLISHER ARIA DAILY TREATMENT INFORMATION Routine 03/07/2023 1:29 PM LEATHER POLISHER ARIA DAILY TREATMENT INFORMATION Routine 03/04/2023 2:31 PM LEATHER POLISHER ARIA DAILY TREATMENT INFORMATION Routine 03/03/2023 1:32 PM LEATHER POLISHER ARIA DAILY TREATMENT INFORMATION Routine 03/02/2023 1:26 PM LEATHER POLISHER ARIA DAILY TREATMENT INFORMATION Routine 03/01/2023 1:32 PM LEATHER POLISHER ARIA DAILY TREATMENT INFORMATION Routine 02/28/2023 1:34 PM LEATHER POLISHER ARIA DAILY TREATMENT INFORMATION Routine 02/25/2023 1:25 PM LEATHER POLISHER ARIA DAILY TREATMENT INFORMATION Routine 02/24/2023 1:36 PM LEATHER POLISHER ARIA DAILY TREATMENT INFORMATION Routine 02/23/2023 1:34 PM LEATHER POLISHER ARIA DAILY TREATMENT INFORMATION Routine 02/22/2023 1:34 PM LEATHER POLISHER ARIA DAILY TREATMENT INFORMATION Routine 02/21/2023 1:33 PM LEATHER POLISHER ARIA DAILY TREATMENT INFORMATION Routine 02/18/2023 1:27 PM LEATHER POLISHER ARIA DAILY TREATMENT INFORMATION Routine 02/17/2023 12:49 PM LEATHER POLISHER ARIA DAILY TREATMENT INFORMATION Routine 02/16/2023 1:29 PM LEATHER POLISHER ARIA DAILY TREATMENT INFORMATION Routine 02/15/2023 1:21 PM LEATHER POLISHER ARIA DAILY TREATMENT INFORMATION Routine 02/14/2023 1:26 PM LEATHER POLISHER ARIA DAILY TREATMENT INFORMATION Routine 02/11/2023 1:32 PM LEATHER POLISHER ARIA DAILY TREATMENT INFORMATION Routine 02/10/2023 11:05 AM LEATHER POLISHER ARIA DAILY TREATMENT INFORMATION Routine 02/09/2023 9:52 AM LEATHER POLISHER OUTSIDE MR BODY Routine 02/01/2023 10:30 AM LEATHER POLISHER INITIAL RAD ONC TREATMENT PLANNING CT SIMULATION Routine 02/01/2023 9:00 AM LEATHER POLISHER Primary Malignant Neoplasm Of Prostate (HCC) OUTSIDE NM GENERAL Routine 01/06/2023 10 :40 AM LEATHER POLISHER OUTSIDE CT BODY Routine 01/06/2023 8:50 AM LEATHER POLISHER from Last 3 Months Results * Aria Daily Treatment Information (03/16/2023 1:54 PM LEATHER POLISHER) Only the most recent of26 resultswithin the time period is included. Course ID [id number] e STRAUSS ARIA Course Start Date 3 10:54 LEATHER POLISHER STRAUSS ARIA First Treatment Date 4 09:50 LEATHER POLISHER STRAUSS ARIA Last Treatment Date 4 13:54 LEATHER POLISHER STRAUSS ARIA Treatment Elapsed Days 35 STRAUSS ARIA Reference Point [id number] STRAUSS ARIA Dosage Given to Date cGy 7020 STRAUSS ARIA Session Dosage Given 270 STRAUSS ARIA Plan ID [id number] STRAUSS ARIA Fractions Treated to Date 26 STRAUSS ARIA Planned Total Fractions 26 STRAUSS ARIA Prescribed Dose Per Fraction 270 STRAUSS ARIA Prescription Dose in cGy 7020 [facility] Plan Primary Reference Point [id number] [facility] 03/16/2023 1:54 PM LEATHER POLISHER Provider Not In System RADIATION ONCOLOG Y ORDERABLES Performing Organization Address [facility] de Phone Number RICA GUTHRIE na * MR PELVIS WO CON-Outside MR Body (02/01/2023 10:30 AM LEATHER POLISHER) 02/01/2023 10:2 8 AM LEATHER POLISHER Narrative [facility]IMS - 02/01/2023 11:15 AM LEATHER POLISHER This order has been created and auto-finalized to support the import of outside images. If available, original interpretation can be found on the Media Tab in Chart Review, in Document Viewer, or as an image in QREADS. If a re-interpretation or overread is required please follow defined workflow. ?? Provider Not In System IMG MRI PROCEDURE S Performing Organization Address [facility] de Phone Number [facility] NA * Initial Rad Onc Treatment Planning CT Simulation (02/01/2023 9:00 AM LEATHER POLISHER) Narrative RICA GUTHRIE - 02/01/2023 9:00 AM LEATHER POLISHER Carla Adam, RTT ? 02/01/2023 ??9:54 AM Initial Rad Onc Treatment Planning CT Simulation Performed by: Stanislaw Alan M.D. Authorized by: Stanislaw Alan M.D. ?? Stanislaw Alan M.D. RADIATION ONCOLOGY ORDERABLES Performing Organization Address [facility] de Phone Number RICA GUTHRIE na * NM BONE SCAN WHOLE BODY-Outside NM General (01/06/2023 10:40 AM LEATHER POLISHER) Narrative IIAL - 01/07/2023 11:10 AM LEATHER POLISHER This order has been created and auto-finalized [...] W CON-Outside CT Body (01/06/2023 8:50 AM LEATHER POLISHER) Narrative [facility]IMS - 01/07/2023 11:14 AM LEATHER POLISHER This order has been created and auto-finalized to support the import of outside images. If available, original interpretation can be found on the Media Tab in Chart Review, in Document Viewer, or as an image in QREADS. If a re-interpretation or overread is required please follow defined workflow. ?? Provider Not In System IMG CT PROCEDURES Performing Organization Address [facility] Co de Phone Number [facility] NA from Last 3 Months Advance Directives For more information, please contact: [phone] Latest Code Status on File Code Status Date Activated Date Inactivated Comments Full Code 11/23/2022 9:44 AM 11/23/2022 3:18 PM Question Answer Comments Full Code: Discussed Care Teams Customer Supply Chain Analyst Relationship Specialty Start Date End Date Elsewhere, Pcp PCP - General Internal Medicine 11/23/22
--- OUTSIDE RECORDS SUMMARY | 2023-03-21 08:13 | XMS_ITS ---
Author Name Unknown Organization [facility] Address [address] [place] [address] Care Team Providers Care Carbide Tool Die Maker Name Role Phone Unavailable Unavailable Unavailable Surgery Details Not on file Complications Check Surgery Details section. Procedure Estimated Blood Loss Check Surgery Details section. Procedure Findings Check Surgery Details section. Procedure Specimens Taken Check Surgery Details section.
--- OUTSIDE RECORDS SUMMARY | 2023-03-21 08:13 | XMS_ITS ---
Author Name Unknown Organization [facility] Address [address] [place] [address] Care Team Providers Care Cyber Analyst Name Role Phone Elsewhere, Pcp Primary Care Provider Unavailabl e Active Problems Problem Noted Date Diagnosed Date Primary Malignant Neoplasm Of Prostate Cancer Staging:Clinical stage from 11/23/2022:Stage IIB(cT2a, cN0, cM0, PSA: 14.6, Grade Group: 2) - Unsigned Elevated Prostate-Specific Antigen 06/01/2022 Dysfunction Erectile 06/01/2022 Peyronie's Disease 06/01/2022 Loss Hearing Bilateral 06/01/2022 Current Oncology Plans Leuprolide Acetate Every 16 Weeks* Plan Start Date:03/28/2023 Plan Provider:Stanislaw Alan M.D. Linked Problems Primary Malignant Neoplasm O f Prostate (HCC) Treatment Medications No medications scheduled. Leuprolide Acetate Every 4 Weeks* Plan Start Date:01/21/2023 Plan Provider:Stanislaw Alan M.D. Linked Problems Primary Malignant Neoplasm O f Prostate (HCC) Treatment Medications No medications scheduled. Past Plans No past plan information found. Radiation Treatments * Plan Last Treated On Elapsed Days Fractions Treated Prescribed Fraction Dose Prescribed Total Dose [id number] 03/16/2023 35 26 of 26 270 cGy 7,020 cGy Reference Point Last Treated On Elapsed Days Session Dose Total Dose [id number] 03/16/2023 35 270 cGy 7,020 cGy
--- OUTSIDE RECORDS SUMMARY | 2023-03-21 08:14 | XMS_ITS | Encounter Summary ---
Author Name Unknown Organization [facility] Address [address] [place] [address] Care Team Providers Care Senior Business Process Analyst Name Role Phone Elsewhere, Pcp Primary Care Provider Unavailabl e Encounter Details Date Type Department Care Team (Late st Contact Info) Description 03/09/2023 1:07 PM [facility] Hospital Encounter Department of Radiation Oncology in [place], [place] [address] [place] [address] Stanislaw Alan M.D. [address] [place] [phone] Social History Tobacco Use Types Packs/Day Years [...] your living situation today? I have a [facility] place to live 12/02/2022 Sex and Gender Information Value Date Recorded Sex Assigned at Male 12/02/2022 9:58 AM CDT Gender Identity Male 12/02/2022 9:58 AM CDT Sexual Orientation Straight 12/02/2022 9: 58 AM CDT documented as of this encounter Plan of Treatment Not on file documented as of this encounter Visit Diagnoses Not on filedocumented in this encounter Care Teams Senior Business Process Analyst Relationship Specialty Start Date End Date Elsewhere, Pcp PCP - General Internal Medicine 11/23/22 documented as of this encounter
--- OUTSIDE RECORDS SUMMARY | 2023-03-21 08:14 | XMS_ITS | Encounter Summary ---
Author Name Unknown Organization [facility] Address [address] [place] [address] Care Team Providers Care Nuclear Engineering Technician Name Role Phone Elsewhere, Pcp Primary Care Provider Unavailabl e Encounter Details Date Type Department Care Team (Late st Contact Info) Description 02/28/2023 1:07 PM [facility] Hospital Encounter Department of Radiation Oncology in [place], [place] [address] [place] [address] Stanislaw Alan M.D. [address] [place] [phone] Social History Tobacco Use Types Packs/Day Years [...] your living situation today? I have a [facility] place to live 12/02/2022 Sex and Gender Information Value Date Recorded Sex Assigned at Male 12/02/2022 9:58 AM CDT Gender Identity Male 12/02/2022 9:58 AM CDT Sexual Orientation Straight 12/02/2022 9: 58 AM CDT documented as of this encounter Plan of Treatment Not on file documented as of this encounter Visit Diagnoses Not on filedocumented in this encounter Care Teams Nuclear Engineering Technician Relationship Specialty Start Date End Date Elsewhere, Pcp PCP - General Internal Medicine 11/23/22 documented as of this encounter
--- OUTSIDE RECORDS SUMMARY | 2023-03-21 08:14 | XMS_ITS | Encounter Summary ---
Author Name Unknown Organization [facility] Address [address] [place] [address] Care Team Providers Care Sales Manager Prearranged Funerals Name Role Phone Elsewhere, Pcp Primary Care Provider Unavailabl e Encounter Details Date Type Department Care Team (Late st Contact Info) Description 03/02/2023 1:06 PM [facility] Hospital Encounter Department of Radiation Oncology in [place], [place] [address] [place] [address] Stanislaw Alan M.D. [address] [place] [phone] Social History Tobacco Use Types Packs/Day Years [...] your living situation today? I have a [facility] place to live 12/02/2022 Sex and Gender Information Value Date Recorded Sex Assigned at Male 12/02/2022 9:58 AM CDT Gender Identity Male 12/02/2022 9:58 AM CDT Sexual Orientation Straight 12/02/2022 9: 58 AM CDT documented as of this encounter Plan of Treatment Not on file documented as of this encounter Visit Diagnoses Not on filedocumented in this encounter Care Teams Sales Manager Prearranged Funerals Relationship Specialty Start Date End Date Elsewhere, Pcp PCP - General Internal Medicine 11/23/22 documented as of this encounter
--- OUTSIDE RECORDS SUMMARY | 2023-03-21 08:14 | XMS_ITS | Encounter Summary ---
Author Name Unknown Organization [facility] Address [address] [place] [address] Care Team Providers Care Rag Sorter And Cutter Name Role Phone Elsewhere, Pcp Primary Care Provider Unavailabl e Encounter Details Date Type Department Care Team (Late st Contact Info) Description 03/04/2023 1:06 PM [facility] Hospital Encounter Department of Radiation Oncology in [place], [place] [address] [place] [address] Stanislaw Alan M.D. [address] [place] [phone] Social History Tobacco Use Types Packs/Day Years [...] your living situation today? I have a [facility] place to live 12/02/2022 Sex and Gender Information Value Date Recorded Sex Assigned at Male 12/02/2022 9:58 AM CDT Gender Identity Male 12/02/2022 9:58 AM CDT Sexual Orientation Straight 12/02/2022 9: 58 AM CDT documented as of this encounter Plan of Treatment Not on file documented as of this encounter Visit Diagnoses Not on filedocumented in this encounter Care Teams Rag Sorter And Cutter Relationship Specialty Start Date End Date Elsewhere, Pcp PCP - General Internal Medicine 11/23/22 documented as of this encounter
--- OUTSIDE RECORDS SUMMARY | 2023-03-21 08:14 | XMS_ITS | Encounter Summary ---
Author Name Unknown Organization [facility] Address [address] [place] [address] Care Team Providers Care Rn Team Leader Name Role Phone Elsewhere, Pcp Primary Care Provider Unavailabl e Encounter Details Date Type Department Care Team (Late st Contact Info) Description 03/07/2023 1:05 PM [facility] Hospital Encounter Department of Radiation Oncology in [place], [place] [address] [place] [address] Stanislaw Alan M.D. [address] [place] [phone] Social History Tobacco Use Types Packs/Day Years [...] your living situation today? I have a [facility] place to live 12/02/2022 Sex and Gender Information Value Date Recorded Sex Assigned at Male 12/02/2022 9:58 AM CDT Gender Identity Male 12/02/2022 9:58 AM CDT Sexual Orientation Straight 12/02/2022 9: 58 AM CDT documented as of this encounter Plan of Treatment Not on file documented as of this encounter Visit Diagnoses Not on filedocumented in this encounter Care Teams Rn Team Leader Relationship Specialty Start Date End Date Elsewhere, Pcp PCP - General Internal Medicine 11/23/22 documented as of this encounter
--- OUTSIDE RECORDS SUMMARY | 2023-03-21 08:14 | XMS_ITS | Encounter Summary ---
Author Name Unknown Organization [facility] Address [address] [place] [address] Care Team Providers Care Veterinary Assistant Technician Name Role Phone Elsewhere, Pcp Primary Care Provider Unavailabl e Encounter Details Date Type Department Care Team (Late st Contact Info) Description 03/08/2023 1:07 PM [facility] Hospital Encounter Department of Radiation Oncology in [place], [place] [address] [place] [address] Stanislaw Alan M.D. [address] [place] [phone] Social History Tobacco Use Types Packs/Day Years [...] your living situation today? I have a [facility] place to live 12/02/2022 Sex and Gender Information Value Date Recorded Sex Assigned at Male 12/02/2022 9:58 AM CDT Gender Identity Male 12/02/2022 9:58 AM CDT Sexual Orientation Straight 12/02/2022 9: 58 AM CDT documented as of this encounter Plan of Treatment Not on file documented as of this encounter Visit Diagnoses Not on filedocumented in this encounter Care Teams Veterinary Assistant Technician Relationship Specialty Start Date End Date Elsewhere, Pcp PCP - General Internal Medicine 11/23/22 documented as of this encounter
--- OUTSIDE RECORDS SUMMARY | 2023-03-21 08:14 | XMS_ITS | Encounter Summary ---
Author Name Unknown Organization [facility] Address [address] [place] [address] Care Team Providers Care Respiratory Care Assistant Name Role Phone Elsewhere, Pcp Primary Care Provider Unavailabl e Encounter Details Date Type Department Care Team (Late st Contact Info) Description 03/15/2023 1:08 PM COUNTERINTELLIGENCE ANALYST Hospital Encounter Department of Radiation Oncology in [place], [place] [address] [place] [address] Stanislaw Alan M.D. [address] [place] [phone] Social History Tobacco Use Types Packs/Day Years [...] your living situation today? I have a [facility] place to live 12/02/2022 Sex and Gender Information Value Date Recorded Sex Assigned at Male 12/02/2022 9:58 AM CDT Gender Identity Male 12/02/2022 9:58 AM CDT Sexual Orientation Straight 12/02/2022 9: 58 AM CDT documented as of this encounter Plan of Treatment Not on file documented as of this encounter Visit Diagnoses Not on filedocumented in this encounter Care Teams Respiratory Care Assistant Relationship Specialty Start Date End Date Elsewhere, Pcp PCP - General Internal Medicine 11/23/22 documented as of this encounter
--- OUTSIDE RECORDS SUMMARY | 2023-03-21 08:14 | XMS_ITS | Encounter Summary ---
Author Name Unknown Organization [facility] Address [address] [place] [address] Care Team Providers Care Kettle Hand Name Role Phone Elsewhere, Pcp Primary Care Provider Unavailabl e Encounter Details Date Type Department Care Team (Late st Contact Info) Description 03/03/2023 1:04 PM COMPENSATION CONSULTANT Hospital Encounter Department of Radiation Oncology in [place], [place] [address] [place] [address] Stanislaw Alan M.D. [address] [place] [phone] Social History Tobacco Use Types Packs/Day Years [...] your living situation today? I have a [facility] place to live 12/02/2022 Sex and Gender Information Value Date Recorded Sex Assigned at Male 12/02/2022 9:58 AM CDT Gender Identity Male 12/02/2022 9:58 AM CDT Sexual Orientation Straight 12/02/2022 9: 58 AM CDT documented as of this encounter Plan of Treatment Not on file documented as of this encounter Visit Diagnoses Not on filedocumented in this encounter Care Teams Kettle Hand Relationship Specialty Start Date End Date Elsewhere, Pcp PCP - General Internal Medicine 11/23/22 documented as of this encounter
--- OUTSIDE RECORDS SUMMARY | 2023-03-21 08:14 | XMS_ITS | Encounter Summary ---
Author Name Unknown Organization [facility] Address [address] [place] [address] Care Team Providers Care Business Reporter Name Role Phone Elsewhere, Pcp Primary Care Provider Unavailabl e Reason for Referral * Radiation Therapy (Routine) - Authorized Specialty Diagnoses / Procedures Referred By Contac t Referred To Contact Diagnoses Primary Malignant Neoplasm Of Prostate (HCC) Procedures Management Visit Stanislaw Alan M.D. [address] [place] [phone] [facility] Region Referral ID Status Reason Start Date Expiration Date V isits Requested Visits Authorized [id number] Authorized 01/11/2023 01/11/2024 10 10 RACKER Reason for Visit * Radiation Therapy (Routine) - Authorized Specialty Diagnoses / Procedures Referred By Tomy meade Referred To Contact Diagnoses Primary Malignant Neoplasm Of Prostate (HCC) Procedures Management Visit Stanislaw Alan M.D. [address] [place] [phone] [facility] Region Referral ID Status Reason Start Date Expiration Date V isits Requested Visits Authorized [id number] Authorized 01/11/2023 01/11/2024 10 10 Encounter Details Date Type Department Care Team (Latest Contact Info) Description 03/09/2023 1:08 PM PIPE RACKER - 03/09/2023 8:17 PM PIPE RACKER Hospital Encounter Department of Radiation Oncology in [place], [place] [address] [place] [address] Stanislaw Alan M.D. [address] [place] [phone] Primary Malignant Neoplasm Of Prostate (HCC) Social [...] your living situation today? I have a [facility] place to live 12/02/2022 Sex and Gender Information Value Date Recorded Sex Assigned at Male 12/02/2022 9:58 AM CDT Gender Identity Male 12/02/2022 9:58 AM CDT Sexual Orientation Straight 12/02/2022 9: 58 AM CDT documented as of this encounter Last Filed Vital Signs Vital Sign Reading Time Taken Comments Blood Pressure - - Pulse - - Temperature 36.5 ??C (97.7 ??F) 03/09/2023 1:42 PM CS T Respiratory Rate - - Oxygen Saturation - - Inhaled Oxygen Concentration - - Weight 56 kg (123 lb 7.3 oz) 03/09/2023 1:42 PM PIPE RACKER Height - - Body Mass Index 20.8 11/23/2022 10:14 AM CDT documented in this encounter Medications at Time of Discharge Medication Sig Dispensed Refills Start Date End Date lisinopriL (PRINIVIL,ZESTRIL) 10 mg tablet Take 10 mg by mouth daily. 0 lisinopriL (PRINIVIL,ZESTRIL) 20 mg tablet 0 03/02/2023 multivit with minerals/lutein (MULTIVITAMIN 50 PLUS ORAL) Take 1 tablet by mouth. 0 09/02/2021 rosuvastatin (CRESTOR) 5 mg tablet Take 5 mg by mouth daily. 0 11/03/2022 tamsulosin (FLOMAX) 0.4 mg 24 hr capsule Take 1 capsule (0.4 mg total) by mouth daily. 30 capsule 1 02/23/2023 04/24/2023 documented as of this encounter Progress Notes * Stanislaw Alan M.D. - 03/09/2023 1:45 PM CST SUBJECTIVE CHIEF COMPLAINT/REASON FOR VISIT Evaluation for side effects while receiving radiation treatment for 1. Primary Malignant Neoplasm Of Prostate (HCC) SUPERVISED BY: Stanislaw Alan M.D. ([id number]) HISTORY OF PRESENT ILLNESS Mr. Norm Sandoval is an 82 y.o. 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 Patient received a leuprolide 7.5 mg injection on January 28, 2023 at [facility] with a plan for 4-6 months of ADT. Treatment Course: 1xProstate Plan ID Fractions Dose / Fraction (cGy) Dose Treated (cGy) Dose Planned (cGy) First Treatment Last Treatment Elapsed Days [id number] 02/09/2023 03/09/2023 28 Course Summary 02/09/2023 03/09/2023 28 The patient was seen and examined today with Dr. Alan. The patient reports to be feeling well overall. He has been taking the Flomax consistently since last Tuesday and feels that it his helping with urinary frequency. He denies dizziness from the Flomax. He reports nocturia 2-4 times. Patient denies dysuria, diarrhea, hematuria or rectal bleeding. PATIENT REPORTED SYMPTOM SCREEN: FATIGUE (Scale: 0 = no fatigue; 10 = worst fatigue you can imagine): 0 PAIN (Scale: 0 = no pain; 10 = worst pain you can imagine): 0 OVERALL QUALITY OF LIFE (Scale: 0 = as bad as can be; 10 = as good as can be): 10 OBJECTIVE Temp 36.5 ??C (Temporal) Wt 56 kg BMI 20.80 kg/m?? PHYSICAL EXAMINATION General: Alert and oriented, in no apparent distress. ASSESSMENT / PLAN #1 Stage IIB (cT2a, cN0, cM0, PSA 14.6, Grade Group 2) adenocarcinoma of the prostate #2 Erectile dysfunction, preceding diagnosis #3 Androgen deprivation therapy initiated with bicalutamide 50 mg daily on January 12, 2023; leuprolide 7.5 mg injection on January 28, 2023 at [facility]; plan for 4-6 months of ADT #4 Constipation #5 Radiotherapy to prostate initiated on February 09, 2023; anticipated completion on March 16, 2023 The patient is tolerating radiation treatment well overall. Patient should continue to take Flomax to help with urinary frequency. He received an Eligard 7.5 mg injection on February 25, 2023. He willbe due for his next injection the week of March 28, 2023. He will continue with radiation treatment as planned. He will contact our care team with any questions or concerns. Signed by: Анна Miramontes R.N. 03/09/2023 1:59 PM PIPE RACKER I saw and evaluated the patient and participated in the larson portions of the service. I reviewed thedocumentation of Анна Miramontes R.N. and agree with the findings and plan. The patient appears well on exam. He is tolerating treatment well. He will continue with treatment as planned. Signed by: Stanislaw Alan M.D. 03/09/2023 8:17 PM PIPE RACKER [facility] [address] [place] [id number] RACKER documented in this encounter Plan of Treatment Scheduled Orders Name Type Priority Associated Diagnoses Orde r Schedule Management Visit Radiation Oncology Routine Primary Malignant Neoplasm Of Prostate (HCC) Once for 1 Occurrences starting 03/09/2023 until 03/09/2023 documented as of this encounter Visit Diagnoses Diagnosis Primary Malignant Neoplasm Of Prostate (HCC) documented in this encounter Care Teams Business Reporter Relationship Specialty Start Date End Date Elsewhere, Pcp PCP - General Internal Medicine 11/23/22 documented as of this encounter
--- OUTSIDE RECORDS SUMMARY | 2023-03-21 08:14 | XMS_ITS | Encounter Summary ---
Author Name Unknown Organization [facility] Address [address] [place] [address] Care Team Providers Care Strap Cutter Name Role Phone Elsewhere, Pcp Primary Care Provider Unavailabl e Encounter Details Date Type Department Care Team (Late st Contact Info) Description 03/10/2023 1:08 PM SPIKE MACHINE HEATER Hospital Encounter Department of Radiation Oncology in [place], [place] [address] [place] [address] Stanislaw Alan M.D. [address] [place] [phone] Social History Tobacco Use Types Packs/Day Years [...] on filedocumented in this encounter Care Teams Strap Cutter Relationship Specialty Start Date End Date Elsewhere, Pcp PCP - General Internal Medicine 11/23/22 documented as of this encounter
--- OUTSIDE RECORDS SUMMARY | 2023-03-21 08:14 | XMS_ITS | Encounter Summary ---
Author Name Unknown Organization [facility] Address [address] [place] [address] Care Team Providers Care Branch Specialist Name Role Phone Elsewhere, Pcp Primary Care Provider Unavailabl e Reason for Referral * Radiation Therapy (Routine) - Authorized Specialty Diagnoses / Procedures Referred By Contac t Referred To Contact Diagnoses Primary Malignant Neoplasm Of Prostate (HCC) Procedures Management Visit Stanislaw Alan M.D. [address] [place] [phone] [facility] Region Referral ID Status Reason Start Date Expiration Date V isits Requested Visits Authorized [id number] Authorized 01/11/2023 01/11/2024 10 10 OR MASTER Reason for Visit * Radiation Therapy (Routine) - Authorized Specialty Diagnoses / Procedures Referred By Tomy meade Referred To Contact Diagnoses Primary Malignant Neoplasm Of Prostate (HCC) Procedures Management Visit Stanislaw Alan M.D. [address] [place] [phone] [facility] Region Referral ID Status Reason Start Date Expiration Date V isits Requested Visits Authorized [id number] Authorized 01/11/2023 01/11/2024 10 10 Encounter Details Date Type Department Care Team (Latest Contact Info) Description 02/23/2023 1:01 PM HARBOR MASTER - 02/23/2023 3:32 PM HARBOR MASTER Hospital Encounter Department of Radiation Oncology in [place], [place] [address] [place] [address] Stanislaw Alan M.D. [address] [place] [phone] Primary Malignant Neoplasm Of Prostate (HCC) Social [...] your living situation today? I have a [facility] place to live 12/02/2022 Sex and Gender [...] lb 5.7 oz) 02/23/2023 1:43 P M HARBOR MASTER Height - - Body Mass Index 20.61 [...] Prostate (HCC) SUPERVISED BY: Stanislaw Alan M.D. ([id number]) HISTORY OF PRESENT ILLNESS Mr. Norm Sandoval is an 82 y.o. 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 Patient received a leuprolide 7.5 mg injection on January 28, 2023 at [facility] with a plan for 4-6 months of ADT. Treatment Course: 1xProstate Plan ID Fractions Dose / Fraction (cGy) Dose Treated (cGy) Dose Planned (cGy) First Treatment Last Treatment Elapsed Days [id number] 02/09/2023 02/23/2023 14 Course Summary 02/09/2023 02/23/2023 [...] mg injection on January 28, 2023 at [facility]; plan for 4-6 months of ADT [...] by: Анна Miramontes R.N. 02/23/2023 1:55 PM HARBOR MASTER I saw and evaluated the patient and [...] by: Stanislaw Alan M.D. 02/23/2023 3:32 PM HARBOR MASTER [facility] [address] [place] [phone] OR MASTER documented in this encounter Plan of Treatment Scheduled Orders Name Type Priority Associated Diagnoses Orde r Schedule Management Visit Radiation Oncology Routine Primary Malignant Neoplasm Of Prostate (HCC) Once for 1 Occurrences starting 02/23/2023 until 02/23/2023 documented as of this encounter Visit Diagnoses Diagnosis Primary Malignant Neoplasm Of Prostate (HCC) documented in this encounter Care Teams Branch Specialist Relationship Specialty Start Date End Date Elsewhere, Pcp PCP - General Internal Medicine 11/23/22 documented as of this encounter
--- OUTSIDE RECORDS SUMMARY | 2023-03-21 08:14 | XMS_ITS | Encounter Summary ---
Author Name Unknown Organization [facility] Address [address] [place] [address] Care Team Providers Care Internet Sourcer Name Role Phone Elsewhere, Pcp Primary Care Provider Unavailabl e Encounter Details Date Type Department Care Team (Late st Contact Info) Description 02/25/2023 1:06 PM [facility] Hospital Encounter Department of Radiation Oncology in [place], [place] [address] [place] [address] Stanislaw Alan M.D. [address] [place] [phone] Social History Tobacco Use Types Packs/Day Years [...] your living situation today? I have a [facility] place to live 12/02/2022 Sex and Gender Information Value Date Recorded Sex Assigned at Male 12/02/2022 9:58 AM CDT Gender Identity Male 12/02/2022 9:58 AM CDT Sexual Orientation Straight 12/02/2022 9: 58 AM CDT documented as of this encounter Plan of Treatment Not on file documented as of this encounter Visit Diagnoses Not on filedocumented in this encounter Care Teams Internet Sourcer Relationship Specialty Start Date End Date Elsewhere, Pcp PCP - General Internal Medicine 11/23/22 documented as of this encounter
--- OUTSIDE RECORDS SUMMARY | 2023-03-21 08:14 | XMS_ITS | Encounter Summary ---
Author Name Unknown Organization [facility] Address [address] [place] [address] Care Team Providers Care Salesperson Burial Needs Name Role Phone Elsewhere, Pcp Primary Care Provider Unavailabl e Reason for Referral * Outpatient (Routine) - Authorized Specialty Diagnoses / Procedures Referred By Contac t Referred To Contact Radiation Oncology Stanislaw Alan M.D. [address] [place] [phone] Stanislaw Alan M.D. [address] [place] [phone] Referral ID Status Reason Start Date Expiration Date V isits Requested Visits Authorized [id number] Authorized 03/16/2023 09/14/2024 1 1 Scheduling Instructions PSA and testosterone at [facility] a few days prior to office visit . NT BOAT AND BARGE LOADER * Radiation Therapy (Routine) - Authorized Specialty Diagnoses / Procedures Referred By Contac t Referred To Contact Diagnoses Primary Malignant Neoplasm Of Prostate (HCC) Procedures Management Visit Stanislaw Alan M.D. [address] [place] [phone] [facility] Region Referral ID Status Reason Start Date Expiration Date V isits Requested Visits Authorized [id number] Authorized 01/11/2023 01/11/2024 10 10 NT BOAT AND BARGE LOADER Reason for Visit * Radiation Therapy (Routine) - Authorized Specialty Diagnoses / Procedures Referred By Contac t Referred To Contact Diagnoses Primary Malignant Neoplasm Of Prostate (HCC) Procedures Management Visit Stanislaw Alan M.D. [address] [place] [phone] [facility] Region Referral ID Status Reason Start Date Expiration Date V isits Requested Visits Authorized [id number] Authorized 01/11/2023 01/11/2024 10 10 Encounter Details Date Type Department Care Team (Latest Contact Info) Description 03/16/2023 1:14 PM CEMENT BOAT AND BARGE LOADER - 03/16/2023 4:20 PM CEMENT BOAT AND BARGE LOADER Hospital Encounter Department of Radiation Oncology in [place], [place] [address] [place] [address] Stanislaw Alan M.D. [address] [place] [phone] Primary Malignant Neoplasm Of Prostate (HCC) (Primary [...] your living situation today? I have a [facility] place to live 12/02/2022 Sex and Gender Information Value Date Recorded Sex Assigned at Male 12/02/2022 9:58 AM CDT Gender Identity Male 12/02/2022 9:58 AM CDT Sexual Orientation Straight 12/02/2022 9: 58 AM CDT documented as of this encounter Last Filed Vital Signs Vital Sign Reading Time Taken Comments Blood Pressure - - Pulse - - Temperature 36.6 ??C (97.8 ??F) 03/16/2023 2:06 PM CS T Respiratory Rate - - Oxygen Saturation - - Inhaled Oxygen Concentration - - Weight 54.7 kg (120 lb 9.5 oz) 03/16/2023 2:06 P M CEMENT BOAT AND BARGE LOADER Height - - Body Mass Index 20.31 11/23/2022 10:14 AM CDT documented in this [...] Progress Notes * Stanislaw Alan M.D. - 03/16/2023 1:45 PM CST SUBJECTIVE CHIEF COMPLAINT/REASON FOR VISIT Evaluation for side effects while receiving radiation treatment for 1. Primary Malignant Neoplasm Of Prostate (HCC) SUPERVISED BY: Stanislaw Alan M.D. ([id number]) HISTORY OF PRESENT ILLNESS Mr. Norm Sandoval is an 82 y.o. male with Stage IIB (cT2a, cN0, cM0, PSA 14.6, Grade Group 2) adenocarcinoma of the prostate completed definitive radiotherapy today, March 16, 2023. Patient received a leuprolide 7.5 mg injection on January 28, 2023 at [facility] with a plan for 4-6 months of ADT. Treatment Course: 1xProstate Plan ID Fractions Dose / Fraction (cGy) Dose Treated (cGy) Dose Planned (cGy) First Treatment Last Treatment Elapsed Days [id number] 02/09/2023 03/16/2023 35 Course Summary 02/09/2023 03/16/2023 35 Oncology History Primary Malignant Neoplasm Of Prostate [...] Group and Bethany score: Grade Group 2 (Spring Score 3+4=7) Percentage of pattern 4: 25-50% [...] PSA 12.5 ng/mL Testosterone total 719 ng/dL 01/12/2023 - Biological/Targeted/Hormone Therapy Androgen deprivation therapy initiated with bicalutamide 50 mg daily on January 12, 2023. 01/28/23: Leuprolide 7.5 mg injection at [facility] 02/25/23: Next injection 02/01/2023 - Radiation Therapy Radiation Therapy Treatment Details (Noted on 01/11/2023) Site: Prostate Technique: No technique specified Goal: Curative Planned Treatment Start Date: 02/01/2023 The patient was seen and examined today with Dr. Alan. The patient reports to be feeling well overall. He continues to take Flomax 0.4 mg after his evening meal. He reports nocturia 2-4 times. Patient denies [...] good as can be): 10 OBJECTIVE Temp 36.6 ??C (Temporal) Wt 54.7 kg BMI 20.31 kg/m?? PHYSICAL EXAMINATION General: Alert and oriented, in no apparent distress. ASSESSMENT / PLAN #1 Stage IIB (cT2a, cN0, cM0, PSA 14.6, Grade Group 2) adenocarcinoma of the prostate #2 Erectile dysfunction, preceding diagnosis #3 Androgen deprivation therapy initiated with bicalutamide 50 mg daily on January 12, 2023; leuprolide 7.5 mg injection on January 28, 2023; Leuprolide 7.5 mg at [facility] on February 25, 2023 ; leuprolide 30 mg injection scheduled on March 28, 2023 for a total of 6 months of ADT withno further therapy #4 Constipation #5 Radiotherapy to prostate initiated on February 09, 2023; completed on March 16, 2023 The patient is tolerating radiation treatment well overall. Discussed with patient that radiation related side effects will start to resolve in the coming weeks. Patient should continue to take Flomax 0.4 mg for 7-10 days post treatment. He then can trial going off it. If he notices an increase in urinary frequency he can resume Flomax. He does not need a refill of Flomax at this time. He received an Eligard 7.5 mg injection on February 25, 2023. He will be due for his next injection the week ofFebruodanah 2023. At that time patient will receive a 4 month Eligard injection to complete a total of 6 months of ADT. Patient will then follow up with Dr. Alan in October 2023 with a PSA and Testosterone drawn at [facility] a few days prior to the visit. He will contact our care team with any questions or concerns. Toxicities reviewed with Dr. Alan Signed by: Анна Miramontes R.N. 03/16/2023 2:41 PM CEMENT BOAT AND BARGE LOADER I saw and evaluated the patient and participated in the larson portions of the service. I reviewed thedocumentation of Анна Miramontes R.N. and agree with the findings and plan. The patient appears well on exam. He is here today with his Erwin. He has tolerated treatment well with grade 1 urinary frequency as his only side effect. He finished treatment today as planned. He will have a leuprolide 30 mg injection on March 28, 2023 at [facility]. This will complete 6 months of ADT. He will have a PSA and testosterone level drawn at [facility] in October and I will see him approximately a week later to go over the results and to check on his progress. He understands that he can contact me at any time in the interim if he has concerns about his prostate cancer. The patient and his verbalized satisfaction with this plan. Signed by: Stanislaw Alan M.D. 03/16/2023 4:17 PM CEMENT BOAT AND BARGE LOADER [facility] [address] [place] [address] NT BOAT AND BARGE LOADER documented in this encounter Miscellaneous Notes * Addendum Note - Angi Matson - 03/16/2023 1:45 PM CSTEncounter addended by: Angi Matson on: 03/17/2023 9:17 AM Actions taken: Letter saved NT BOAT AND BARGE LOADER documented in this encounter Plan of Treatment Scheduled Orders Name Type Priority Associated Diagnoses Order Schedule Management Visit Radiation Oncology Routine Primary Malignant Neoplasm Of Prostate (HCC) Once for 1 Occurrences starting 03/16/2023 until 03/16/2023 PSA (Prostate-Specific Antigen), Diagnostic Lab Routine Primary Malignant Neoplasm Of Prostate (HCC) Expected: 10/24/2023, Expires: 06/13/2024 Testosterone, Total by Mass Spectrometry, Serum Lab Routine Primary Malignant Neoplasm Of Prostate (HCC) Expected: 10/24/2023 (Approximate), Expires: 06/13/2024 Scheduled Referrals Name Type Priority Associated Diagnoses Orde r Schedule Radiation Oncology office visit (clinic) Outpatient Referral Routine Expected: 10/27/2023, Expires: 06/13/2024 documented as of this encounter Visit Diagnoses Diagnosis Primary Malignant Neoplasm Of Prostate (HCC)- Primary documented in this encounter Care Teams Salesperson Burial Needs Relationship Specialty Start Date End Date Elsewhere, Pcp PCP - General Internal Medicine 11/23/22 documented as of this encounter
--- OUTSIDE RECORDS SUMMARY | 2023-03-21 08:14 | XMS_ITS | Encounter Summary ---
Author Name Unknown Organization [facility] Address [address] [place] [address] Care Team Providers Care Digester Capper Name Role Phone Elsewhere, Pcp Primary Care Provider Unavailabl e Encounter Details Date Type Department Care Team (Late st Contact Info) Description 02/23/2023 1:01 PM REHABILITATION COUNSELLOR Hospital Encounter Department of Radiation Oncology in [place], [place] [address] [place] [address] Stanislaw Alan M.D. [address] [place] [phone] Social History Tobacco Use Types Packs/Day Years [...] your living situation today? I have a [facility] place to live 12/02/2022 Sex and Gender Information Value Date Recorded Sex Assigned at Male 12/02/2022 9:58 AM CDT Gender Identity Male 12/02/2022 9:58 AM CDT Sexual Orientation Straight 12/02/2022 9: 58 AM CDT documented as of this encounter Plan of Treatment Not on file documented as of this encounter Visit Diagnoses Not on filedocumented in this encounter Care Teams Digester Capper Relationship Specialty Start Date End Date Elsewhere, Pcp PCP - General Internal Medicine 11/23/22 documented as of this encounter
--- OUTSIDE RECORDS SUMMARY | 2023-03-21 08:14 | XMS_ITS | Encounter Summary ---
Author Name Unknown Organization [facility] Address [address] [place] [address] Care Team Providers Care Chief Cruiser Name Role Phone Elsewhere, Pcp Primary Care Provider Unavailabl e Encounter Details Date Type Department Care Team (Late st Contact Info) Description 03/16/2023 1:06 PM [facility] Hospital Encounter Department of Radiation Oncology in [place], [place] [address] [place] [address] Stanislaw Alan M.D. [address] [place] [phone] Social History Tobacco Use Types Packs/Day Years [...] on filedocumented in this encounter Care Teams Chief Cruiser Relationship Specialty Start Date End Date Elsewhere, Pcp PCP - General Internal Medicine 11/23/22 documented as of this encounter
--- OUTSIDE RECORDS SUMMARY | 2023-03-21 08:14 | XMS_ITS | Encounter Summary ---
Author Name Unknown Organization [facility] Address [address] [place] [address] Care Team Providers Care Executive Vice President And Chief Operating Officer Name Role Phone Elsewhere, Pcp Primary Care Provider Unavailabl e Encounter Details Date Type Department Care Team (Late st Contact Info) Description 03/11/2023 1:08 PM DRESSING ROOM PORTER Hospital Encounter Department of Radiation Oncology in [place], [place] [address] [place] [address] Stanislaw Alan M.D. [address] [place] [phone] Social History Tobacco Use Types Packs/Day Years [...] your living situation today? I have a [employer] place to live 12/02/2022 Sex and Gender Information Value Date Recorded Sex Assigned at Male 12/02/2022 9:58 AM CDT Gender Identity Male 12/02/2022 9:58 AM CDT Sexual Orientation Straight 12/02/2022 9: 58 AM CDT documented as of this encounter Plan of Treatment Not on file documented as of this encounter Visit Diagnoses Not on filedocumented in this encounter Care Teams Executive Vice President And Chief Operating Officer Relationship Specialty Start Date End Date Elsewhere, Pcp PCP - General Internal Medicine 11/23/22 documented as of this encounter
--- OUTSIDE RECORDS SUMMARY | 2023-03-21 08:14 | XMS_ITS | Encounter Summary ---
Author Name Unknown Organization [facility] Address [address] [place] [address] Care Team Providers Care Fountain Pen Turner Name Role Phone Elsewhere, Pcp Primary Care Provider Unavailabl e Encounter Details Date Type Department Care Team (Late st Contact Info) Description 03/01/2023 1:03 PM REPRODUCTION ORDER PROCESSOR Hospital Encounter Department of Radiation Oncology in [place], [place] [address] [place] [address] Stanislaw Alan M.D. [address] [place] [phone] Social History Tobacco Use Types Packs/Day Years [...] living situation today? I have a [facility] place to live 12/02/2022 Sex and Gender Information Value Date Recorded Sex Assigned at Male 12/02/2022 9:58 AM CDT Gender Identity Male 12/02/2022 9:58 AM CDT Sexual Orientation Straight 12/02/2022 9: 58 AM CDT documented as of this encounter Plan of Treatment Not on file documented as of this encounter Visit Diagnoses Not on filedocumented in this encounter Care Teams Fountain Pen Turner Relationship Specialty Start Date End Date Elsewhere, Pcp PCP - General Internal Medicine 11/23/22 documented as of this encounter
--- OUTSIDE RECORDS SUMMARY | 2023-03-21 08:14 | XMS_ITS | Encounter Summary ---
Author Name Unknown Organization [facility] Address [address] [place] [address] Care Team Providers Care Correction Officer Supervisor Name Role Phone Elsewhere, Pcp Primary Care Provider Unavailabl e Encounter Details Date Type Department Care Team (Late st Contact Info) Description 02/24/2023 1:08 PM [facility] Hospital Encounter Department of Radiation Oncology in [place], [place] [address] [place] [address] Stanislaw Alan M.D. [address] [place] [phone] Social History Tobacco Use Types Packs/Day Years [...] your living situation today? I have a [facility] place to live 12/02/2022 Sex and Gender Information Value Date Recorded Sex Assigned at Male 12/02/2022 9:58 AM CDT Gender Identity Male 12/02/2022 9:58 AM CDT Sexual Orientation Straight 12/02/2022 9: 58 AM CDT documented as of this encounter Plan of Treatment Not on file documented as of this encounter Visit Diagnoses Not on filedocumented in this encounter Care Teams Correction Officer Supervisor Relationship Specialty Start Date End Date Elsewhere, Pcp PCP - General Internal Medicine 11/23/22 documented as of this encounter
--- OUTSIDE RECORDS SUMMARY | 2023-03-21 08:14 | XMS_ITS | Encounter Summary ---
Author Name Unknown Organization [facility] Address [address] [place] [address] Care Team Providers Care Cleaning Attendant Name Role Phone Elsewhere, Pcp Primary Care Provider Unavailabl e Encounter Details Date Type Department Care Team (Late st Contact Info) Description 03/14/2023 1:09 PM [facility] Hospital Encounter Department of Radiation Oncology in [place], [place] [address] [place] [address] Stanislaw Alan M.D. [address] [place] [phone] Social History Tobacco Use Types Packs/Day Years [...] living situation today? I have a [facility] place to live 12/02/2022 Sex and Gender Information Value Date Recorded Sex Assigned at Male 12/02/2022 9:58 AM CDT Gender Identity Male 12/02/2022 9:58 AM CDT Sexual Orientation Straight 12/02/2022 9: 58 AM CDT documented as of this encounter Plan of Treatment Not on file documented as of this encounter Visit Diagnoses Not on filedocumented in this encounter Care Teams Cleaning Attendant Relationship Specialty Start Date End Date Elsewhere, Pcp PCP - General Internal Medicine 11/23/22 documented as of this encounter
--- OUTSIDE RECORDS SUMMARY | 2023-03-21 08:14 | XMS_ITS | Encounter Summary ---
Author Name Unknown Organization [facility] Address [address] [place] [address] Care Team Providers Care Environmental Quality Analyst Name Role Phone Elsewhere, Pcp Primary Care Provider Unavailabl e Reason for Referral * Radiation Therapy (Routine) - Authorized Specialty Diagnoses / Procedures Referred By Contac t Referred To Contact Diagnoses Primary Malignant Neoplasm Of Prostate (HCC) Procedures Management Visit Stanislaw Alan M.D. [address] [place] [phone] [facility] Region Referral ID Status Reason Start Date Expiration Date V isits Requested Visits Authorized [id number] Authorized 01/11/2023 01/11/2024 10 10 T LINE PRODUCTION SUPERVISOR Reason for Visit * Radiation Therapy (Routine) - Authorized Specialty Diagnoses / Procedures Referred By Tomy meade Referred To Contact Diagnoses Primary Malignant Neoplasm Of Prostate (HCC) Procedures Management Visit Stanislaw Alan M.D. [address] [place] [phone] [facility] Region Referral ID Status Reason Start Date Expiration Date V isits Requested Visits Authorized [id number] Authorized 01/11/2023 01/11/2024 10 10 Encounter Details Date Type Department Care Team (Latest Contact Info) Description 03/02/2023 1:07 PM FIRST LINE PRODUCTION SUPERVISOR - 03/02/2023 2:50 PM FIRST LINE PRODUCTION SUPERVISOR Hospital Encounter Department of Radiation Oncology in [place], [place] [address] [place] [address] Stanislaw Alan M.D. [address] [place] [phone] Primary Malignant Neoplasm Of Prostate (HCC) Social [...] living situation today? I have a [facility] place to live 12/02/2022 Sex and Gender Information Value Date Recorded Sex Assigned at Male 12/02/2022 9:58 AM CDT Gender Identity Male 12/02/2022 9:58 AM CDT Sexual Orientation Straight 12/02/2022 9: 58 AM CDT documented as of this encounter Last Filed Vital Signs Vital Sign Reading Time Taken Comments Blood Pressure - - Pulse - - Temperature 36.4 ??C (97.6 ??F) 03/02/2023 1:40 PM CS T Respiratory Rate - - Oxygen Saturation - - Inhaled Oxygen Concentration - - Weight 55 kg (121 lb 4.1 oz) 03/02/2023 1:40 PM FIRST LINE PRODUCTION SUPERVISOR Height - - Body Mass Index 20.42 11/23/2022 10:14 AM CDT documented in this [...] Progress Notes * Stanislaw Alan M.D. - 03/02/2023 1:45 PM CST SUBJECTIVE CHIEF COMPLAINT/REASON FOR VISIT Evaluation for side effects while receiving radiation treatment for 1. Primary Malignant Neoplasm Of Prostate (HCC) SUPERVISED BY: Stanislaw Alan M.D. ([id number]) HISTORY OF PRESENT ILLNESS Mr. Norm Sandoval is an 82 y.o. 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 Patient received a leuprolide 7.5 mg injection on January 28, 2023 at [facility] with a plan for 4-6 months of ADT. Treatment Course: 1xProstate Plan ID Fractions Dose / Fraction (cGy) Dose Treated (cGy) Dose Planned (cGy) First Treatment Last Treatment Elapsed Days [id number] 02/09/2023 03/02/2023 21 Course Summary 02/09/2023 03/02/2023 21 The patient was seen and examined today with Dr. Alan. The patient reports to be feeling well overall. He tried the Flomax for one night and didn't feel like it made a big difference. He also didn't like how the medication made him feel. It didn't make him feel dizzy he could just tell that he had taken medication. He reports nocturia 2-3 times most often but occasionally he goes every hour. Patient denies changes to urination, diarrhea, hematuria orrectal bleeding. PATIENT REPORTED SYMPTOM SCREEN: FATIGUE (Scale: 0 = no fatigue; 10 = worst fatigue you can imagine): 0 PAIN (Scale: 0 = no pain; 10 = worst pain you can imagine): 0 OVERALL QUALITY OF LIFE (Scale: 0 = as bad as can be; 10 = as good as can be): 10 OBJECTIVE Temp 36.4 ??C (Temporal) Wt 55 kg BMI 20.42 kg/m?? PHYSICAL EXAMINATION General: Alert and oriented, in no apparent distress. 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 Explained that if he wants to resume the Flomax and take for consecutive days to see if the helps with nocturia he can. He received an Eligard 7.5 mg injection on February 25, 2023. He will be due for his next injection the week of 2023. He will continue with radiation treatment as planned. He will contact our care team with any questions or concerns. Signed by: Анна Miramontes R.N. 03/02/2023 2:44 PM FIRST LINE PRODUCTION SUPERVISOR I saw and evaluated the patient and participated in the larson portions of the service. I reviewed thedocumentation of Анна Miramontes R.N. and agree with the findings and plan. The patient appears well on exam. He is tolerating treatment well. The lump that he felt in his testicle/epididymis has resolved. He is experiencing some increasing nocturia. He took Flomax but only 1 night. I explained that he can take Flomax again if he has increasing nocturia, but he should take it for at least a week to see if it is helpful. He and his verbalized understanding of this. He will continue with treatment as planned. Signed by: Stanislaw Alan M.D. 03/02/2023 2:50 PM FIRST LINE PRODUCTION SUPERVISOR [facility] [address] [place], [place] [id number] T LINE PRODUCTION SUPERVISOR documented in this encounter Plan of Treatment Scheduled Orders Name Type Priority Associated Diagnoses Orde r Schedule Management Visit Radiation Oncology Routine Primary Malignant Neoplasm Of Prostate (HCC) Once for 1 Occurrences starting 03/02/2023 until 03/02/2023 documented as of this encounter Visit Diagnoses Diagnosis Primary Malignant Neoplasm Of Prostate (HCC) documented in this encounter Care Teams Environmental Quality Analyst Relationship Specialty Start Date End Date Elsewhere, Pcp PCP - General Internal Medicine 11/23/22 documented as of this encounter
--- OUTSIDE RECORDS SUMMARY | 2023-03-21 08:15 | XMS_ITS | Encounter Summary ---
Author Name Unknown Organization [facility] Address [address] [place] [address] Care Team Providers Care Hitting Coach Name Role Phone Elsewhere, Pcp Primary Care Provider Unavailabl e Encounter Details Date Type Department Care Team (Late st Contact Info) Description 01/11/2023 Orders Only Department of Radiation Oncology in [place], [place] [address] [place] [address] Stanislaw Alan M.D. [address] [place] [phone] Social History Tobacco Use Types Packs/Day Years [...] on filedocumented in this encounter Care Teams Hitting Coach Relationship Specialty Start Date End Date Elsewhere, Pcp PCP - General Internal Medicine 11/23/22 documented as of this encounter
--- OUTSIDE RECORDS SUMMARY | 2023-03-21 08:15 | XMS_ITS | Encounter Summary ---
Author Name Unknown Organization [facility] Address [address] [place] [address] Care Team Providers Care Customer Service Supervisor Name Role Phone Elsewhere, Pcp Primary Care Provider Unavailabl e Encounter Details Date Type Department Care Team (Latest Contact Info) Description 02/17/2023 12:20 PM CNC OPERATOR MACHINIST - 02/17/2023 11:59 PM CNC OPERATOR MACHINIST Hospital Encounter Department of Radiation Oncology in [place], [place] [address] [place] [address] Stanislaw Alan M.D. [address] [place] [phone] Discharge Disposition: Home or Self Care Social [...] your living situation today? I have a [facility] place to live 12/02/2022 Sex [...] on filedocumented in this encounter Care Teams Customer Service Supervisor Relationship Specialty Start Date End Date Elsewhere, Pcp PCP - General Internal Medicine 11/23/22 documented as of this encounter
--- OUTSIDE RECORDS SUMMARY | 2023-03-21 08:15 | XMS_ITS | Encounter Summary ---
Author Name Unknown Organization [facility] Address [address] [place] [address] Care Team Providers Care Brazer Crawler Torch Name Role Phone Elsewhere, Pcp Primary Care Provider Unavailabl e Encounter Details Date Type Department Care Team (Latest Contact Info) Description 02/14/2023 1:08 PM ELECTRIC TRAIN DRIVER - 02/14/2023 11:59 PM ELECTRIC TRAIN DRIVER Hospital Encounter Department of Radiation Oncology in [place], [place] [address] [place] [address] Stanislaw Alan M.D. [address] [place] [address] Discharge Disposition: Home or Self Care Social [...] your living situation today? I have a [facility] place to live 12/02/2022 Sex [...] on filedocumented in this encounter Care Teams Brazer Crawler Torch Relationship Specialty Start Date End Date Elsewhere, Pcp PCP - General Internal Medicine 11/23/22 documented as of this encounter
--- OUTSIDE RECORDS SUMMARY | 2023-03-21 08:15 | XMS_ITS | Encounter Summary ---
Author Name Unknown Organization [facility] Address [address] [place] [address] Care Team Providers Care Pan Operator Name Role Phone Elsewhere, Pcp Primary Care Provider Unavailabl e Reason for Referral * Outpatient (Routine) - Closed Specialty Diagnoses / Procedures Referred By Contac t Referred To Contact Radiation Oncology Stanislaw Alan M.D. [address] [place] [phone] [facility] Referral ID Status Reason Start Date Expiration Date Visits Re quested Visits Authorized [id number] Closed 01/11/2023 01/10/2026 1 1 Scheduling Instructions Prior to simulation E TECHNICIAN Reason for Visit * Outpatient (Routine) - Closed Specialty Diagnoses / Procedures Referred By Tomy meade Referred To Contact Radiation Oncology Stanislaw Alan M.D. [address] [place] [phone] [facility] Referral ID Status Reason Start Date Expiration Date Visits Re quested Visits Authorized [id number] Closed 01/11/2023 01/10/2026 1 1 Encounter Details Date Type Department Care Team (Latest Contact Info) Description 01/20/2023 8:43 AM REUSE TECHNICIAN - 01/20/2023 9:38 AM REUSE TECHNICIAN Hospital Encounter Department of Radiation Oncology in [place], [place] [address] [place] [phone] Stanislaw Alan M.D. [address] [place] [phone] Primary Malignant Neoplasm Of Prostate (HCC) (Primary [...] your living situation today? I have a [facility] place to live 12/02/2022 Sex and Gender Information Value Date Recorded Sex Assigned at Male 12/02/2022 9:58 AM CDT Gender Identity Male 12/02/2022 9:58 AM CDT Sexual Orientation Straight 12/02/2022 9: 58 AM CDT documented as of this encounter Last Filed Vital Signs Vital Sign Reading Time Taken Comments Blood Pressure 144/67 01/20/2023 9:00 AM REUSE TECHNICIAN Pulse 76 01/20/2023 9:00 AM REUSE TECHNICIAN Temperature 35.8 ??C (96.4 ??F) 01/20/2023 9:00 AM CS T Respiratory Rate - - Oxygen Saturation - - Inhaled Oxygen Concentration - - Weight 54.8 kg (120 lb 13 oz) 01/20/2023 9:00 AM REUSE TECHNICIAN Height - - Body Mass Index 20.35 [...] Prostatic adenocarcinoma Type: Acinar Grade Group and Buffalo score: Grade Group 2 (Buffalo Score 3+4=7) Percentage of pattern 4: 25-50% [...] Group and Bethany score: Grade Group 2 (Buffalo Score 3+4=7) Percentage of pattern 4: 25-50% [...] leuprolide 7.5 mg injection next week at [facility]. I reviewed the logistics of treatment in [...] by: Stanislaw Alan M.D. 01/20/23 10:26 AM VICKIE [facility] [address] [place] [address] E TECHNICIAN documented in this encounter Plan of Treatment Scheduled Referrals Name Type Priority Associated Diagnoses Order Schedule Radiation Oncology office visit (clinic) Outpatient Referral Routine Once for 1 Occurrences starting 01/20/2023 until 01/20/2023 documented as of this encounter Visit Diagnoses Diagnosis Primary Malignant Neoplasm Of Prostate (HCC)- Primary documented in this encounter Care Teams Pan Operator Relationship Specialty Start Date End Date Elsewhere, Pcp PCP - General Internal Medicine 11/23/22 documented as of this encounter
--- OUTSIDE RECORDS SUMMARY | 2023-03-21 08:15 | XMS_ITS | Encounter Summary ---
Author Name Unknown Organization [facility] Address [address] [place] [address] Care Team Providers Care Rv Servicer Name Role Phone Elsewhere, Pcp Primary Care Provider Unavailabl e Encounter Details Date Type Department Care Team (Latest Contact Info) Description 02/16/2023 1:09 PM DIRECTOR OF EXTENSION WORK - 02/16/2023 11:59 PM DIRECTOR OF EXTENSION WORK Hospital Encounter Department of Radiation Oncology in [place], [place] [address] [place] [address] Stanislaw Alan M.D. [address] [place] [phone] Discharge Disposition: Home or Self Care Social [...] on filedocumented in this encounter Care Teams Rv Servicer Relationship Specialty Start Date End Date Elsewhere, Pcp PCP - General Internal Medicine 11/23/22 documented as of this encounter
--- OUTSIDE RECORDS SUMMARY | 2023-03-21 08:15 | XMS_ITS | Encounter Summary ---
Author Name Unknown Organization [facility] Address [address] [place] [address] Care Team Providers Care Stereoptic Projection Topographer Name Role Phone Elsewhere, Pcp Primary Care Provider Unavailabl e Reason for Referral * Radiation Therapy (Routine) - Closed Specialty Diagnoses / Procedures Referred By Tomy meade Referred To Contact Diagnoses Primary Malignant Neoplasm Of Prostate (HCC) Procedures Initial Rad Onc Treatment Planning CT Simulation Stanislaw Alan M.D. [address] [place] [phone] [facility] Region Referral ID Status Reason Start Date Expiration Date Visits Re quested Visits Authorized [id number] Closed 01/11/2023 01/11/2024 1 1 MAKER Reason for Visit * Radiation Therapy (Routine) - Closed Specialty Diagnoses / Procedures Referred By Tomy meade Referred To Contact Diagnoses Primary Malignant Neoplasm Of Prostate (HCC) Procedures Initial Rad Onc Treatment Planning CT Simulation Stanislaw Alan M.D. [address] [place] [phone] [facility] Region Referral ID Status Reason Start Date Expiration Date Visits Re quested Visits Authorized [id number] Closed 01/11/2023 01/11/2024 1 1 Encounter Details Date Type Department Care Team (Latest Contact Info) Description 01/20/2023 9:39 AM GRID MAKER - 01/20/2023 11:59 PM GRID MAKER Hospital Encounter Department of Radiation Oncology in [place], [place] [address] [place] [phone] Stanislaw Alan M.D. [address] [place] [phone] Primary Malignant Neoplasm Of Prostate (HCC) Discharge [...] on file documented as of this encounter Procedures Procedure Name Priority Date/Time Associated Diagnosis Comments INITIAL RAD ONC TREATMENT PLANNING CT SIMULATION Routine 02/01/2023 9:00 AM GRID MAKER Primary Malignant Neoplasm Of Prostate (HCC) documented in this encounter Results * Initial Rad Onc Treatment Planning CT Simulation (02/01/2023 9:00 AM GRID MAKER) Narrative RICA GUTHRIE - 02/01/2023 9:00 AM GRID MAKER Carla Adam, RTT ? 02/01/2023 ??9:54 AM Initial Rad Onc Treatment Planning CT Simulation Performed by: Stanislaw Alan M.D. Authorized by: Stanislaw Alan M.D. ?? Stanislaw Alan M.D. RADIATION ONCOLOGY ORDERABLES RICA GUTHRIE na documented in this encounter Visit Diagnoses Diagnosis Primary Malignant Neoplasm Of Prostate (HCC) Primary Malignant Neoplasm Of Prostate (HCC)- Primary documented in this encounter Care Teams Stereoptic Projection Topographer Relationship Specialty Start Date End Date Elsewhere, Pcp PCP - General Internal Medicine 11/23/22 documented as of this encounter
--- OUTSIDE RECORDS SUMMARY | 2023-03-21 08:15 | XMS_ITS | Encounter Summary ---
Author Name Unknown Organization [facility] Address [address] [place] [address] Care Team Providers Care Applied Biology Professor Name Role Phone Elsewhere, Pcp Primary Care Provider Unavailabl e Encounter Details Date Type Department Care Team (Latest Contact Info) Description 02/15/2023 1:11 PM STEAM CLEAN MACHINE OPERATOR - 02/15/2023 11:59 PM STEAM CLEAN MACHINE OPERATOR Hospital Encounter Department of Radiation Oncology in [place], [place] [address] [place] [address] Stanislaw Alan M.D. [address] [place] [phone] Discharge Disposition: Home or Self Care Social [...] your living situation today? I have a [facility] place to live 12/02/2022 Sex and [...] on filedocumented in this encounter Care Teams Applied Biology Professor Relationship Specialty Start Date End Date Elsewhere, Pcp PCP - General Internal Medicine 11/23/22 documented as of this encounter
--- OUTSIDE RECORDS SUMMARY | 2023-03-21 08:15 | XMS_ITS | Encounter Summary ---
Author Name Unknown Organization [facility] Address [address] [place] [address] Care Team Providers Care Counterperson Name Role Phone Elsewhere, Pcp Primary Care Provider Unavailabl e Encounter Details Date Type Department Care Team (Latest Contact Info) Description 02/11/2023 1:09 PM SENIOR SVP - 02/11/2023 11:59 PM SENIOR SVP Hospital Encounter Department of Radiation Oncology in [place], [place] [address] [place] [address] Stanislaw Alan M.D. [address] [place] [address] Discharge Disposition: Home or Self Care Social [...] on filedocumented in this encounter Care Teams Counterperson Relationship Specialty Start Date End Date Elsewhere, Pcp PCP - General Internal Medicine 11/23/22 documented as of this encounter
--- OUTSIDE RECORDS SUMMARY | 2023-03-21 08:15 | XMS_ITS | Encounter Summary ---
Author Name Unknown Organization [facility] Address [address] [place] [address] Care Team Providers Care Corporate Bond Trader Name Role Phone Elsewhere, Pcp Primary Care Provider Unavailabl e Encounter Details Date Type Department Care Team (Late st Contact Info) Description 02/22/2023 1:02 PM DIRECTOR OF PEDIATRIC REHABILITATION Hospital Encounter Department of Radiation Oncology in [place], [place] [address] [place] [address] Stanislaw Alna M.D. [address] [place] [phone] Social History Tobacco Use Types Packs/Day Years [...] your living situation today? I have a [facility] place to live 12/02/2022 Sex and Gender Information Value Date Recorded Sex Assigned at Male 12/02/2022 9:58 AM CDT Gender Identity Male 12/02/2022 9:58 AM CDT Sexual Orientation Straight 12/02/2022 9: 58 AM CDT documented as of this encounter Plan of Treatment Not on file documented as of this encounter Visit Diagnoses Not on filedocumented in this encounter Care Teams Corporate Bond Trader Relationship Specialty Start Date End Date Elsewhere, Pcp PCP - General Internal Medicine 11/23/22 documented as of this encounter
--- OUTSIDE RECORDS SUMMARY | 2023-03-21 08:15 | XMS_ITS | Encounter Summary ---
Author Name Unknown Organization [facility] Address [address] [place] [address] Care Team Providers Care Circle Shear Operator Name Role Phone Elsewhere, Pcp Primary Care Provider Unavailabl e Reason for Referral * Radiation Therapy (Routine) - Authorized Specialty Diagnoses / Procedures Referred By Contac t Referred To Contact Diagnoses Primary Malignant Neoplasm Of Prostate (HCC) Procedures Management Visit Stanislaw Alan M.D. [address] [place] [phone] [facility] Region Referral ID Status Reason Start Date Expiration Date V isits Requested Visits Authorized [id number] Authorized 01/11/2023 01/11/2024 10 10 CLINICAL TRIALS Reason for Visit * Radiation Therapy (Routine) - Authorized Specialty Diagnoses / Procedures Referred By Tomy meade Referred To Contact Diagnoses Primary Malignant Neoplasm Of Prostate (HCC) Procedures Management Visit Stanislaw Alan M.D. [address] [place] [phone] [facility] Region Referral ID Status Reason Start Date Expiration Date V isits Requested Visits Authorized [id number] Authorized 01/11/2023 01/11/2024 10 10 Encounter Details Date Type Department Care Team (Latest Contact Info) Description 02/15/2023 1:11 PM RN CLINICAL TRIALS - 02/15/2023 4:52 PM RN CLINICAL TRIALS Hospital Encounter Department of Radiation Oncology in [place], [place] [address] [place] [address] Jolynn Alonzo M.D. [address] [place] [phone] Primary Malignant Neoplasm Of Prostate (HCC) Social [...] your living situation today? I have a [facility] place to live 12/02/2022 Sex and [...] (122 lb 12.7 oz) 02/15/2023 1:47 PM RN CLINICAL TRIALS Height - - Body Mass Index 20.68 [...] mg injection on January 28, [address] [facility] with a plan for 4-6 months of ADT. Treatment Course: 1xProstate Plan ID Fractions Dose / Fraction (cGy) Dose Treated (cGy) Dose Planned (cGy) First Treatment Last Treatment Elapsed Days [id number] 02/09/2023 02/15/2023 6 Course [...] mg injection on January 28, [address] [facility]; plan for 4-6 months of ADT [...] his first Leuprolide 7.[address] [facility]. He is scheduled for his next one of February 25, 2023. He will continue with radiation treatment as planned. He will contact our care team with any questions or concerns. Signed by: Анна Miramontes R.N. 02/15/2023 2:04 PM RN CLINICAL TRIALS CLINICAL TRIALS documented in this encounter Plan of Treatment Scheduled Orders Name Type Priority Associated Diagnoses Orde r Schedule Management Visit Radiation Oncology Routine Primary Malignant Neoplasm Of Prostate (HCC) Once for 1 Occurrences starting 02/15/2023 until 02/15/2023 documented as of this encounter Visit Diagnoses Diagnosis Primary Malignant Neoplasm Of Prostate (HCC) documented in this encounter Care Teams Circle Shear Operator Relationship Specialty Start Date End Date Elsewhere, Pcp PCP - General Internal Medicine 11/23/22 documented as of this encounter
--- OUTSIDE RECORDS SUMMARY | 2023-03-21 08:15 | XMS_ITS | Encounter Summary ---
Author Name Unknown Organization [facility] Address [address] [place] [address] Care Team Providers Care Licensed Marine Engineer Name Role Phone Elsewhere, Pcp Primary Care Provider Unavailabl e Encounter Details Date Type Department Care Team (Late st Contact Info) Description 02/21/2023 1:09 PM [facility] Hospital Encounter Department of Radiation Oncology in [place], [place] [address] [place] [address] Stanislaw Alan M.D. [address] [place] [phone] Social History Tobacco Use Types Packs/Day Years [...] your living situation today? I have a [facility] place to live 12/02/2022 Sex and Gender Information Value Date Recorded Sex Assigned at Male 12/02/2022 9:58 AM CDT Gender Identity Male 12/02/2022 9:58 AM CDT Sexual Orientation Straight 12/02/2022 9: 58 AM CDT documented as of this encounter Plan of Treatment Not on file documented as of this encounter Visit Diagnoses Not on filedocumented in this encounter Care Teams Licensed Marine Engineer Relationship Specialty Start Date End Date Elsewhere, Pcp PCP - General Internal Medicine 11/23/22 documented as of this encounter
--- OUTSIDE RECORDS SUMMARY | 2023-03-21 08:15 | XMS_ITS | Encounter Summary ---
Author Name Unknown Organization [facility] Address [address] [place] [address] Care Team Providers Care Ice Carver Name Role Phone Elsewhere, Pcp Primary Care Provider Unavailabl e Reason for Referral * Radiation Therapy (Routine) - Authorized Specialty Diagnoses / Procedures Referred By Contmarychuy t Referred To Contact Diagnoses Primary Malignant Neoplasm Of Prostate (HCC) Procedures Management Visit Stanislaw Alan M.D. [address] [place] [phone] [facility] Region Referral ID Status Reason Start Date Expiration Date V isits Requested Visits Authorized [id number] Authorized 01/11/2023 01/11/2024 10 10 STMAS TREE GROWER Reason for Visit * Radiation Therapy (Routine) - Authorized Specialty Diagnoses / Procedures Referred By Tomy meade Referred To Contact Diagnoses Primary Malignant Neoplasm Of Prostate (HCC) Procedures Management Visit Stanislaw Alan M.D. [address] [place] [phone] [facility] Region Referral ID Status Reason Start Date Expiration Date V isits Requested Visits Authorized [id number] Authorized 01/11/2023 01/11/2024 10 10 Encounter Details Date Type Department Care Team (Latest Contact Info) Description 02/09/2023 9:27 AM CHRISTMAS TREE GROWER - 02/09/2023 6:35 PM [facility]STM[facility] Hospital Encounter Department of Radiation Oncology in [place], [place] [address] [place] [address] Stanislaw Alan M.D. [address] [place] [phone] Primary Malignant Neoplasm Of Prostate (HCC) Social [...] your living situation today? I have a [facility] place to live 12/02/2022 Sex and [...] (121 lb 7.6 oz) 02/09/2023 10:06 AM CHRISTMAS TREE GROWER Height - - Body Mass Index 20.46 [...] Prostate (HCC) SUPERVISED BY: Stanislaw Alan M.D. ([id number]) HISTORY OF PRESENT ILLNESS Mr. Norm Sandoval is a 82 y.o. 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 Patient received a leuprolide 7.5 mg injection on January 28, 2023 at [facility] with a plan for 4-6 months of ADT. Treatment Course: 1xProstate Plan ID Fractions Dose / Fraction (cGy) Dose Treated (cGy) Dose Planned (cGy) First Treatment Last Treatment Elapsed Days [id number] 02/09/2023 02/09/2023 0 Course Summary 02/09/2023 02/09/2023 [...] mg injection on January 28, 2023 at [facility]; plan for 4-6 months of ADT #4 Constipation #5 Radiotherapy to prostate initiated on February 09, 2023; anticipated completion on March 16, 2023 The patient is tolerating radiation treatment well overall. Patient received his first Leuprolide 7.5 mg injection at [facility]. He is scheduled for his next one of February 25, 2023. Patient will have his nurse education visit tomorrow. He will continue with radiation treatment as planned. He will contact our care team with any questions or concerns. Signed by: Анна Miramontes R.N. 02/09/2023 10:44 AM CHRISTMAS TREE GROWER I saw and evaluated the patient and [...] by: Stanislaw Alan M.D. 02/09/2023 6:35 PM CHRISTMAS TREE GR[facility] [address] [place] [address] STMAS TREE GROWER documented in this encounter Plan of Treatment Scheduled Orders Name Type Priority Associated Diagnoses Orde r Schedule Management Visit Radiation Oncology Routine Primary Malignant Neoplasm Of Prostate (HCC) Once for 1 Occurrences starting 02/09/2023 until 02/09/2023 documented as of this encounter Visit Diagnoses Diagnosis Primary Malignant Neoplasm Of Prostate (HCC) documented in this encounter Care Teams Ice Carver Relationship Specialty Start Date End Date Elsewhere, Pcp PCP - General Internal Medicine 11/23/22 documented as of this encounter
--- OUTSIDE RECORDS SUMMARY | 2023-03-21 08:15 | XMS_ITS | Encounter Summary ---
Author Name Unknown Organization [facility] Address [address] [place] [address] Care Team Providers Care Bird Tender Name Role Phone Elsewhere, Pcp Primary Care Provider Unavailabl e Reason for Visit * Radiation Therapy (Routine) - Closed Specialty Diagnoses / Procedures Referred By Tomy t Referred To Contact Diagnoses Primary Malignant Neoplasm Of Prostate (HCC) Procedures Initial Rad Onc Treatment Planning CT Simulation Stanislaw Alan M.D. [address] [place] [phone] [facility] Region Referral ID Status Reason Start Date Expiration Date Visits Re quested Visits Authorized [id number] Closed 01/11/2023 01/11/2024 1 1 Encounter Details Date Type Department Care Team (Latest Contact Info) Description 02/01/2023 8:41 AM PERSONNEL GENERALIST MANAGER - 02/01/2023 10:35 AM [facility] Hospital Encounter Department of Radiation Oncology in [place], [place] [address] [place] [address] Stanislaw Alan M.D. [address] [place] [phone] Primary Malignant Neoplasm Of Prostate (HCC) (Primary [...] planning. CT images were transferred to the [employer] treatment planning system, after a reference isocenter was determined and marked. Segmentation and treatment planning will take place prior to treatment delivery. Patient set up and imaging was appropriate and completed without incident. Digital Press Operator use:No ONNEL GENERALIST MANAGER Associated attestation - Stanislaw Alan M.D. - 02/01/2023 10:33 AM PERSONNEL GENERALIST MANAGER I was available for the entirety of the procedure but only present for image review and rectal gas evacuation. Signed by: Stanislaw Alan M.D. 02/01/23 10:33 AM PERSONNEL GENERALIST MANAGER [facility] Radiation Therapy [facility] documented in this encounter Plan of Treatment Not on file documented as of this encounter Procedures Procedure Name Priority Date/Time Associated Diagnosis Comments INITIAL RAD ONC TREATMENT PLANNING CT SIMULATION Routine 02/01/2023 9:00 AM PERSONNEL GENERALIST MANAGER Primary Malignant Neoplasm Of Prostate (HCC) documented in this encounter Results * Initial Rad Onc Treatment Planning CT Simulation (02/01/2023 9:00 AM PERSONNEL GENERALIST MANAGER) Narrative [facility] - 02/01/2023 9:00 AM PERSONNEL GENERALIST MANAGER Carla Adam, RTT ? 02/01/2023 ??9:54 AM Initial Rad Onc Treatment Planning CT Simulation Performed by: Stanislaw Alan M.D. Authorized by: Stanislaw Alan M.D. ?? Stanislaw Alan M.D. RADIATION ONCOLOGY ORDERABLES Performing Organization Address City/State/[facility] Co de Phone Number HEFLIN JERRI documented in this encounter Visit Diagnoses Diagnosis Primary Malignant Neoplasm Of Prostate (HCC)- Primary documented in this encounter Care Teams Bird Tender Relationship Specialty Start Date End Date Elsewhere, Pcp PCP - General Internal Medicine 11/23/22 documented as of this encounter
--- OUTSIDE RECORDS SUMMARY | 2023-03-21 08:15 | XMS_ITS | Encounter Summary ---
Author Name Unknown Organization [facility] Address [address] [place] [address] Care Team Providers Care Net Developer Software Engineer C Name Role Phone Elsewhere, Pcp Primary Care Provider Unavailabl e Encounter Details Date Type Department Care Team (Latest Contact Info) Description 02/18/2023 1:09 PM MAT ROLLER - 02/18/2023 11:59 PM MAT ROLLER Hospital Encounter Department of Radiation Oncology in [place], [place] [address] [place] [address] Stanislaw Alan M.D. [address] [place] [address] Discharge Disposition: Home or Self Care Social [...] your living situation today? I have a [facility] place to live 12/02/2022 Sex and [...] on filedocumented in this encounter Care Teams Net Developer Software Engineer C Relationship Specialty Start Date End Date Elsewhere, Pcp PCP - General Internal Medicine 11/23/22 documented as of this encounter
--- OUTSIDE RECORDS SUMMARY | 2023-03-21 08:15 | XMS_ITS | Encounter Summary ---
Author Name Unknown Organization [facility] Address [address] [place] [address] Care Team Providers Care Supervisor Liquid Yeast Name Role Phone Elsewhere, Pcp Primary Care Provider Unavailabl e Reason for Referral * Specialty Diagnoses / Procedures Referred By Contac t Referred To Contact Sully Yeung APRN, C.N.P., D.N.P. [address] [place] [phone] [facility] Region Referral ID Status Reason Start Date Expiration Date Visits Re quested Visits Authorized ER PRESS OPERATOR Encounter Details Date Type Department Care Team (Latest Contact Info) Description 02/10/2023 10:52 AM SINTER PRESS OPERATOR - 02/10/2023 2:47 PM SINTER PRESS OPERATOR Hospital Encounter Department of Radiation Oncology in [place], [place] [address] [place] [address] Stanislaw Alan M.D. [address] [place] [phone] Анна Miramontes RMichelleNMichelle [address] [place] [phone] Primary Malignant Neoplasm Of Prostate (HCC) Social [...] your living situation today? I have a [facility] place to live 12/02/2022 Sex [...] at any point, with questions or concerns. ER PRESS OPERATOR documented in this encounter Plan of Treatment Scheduled Referrals Name Type Priority Associated Diagnoses Order Schedule Radiation Oncology - Nurse education visit (clinic) Outpatient Referral Routine Primary Malignant Neoplasm Of Prostate (HCC) Once for 1 Occurrences starting 02/10/2023 until 02/10/2023 documented as of this encounter Visit Diagnoses Diagnosis Primary Malignant Neoplasm Of Prostate (HCC) documented in this encounter Care Teams Supervisor Liquid Yeast Relationship Specialty Start Date End Date Elsewhere, Pcp PCP - General Internal Medicine 11/23/22 documented as of this encounter
--- OUTSIDE RECORDS SUMMARY | 2023-03-21 08:15 | XMS_ITS | Encounter Summary ---
Author Name Unknown Organization [facility] Address [address] [place] [address] Care Team Providers Care Economic Developer Name Role Phone Elsewhere, Pcp Primary Care Provider Unavailabl e Encounter Details Date Type Department Care Team (Latest Contact Info) Description 02/10/2023 10:51 AM [facility] Hospital Encounter Department of Radiation Oncology in [place], [place] [address] [place] [address] Stanislaw Alan M.D. [address] [place] [phone] Discharge Disposition: Home or Self Care Social [...] situation today? I have a [facility] place to live 12/02/2022 Sex and [...] on filedocumented in this encounter Care Teams Economic Developer Relationship Specialty Start Date End Date Elsewhere, Pcp PCP - General Internal Medicine 11/23/22 documented as of this encounter
--- OUTSIDE RECORDS SUMMARY | 2023-03-21 08:15 | XMS_ITS | Encounter Summary ---
Author Name Unknown Organization [facility] Address [address] [place] [address] Care Team Providers Care Spring Manufacturing Set Up Technician Name Role Phone Elsewhere, Pcp Primary Care Provider Unavailabl e Encounter Details Date Type Department Care Team (Latest Contact Info) Description 02/09/2023 9:24 AM READINESS PARAPROFESSIONAL - 02/09/2023 9:26 AM [facility] Hospital Encounter Department of Radiation Oncology in [place], [place] [address] [place] [address] Stanislaw Alan M.D. [address] [place] [address] Discharge Disposition: Home or Self Care Social [...] on filedocumented in this encounter Care Teams Spring Manufacturing Set Up Technician Relationship Specialty Start Date End Date Elsewhere, Pcp PCP - General Internal Medicine 11/23/22 documented as of this encounter
--- OUTSIDE RECORDS SUMMARY | 2023-03-21 08:16 | XMS_ITS | Encounter Summary ---
Author Name Unknown Organization [facility] Address [address] [place] [address] Care Team Providers Care Rn Anesthetist Name Role Phone Unavailable Primary Care Provider Unavailabl e Reason for Visit * Reason Comments Results * Appointment Request (Routine) - Closed Specialty Diagnoses / Procedures Referred By Tomy t Referred To Contact Urology Referral ID Status Reason Start Date Expiration Date Visits Re quested Visits Authorized [id number] Closed 08/17/2022 08/17/2023 1 1 Encounter Details Date Type Department Care Team (Late st Contact Info) Description 11/04/2022 11:00 AM CDT Office Visit Department of Urology in [place], [place] [address] [phone] Geovanna Kennedy APRN, C.N.P. [address] [phone] Elevated Prostate-Specific Antigen (Primary Dx); [...] transperineal prostate biopsy with our colleagues at [facility]. We discussed the transperineal procedure, discussed that he will need a screw driver operator the day of procedure as he would [...]
--- OUTSIDE RECORDS SUMMARY | 2023-03-21 08:16 | XMS_ITS | Encounter Summary ---
Author Name Unknown Organization [facility] Address [address] [place] [address] Care Team Providers Care Advertising Traffic Manager Name Role Phone Elsewhere, Pcp Primary [...] on filedocumented in this encounter Care Teams Advertising Traffic Manager Relationship Specialty Start Date End Date Elsewhere, Pcp PCP - General Internal Medicine 11/23/22 documented as of this encounter
--- OUTSIDE RECORDS SUMMARY | 2023-03-21 08:16 | XMS_ITS | Encounter Summary ---
Author Name Unknown Organization [facility] Address [address] [place] [address] Care Team Providers Care Transit Mixer Driver Name Role Phone Unavailable Primary Care Provider Unavailabl e Reason for Referral * MRI/CAT/PET Scan (Routine) - Closed Specialty Diagnoses / Procedures Referred By Tomy meade Referred To Contact Radiology Diagnoses Elevated Prostate-Specific Antigen Procedures MR Prostate without and with IV Contrast Geovanna Kennedy APRN, C.N.P. [address] [phone] [facility] Referral ID Status Reason Start Date Expiration Date Visits Re quested Visits Authorized [id number] Closed 06/14/2022 06/14/2023 1 1 Reason for Visit * Reason Comments Follow-up Biopsy results * Outpatient (Routine) - Closed Specialty Diagnoses / Procedures Referred By Tomy meade Referred To Contact Urology Geovanna Kennedy APRN, C.N.P. [address] [phone] [facility] Referral ID Status Reason Start Date Expiration Date Visits Re quested Visits Authorized [id number] Closed 06/01/2022 05/31/2025 1 1 Encounter Details Date Type Department Care Team (Late st Contact Info) Description 06/14/2022 11:30 AM CDT Office Visit Department of Urology in [place], [place] [address] [place] [phone] Geovanna Kennedy APRN, C.N.P. [address] [place] [phone] Elevated Prostate-Specific Antigen (Primary Dx) Social [...] each with a diameter of 0.1 cm. [facility] Interpretation FINAL DIAGNOSIS A. Prostate, right biopsy: [...] on file documented as of this encounter Results * [...] 14.6(H) <=7.2 ng/mL 10/27/2022 12:24 PM CDT OW Comment: ----ADDITIONAL INFORMATION---- The testing method is [...] Geovanna Kennedy APRN, C.N.P. LAB BLOOD ADD-ON [facility] [address] [place] [address], [facility] OWAT [facility] in [place] [address] [place] [address] documented in this encounter Visit Diagnoses Diagnosis Elevated Prostate-Specific Antigen- Primary Elevated Prostate-Specific Antigen documented in this encounter
--- OUTSIDE RECORDS SUMMARY | 2023-03-21 08:16 | XMS_ITS | Encounter Summary ---
Author Name Unknown Organization [facility] Address [address] [place] [address] Care Team Providers Care Lime Kiln And Recausticizing Operator Name Role Phone Elsewhere, Pcp Primary Care Provider Unavailabl e Reason for Referral * Outpatient (Routine) - Closed Specialty Diagnoses / Procedures Referred By Tomy meade Referred To Contact Radiation Oncology Diagnoses Primary Malignant Neoplasm Of Prostate (HCC) Geovanna Kennedy APRN, C.N.P. [address] [phone] [facility] Region Referral ID Status Reason Start Date Expiration Date Visits Re quested Visits Authorized [id number] Closed 12/02/2022 12/02/2023 1 1 Scheduling Instructions [place] Reason for Visit * Reason Comments Follow-up * Appointment Request (Routine) - Closed Specialty Diagnoses / Procedures Referred By Tomy meade Referred To Contact Urology Geovanna Kennedy APRN, C.N.P. [address] [place] [phone] Referral ID Status Reason Start Date Expiration Date Visits Re quested Visits Authorized [id number] Closed 11/29/2022 11/29/2023 1 1 Encounter Details Date Type Department Care Team (Late st Contact Info) Description 12/02/2022 10:30 AM CDT Office Visit Department of Urology in [place], [place] [address], [place] [address] Geovanna Kennedy APRN, C.N.P. [address], [place] [address] Primary Malignant Neoplasm Of Prostate [...] your living situation today? I have a [facility] place to live 12/02/2022 Sex and Gender [...] his for follow-up after prostate biopsy at [facility]. The following portions of the patient's history [...] Prostatic adenocarcinoma Type: Acinar Grade Group and [place] score: Grade Group 2 (Bethany Score 3+4=7) Percentage of pattern 4: 10% Tumor involves 10% of overall specimen (1 of 1 core). D. Prostate, right posterior lateral base, needle core biopsy: Benign prostatic tissue E. Prostate, right anterior horn, needle core biopsy: Prostatic adenocarcinoma Type: Acinar Grade Group and [place] score: Grade Group 2 (Bethany Score 3+4=7) Percentage of pattern 4: 25-50% Tumor involves 5% of overall specimen (1 of 2 cores). Most affected core is involved by tumor over 10% of its length. F. Prostate, right anterior apex, needle core biopsy: Prostatic adenocarcinoma Type: Acinar Grade Group and Bethany score: Grade Group 2 (R[place] Score 3+4=7) Percentage of pattern 4: 25-50% [...] Group and Bethany score: Grade Group 2 (R[place] Score 3+4=7) Percentage of pattern 4: 25-50% [...] oncology with our radiation oncology team in [place]. He has numerous questions about the process of this, he is reassured that these questions will all be answered by the radiation oncology team. They will follow-up with us in the Urology Departmentas needed after completion of radiation therapy. - Radiation Oncology - consult (clinic); Future Signed by: Geovanna Kennedy APRN, C.N.P. 12/27/2022 7:29 AM WELL POINT PUMPING SUPERVISOR POINT PUMPING SUPERVISOR documented in this encounter Plan of Treatment Scheduled Referrals Name Type Priority Associated Diagnoses Orde r Schedule Radiation Oncology - consult (clinic) Outpatient Referral Routine Primary Malignant Neoplasm Of Prostate (HCC) Expected: 12/02/2022 (Approximate), Expires: 03/04/2024 documented as of this encounter Visit Diagnoses Diagnosis Primary Malignant Neoplasm Of Prostate (HCC)- Primary documented in this encounter Care Teams Lime Kiln And Recausticizing Operator Relationship Specialty Start Date End Date Elsewhere, Pcp PCP - General Internal Medicine 11/23/22 documented as of this encounter
--- OUTSIDE RECORDS SUMMARY | 2023-03-21 08:16 | XMS_ITS | Encounter Summary ---
Author Name Unknown Organization [facility] Address [address] [place] [address] Care Team Providers Care Secondary Social Studies Teacher Name Role Phone Elsewhere, Pcp Primary Care Provider Unavailabl e Encounter Details Date Type Department Care Team (Late st Contact Info) Description 11/23/2022 10:07 AM CDT - 11/23/2022 11:10 AM CDT Surgery Outpatient Procedure Center in [place], [place] [address] [place] [phone] Goyo Rizzo M.D. [address] [place] [address] PATIENT PREFERS AFTER 10 AM. BIOPSY TRANSPERINEAL [...] were taken through the perineum using the [employer] transperineal access system. NAVEED 1 - Right peripheral zone. 4 Biopsy cores. The needle location was captured on the work station and saved to a three dimensional data set file. Instrument Installer systematic biopsies were then taken in a [...] are submitted in cassette D2. Grossed by ALEAH. G: Received on a biopsy board filled [...] submitted en toto incassette M1. ??Grossed by AJLeonidas. N: Received in formalin labeled with the [...] ??Prostatic adenocarcinoma Type: Acinar Grade Group and Weyerhaeuser score: Grade Group 2 (Weyerhaeuser Score 3+4=7) Percentage of pattern 4: 10% Tumor involves 10% of overall specimen (1 of 1 core). D. Prostate, right posterior lateral base, needle core biopsy: ??Benign prostatic tissue E. Prostate, right anterior horn, needle core biopsy: Prostatic adenocarcinoma Type: Acinar Grade Group ??and Weyerhaeuser score: Grade Group 2 (Bethany Score 3+4=7) Percentage of pattern 4: 25-50% Tumor involves 5% of overall specimen (1 of 2 cores). Most affected core is involved by tumor over 10% of its length. F. Prostate, right anterior apex, needle core biopsy: Prostatic adenocarcinoma Type: Acinar Grade Group and Bethany score: Grade Group 2 (Weyerhaeuser Score 3+4=7) Percentage of pattern 4: 25-50% [...] Prostatic adenocarcinoma Type: Acinar Grade Group ??and Weyerhaeuser score: Grade Group 2 (Bethany Score 3+4=7) [...] Goyo Rizzo M.D. LAB SURG PATH ORDERA JOVAN [facility] [address] [place] [address], [facility] DTL [address] [place] [address] documented in this encounter Visit Diagnoses Diagnosis [...] (Given - Provid er: Elizabeth Lopez APRN, TELLO) lidocaine-BUPivacaine 1%-0.25% infiltration injection (COMPLETED) infiltration, [...] injection documented in this encounter Care Teams Secondary Social Studies Teacher Relationship Specialty Start Date End Date Elsewhere, Pcp PCP - General Internal Medicine 11/23/22 documented as of this encounter
--- OUTSIDE RECORDS SUMMARY | 2023-03-21 08:16 | XMS_ITS | Encounter Summary ---
Author Name Unknown Organization [facility] Address [address] [place] [address] Care Team Providers Care Production Clerk Name Role Phone Unavailable Primary Care Provider [...]
--- OUTSIDE RECORDS SUMMARY | 2023-03-21 08:16 | XMS_ITS | Encounter Summary ---
Author Name Unknown Organization [facility] Address [address] [place] [address] Care Team Providers Care Foundry Process Engineer Name Role Phone Unavailable Primary Care Provider Unavailabl e Reason for Referral * Outpatient (Routine) - Closed Specialty Diagnoses / Procedures Referred By Contac t Referred To Contact Urology Geovanna Kennedy APRN, C.N.P. [address] [phone] [facility] Referral ID Status Reason Start Date Expiration Date Visits Re quested Visits Authorized [id number] Closed 06/01/2022 05/31/2025 1 1 * Outpatient (Routine) - Closed Specialty Diagnoses / Procedures Referred By Contac t Referred To Contact Diagnoses Elevated Prostate-Specific Antigen Prostate Digital Rectal Examination Abnormal Procedures URO Biopsy - Prostate Geovanna Kennedy APRN, C.N.P. [address] [phone] [facility] Region Referral ID Status Reason Start Date Expiration Date Visits Re quested Visits Authorized [id number] Closed 06/01/2022 06/01/2023 1 1 Reason for Visit * Reason Comments Consult Elevated PSA * Appointment Request (Routine) - Closed Specialty Diagnoses / Procedures Referred By Contac t Referred To Contact Urology Referral ID Status Reason Start Date Expiration Date Visits Re quested Visits Authorized [id number] Closed 05/19/2022 05/19/2023 1 1 Encounter Details Date Type Department Care Team (Latest Contact Info) Description 06/01/2022 10:30 AM CDT Comprehensive Visit Department of Urology in [place], [place] [address] [place] [address] Geovanna Kennedy APRN, C.N.P. [address] [place] [address] Elevated Prostate-Specific Antigen (Primary Dx); [...] be sedated and will not need a regional tanker truck driver. You may eat your regular meals. You received a RX for antibiotics and a Fleets enema to olive picker at your pharmacy. Two hours prior [...] urology nurse at the clinic immediately at [phone] or .If after hours call [phone] to be connected to the acting section chief service. Complete your antibiotics as prescribed. At [...] Extremities: Warm, without edema or ulcerations. Musculoskeletal: [place] is symmetrical and balanced. ASSESSMENT / PLAN [...] No How strong are your night-time or retail training manager erections?: 1 = Penis is larger but [...]
--- OUTSIDE RECORDS SUMMARY | 2023-03-21 08:16 | XMS_ITS | Encounter Summary ---
Author Name Unknown Organization [facility] Address [address] [place] [address] Care Team Providers Care Certified Personal Trainer Name Role Phone Elsewhere, Pcp Primary Care Provider Unavailabl e Encounter Details Date Type Department Care Team (Latest Contact Info) Description 11/23/2022 8:28 AM CDT - 11/23/2022 1:13 PM CDT Hospital Encounter Outpatient Procedure Center in [place], [place] [address] [place] [address] Goyo Rizzo M.D. [address] [place] [address] Elevated Prostate-Specific Antigen Discharge Disposition: Home or [...] were taken through the perineum using the [employer] transperineal access system. NAVEED 1 - Right peripheral zone. 4 Biopsy cores. The needle location was captured on the work station and saved to a three dimensional data set file. Waste Machine Operator systematic biopsies were then taken in a [...] are submitted in cassette J1. Grossed by ALEAH. M: Received in formalin labeled with the patient's name, medical record number, and prostate-left anterior medial is a pale cuenca-pink softtissue core and two fragments, 0.1 cm in average diameter ranging from 0.2-2.5 cm in length. The specimens are submitted en toto incassette M1. ??Grossed by ALEAH. N: Received in formalin labeled with the [...] ??Prostatic adenocarcinoma Type: Acinar Grade Group and Roseboom score: Grade Group 2 (Bethany Score 3+4=7) Percentage of pattern 4: 10% Tumor involves 10% of overall specimen (1 of 1 core). D. Prostate, right posterior lateral base, needle core biopsy: ??Benign prostatic tissue E. Prostate, right anterior horn, needle core biopsy: Prostatic adenocarcinoma Type: Acinar Grade Group ??and Roseboom score: Grade Group 2 (Bethany Score 3+4=7) Percentage of pattern 4: 25-50% Tumor involves 5% of overall specimen (1 of 2 cores). Most affected core is involved by tumor over 10% of its length. F. Prostate, right anterior apex, needle core biopsy: Prostatic adenocarcinoma Type: Acinar Grade Group and Bethany score: Grade Group 2 (Roseboom Score 3+4=7) Percentage of pattern 4: 25-50% [...] Group ??and Bethany score: Grade Group 2 (Roseboom Score 3+4=7) Percentage of pattern 4: 25-50% [...] Rizzo M.D. LAB SURG PATH ORDERA JOVAN [facility] [address] [place] [address], [facility] DTL [address] [place] [address] documented in this encounter Visit Diagnoses Diagnosis [...] (Not Given - Pr ovider: Kristi Lovett RMichelleN. - Reason: Other - Comment: Duplicate order) acetaminophen tablet 1,000 mg (TYLENOL) (COMPLETED) 1,000 mg, oral, Once, On Tue11/23/22 at 1000, For 1 dose, Pre-Op, PreOp give in preprocedural area. 1005 (Given - Provid er: Kristi Lovett RIndio.) ceFAZolin injection 2 g (ANCEF) (COMPLETED) 2 [...] (New Bag - Prov ider: Kristi Lovett RAnne)1026 (Paused - Provider: Elizabeth Lopez APRN, CRNA [...] injection documented in this encounter Care Teams Certified Personal Trainer Relationship Specialty Start Date End Date Elsewhere, Pcp PCP - General Internal Medicine 11/23/22 documented as of this encounter
--- OUTSIDE RECORDS SUMMARY | 2023-03-21 08:16 | XMS_ITS | Encounter Summary ---
Author Name Unknown Organization [facility] Address [address] [place] [address] Care Team Providers Care Ramp Boss Name Role Phone Elsewhere, Pcp Primary Care Provider Unavailabl e Encounter Details Date Type Department Care Team (Late st Contact Info) Description 11/22/2022 Clinical Communication Department of Urology in [place], [place] [address] [place] [phone] Goyo Rizzo M.D. [address] [place] [address] Social History Tobacco Use Types Packs/Day Years [...] your living situation today? I have a [facility] place to live 12/02/2022 Sex and Gender Information Value Date Recorded Sex Assigned at Male 12/02/2022 9:58 AM CDT Gender Identity Male 12/02/2022 9:58 AM CDT Sexual Orientation Straight 12/02/2022 9: 58 AM CDT documented as of this encounter Plan of Treatment Not on file documented as of this encounter Visit Diagnoses Not on filedocumented in this encounter Care Teams Ramp Boss Relationship Specialty Start Date End Date Elsewhere, Pcp PCP - General Internal Medicine 11/23/22 documented as of this encounter
--- OUTSIDE RECORDS SUMMARY | 2023-03-21 08:16 | XMS_ITS | Encounter Summary ---
Author Name Unknown Organization [facility] Address [address] [place] [address] Care Team Providers Care Radio Repair Teacher Name Role Phone Elsewhere, Pcp Primary Care Provider Unavailabl e Encounter Details Date Type Department Care Team (Late st Contact Info) Description 11/23/2022 10:27 AM CDT Anesthesia Event Outpatient Procedure Center in [place], [place] [address] [place] [phone] Elizabeth Lopez APRN, TELLO [address] [place] [phone] Michael Anders Jr., M.D. [address] [place] [phone] Anesthesia Record Procedure Summary Procedure Name Responsible [...] Procedure Summary Date: 11/23/22 Room / Location: [address] / [facility] in [place], [place] Anesthesia Start: 1027 Anesthesia Stop: 1116 [...] Pre-op diagnosis: Elevated Prostate-Specific Antigen [R97.20]. Location: [place] [address] / [facility] in [place], [place] Surgeons: Goyo Rizzo M.D. Pertinent components [...] with patient /legal guardian or through an digital strategist. Risks/Benefits/Alternatives of Blood transfusion discussed with patient [...] mg documented in this encounter Care Teams Radio Repair Teacher Relationship Specialty Start Date End Date Elsewhere, Pcp PCP - General Internal Medicine 11/23/22 documented as of this encounter
--- OUTSIDE RECORDS SUMMARY | 2023-03-21 08:16 | XMS_ITS | Encounter Summary ---
Author Name Unknown Organization [facility] Address [address] [place] [address] Care Team Providers Care Tar Kettle Runner Name Role Phone Unavailable Primary Care Provider Unavailabl e Reason for Referral * MRI/CAT/PET Scan (Routine) - Closed Specialty Diagnoses / Procedures Referred By Tomy meade Referred To Contact Radiology Diagnoses Elevated Prostate-Specific Antigen Procedures MR Prostate without and with IV Contrast Geovanna Kennedy APRN, C.N.P. [address] [phone] [facility] Referral ID Status Reason Start Date Expiration Date Visits Re quested Visits Authorized [id number] Closed 06/14/2022 06/14/2023 1 1 Reason for Visit * MRI/CAT/PET Scan (Routine) - Closed Specialty Diagnoses / Procedures Referred By Tomy meade Referred To Contact Radiology Diagnoses Elevated Prostate-Specific Antigen Procedures MR Prostate without and with IV Contrast Geovanna Kennedy APRN, C.N.P. [address] [place] [phone] [facility] Referral ID Status Reason Start Date Expiration Date Visits Re quested Visits Authorized [id number] Closed 06/14/2022 06/14/2023 1 1 Encounter Details Date Type Department Care Team (Latest Contact Info) Description 11/01/2022 11:37 AM CDT - 11/01/2022 11:59 PM CDT Hospital Encounter Department of Radiology, [facility], in [place], [place] [address] [place] [address] Geovanna Kennedy APRN, C.N.P. [address] [address] Elevated Prostate-Specific Antigen Discharge Disposition: Home or [...] 1-100 mL 1-100 mL, intravenous, Once, On 11/01/22 at 1245, For 1 dose, Imaging Protocol Orders Given 11/01/2022 1:49 PM CDT 20 mL documented in this encounter
--- OUTSIDE RECORDS SUMMARY | 2023-03-21 08:16 | XMS_ITS | Encounter Summary ---
Author Name Unknown Organization [facility] Address [address] [place] [address] Care Team Providers Care Sign Language Teacher Name Role Phone Elsewhere, Pcp Primary Care Provider Unavailabl e Reason for Referral * Outpatient (Routine) - Closed Specialty Diagnoses / Procedures [facility] Referred To Contact Radiation Oncology Sully Yeung APRN, C.N.P., D.N.P. [address] [place] [address] Stanislaw Alna M.D. [address] [place] [phone] Referral ID Status Reason Start Date Expiration Date Visits Re quested Visits Authorized [id number] Closed 12/21/2022 12/20/2025 1 1 Scheduling Instructions After PSA, testosterone, CT abdomen and pelvis, and bone scan completed at [facility] ECTOR PENETRANT * Outpatient (Routine) - Closed Specialty Diagnoses / Procedures [facility] By [facility] Referred To Contact Radiation Oncology Diagnoses Primary Malignant Neoplasm Of Prostate (HCC) Geovanna Kennedy APRN, C.N.P. [address] [phone] [facility] Referral ID Status Reason Start Date Expiration Date Visits Re quested Visits Authorized [id number] Closed 12/02/2022 12/02/2023 1 1 Scheduling Instructions [place] ECTOR PENETRANT Reason for Visit * Outpatient (Routine) - Closed Specialty Diagnoses / Procedures Referred By Contac t Referred To Contact Radiation Oncology Diagnoses Primary Malignant Neoplasm Of Prostate (HCC) Geovanna Kennedy APRN, C.N.P. [address] [place] [address] [facility] Region Referral ID Status Reason Start Date Expiration Date Visits Re quested Visits Authorized [id number] Closed 12/02/2022 12/02/2023 1 1 Encounter Details Date Type Department Care Team (Latest Contact Info) Description 12/21/2022 10:18 AM INSPECTOR PENETRANT - 12/21/2022 12:50 PM INSPECTOR PENETRANT Hospital Encounter Department of Radiation Oncology in [place], [place] [address] [place] [address] Stanislaw Alan M.D. [address] [place] [address] Primary Malignant Neoplasm Of Prostate (HCC) (Primary [...] your living situation today? I have a [facility] place to live 12/02/2022 Sex and Gender Information Value Date Recorded Sex Assigned at Male 12/02/2022 9:58 AM CDT Gender Identity Male 12/02/2022 9:58 AM CDT Sexual Orientation Straight 12/02/2022 9: 58 AM CDT documented as of this encounter Last Filed Vital Signs Vital Sign Reading Time Taken Comments Blood Pressure 162/63 12/21/2022 10:30 AM INSPECTOR PENETRANT Pulse 67 12/21/2022 10:30 AM INSPECTOR PENETRANT Temperature 36.4 ??C (97.5 ??F) 12/21/2022 10:[address] Respiratory Rate - - Oxygen Saturation - - Inhaled Oxygen Concentration - - Weight 55.5 kg (122 lb 5.7 oz) 12/21/2022 10:30 AM INSPECTOR PENETRANT Height - - Body Mass Index 20.61 [...] Prostatic adenocarcinoma Type: Acinar Grade Group and Dover score: Grade Group 2 (Dover Score 3+4=7) Percentage of pattern 4: 10% Tumor involves 10% of overall specimen (1 of 1 core). D. Prostate, right posterior lateral base, needle core biopsy: Benign prostatic tissue E. Prostate, right anterior horn, needle core biopsy: Prostatic adenocarcinoma Type: Acinar Grade Group and Bethany score: Grade Group 2 (Dover Score 3+4=7) Percentage of pattern 4: 25-50% Tumor involves 5% of overall specimen (1 of 2 cores). Most affected core is involved by tumor over 10% of its length. F. Prostate, right anterior apex, needle core biopsy: Prostatic adenocarcinoma Type: Acinar Grade Group and Dover score: Grade Group 2 (Bethany Score 3+4=7) [...] Group and Bethany score: Grade Group 2 (Dover Score 3+4=7) Percentage of pattern 4: 25-50% [...] TRANSPERINEAL PROSTATE.; Surgeon: Goyo Rizzo M.D.; Location: [place] [address] OR FAMILY HISTORY Family History Problem Relation [...] proceed with this at soonest availability at [facility]. We will plan to see him a [...] Yeung APRN, C.N.P., D.N.P. 12/21/2022 11:42 AM INSPECTOR PENETRANT [facility] Radiation Therapy Center [address] [place], [place] [phone] ECTOR PENETRANT Associated attestation - Stanislaw Alan M.D. - 12/21/2022 12:49 PM INSPECTOR PENETRANT I saw and evaluated the patient and [...] 7.8 ng/mL. He was evaluated by Dr. Ruosseau that summer and elected for observation. Repeat [...] any memory difficulties. 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 His ECOG performance status is 1. OBJECTIVE [...] scan of the abdomen and pelvis at [facility] as well as a repeat PSA and testosterone level there. After this discussion, I provided the patient with a written summary of my recommendations. We willfinalize his plan of care when he returns for results of the above studies. I did ask that he bringhis , Nancy (goes by [employer]) along with him so that both of them could be clear on next steps. He agreed to do this. My thanks to Ms. Kennedy and Drs. Bhagat and Omar for the opportunity to participate in this patient's care. I have spent 60 minutes caring for this patient including both bbgb-vs-mfkt and ggy-jdjg-xl-face time. Signed by: Stanislaw Alan M.D. 12/21/22 12:49 PM INSPECTOR PENETRANT [facility] Radiation Therapy [facility] [place] documented in this encounter Miscellaneous Notes * Addendum Note - Janae Oh C.NKarlos - 12/21/2022 10:30 AM CSTEncounter addended by: Janae Oh C.NKarlos on: 12/21/2022 2:43 PM Actions taken: Letter saved ECTOR PENETRANT documented in this encounter Plan of Treatment [...] Primary documented in this encounter Care Teams Sign Language Teacher Relationship Specialty Start Date End Date Elsewhere, Pcp PCP - General Internal Medicine 11/23/22 documented as of this encounter
--- OUTSIDE RECORDS SUMMARY | 2023-03-21 08:16 | XMS_ITS | Clinical Summary ---
Author Name Unknown Organization [facility] [employer] Address [place], [place] [address] Care Team Providers Care Truck Mechanic Apprentice Name Role Phone Stefani Nelson MD Primary [...] Type Department Care Team Description 02/02/2023 Telephone [facility] [address] [place] [address] Angelito Gaxiola [employer] (/) 02/01/2023 Telephone [facility] [address] [place] [address] Angelito Gaxiola [facility] from Last 3 Months Immunizations Name Administration Dates Next Due COVID-19 vaccine ([employer] 30mcg/0.3mL) MUKUND Calzada 05/08/2020,04/17/2020 Social History Tobacco [...] Influenza for age 65+ 10/08/2022 Care Teams Truck Mechanic Apprentice Relationship Specialty Start Date End Date Stefani Nelson MD [address] [place], [place] [id number] PCP - General Family Practice 10/03/17
--- OUTSIDE RECORDS SUMMARY | 2023-03-21 08:16 | XMS_ITS | Encounter Summary ---
Author Name Unknown Organization [facility] Address [address] [place] [address] Care Team Providers Care Transportation Dispatcher Name Role Phone Unavailable Primary Care Provider Unavailabl e Encounter Details Date Type Department Care Team (Latest Contact Info) Description 10/27/2022 10:42 AM CDT - 10/27/2022 11:59 PM CDT Hospital Encounter Department of Laboratory Medicine in [place], [place] [address] [address] Geovanna Kennedy APRN, C.N.P. [address] [address] Elevated Prostate-Specific Antigen Discharge Disposition: [...] Geovanna Kennedy APRN, C.N.P. LAB BLOOD ADD-ON [facility] [address] [place] [address], [facility] in [place] [address] [place] [address] documented in this encounter Visit Diagnoses Diagnosis Elevated Prostate-Specific Antigen documented in this encounter
--- OUTSIDE RECORDS SUMMARY | 2023-03-21 08:16 | XMS_ITS | Encounter Summary ---
Author Name Unknown Organization [facility] Address [address] [place] [address] Care Team Providers Care Lather Apprentice Name Role Phone Elsewhere, Pcp Primary Care Provider Unavailabl e Reason for Referral * Outpatient (Routine) - Closed Specialty Diagnoses / Procedures Referred By Contac t Referred To Contact Radiation Oncology Stansilaw Alan M.D. [address] [place] [phone] [facility] Referral ID Status Reason Start Date Expiration Date Visits Re quested Visits Authorized [id number] Closed 01/11/2023 01/10/2026 1 1 Scheduling Instructions Prior to simulation IFIED FAMILY MEDIATOR * Outpatient (Routine) - Closed Specialty Diagnoses / Procedures Referred By Contac t Referred To Contact Radiation Oncology Sully Yeung APRN, C.N.PMichelle, D.N.P. [address] [place] [phone] Stanislaw Alan M.D. [address] [place] [phone] Referral ID Status Reason Start Date Expiration Date Visits Re quested Visits Authorized [id number] Closed 12/21/2022 12/20/2025 1 1 Scheduling Instructions After PSA, testosterone, CT abdomen and pelvis, and bone scan completed at [facility] IFIED FAMILY MEDIATOR * Specialty Diagnoses / Procedures Referred By Contac t Referred To Contact Sully Yeung APRN, C.N.P., D.N.P. [address] [place] [address] [facility] Region Referral ID Status Reason Start Date Expiration Date Visits Re quested Visits Authorized IFIED FAMILY MEDIATOR * Specialty Diagnoses / Procedures Referred By Contac t Referred To Contact Sully Yeung APRN CMichelleN.P., D.N.P. [address] [place] [address] [facility] Region Referral ID Status Reason Start Date Expiration Date Visits Re quested Visits Authorized IFIED FAMILY MEDIATOR * Radiation Therapy (Routine) - Authorized Specialty Diagnoses / Procedures Referred By Contac t Referred To Contact Diagnoses Primary Malignant Neoplasm Of Prostate (HCC) Procedures Management Visit Stanislaw Alan M.D. [address] [place] [address] [facility] Region Referral ID Status Reason Start Date Expiration Date V isits Requested Visits Authorized [id number] Authorized 01/11/2023 01/11/2024 10 10 IFIED FAMILY MEDIATOR * Radiation Therapy (Routine) - Authorized Specialty Diagnoses / Procedures Referred By Contac t Referred To Contact Diagnoses Primary Malignant Neoplasm Of Prostate (HCC) Procedures Prior Auth Rad Tx Stanislaw Alan M.D. [address] [place] [address] [facility] Referral ID Status Reason Start Date Expiration Date V isits Requested Visits Authorized [id number] Authorized 01/11/2023 01/11/2024 1 1 IFIED FAMILY MEDIATOR * Radiation Therapy (Routine) - Closed Specialty Diagnoses / Procedures Referred By Contac t Referred To Contact Diagnoses Primary Malignant Neoplasm Of Prostate (HCC) Procedures Initial Rad Onc Treatment Planning CT Simulation Stanislaw Alan M.D. [address] [place] [phone] [facility] Region Referral ID Status Reason Start Date Expiration Date Visits Re quested Visits Authorized [id number] Closed 01/11/2023 01/11/2024 1 1 IFIED FAMILY MEDIATOR Reason for Visit * Outpatient (Routine) - Closed Specialty Diagnoses / Procedures Referred By Contac t Referred To Contact Radiation Oncology Sully Yeung APRN, C.N.P., D.N.P. [address] [place] [phone] Stanislaw Alan M.D. [address] [place] [phone] Referral ID Status Reason Start Date Expiration Date Visits Re quested Visits Authorized [id number] Closed 12/21/2022 12/20/2025 1 1 Encounter Details Date Type Department Care Team (Latest Contact Info) Description 01/11/2023 8:40 AM CERTIFIED FAMILY MEDIATOR - 01/11/2023 5:14 PM CERTIFIED FAMILY MEDIATOR Hospital Encounter Department of Radiation Oncology in [place], [place] [address] [place] [address] Stanislaw Alan M.D. [address] [place] [phone] Primary Malignant Neoplasm Of Prostate (HCC) (Primary [...] your living situation today? I have a [facility] place to live 12/02/2022 Sex and Gender Information Value Date Recorded Sex Assigned at Male 12/02/2022 9:58 AM CDT Gender Identity Male 12/02/2022 9:58 AM CDT Sexual Orientation Straight 12/02/2022 9: 58 AM CDT documented as of this encounter Last Filed Vital Signs Vital Sign Reading Time Taken Comments Blood Pressure 154/68 01/11/2023 8:47 AM CERTIFIED FAMILY MEDIATOR Pulse 82 01/11/2023 8:47 AM CERTIFIED FAMILY MEDIATOR Temperature 36.4 ??C (97.6 ??F) 01/11/2023 8:47 AM CS T Respiratory Rate - - Oxygen Saturation - - Inhaled Oxygen Concentration - - Weight 55.7 kg (122 lb 12.7 oz) 01/11/2023 8:47 AM CERTIFIED FAMILY MEDIATOR Height - - Body Mass Index 20.68 [...] Group and Bethany score: Grade Group 2 (Charleston Score 3+4=7) Percentage of pattern 4: 10% [...] Group and Bethany score: Grade Group 2 (Charleston Score 3+4=7) Percentage of pattern 4: 25-50% [...] by a 7.5 mg leuprolide injection at [facility]. The patient and his had many questions [...] Yeung APRN, C.N.P., LazaroNMichellePMichelle 01/11/2023 11:06 AM CERTIFIED FAMILY MEDIATOR [facility] [address] [place] [address] IFIED FAMILY MEDIATOR Associated attestation - Stanislaw Alan M.D. - 01/11/2023 5:13 PM CERTIFIED FAMILY MEDIATOR I saw and evaluated the patient and [...] planning CT scan and planning MRI at [facility] on Tuesday, January 20, 2023. We will see him in follow-up prior to the simulation to answer any questions and to sign consent. The patient and his verbalized satisfaction with this plan. I have spent 60 minutes caring for this patient including ggrn-kc-akms and krk-yoiv-cl-face time. Signed by: Stanislaw Alan M.D. 01/11/23 5:13 PM CERTIFIED FAMILY MEDIATOR [facility] [place] documented in this encounter Miscellaneous Notes * Addendum Note - Janae Oh, C.N.A. - 01/11/2023 9:00 AM CSTEncounter addended by: Janae Oh C.N.AMichelle on: 01/12/2023 8:25 AM Actions taken: Letter saved IFIED FAMILY MEDIATOR documented in this encounter Plan of Treatment [...] Treatment Planning CT Simulation (02/01/2023 9:00 AM CERTIFIED FAMILY MEDIATOR) Narrative RICA GUTHRIE - 02/01/2023 9:00 AM CERTIFIED FAMILY MEDIATOR Carla Adam, RTT ? 02/01/2023 ??9:54 AM Initial Rad Onc Treatment Planning CT Simulation Performed by: Stanislaw Alan M.D. Authorized by: Stanislaw Alan M.D. ?? Stanisalw Alan M.D. RADIATION ONCOLOGY ORDERABLES RICA GUTHRIE na documented in this encounter Visit Diagnoses Diagnosis Primary Malignant Neoplasm Of Prostate (HCC)- Primary Primary Malignant Neoplasm Of Prostate (HCC)- Primary documented in this encounter Care Teams Lather Apprentice Relationship Specialty Start Date End Date Elsewhere, Pcp PCP - General Internal Medicine 11/23/22 documented as of this encounter
--- OUTSIDE RECORDS SUMMARY | 2023-03-21 08:16 | XMS_ITS | Encounter Summary ---
Author Name Unknown Organization [facility] Address [address] [place] [address] Care Team Providers Care Technical Communicator Name Role Phone Unavailable Primary Care Provider Unavailabl e Reason for Visit * Reason Comments Biopsy Prostate * Outpatient (Routine) - Closed Specialty Diagnoses / Procedures Referred By Contac t Referred To Contact Diagnoses Elevated Prostate-Specific Antigen Prostate Digital Rectal Examination Abnormal Procedures URO Biopsy - Prostate Geovanna Kennedy APRN, C.N.P. [address] [phone] [facility] Region Referral ID Status Reason Start Date Expiration Date Visits Re quested Visits Authorized [id number] Closed 06/01/2022 06/01/2023 1 1 Encounter Details Date Type Department Care Team (Latest Contact Info) Description 06/03/2022 11:30 AM CDT Procedure visit Department of Urology in [place], [place] [address] [address] Mariano Bhagat M.D. [address] [phone] Elevated Prostate-Specific Antigen; Prostate Digital [...] ultrasound and biopsy of the prostate (CPT 59286) Ultrasound guidance for transrectal prostate biopsy (CPT 50954) Transrectal prostate biopsy (CPT 75420) Peripheral Nerve Block (CPT 67610) INDICATION: Elevated prostate specific antigen of 13.7 The patient was appropriately identified with at least two separate identifiers and the correct procedure was confirmed. PROCEDURE: After obtaining informed consent, biplanar transrectal ultrasonography was performed with a BruelRaiingaer scanner. The patient did receive preoperative ciprofloxacin [...] each with a diameter of 0.1 cm. ESB, A. B: Submitted as left prostate are light cuenca cores up to 0.8 cm in length, each with a diameter of 0.1 cm. ESB B. c/nm 06/04/2022 10:59 AM CDT [facility] Interpretation FINAL DIAGNOSIS A. Prostate, right biopsy: Prostate tissue without diagnostic abnormality. B. Prostate, left biopsy: Prostate tissue without diagnostic abnormality. 06/04/2022 10:59 AM CDT MKTO Tissue 06/03/2022 11:5 2 AM CDT 06/03/2022 3:09 PM CDT Mariano Bhagat M.D. LAB SURG PATH ORDERDoc [facility] [address] [place] [address], [facility] MKTO [address] [place] [address] documented in this encounter Visit Diagnoses Diagnosis Elevated Prostate-Specific Antigen Prostate Digital Rectal Examination Abnormal documented in this encounter
== END 2023-03-18 07:37 | disposition home or self-care (01) ==
LOC: NFLDREF 03-21 08:09
PROVIDERS: PCP Family Medicine; Referring Provider Family Medicine; Visit Provider Family Medicine
DX: I10 Essential (primary) hypertension (principal)
CPT/HCPCS: 80048

== ENCOUNTER 2023-03-25 08:00 | Outpatient (RCR) | payer MEDICARE, BC, SELFPAY ==
--- NOTE | 2023-01-25 09:46 | URNOTE ---
Prior authorization is not required. Pt has Medicare/BC supplement. Services are based on medical necessity and follow medicare guidelines
[2023-01-28 11:37] VITALS: BP 132/71; PULSE 64; RESP 16; TEMP 36.6; O2SAT 99
[2023-01-28] MEDS: LEUPROLIDE ACETATE 7.5 MG (SQ) SYRINGE SUBCUT (11:57)
--- NOTE | 2023-01-28 12:07 | ONC.NURNOTE ---
Pt here for [facility]. VSS. Pt given written drug information on [facility], consent obtained.
[2023-02-25 08:30] VITALS: BP 158/81; PULSE 69; RESP 16; TEMP 36.1; O2SAT 99
[2023-02-25] MEDS: LEUPROLIDE ACETATE 7.5 MG (SQ) SYRINGE SUBCUT (08:46)
[2023-03-25 08:23] VITALS: BP 133/76; PULSE 70; RESP 16; TEMP 36.7; O2SAT 99
== END 2023-07-27 23:59 | disposition home or self-care (01) ==
LOC: CCIC 08:00
PROVIDERS: PCP Family Medicine; Referring Provider Family Medicine; Visit Provider Clinical Nurse Specialist
DX: C61 Malignant neoplasm of prostate (principal)
CPT/HCPCS: 96401; J9217

== ENCOUNTER 2023-10-25 07:50 | Outpatient (CLI) | payer MEDICARE, BC, SELFPAY ==
--- OUTSIDE RECORDS SUMMARY | 2023-10-25 07:53 | XMS_ITS | Encounter Summary ---
Author Organization [facility] Address [address] [place] [address] Care Team Providers Care Accounts Payable Lead Name Role Phone Elsewhere, Pcp Primary Care Provider Unavailabl e Encounter Details Date Type Department Care Team (Late st Contact Info) Description 09/30/2023 Orders Only Department of Radiation Oncology in [place], [place] [address] [place] [address] Sully Yeung, FINGER LIFT OPERATOR, C.N.P., D.N.P. [address] [place] [phone] Social History Tobacco Use Types Packs/Day Years [...] your living situation today? I have a [facility] place to live 12/02/2022 Sex and Gender Information Value Date Recorded Sex Assigned at Male 12/02/2022 9:58 AM CDT Gender Identity Male 12/02/2022 9:58 AM CDT Sexual Orientation Straight 12/02/2022 9: 58 AM CDT documented as of this encounter Plan of Treatment Upcoming Encounters Date Type Department Care Team (Latest Contact Info) Description 10/31/2023 11:30 AM CDT Clinical Communication Virtual Review in [place], [place] 200 [place] [address] 11/02/2023 2:00 PM CDT Appointment Department of Radiation Oncology in [address] [phone] Stanislaw Alan M.D. [address] [place] [phone] documented as of this encounter Visit Diagnoses Not on filedocumented in this encounter Care Teams Accounts Payable Lead Relationship Specialty Start Date End Date Elsewhere, Pcp PCP - General Internal Medicine 11/23/22 documented as of this encounter
--- OUTSIDE RECORDS SUMMARY | 2023-10-25 07:53 | XMS_ITS | Referral Summary ---
Author Organization [facility] Address [address] [place] [address] Care Team Providers Care Curriculum Coordinator Name Role Phone Elsewhere, Pcp Primary Care Provider Unavailabl e Source Comments Patient records contain information from all sites at [facility]. For routine questions regarding patient records, call [phone] during business hours, M-F 8:00 AM - 5:00 PM Central Time. Record requests for emergency care only can be directed to [phone] at any time.[facility] Encounters Date Type Department Care Team Description 09/30/2023 Orders Only Department of Radiation Oncology in [place], [place] [address] [place] [phone] Sully Yeung APRN, C.N.P., D.N.P. 08/12/2023 Clinical Communication Department of Radiation Oncology in [place], [place] [address] [place] [phone] Stanislaw Alan M.D. from Last 3 Months Allergies No known active allergies Medications Medication Sig Dispensed Refills Start Date End Date Status lisinopriL (PRINIVIL,ZESTRIL) 10 mg tablet Take 10 mg by mouth daily. Active multivit with minerals/lutein (MULTIVITAMIN 50 PLUS ORAL) Take 1 tablet by mouth. 09/02/2021 Active rosuvastatin (CRESTOR) 5 mg tablet Take 5 mg by mouth daily. 11/03/2022 Active bicalutamide (CASODEX) 50 mg tablet Take 1 tablet (50 mg total) by mouth daily for 21 days. Take at the same time everyday. Take with or without food. 21 tablet 01/11/2023 Active lisinopriL (PRINIVIL,ZESTRIL) 20 mg tablet 03/02/2023 Active Active Problems Problem Noted Date [...] your living situation today? I have a [facility] place to live 12/02/2022 Sex and Gender Information Value Date Recorded Sex Assigned at Male 12/02/2022 9:58 AM CDT Gender Identity Male 12/02/2022 9:58 AM CDT Sexual Orientation Straight 12/02/2022 9: 58 AM CDT Last Filed Vital Signs Vital Sign Reading Time Taken Comments Blood Pressure 144/67 01/20/2023 9:00 AM HOSPITAL SOCIAL WORKER Pulse 76 01/20/2023 9:00 AM HOSPITAL SOCIAL WORKER Temperature 36.6 ??C (97.8 ??F) 03/16/2023 2:06 PM CS T Respiratory Rate 16 11/23/2022 12:35 PM CDT Oxygen Saturation 96% 11/23/2022 12:35 PM CDT Inhaled Oxygen Concentration - - Weight 54.7 kg (120 lb 9.5 oz) 03/16/2023 2:06 P M HOSPITAL SOCIAL WORKER Height 164.1 cm (5' 4.61) 11/23/2022 10:14 AM C DT Body Mass Index 20.31 11/23/2022 10:14 AM CDT Plan of Treatment Upcoming Encounters Date Type Department Care Team (Latest Contact Info) Description 10/31/2023 11:30 AM CDT Clinical Communication Virtual Review in [place], [place] [address] [place] [address] 11/02/2023 2:00 PM CDT Appointment Department of Radiation Oncology in [place], [place] [address] [place] [address] Stanislaw Alan M.D. [address] [place] [phone] Advance Directives For more information, please contact: [phone] * Full Code (Latest Code Status on File) Date Activated Date Inactivated Comments 11/23/2022 9:44 AM 11/23/2022 3:18 PM Question Answer Comments Full Code: Discussed Care Teams Curriculum Coordinator Relationship Specialty Start Date End Date Elsewhere, Pcp PCP - General Internal Medicine 11/23/22
--- OUTSIDE RECORDS SUMMARY | 2023-10-25 07:53 | XMS_ITS ---
Author Organization [facility] Address [address] [place] [address] Care Team Providers Care Shoe Stainer Name Role Phone Elsewhere, Pcp Primary Care Provider Unavailabl e Active Problems Problem Noted Date Diagnosed Date Primary Malignant Neoplasm Of Prostate Cancer Staging:Clinical stage from 11/23/2022:Stage IIB(cT2a, cN0, cM0, PSA: 14.6, Grade Group: 2) - Unsigned Elevated Prostate-Specific Antigen 06/01/2022 Dysfunction Erectile 06/01/2022 Peyronie's Disease 06/01/2022 Loss Hearing Bilateral 06/01/2022 Current Oncology Plans No current plan information found. Past Plans Hem/Onc Therapy Plan 1 Plan Name Start Date Discontinue Date Treatment Medications Discontinue Reason Plan Provider Leuprolide Acetate Every 4 Weeks 01/20/2023 09/30/2023 No medications scheduled. Therapy Complete Stanislaw Alan M.D. Hem/Onc Therapy Plan 2 Plan Name Start Date Discontinue Date Treatment Medications Discontinue Reason Plan Provider Leuprolide Acetate Every 16 Weeks 03/16/2023 09/30/2023 No medications scheduled. Therapy Complete Stanislaw Alan M.D. Radiation Treatments * Plan Last Treated On Elapsed Days Fractions Treated Prescribed Fraction Dose Prescribed Total Dose [id number] 03/16/2023 35 26 of 26 270 cGy 7,020 cGy Reference Point Last Treated On Elapsed Days Session Dose Total Dose [id number] 03/16/2023 35 270 cGy 7,020 cGy
--- OUTSIDE RECORDS SUMMARY | 2023-10-25 07:53 | XMS_ITS ---
Author Organization [facility] Address [address] [place] [address] Care Team Providers Care Shoe Parts Molder Name Role Phone Unavailable Unavailable Unavailable Surgery Details Not on file Complications Check Surgery Details section. Procedure Estimated Blood Loss Check Surgery Details section. Procedure Findings Check Surgery Details section. Procedure Specimens Taken Check Surgery Details section.
--- OUTSIDE RECORDS SUMMARY | 2023-10-25 07:53 | XMS_ITS | Encounter Summary ---
Author Organization [facility] Address [address] [place] [address] Care Team Providers Care Justice Court Judge Name Role Phone Elsewhere, Pcp Primary Care Provider Unavailabl e Encounter Details Date Type Department Care Team (Late st Contact Info) Description 08/12/2023 Clinical Communication Department of Radiation Oncology in [place], [place] [address] [place] [address] Stanislaw Alan M.D. [address] [place] [address] Social History Tobacco Use Types Packs/Day Years [...] AM CDT Clinical Communication Virtual Review in [place], [place] [address] [place] [address] 11/02/2023 2:00 PM CDT Appointment Department of Radiation Oncology in [place], [place] [address] [place] [phone] Stanislaw Alan M.D. [address] [place] [address] documented as of this encounter Visit Diagnoses Not on filedocumented in this encounter Care Teams Justice Court Judge Relationship Specialty Start Date End Date Elsewhere, Pcp PCP - General Internal Medicine 11/23/22 documented as of this encounter
--- OUTSIDE RECORDS SUMMARY | 2023-10-25 07:53 | XMS_ITS | Clinical Summary ---
Author Organization [facility] Address [address] [place] [address] Care Team Providers Care Chocolate Finisher Name Role Phone Elsewhere, Pcp Primary Care Provider Unavailabl e Source Comments Patient records contain information from all sites at [facility]. For routine questions regarding patient records, call [phone] during business hours, M-F 8:00 AM - 5:00 PM Central Time. Record requests for emergency care only can be directed to [phone] at any time.[facility] Allergies No known active allergies Medications Medication [...] Orders Only Department of Radiation Oncology in [place], [place] [address] [place] [address] Kurtti, Sully Dubose APRN, C.N.PMichelle, D.N.P. 08/12/2023 Clinical Communication Department of Radiation Oncology in [place], [place] [address] [place] [address] Stanislaw Alan M.D. from Last 3 Months Family History Medical [...] your living situation today? I have a [facility] place to live 12/02/2022 Sex and Gender Information Value Date Recorded Sex Assigned at Male 12/02/2022 9:58 AM CDT Gender Identity Male 12/02/2022 9:58 AM CDT Sexual Orientation Straight 12/02/2022 9: 58 AM CDT Last Filed Vital Signs Vital Sign Reading Time Taken Comments Blood Pressure 144/67 01/20/2023 9:00 AM PHYSICAL THERAPIST ASSISTANT Pulse 76 01/20/2023 9:00 AM PHYSICAL THERAPIST ASSISTANT Temperature 36.6 ??C (97.8 ??F) 03/16/2023 2:06 PM CS T Respiratory Rate 16 11/23/2022 12:35 PM CDT Oxygen Saturation 96% 11/23/2022 12:35 PM CDT Inhaled Oxygen Concentration - - Weight 54.7 kg (120 lb 9.5 oz) 03/16/2023 2:06 P M PHYSICAL THERAPIST ASSISTANT Height 164.1 cm (5' 4.61) 11/23/2022 10:14 AM C DT Body Mass Index 20.31 11/23/2022 10:14 AM CDT Plan of Treatment Upcoming Encounters Date Type Department Care Team (Latest Contact Info) Description 10/31/2023 11:30 AM CDT Clinical Communication Virtual Review in [place], [place] [address] [place] [address] 11/02/2023 2:00 PM CDT Appointment Department of Radiation Oncology in [place], [place] [address] [place] [phone] Stanislaw Alan M.D. [address] [place] [address] Health Maintenance Due Date Last Done Comments Creatinine Level (Kidney Function Test) 1940 Potassium Level 1940 Sodium Level 1940 Depression Screening (Annual PHQ-2) 02/07/2023 COVID-19 Vaccine ( season) 2023 11/16/2022, 08/03/2022, 11/25/2021, Additional history exists Influenza Vaccine (#1) 2023 , 11/25/2021, 11/20/2020, Additional history exists DTaP,Tdap,and Td Vaccines (2 - Td or Tdap) 06/23/2027 06/22/2017 Pneumococcal vaccine (65+ years) Completed 06/27/2015, 04/09/2011 Zoster Vaccines Completed 03/01/2022, 08/0 05/2021, 04/09/2011 Fall Risk Screen (Annual) Completed 02/10/2023 HPV Vaccines Aged Out No longer eligi ble based on patient's age to complete this topic Advance Directives For more information, please contact: [phone] * Full Code (Latest Code Status on File) Date Activated Date Inactivated Comments 11/23/2022 9:44 AM 11/23/2022 3:18 PM Question Answer Comments Full Code: Discussed Care Teams Chocolate Finisher Relationship Specialty Start Date End Date Elsewhere, Pcp PCP - General Internal Medicine 11/23/22
--- OUTSIDE RECORDS SUMMARY | 2023-10-25 07:53 | XMS_ITS | Clinical Summary ---
Author Organization [facility] Address [place], [place] [address] Care Team Providers Care Quality Process Auditor Name Role Phone Stefani Nelson MD Primary [...] Encounters Date Type Department Care Team Description 08/19/2023 11:30 AM CDT Office Visit [facility] [address] [place] [address] Angelito Gaxiola AuD Hearing Aid 08/19/2023 Travel from Last 3 Months Immunizations Name Administration Dates Next Due COVID-19 vaccine (Pfizer-BioNTPandoo TEK 30mcg/0.3mL) MUKUND Calzada 05/08/2020,04/17/2020 Social History Tobacco [...] for age 50+ (1 of 2) 05/29/1989 RSV vaccine for adults or (1 - 1-dose 60+ series) 1999 Medicare Wellness for age 65+ 05/29/2004 Pneumococcal series for age 65+ (1 of 1 - PCV) 05/29/2004 COVID-19 vaccine series (2022- season) 2023 11/16/2022, 08/03/2022, 11/25/2021, Additional history exists Influenza for age 65+ 10/09/2023 Care Teams Quality Process Auditor Relationship Specialty Start Date End Date Stefani Nelson MD [address] [place], [place] [phone] PCP - General Family Practice 10/03/17
[2023-10-25 08:56] LABS: PSA Diagnostic* 0.08 ng/mL (0.10-4.00)
[2023-10-27 11:13] LABS: Testosterone, Adult Male 471 ng/dL (300-720)
== END 2023-10-25 07:51 | disposition home or self-care (01) ==
PROVIDERS: PCP Family Medicine; Visit Provider Internal Medicine
DX: C61 Malignant neoplasm of prostate (principal)
CPT/HCPCS: 36415; 84153; 84403

== ENCOUNTER 2023-11-04 07:34 | Outpatient (CLI) | payer MEDICARE, BC, SELFPAY ==
--- OUTSIDE RECORDS SUMMARY | 2023-11-04 11:53 | XMS_ITS ---
Author Organization [facility] Address [address] [place] [address] Care Team Providers Care Pathology Laboratory Director Name Role Phone Unavailable Unavailable Unavailable Surgery Details Not on file Complications Check Surgery Details section. Procedure Estimated Blood Loss Check Surgery Details section. Procedure Findings Check Surgery Details section. Procedure Specimens Taken Check Surgery Details section.
--- OUTSIDE RECORDS SUMMARY | 2023-11-04 11:53 | XMS_ITS ---
Author Organization [facility] Address [address] [place] [address] Care Team Providers Care Trenching Machine Operator Name Role Phone Elsewhere, Pcp Primary [...] Treated Prescribed Fraction Dose Prescribed Total Dose [id number] 03/16/2023 35 26 of 26 270 cGy 7,020 cGy Reference Point Last Treated On Elapsed Days Session Dose Total Dose [id number] 03/16/2023 35 270 cGy 7,020 cGy
--- OUTSIDE RECORDS SUMMARY | 2023-11-04 11:53 | XMS_ITS | Referral Summary ---
Author Organization [facility] Address [address] [place] [address] Care Team Providers Care Reservation Clerk Name Role Phone Elsewhere, Pcp Primary Care Provider Unavailabl e Source Comments Patient records contain information from all sites at [facility]. For routine questions regarding patient records, call [phone] during business hours, M-F 8:00 AM - 5:00 PM Central Time. Record requests for emergency care only can be directed to [phone] at any time.[facility] Encounters Date Type Department Care Team Description 11/02/2023 1:37 PM CDT Hospital Encounter Department of Radiation Oncology in [address] [address] Stanislaw Aaln M.D. Primary Malignant Neoplasm Of Prostate (HCC) (Primary Dx) 10/31/2023 11:30 AM CDT Clinical Communication Virtual Review in [place], [place] [address] [place] [address] 09/30/2023 Orders Only Department of Radiation Oncology in [address] [address] Sully Yeung APRN, C.N.P., D.N.P. 08/12/2023 Clinical Communication Department of Radiation Oncology in [address] [address] Stanislaw Alan M.D. from Last 3 Months [...] 01/11/2023 Active lisinopriL (PRINIVIL,ZESTRIL) 20 mg tablet Take 20 mg by mouth daily. 03/02/2023 Active Active Problems Problem Noted Date [...] pur e alcohol) Overall Financial Resource Strain (CARDI) Answe r Date Recorded How hard is [...] living? No 12/02/2022 Nutrition Answer Date Recorded On average, how many serving s of fruits and vegetables do you eat per day (serving size is equal to 1 cup or approximately the size of a tennis ball)? 0-2 12/02/2022 Dental Answer Date Recorded Dental: Regular Dentist Yes 12/03/19 Employment Answer Date Recorded Employment status Retired 12/02/2022 Housing Stability Answer Date Recorded What is your living situation today? I have a [facility] place to live 12/02/2022 Sex and Gender Information Value Date Recorded Sex Assigned at Male 12/02/2022 9:58 AM CDT Gender Identity Male 12/02/2022 9:58 AM CDT Sexual Orientation Straight 12/02/2022 9: 58 AM CDT Last Filed Vital Signs Vital Sign Reading Time Taken Comments Blood Pressure 140/66 11/02/2023 1:51 PM CDT Pulse 80 11/02/2023 1:51 PM CDT Temperature 36.7 ??C (98 ??F) 11/02/2023 1:51 PM CDT Respiratory Rate 16 11/23/2022 12:3 5 PM CDT Oxygen Saturation 96% 11/23/2022 12: 35 PM CDT Inhaled Oxygen Concentration - - Weight 57.6 kg (126 lb 15.8 oz) 11/02/2023 1:51 PM CDT Height 164.1 cm (5' 4.61) 11/23/2022 1 0:14 AM CDT Body Mass Index 21.39 11/23/2022 10:14 AM CDT Plan of Treatment Not on file Advance Directives For more information, please contact: [phone] * Full Code (Latest Code Status on File) Date Activated Date Inactivated Comments 11/23/2022 9:44 AM 11/23/2022 3:18 PM Question Answer Comments Full Code: Discussed Care Teams Reservation Clerk Relationship Specialty Start Date End Date Elsewhere, Pcp PCP - General Internal Medicine 11/23/22
--- OUTSIDE RECORDS SUMMARY | 2023-11-04 11:53 | XMS_ITS | Clinical Summary ---
Author Organization [facility] Address [address] [place] [address] Care Team Providers Care House Nurse Name Role Phone Elsewhere, Pcp Primary Care Provider Unavailabl e Source Comments Patient records contain information from all sites at [facility]. For routine questions regarding patient records, call [phone] during business hours, M-F 8:00 AM - 5:00 PM Central Time. Record requests for emergency care only can be directed to [phone] at any time.[facility] Allergies No known active allergies Medications [...] Hospital Encounter Department of Radiation Oncology in [place], [place] [address] [place] [address] Stanislaw Alan M.D. Primary Malignant Neoplasm Of Prostate (HCC) (Primary Dx) 10/31/2023 11:30 AM CDT Clinical Communication Virtual Review in [place], [place] [address] [place] [address] 09/30/2023 Orders Only Department of Radiation Oncology in [place], [place] [address] [place] [address] Sully Yeung APRN, C.N.P., D.N.P. 08/12/2023 Clinical Communication Department of Radiation Oncology in [place], [place] [address] [place] [address] Stanislaw Alan M.D. from Last 3 Months [...] your living situation today? I have a [facility] place to live 12/02/2022 Sex and [...] PHQ-2) 02/07/2023 COVID-19 Vaccine ( season) 2023 08/03/2022, 11/25/2021, 05/25/2021, Additional history exists Influenza Vaccine (#1) 2023 , 11/25/2021, 11/20/2020, Additional history exists DTaP,Tdap,and Td Vaccines (2 - Td or Tdap) 06/23/2027 06/22/2017 Pneumococcal vaccine (65+ years) Completed 06/27/2015, 04/09/2011 Zoster Vaccines Completed 03/01/2022, 08/0 05/2021, 04/09/2011 RSV vaccine - (32-36 weeks) or 60+ years Completed 01/17/2023 Fall Risk Screen (Annual) Completed 02/10/2023 HPV Vaccines Aged Out No longer eligi ble based on patient's age to complete this topic Advance Directives For more information, please contact: [phone] * Full Code (Latest Code Status on File) Date Activated Date Inactivated Comments 11/23/2022 9:44 AM 11/23/2022 3:18 PM Question Answer Comments Full Code: Discussed Care Teams House Nurse Relationship Specialty Start Date End Date Elsewhere, Pcp PCP - General Internal Medicine 11/23/22
--- OUTSIDE RECORDS SUMMARY | 2023-11-04 11:53 | XMS_ITS | Encounter Summary ---
Author Organization [facility] Address [address] [place] [address] Care Team Providers Care Senior Erp Consultant Name Role Phone Elsewhere, Pcp Primary Care Provider Unavailabl e Encounter Details Date Type Department Care Team (Late st Contact Info) Description 08/12/2023 Clinical Communication Department of Radiation Oncology in [place], [place] [address] [place] [address] Stanislaw Alan M.D. [address] [place] [address] Social History Tobacco Use Types Packs/Day Years [...] your living situation today? I have a [facility] place to live 12/02/2022 Sex and Gender Information Value Date Recorded Sex Assigned at Male 12/02/2022 9:58 AM CDT Gender Identity Male 12/02/2022 9:58 AM CDT Sexual Orientation Straight 12/02/2022 9: 58 AM CDT documented as of this encounter Plan of Treatment Not on file documented as of this encounter Visit Diagnoses Not on filedocumented in this encounter Care Teams Senior Erp Consultant Relationship Specialty Start Date End Date Elsewhere, Pcp PCP - General Internal Medicine 11/23/22 documented as of this encounter
--- OUTSIDE RECORDS SUMMARY | 2023-11-04 11:53 | XMS_ITS | Clinical Summary ---
Author Organization [facility] Address [place], [place] [address] Care Team Providers Care Marketing Development Specialist Name Role Phone Stefani Nelson MD Primary [...] Description 08/19/2023 11:30 AM CDT Office Visit [facility] [address] [place] [address] Angelito Gaxiola AuD Hearing Aid 08/19/2023 Travel from Last 3 Months Immunizations Name Administration Dates Next Due COVID-19 vaccine ([facility] 30mcg/0.3mL) MUKUND Calzada 05/08/2020,04/17/2020 Social History Tobacco [...] 65+ (1 of 1 - PCV) 05/29/2004 RSV vaccine for adults or (1 - 1-dose 75+ series) 05/29/2014 COVID-19 vaccine series (2023- season) 2023 11/16/2022, 08/03/2022, 11/25/2021, Additional history exists Influenza for age 65+ 10/09/2023 Care Teams Marketing Development Specialist Relationship Specialty Start Date End Date Stefani Nelson MD [address] [place], [place] [phone] PCP - General Family Practice 10/03/17
--- OUTSIDE RECORDS SUMMARY | 2023-11-04 11:53 | XMS_ITS | Encounter Summary ---
Author Organization [facility] Address [address] [place] [address] Care Team Providers Care Paint Mixer Hand Name Role Phone Elsewhere, Pcp Primary Care Provider Unavailabl e Encounter Details Date Type Department Care Team (Late st Contact Info) Description 09/30/2023 Orders Only Department of Radiation Oncology in [place], [place] [address] [place] [address] Sully Yeung, MANAGER STERILE, C.N.P., D.N.P. [address] [place] [phone] Social History Tobacco Use Types Packs/Day Years [...] your living situation today? I have a [facility] place to live 12/02/2022 Sex and Gender Information Value Date Recorded Sex Assigned at Male 12/02/2022 9:58 AM CDT Gender Identity Male 12/02/2022 9:58 AM CDT Sexual Orientation Straight 12/02/2022 9: 58 AM CDT documented as of this encounter Plan of Treatment Not on file documented as of this encounter Visit Diagnoses Not on filedocumented in this encounter Care Teams Paint Mixer Hand Relationship Specialty Start Date End Date Elsewhere, Pcp PCP - General Internal Medicine 11/23/22 documented as of this encounter
--- OUTSIDE RECORDS SUMMARY | 2023-11-04 11:53 | XMS_ITS | Encounter Summary ---
Author Organization [facility] Address [address] [place] [address] Care Team Providers Care Election Judge Name Role Phone Elsewhere, Pcp Primary Care Provider Unavailabl e Encounter Details Date Type Department Care Team (Latest Contact Info) Description 10/31/2023 11:30 AM CDT Clinical Communication Virtual Review in [place], [place] [address] [place] [address] Social History Tobacco Use Types Packs/Day Years [...] living situation today? I have a [facility] place to live 12/02/2022 Sex and Gender Information Value Date Recorded Sex Assigned at Male 12/02/2022 9:58 AM CDT Gender Identity Male 12/02/2022 9:58 AM CDT Sexual Orientation Straight 12/02/2022 9: 58 AM CDT documented as of this encounter Plan of Treatment Not on file documented as of this encounter Visit Diagnoses Not on filedocumented in this encounter Care Teams Election Judge Relationship Specialty Start Date End Date Elsewhere, Pcp PCP - General Internal Medicine 11/23/22 documented as of this encounter
--- OUTSIDE RECORDS SUMMARY | 2023-11-04 11:53 | XMS_ITS | Encounter Summary ---
Author Organization [facility] Address [address] [place] [address] Care Team Providers Care Ship Pilot Name Role Phone Elsewhere, Pcp Primary Care Provider Unavailabl e Reason for Referral * Outpatient (Routine) - Authorized Specialty Diagnoses / Procedures Referred By Contac t Referred To Contact Radiation Oncology Elda Zapata P.A.-C., M.SMichelle [address] [place] [phone] Stanislaw Alan M.D. [address] [place] [phone] Referral ID Status Reason Start Date Expiration Date V isits Requested Visits Authorized [id number] Authorized 11/02/2023 05/03/2025 1 1 Scheduling Instructions PSA prior at [facility] * Outpatient (Routine) - Closed Specialty Diagnoses / Procedures Referred By Contac t Referred To Contact Radiation Oncology Stanislaw Alan M.D. [address] [place] [phone] Stanislaw Alan M.D. [address] [place] [phone] Referral ID Status Reason Start Date Expiration Date Visits Re quested Visits Authorized [id number] Closed 03/16/2023 09/14/2024 1 1 Scheduling Instructions PSA and testosterone at [facility] a few days prior to office visit . Reason for Visit * Outpatient (Routine) - Closed Specialty Diagnoses / Procedures Referred By Contac t Referred To Contact Radiation Oncology Stanislaw Alan M.D. [address] [place] [address] Stanislaw Alan M.D. [address] [place] [address] Referral ID Status Reason Start Date Expiration Date Visits Re quested Visits Authorized [id number] Closed 03/16/2023 09/14/2024 1 1 Encounter Details Date Type Department Care Team (Latest Contact Info) Description 11/02/2023 1:37 PM CDT Hospital Encounter Department of Radiation Oncology in [place], [place] [address] [place] [address] Stanislaw Alan M.D. [address] [place] [address] Primary Malignant Neoplasm Of Prostate (HCC) (Primary [...] ??F) 11/02/2023 1:51 PM CDT Respiratory Rate - - Oxygen Saturation - - Inhaled Oxygen Concentration - - Weight 57.6 kg (126 lb 15.8 oz) 11/02/2023 1:51 PM CDT Height - - Body Mass Index 21.39 11/23/2022 10:14 AM CDT documented in this encounter Plan of Treatment Scheduled Orders Name Type Priority Associated Diagnoses Orde r Schedule PSA (Prostate-Specific Antigen), Diagnostic Lab Routine Primary Malignant Neoplasm Of Prostate (HCC) Expected: 03/19/2024 (Approximate), Expires: 11/01/2024 PSA (Prostate-Specific Antigen), Diagnostic Lab Routine Primary Malignant Neoplasm Of Prostate (HCC) Expected: 09/17/2024 (Approximate), Expires: 01/25/2025 PSA (Prostate-Specific Antigen), Diagnostic Lab Routine Primary Malignant Neoplasm Of Prostate (HCC) Expected: 03/19/2025 (Approximate), Expires: 10/02/2025 PSA (Prostate-Specific Antigen), Diagnostic Lab Routine Primary Malignant Neoplasm Of Prostate (HCC) Expected: 09/16/2025 (Approximate), Expires: 01/10/2026 PSA (Prostate-Specific Antigen), Diagnostic Lab Routine Primary Malignant Neoplasm Of Prostate (HCC) Expected: 03/19/2026, Expires: 07/29/2026 PSA (Prostate-Specific Antigen), Diagnostic Lab Routine Primary Malignant Neoplasm Of Prostate (HCC) Expected: 09/16/2026, Expires: 02/14/2027 PSA (Prostate-Specific Antigen), Diagnostic Lab Routine Primary Malignant Neoplasm Of Prostate (HCC) Expected: 03/19/2027, Expires: 09/02/2027 PSA (Prostate-Specific Antigen), Diagnostic Lab Routine Primary Malignant Neoplasm Of Prostate (HCC) Expected: 09/17/2027, Expires: 01/30/2028 PSA (Prostate-Specific Antigen), Diagnostic Lab Routine Primary Malignant Neoplasm Of Prostate (HCC) Expected: 03/21/2028, Expires: 05/08/2028 Scheduled Referrals Name Type Priority Associated Diagnoses Order Schedule Radiation Oncology office visit (clinic) Outpatient Referral Routine Once for 1 Occurrences starting 11/02/2023 until 11/02/2023 Radiation Oncology office visit (clinic) Outpatient Referral Routine Expected: (Approximate), Expires: 05/08/2028 documented as of this encounter Visit Diagnoses Diagnosis Primary Malignant Neoplasm Of Prostate (HCC)- Primary documented in this encounter Care Teams Ship Pilot Relationship Specialty Start Date End Date Elsewhere, Pcp PCP - General Internal Medicine 11/23/22 documented as of this encounter
== END 2023-11-04 07:35 | disposition home or self-care (01) ==
LOC: NFLDREF 11:51
PROVIDERS: PCP Family Medicine; Referring Provider Family Medicine; Visit Provider Family Medicine
DX: I10 Essential (primary) hypertension (principal); R97.20 Elevated prostate specific antigen [PSA]; E78.5 Hyperlipidemia, unspecified; Z13.9 Encounter for screening, unspecified; Z12.5 Encounter for screening for malignant neoplasm of prostate
CPT/HCPCS: 80053; 80061; G0103

== ENCOUNTER 2024-03-12 13:03 | Outpatient (CLI) | payer MEDICARE, BC, SELFPAY ==
[2024-03-12 14:40] LABS: PSA Diagnostic* 0.14 ng/mL (0.10-4.00)
== END 2024-03-12 13:04 | disposition home or self-care (01) ==
PROVIDERS: PCP Family Medicine; Visit Provider Internal Medicine
DX: C61 Malignant neoplasm of prostate (principal)
CPT/HCPCS: 36415; 84153

== ENCOUNTER 2024-09-13 07:42 | Outpatient (CLI) | payer MEDICARE, BC, SELFPAY ==
[2024-09-13 08:52] LABS: PSA Diagnostic* 0.20 ng/mL (0.10-4.00)
== END 2024-09-13 07:43 | disposition home or self-care (01) ==
LOC: LAB 07:45
PROVIDERS: PCP Family Medicine; Visit Provider Physician Assistant
DX: C61 Malignant neoplasm of prostate (principal)
CPT/HCPCS: 36415; 84153

== ENCOUNTER 2024-11-07 07:29 | Outpatient (CLI) | payer MEDICARE, BC, SELFPAY | END 2024-11-07 07:30 | disposition home or self-care (01) | LOC: NFLDREF 10:13 | PROVIDERS: PCP Family Medicine; Referring Provider Family Medicine; Visit Provider Family Medicine | DX: E78.5 Hyperlipidemia, unspecified (principal); I10 Essential (primary) hypertension | CPT/HCPCS: 80053; 80061 ==